=== PATIENT | male | born 1970 | race Caucasian/White ===

== ENCOUNTER 2021-11-15 01:18 | Inpatient (IN) | payer OTHER ==
[~2021-11-15] VITALS: Ht 188 cm; Wt 124.5 kg
[2021-11-15] MEDS ORDERED: DexAMETHasone SOD PHOS 10MG/1ML VIAL INJ IV ONE (02:15)
[2021-11-15 02:46] LABS: Basophils # (auto) 0.2 10 ^3/uL (0-0.2); Eosinophils # (auto) 0.2 10 ^3/uL (0-0.8); Eosinophils % (auto) 1.3 % (0.0-7.0); Hematocrit 46.4 % (41.0-53.0); Hemoglobin 15.7 g/dL (13.5-17.5); Lymphocytes # (auto) 1.6 10 ^3/uL (0.4-5.4); Lymphocytes % (auto) 9.9 % (10.0-50.0); Mean Corpuscular Hgb Conc. 33.8 g/dL (32.0-36.0); Mean Corpuscular Volume 88.9 fL (80.0-100.0); Monocytes # (auto) 1.2 10 ^3/uL (0-1.3); Monocytes % (auto) 7.6 % (0.0-12.0); Neutrophils # (auto) 12.8 10 ^3/uL (1.6-8.6); Neutrophils % (auto) 80.2 % (37.0-80.0); Red Blood Cells 5.22 10^6/uL (4.5-5.90); Red Cell Distribution Width 14.8 % (11.8-14.3)
[2021-11-15 02:58] LABS: Albumin 2.5 g/dL (3.4-5.0); Calcium 8.8 mg/dL (8.5-10.1); Potassium 3.9 mmol/L (3.5-5.1)
[2021-11-15 03:01] LABS: BUN/Creatinine Ratio 15.6
[2021-11-15 03:02] LABS: INR 1.02 (0.9-1.15)
[2021-11-15 03:03] LABS: Bilirubin, Total 0.9 mg/dL (0.2-1.0); Total Protein 7.2 g/dL (6.4-8.2)
[2021-11-15] MEDS ORDERED: AZITHROMYCIN 250 MG TAB PO ONE (05:15)
[2021-11-15] MEDS ORDERED: IPRATROPIUM BROM 0.5 MG/2.5ML INH SOL NEB ONE (05:15)
[2021-11-15] MEDS ORDERED: ALBUTEROL SULF 2.5 MG/0.5ML(0.5%) NEB SOLN NEB ONE (05:15)
[2021-11-15] MEDS ORDERED: cefTRIAXone SOD 1,000 MG VL IV ONE (05:15)
[2021-11-15] MEDS ORDERED: DOCUSATE SOD 100 MG CAP PO PRN (07:00)
[2021-11-15] MEDS ORDERED: DEXTROSE (50%) 50ML SYRG IV PRN ×2 (07:00→14:00)
[2021-11-15] MEDS ORDERED: ACETAMINOPHEN 325 MG TAB PO PRN (07:00)
[2021-11-15] MEDS ORDERED: ONDANSETRON HCL 4 MG/2 ML VIAL IV PRN (07:00)
[2021-11-15] MEDS ORDERED: HYDROcodone-ACET 5/325MG TAB PO PRN (07:00)
[2021-11-15] MEDS ORDERED: MORPHINE SULFATE INJECTION 2 MG/ML SYRG IV PRN (07:15)
[2021-11-15] MEDS ORDERED: NITROGLYCERIN 0.4 MG SL TAB SL PRN (07:15)
[2021-11-15] MEDS ORDERED: IOHEXOL 350 MG/ML 100ML IJ ONE (07:47)
[2021-11-15] MEDS: ACCU-CHEK COMFORT CURVE STRIP VI SCH ×3 (08:42→17:11)
[2021-11-15] MEDS: InsuLIN REG 1unit/0.01ml Soln (100units/ml) SC SCH ×3 (08:45→17:00)
[2021-11-15 09:09] LABS: Urine Bacteria NONE SEEN /hpf (None Seen); Urine Blood Negative /uL (Negative); Urine Mucus FEW (None Seen); Urine Specific Gravity 1.021 (1.001-1.035); Urine WBC 1 /hpf (0 - 3)
[2021-11-15] MEDS: cefTRIAXone 1GM/50ML D5W 50 ML IV SCH (09:09)
[2021-11-15 09:18] LABS: Basophils # (auto) 0.1 10 ^3/uL (0-0.2); Basophils % (auto) 0.4 % (0.0-2.0); Eosinophils # (auto) 0 10 ^3/uL (0-0.8); Eosinophils % (auto) 0.1 % (0.0-7.0); Hematocrit 46.4 % (41.0-53.0); Hemoglobin 15.6 g/dL (13.5-17.5); Lymphocytes # (auto) 1.2 10 ^3/uL (0.4-5.4); Lymphocytes % (auto) 6.6 % (10.0-50.0); Mean Corpuscular Hgb Conc. 33.7 g/dL (32.0-36.0); Mean Corpuscular Volume 89.1 fL (80.0-100.0); Monocytes # (auto) 0.7 10 ^3/uL (0-1.3); Monocytes % (auto) 4.1 % (0.0-12.0); Neutrophils # (auto) 15.6 10 ^3/uL (1.6-8.6); Neutrophils % (auto) 88.8 % (37.0-80.0); Red Blood Cells 5.21 10^6/uL (4.5-5.90); Red Cell Distribution Width 14.8 % (11.8-14.3); White Blood Cell 17.6 10^3/uL (4.4-10.8)
[2021-11-15] MEDS ORDERED: ASPirin 81 mg TAB PO SCH (10:00)
[2021-11-15] MEDS ORDERED: ENOXAPARIN SOD 40 MG/0.4 ML SYRINGE SC SCH ×2 (10:00→22:00)
[2021-11-15] MEDS ORDERED: FAMOTIDINE (10MG/ML) 2ML VL IV SCH (10:00)
[2021-11-15 10:14] LABS: Albumin 2.5 g/dL (3.4-5.0); Calcium 8.7 mg/dL (8.5-10.1); Potassium 4.1 mmol/L (3.5-5.1)
[2021-11-15 10:17] LABS: BUN/Creatinine Ratio 16.7; Bilirubin, Total 0.7 mg/dL (0.2-1.0); Total Protein 7.2 g/dL (6.4-8.2)
[2021-11-15] MEDS: ZINC SULFATE 220mg CAP or TAB PO SCH (10:42)
[2021-11-15] MEDS: AZITHROMYCIN 500MG/ 250ML 250 ML IV SCH (10:42)
[2021-11-15] MEDS: ASCORBIC ACID 500 MG TAB PO SCH ×2 (10:43→22:17)
[2021-11-15] MEDS: MULTIPLE VITAMIN TAB PO SCH (10:43)
[2021-11-15] MEDS ORDERED: REMDESIVIR PER PHARMACY 0 ML IV SCH (12:45)
[2021-11-15] MEDS ORDERED: ACETAMINOPHEN 500 MG TAB PO PRN (12:45)
[2021-11-15] MEDS ORDERED: methylPREDNISolone SOD SUCC 40 MG/ML VL IV SCH (14:00)
[2021-11-15] MEDS: SODIUM CHLOR 0.9% PF (SALINE LOCK) 10ML VIAL/SYR IV SCH ×2 (14:24→22:14)
[2021-11-15] MEDS: APIXABAN 5 MG TAB PO SCH ×2 (14:25→22:15)
[2021-11-15] MEDS ORDERED: REMDESIVIR 200 MG in NS 210ml LOADING DOSE ADULT IV ONE (16:00)
[2021-11-15] MEDS: IVERMECTIN 3 MG TAB PO SCH (17:00)
[2021-11-15] MEDS: FAMOTIDINE 20 MG TAB PO SCH (22:16)
[2021-11-16 02:22] VITALS: BP 127/68
[2021-11-16 05:00] VITALS: BP 135/51
[2021-11-16] MEDS: ACCU-CHEK COMFORT CURVE STRIP VI SCH ×2 (06:27→16:43)
[2021-11-16] MEDS: InsuLIN REG 1unit/0.01ml Soln (100units/ml) SC SCH ×2 (06:27→16:43)
[2021-11-16] MEDS: SODIUM CHLOR 0.9% PF (SALINE LOCK) 10ML VIAL/SYR IV SCH ×3 (06:27→21:16)
[2021-11-16] MEDS: BUDESONIDE (INHALATION) 180 MCG IH IN SCH ×2 (07:10→21:20)
[2021-11-16 08:23] LABS: Basophils # (auto) 0.2 10 ^3/uL (0-0.2); Eosinophils # (auto) 0.1 10 ^3/uL (0-0.8); Eosinophils % (auto) 0.4 % (0.0-7.0); Hematocrit 45.6 % (41.0-53.0); Hemoglobin 15.2 g/dL (13.5-17.5); Lymphocytes # (auto) 2.7 10 ^3/uL (0.4-5.4); Lymphocytes % (auto) 16.8 % (10.0-50.0); Mean Corpuscular Hemoglobin 29.8 pg (28.0-32.0); Mean Corpuscular Hgb Conc. 33.4 g/dL (32.0-36.0); Mean Corpuscular Volume 89.1 fL (80.0-100.0); Monocytes # (auto) 1.4 10 ^3/uL (0-1.3); Monocytes % (auto) 8.5 % (0.0-12.0); Neutrophils # (auto) 11.8 10 ^3/uL (1.6-8.6); Neutrophils % (auto) 73.3 % (37.0-80.0); Nucleated Red Blood Cells % 0.1 %; Red Blood Cells 5.11 10^6/uL (4.5-5.90); Red Cell Distribution Width 14.6 % (11.8-14.3); White Blood Cell 16.1 10^3/uL (4.4-10.8)
[2021-11-16 08:56] LABS: Potassium 4.4 mmol/L (3.5-5.1)
[2021-11-16 09:00] VITALS: BP 118/72
[2021-11-16 09:33] LABS: Albumin 2.6 g/dL (3.4-5.0); BUN/Creatinine Ratio 21.3; Bilirubin, Total 0.6 mg/dL (0.2-1.0); Total Protein 7.7 g/dL (6.4-8.2)
[2021-11-16] MEDS: IVERMECTIN 3 MG TAB PO SCH (10:00)
[2021-11-16] MEDS: ASCORBIC ACID 500 MG TAB PO SCH ×2 (10:01→21:16)
[2021-11-16] MEDS: APIXABAN 5 MG TAB PO SCH (10:01)
[2021-11-16] MEDS: MULTIPLE VITAMIN TAB PO SCH (10:01)
[2021-11-16] MEDS: ZINC SULFATE 220mg CAP or TAB PO SCH (10:01)
[2021-11-16] MEDS: CHOLECALCIFEROL (VITD3) 2,000 UNIT CAP/TAB PO SCH (10:01)
[2021-11-16] MEDS: DexAMETHasone SOD PHOS 10MG/1ML VIAL INJ IV SCH (10:02)
[2021-11-16] MEDS: cefTRIAXone 1GM/50ML D5W 50 ML IV SCH (10:02)
[2021-11-16] MEDS: FAMOTIDINE 20 MG TAB PO SCH ×2 (10:02→21:16)
[2021-11-16] MEDS: ALBUTEROL SULF HFA 90MCG INH 200DOSE IN PRN (11:06)
[2021-11-16] MEDS: AZITHROMYCIN 500MG/ 250ML 250 ML IV SCH (12:12)
[2021-11-16 13:00] VITALS: BP 135/79
[2021-11-16] MEDS: REMDESIVIR 100mg 100 MG in SODIUM CHL 0.9% 230 ML IV SCH (15:59)
[2021-11-16 17:00] VITALS: BP 116/77
[2021-11-16 22:00] VITALS: BP 119/65
[2021-11-17 05:00] VITALS: BP 131/84
[2021-11-17] MEDS: SODIUM CHLOR 0.9% PF (SALINE LOCK) 10ML VIAL/SYR IV SCH ×3 (05:57→21:20)
[2021-11-17] MEDS: InsuLIN REG 1unit/0.01ml Soln (100units/ml) SC SCH ×2 (05:57→17:00)
[2021-11-17] MEDS: ACCU-CHEK COMFORT CURVE STRIP VI SCH ×2 (05:58→17:00)
[2021-11-17 09:00] VITALS: BP 105/56
[2021-11-17] MEDS: BUDESONIDE (INHALATION) 180 MCG IH IN SCH ×2 (10:00→21:00)
[2021-11-17] MEDS: DexAMETHasone SOD PHOS 10MG/1ML VIAL INJ IV SCH (10:06)
[2021-11-17] MEDS: cefTRIAXone 1GM/50ML D5W 50 ML IV SCH (10:06)
[2021-11-17] MEDS: AZITHROMYCIN 500MG/ 250ML 250 ML IV SCH (10:06)
[2021-11-17] MEDS: ZINC SULFATE 220mg CAP or TAB PO SCH (10:06)
[2021-11-17] MEDS: CHOLECALCIFEROL (VITD3) 2,000 UNIT CAP/TAB PO SCH (10:07)
[2021-11-17] MEDS: FAMOTIDINE 20 MG TAB PO SCH ×2 (10:07→21:20)
[2021-11-17] MEDS: MULTIPLE VITAMIN TAB PO SCH (10:07)
[2021-11-17] MEDS: ASCORBIC ACID 500 MG TAB PO SCH ×2 (10:07→21:21)
[2021-11-17 12:21] LABS: Basophils # (auto) 0 10 ^3/uL (0-0.2); Basophils % (auto) 0.1 % (0.0-2.0); Eosinophils # (auto) 0 10 ^3/uL (0-0.8); Eosinophils % (auto) 0.1 % (0.0-7.0); Hematocrit 46.5 % (41.0-53.0); Hemoglobin 14.9 g/dL (13.5-17.5); Lymphocytes # (auto) 1.8 10 ^3/uL (0.4-5.4); Lymphocytes % (auto) 13.3 % (10.0-50.0); Mean Corpuscular Hemoglobin 28.8 pg (28.0-32.0); Mean Corpuscular Hgb Conc. 31.9 g/dL (32.0-36.0); Monocytes % (auto) 7.2 % (0.0-12.0); Neutrophils % (auto) 79.3 % (37.0-80.0); Nucleated Red Blood Cells % 0.1 %; Red Blood Cells 5.17 10^6/uL (4.5-5.90); Red Cell Distribution Width 14.7 % (11.8-14.3); White Blood Cell 13.9 10^3/uL (4.4-10.8)
[2021-11-17 12:22] LABS: Albumin 2.7 g/dL (3.4-5.0); Calcium 8.6 mg/dL (8.5-10.1); Potassium 4.6 mmol/L (3.5-5.1)
[2021-11-17 12:25] LABS: BUN/Creatinine Ratio 22.1; Bilirubin, Total 0.3 mg/dL (0.2-1.0); Total Protein 6.8 g/dL (6.4-8.2)
[2021-11-17 13:00] VITALS: BP 121/83
[2021-11-17] MEDS: ALBUTEROL SULF HFA 90MCG INH 200DOSE IN PRN (15:07)
[2021-11-17] MEDS: REMDESIVIR 100mg 100 MG in SODIUM CHL 0.9% 230 ML IV SCH (15:42)
[2021-11-17 17:00] VITALS: BP 141/81
[2021-11-17] MEDS ORDERED: TEMAZEPAM 15 MG CAP PO ONE (20:45)
[2021-11-17 22:00] VITALS: BP 138/82
[2021-11-18 05:00] VITALS: BP 128/76
[2021-11-18] MEDS: ACCU-CHEK COMFORT CURVE STRIP VI SCH (06:16)
[2021-11-18] MEDS: InsuLIN REG 1unit/0.01ml Soln (100units/ml) SC SCH (06:16)
[2021-11-18] MEDS: SODIUM CHLOR 0.9% PF (SALINE LOCK) 10ML VIAL/SYR IV SCH (06:16)
[2021-11-18] MEDS: ALBUTEROL SULF HFA 90MCG INH 200DOSE IN PRN (06:39)
[2021-11-18] MEDS: BUDESONIDE (INHALATION) 180 MCG IH IN SCH (06:39)
[2021-11-18] MEDS ORDERED: DEX4T PO (07:25)
[2021-11-18] MEDS ORDERED: ALBUAER3 IN (07:25)
[2021-11-18] MEDS ORDERED: APIX5TAB PO (07:25)
[2021-11-18] MEDS ORDERED: ASCO500T11 PO (07:25)
[2021-11-18 07:51] LABS: Basophils # (auto) 0.2 10 ^3/uL (0-0.2); Eosinophils # (auto) 0 10 ^3/uL (0-0.8); Hematocrit 45.7 % (41.0-53.0); Hemoglobin 15.3 g/dL (13.5-17.5); Lymphocytes # (auto) 2.6 10 ^3/uL (0.4-5.4); Lymphocytes % (auto) 16.3 % (10.0-50.0); Mean Corpuscular Hgb Conc. 33.5 g/dL (32.0-36.0); Mean Corpuscular Volume 89.4 fL (80.0-100.0); Monocytes # (auto) 1.5 10 ^3/uL (0-1.3); Neutrophils % (auto) 73.7 % (37.0-80.0); Nucleated Red Blood Cells % 0.1 %; Red Blood Cells 5.11 10^6/uL (4.5-5.90); Red Cell Distribution Width 14.7 % (11.8-14.3); White Blood Cell 16.2 10^3/uL (4.4-10.8)
[2021-11-18 08:09] LABS: Potassium 4.5 mmol/L (3.5-5.1)
[2021-11-18 08:17] LABS: Albumin 2.7 g/dL (3.4-5.0); BUN/Creatinine Ratio 22.5; Bilirubin, Total 0.2 mg/dL (0.2-1.0); Calcium 8.4 mg/dL (8.5-10.1); Total Protein 6.7 g/dL (6.4-8.2)
[2021-11-18 08:35] VITALS: BP 141/82
[2021-11-18] MEDS: cefTRIAXone 1GM/50ML D5W 50 ML IV SCH (09:49)
[2021-11-18] MEDS: DexAMETHasone SOD PHOS 10MG/1ML VIAL INJ IV SCH (09:49)
[2021-11-18] MEDS: AZITHROMYCIN 500MG/ 250ML 250 ML IV SCH (09:49)
[2021-11-18] MEDS: ZINC SULFATE 220mg CAP or TAB PO SCH (09:50)
[2021-11-18] MEDS: CHOLECALCIFEROL (VITD3) 2,000 UNIT CAP/TAB PO SCH (09:50)
[2021-11-18] MEDS: MULTIPLE VITAMIN TAB PO SCH (09:50)
[2021-11-18] MEDS: FAMOTIDINE 20 MG TAB PO SCH (09:50)
[2021-11-18] MEDS: ASCORBIC ACID 500 MG TAB PO SCH (09:50)
[2021-11-22] MEDS ORDERED: APIXABAN 5 MG TAB PO SCH (10:00)
== END 2021-11-18 11:40 | disposition home or self-care (01) | DRG 177 ==
LOC: EDBD 01:18 → ER 01:18 → TELE 07:13 → TELE-WESTW 23:41
PROVIDERS: ADMIT Nurse Practitioner Family; ATTEND Internal Medicine
PROC: XW033E5 Introduction of Remdesivir Anti-infective into Peripheral Vein, Percutaneous Approach, New Technology Group 5 (ICD-10-PCS; principal; 2021-11-15)
DX: U07.1 COVID-19 (principal); J12.82 Pneumonia due to coronavirus disease 2019; I26.99 Other pulmonary embolism without acute cor pulmonale; J96.01 Acute respiratory failure with hypoxia; E88.09 Other disorders of plasma-protein metabolism, not elsewhere classified; I10 Essential (primary) hypertension; E66.01 Morbid (severe) obesity due to excess calories; R73.9 Hyperglycemia, unspecified; D89.839 Cytokine release syndrome, grade unspecified; J43.9 Emphysema, unspecified; Z68.35 Body mass index [BMI] 35.0-35.9, adult; Z72.0 Tobacco use
CPT/HCPCS: 36415; 71045; 71275; 80053; 81001; 82728; 82962; 83036; 83880; 84484; 85025; 85379; 85610; 85730; 87426; 93005; 94640; 96365; 96367; 96375; G0378; J0696; J1100; J3490

== ENCOUNTER 2025-02-06 15:23 | Emergency (ER) | payer OTHER ==
[~2025-02-06] VITALS: Ht 190.5 cm; Wt 113.6 kg
[~2025-02-06 15:23] MED LIST: ALBUAER3 IN; APIX5TAB PO; ASCO500T11 PO; DEX4T PO
--- NOTE | 2025-02-06 15:52 | ED.PDOC ---
History of Present Illness HPI Comments 54 y/o M, with a Hx of COPD, DVT, PE, and former tobacco use, presents with and [id number] for c/o left-sided chest pain, today. Patient reports on ongoing chest pain for the past 2x months, that worsened, today. He reports it a 6/10 in severity and being sharp in quality. Per , patient was reported to have been found with a PE and hospitalized, during a trip to [place] 3x weeks ago. During admission, patient was stated to have received a thrombectomy and chest-tube and has been on Eliquis since then. Patient denies any shortness of breath, palpitations, dizziness, lightheadedness, nausea, vomiting, or other associated symptoms or modifiers at this time. Chief Complaint: Chest Pain Time Seen by MD: 15:30 Primary Care Provider: MARIA T Reviewed Notes: Nurses Notes, Medications, Allergies Allergies: Coded Allergies: NO KNOWN ALLERGIES (Unverified , 09/29/11) Home Meds Active Scripts Dexamethasone (Decadron) 4 Mg Tb, 6 MG PO UD for 5 Days, #5 TAB Prov:MJ BAEZ MD 11/18/21 Ascorbic Acid (VITAMIN C TABLET) 500 Mg Tb, 500 MG PO BID, #60 TAB Prov:MJ BAEZ MD 11/18/21 Apixaban Base (ELIQUIS) 5 Mg Tab, 5 MG PO BID, #60 TAB Prov:MJ BAEZ MD 11/18/21 Albuterol Sulfate (VENTOLIN MDI) 90 Mcg Ih, 180 MCG IN TIDPRN PRN, #1 INH Prov:MJ BAEZ MD 11/18/21 Information Source: Patient, Spouse Mode of Arrival: Wheelchair Severity: Moderate Timing: Months Duration: Since onset Prehospital treatment: None Past Medical History PAST MEDICAL HISTORY: COPD, PE Past Medical History (Other): DVT Surgical History: Hernia Repair Family History Family History: No family hx of DM Social History Smoker: Quit Greater Than 1 Year, Cigarettes Alcohol: Denies ETOH Use Drugs: Denies Drug Use Lives In: Home Constitutional: denies: chills, diaphoresis, fatigue, fever, malaise, sweats, weakness, others EENTM: denies: blurred vision, double vision, ear bleeding, ear discharge, ear drainage, ear pain, ear ringing, eye pain, eye redness, hearing loss, mouth pain, mouth swelling, nasal discharge, nose bleeding, nose congestion, nose pain, photophobia, tearing, throat pain, throat swelling, voice changes, others Respiratory: denies: cough, hemoptysis, orthopnea, SOB at rest, shortness of breath, SOB with excertion, stridor, wheezing, others Cardiovascular: reports: chest pain; denies: dizzy spells, diaphoresis, Dyspnea on exertion, edema, irregular heart beat, left arm pain, lightheadedness, palpitations, PND, syncope, others Gastrointestinal: denies: abdomen distended, abdominal pain, blood streaked bowels, constipated, diarrhea, dysphagia, difficulty swallowing, hematemesis, melena, nausea, poor appetite, poor fluid intake, rectal bleeding, rectal pain, vomiting, others Genitourinary: denies: burning, dysuria, flank pain, frequency, hematuria, incontinence, penile discharge, penile sore, pain, testicle pain, testicle swelling, urgency, others Neurological: denies: dizziness, fainting, headache, left sided numbness, left sided weakness, numbness, paresthesia, pre-existing deficit, right sided numbness, right sided weakness, seizure, speech problems, tingling, tremors, weakness, others Musculoskeletal: denies: back pain, gout, joint pain, joint swelling, muscle pain, muscle stiffness, neck pain, others Integumetry: denies: bruises, change in color, change in hair/nails, dryness, laceration, lesions, lumps, rash, wounds, others Allergic/Immunocompromised: denies: Difficulty Healing, Frequent Infections, Hives, Itching, others Hematologic/Lymphatic: denies: anemia, blood clots, easy bleeding, easy bruising, swollen glands, others Endocrine: denies: excessive hunger, excessive sweating, excessive thirst, excessive urination, flushing, intolerance to cold, intolerance to heat, unexplained weight gain, unexplained weight loss, others Psychiatric: denies: anxiety, bipolar disorder, depression, hopeless, panic disorder, schizophrenia, sleepless, suicidal, others All Other Systems: Reviewed and Negative Physical Exam General Appearance: Moderate Distress HEENT: Pale Conjuntivae (L), Pale Conjuntivae (R), Pharynx Normal, TMs Normal Neck: Full Range of Motion, Non-Tender, Normal, Normal Inspection Respiratory: Chest Non-Tender, Lungs Clear, No Accessory Muscle Use, No Respiratory Distress, Normal Breath Sounds Cardiovascular: No Edema, No JVD, No Murmur, No Gallop, Tachycardia Breast Exam: Deferred Gastrointestinal: No Organomegaly, Non Tender, No Pulsatile Mass, Normal Bowel Sounds, Soft Genitalia: Deferred Pelvic: Deferred Rectal: Deferred Extremities: No calf tenderness, Normal capillary refill, No pedal edema Musculoskeletal : Apperance: Normal Neurologic: Alert, medical scientific liaison II-XII nml as Tested, No Motor Deficits, Normal Affect, Normal Mood, No Sensory Deficits Cerebellar Function: Normal Reflexes: Normal Skin: Dry, Pallor, Warm Lymphatic: No Adenopathy Was a procedure done? Was a procedure done?: No EKG EKG : Pulse Rate (adult): 115 [place]: Normal Cardiac Rhythm: ST Block: None Hypertrophy: None ST: Normal Differential Dx Considerations may include: ME, PE, ACS, URI, PNA, among others X-Ray, Labs, Meds, VS Vital Signs Date Time Temp Pulse Resp B/P (MAP) Pulse Ox O2 Delivery O2 Flow Rate FiO2 02/06/25 17:14 103 02/06/25 15:52 115 02/06/25 15:30 100.0 108 24 137/68 (91) 93 100.0 02/06/25 15:27 115 Lab Test 02/06/25 17:12 02/06/25 15:28 Range/Units Troponin I High Sensitivity 13 12 </=54 ng/L White Blood Count 14.2 H 4.4-10.8 10^3/uL Red Blood Count 4.78 4.5-5.90 10^6/uL Hemoglobin 14.1 13.5-17.5 g/dL Hematocrit 42.4 41.0-53.0 % Mean Corpuscular Volume 88.7 80.0-100.0 fL Mean Corpuscular Hemoglobin 29.4 28.0-32.0 pg Mean Corpuscular Hemoglobin Concent 33.2 32.0-36.0 g/dL Red Cell Distribution Width 14.2 11.8-14.3 % Platelet Count 229 140-450 10^3/uL Mean Platelet Volume 7.5 6.9-10.8 fL Neutrophils (%) (Auto) 71.8 37.0-80.0 % Lymphocytes (%) (Auto) 18.0 10.0-50.0 % Monocytes (%) (Auto) 7.1 0.0-12.0 % Eosinophils (%) (Auto) 2.4 0.0-7.0 % Basophils (%) (Auto) 0.7 0.0-2.0 % Neutrophils # (Auto) 10.2 H 1.6-8.6 10 ^3/uL Lymphocytes # (Auto) 2.5 0.4-5.4 10 ^3/uL Monocytes # (Auto) 1.0 0-1.3 10 ^3/uL Eosinophils # (Auto) 0.3 0-0.8 10 ^3/uL Basophils # (Auto) 0.1 0-0.2 10 ^3/uL Nucleated Red Blood Cells 0.0 % D-Dimer, Quantitative 17.06 H 0.0-0.49 mg/L FEU Sodium Level 138 136-145 mmol/L Potassium Level 3.8 3.5-5.1 mmol/L Chloride Level 102 98-107 mmol/L Carbon Dioxide Level 24 20-31 mmol/L Anion Gap 12 5-15 Blood Urea Nitrogen 9 9-23 mg/dL Creatinine 0.92 0.700-1.30 mg/dL Glomerular Filtration Rate Calc 99 >90 mL/min BUN/Creatinine Ratio 9.8 L 10.0-20.0 Serum Glucose 213 H 74-106 mg/dL Calcium Level 10.0 8.7-10.4 mg/dL B-Type Natriuretic Peptide 36.98 0-100 pg/mL The patient's CBC shows an elevated white blood cell count of 14.2 The rest of the CBC is within normal limits The D-dimer is 17.06 The chemistry panel is within normal limits The BNP is within normal limits. The concern was that the patient may have an increasing pulmonary embolus and the CAT scan was done with contrast and shows: IMPRESSION: 1. Multiple pulmonary emboli in the subsegmental branch of the left lower lobe. 2. 4.1 cm pulmonary mass in the left upper lobe concerning for neoplastic process. 3. Scattered mediastinal lymph nodes some of which are upper limits of normal in size and are most likely reactive lymph nodes. We did contact [facility] and they did confirmed with the patient did have a smaller mass in the area of the left upper lobe that was in the 3 cm range At this time they feel that the patient was stable for transfer so the patient will be transferred to their facility Images Reviewed?: Images reviewed and evaluated by me Time of 1ST Reevaluation: 16:00 Reevaluation 1ST: Unchanged Patient Education/Counseling: Diagnosis, Treatment, Prognosis Family Education/Counseling: Diagnosis, Treatment, Prognosis Departure 1 Departure Time of Disposition: 18:46 Impression: Primary Impression: Acute chest pain Additional Impressions: Pulmonary embolus Qualified Codes: I26.94 - Multiple subsegmental thrombotic pulmonary emboli without acute cor pulmonale Mass of left lung Disposition: 51 HOSPICE/MEDICAL FACILITY Condition: Fair Critical Care Note Critical Care Time?: Yes (45 min-critical care time only) Stability Stability form required: Yes Stable for transfer: Intended for transfer (Health plan request transfer), To designated facility Heart Score Heart Score: Heart Score Response (Comments) Value History Highly Suspicious 2 EKG Normal 0 Age 45-64 1 Risk Factors >3 or Hx ASHD 2 Troponin Normal limit 0 Total 5 I personally scribed for MIAH PRO MD ([email or web address]) on 02/06/25 at 15:52. Electronically submitted by Solo Hernandez [email or web address]). MIAH PRO MD Feb 06, 2025 15:52
[2025-02-06 16:14] LABS: Basophils # (auto) 0.1 10 ^3/uL (0-0.2); Basophils % (auto) 0.7 % (0.0-2.0); Eosinophils # (auto) 0.3 10 ^3/uL (0-0.8); Eosinophils % (auto) 2.4 % (0.0-7.0); Hematocrit 42.4 % (41.0-53.0); Hemoglobin 14.1 g/dL (13.5-17.5); Lymphocytes # (auto) 2.5 10 ^3/uL (0.4-5.4); Mean Corpuscular Hemoglobin 29.4 pg (28.0-32.0); Mean Corpuscular Hgb Conc. 33.2 g/dL (32.0-36.0); Mean Corpuscular Volume 88.7 fL (80.0-100.0); Monocytes % (auto) 7.1 % (0.0-12.0); Neutrophils # (auto) 10.2 10 ^3/uL (1.6-8.6); Neutrophils % (auto) 71.8 % (37.0-80.0); Platelet Count (auto) 229 10^3/uL (140-450); Red Blood Cells 4.78 10^6/uL (4.5-5.90); Red Cell Distribution Width 14.2 % (11.8-14.3); White Blood Cell 14.2 10^3/uL (4.4-10.8)
[2025-02-06 16:23] LABS: Chloride 102 mmol/L (98-107); Potassium 3.8 mmol/L (3.5-5.1); Sodium 138 mmol/L (136-145)
[2025-02-06 16:24] LABS: Anion Gap 12 (5-15); Carbon Dioxide 24 mmol/L (20-31)
[2025-02-06 16:29] LABS: BUN/Creatinine Ratio 9.8 (10.0-20.0); Blood Urea Nitrogen 9 mg/dL (9-23); Glucose 213 mg/dL (74-106)
[2025-02-06] MEDS: IOHEXOL 350 MG/ML 100ML IJ ONE (16:46)
--- NOTE | 2025-02-06 17:15 | ECG ---
[facility] Test Date: 2025-02-06 Test Time: 17:14:05 Pat Name: CELINE TABOR Department: ER Room: Gender: M Regulatory Technician: MATIAS : 1970 Requested By: MIAH PRO Order Number: [id number] Reading MD: Jaciel Wagner Measurements Intervals [place] Rate: 103 P: 51 CT: 138 QRS: -2 QRSD: 75 T: -62 QT: 337 QTc: 441 Interpretive Statements Sinus tachycardia Abnormal R-wave progression, early transition LVH with secondary repolarization abnormality Electronically Signed On 02-08-2025 21:02:27 PDT by Jaciel Wagner Please click the below link to view image of tracing.
--- NOTE | 2025-02-06 17:44 | DVH ---
EXAM: CT Angiography Chest With Intravenous Contrast CLINICAL INDICATION: cp/sob TECHNIQUE: Axial computed tomographic angiography images of the chest with intravenous contrast. Th is CT exam was performed using one or more of the following dose reduction techniques: automated exp osure control, adjustment of the mA and/or kV according to patient size, and/or use of iterative maximus nstruction technique. MIP reconstructed images were created and reviewed. CONTRAST: RADIATION DOSE: CTDIvol = 25.12 mGy, DLP = 769.28 mGy-cm COMPARISON: CT ANGIO CHEST CONTRAST on DOS: 11/15/21 FINDINGS: PULMONARY ARTERIES: Multiple pulmonary emboli in the subsegmental branch of the left lower lobe. AORTA: No acute findings. No thoracic aortic aneurysm. LUNGS AND PLEURAL SPACES: 4.1 cm pulmonary mass in the left upper lobe concerning for neoplastic pr ocess. Lung emphysema/ COPD. No consolidation. No significant effusion. No pneumothorax. HEART: Unremarkable. No cardiomegaly. No significant pericardial effusion. No evidence of RV dys function. MEDIASTINUM: Scattered mediastinal lymph nodes some of which are upper limits of normal in size and are most likely reactive lymph nodes. BONES/JOINTS: No acute fracture. No dislocation. SOFT TISSUES: Unremarkable. LYMPH NODES: See above. OTHER FINDINGS: . IMPRESSION: 1. Multiple pulmonary emboli in the subsegmental branch of the left lower lobe. 2. 4.1 cm pulmonary mass in the left upper lobe concerning for neoplastic process. 3. Scattered mediastinal lymph nodes some of which are upper limits of normal in size and are most l ikely reactive lymph nodes. Findings were discussed with Dr. Arlene delgado on 02/06/2025 at 5:40 p.m..
[2025-02-06] MEDS: MORPHINE SULFATE 4 MG/ML SYR/VIAL IV ONE (18:30)
[2025-02-06] MEDS: ONDANSETRON HCL 4 MG/2 ML VIAL IV ONE (19:30)
[2025-02-06 20:07] VITALS: TEMP 98.1
[2025-02-06 20:09] VITALS: PULSE 100; RESP 23; O2SAT 94
[2025-02-06 20:49] VITALS: BP 122/86; PULSE 100; RESP 21
--- NOTE | 2025-02-09 06:48 | ECG ---
[facility] Test Date: 2025-02-06 Test Time: 15:27:49 Pat Name: CELINE TABOR Department: ER Room: Gender: M Manager Trust: STUART : 1970 Requested By: MIAH PRO Order Number: [id number] Reading MD: Measurements Intervals [place] Rate: 115 P: 38 MI: 141 QRS: -1 QRSD: 74 T: -60 QT: 321 QTc: 444 Interpretive Statements Sinus tachycardia Abnormal R-wave progression, early transition LVH with secondary repolarization abnormality Please click the below link to view image of tracing.
== END 2025-02-06 18:24 | disposition short-term general hospital (02) ==
LOC: ER 15:23
DX: I26.99 Other pulmonary embolism without acute cor pulmonale (principal); R91.8 Other nonspecific abnormal finding of lung field; J44.9 Chronic obstructive pulmonary disease, unspecified; Z86.718 Personal history of other venous thrombosis and embolism; Z87.891 Personal history of nicotine dependence; Z79.01 Long term (current) use of anticoagulants; Z98.890 Other specified postprocedural states
CPT/HCPCS: 36415; 71275; 80048; 83880; 84484; 85025; 85379; 93005; 96374; 96375; 99291; J2270; J2405; Q9967

== ENCOUNTER 2025-03-15 23:30 | Emergency (ER) | payer MEDICAID ==
[~2025-03-15] VITALS: Ht 185.4 cm; Wt 136.4 kg
--- NOTE | 2025-03-15 23:52 | ED.PDOC ---
SOB-HPI HPI Comments 54 year old male was BIBA with a PMHx of COPD, and PE associated to the c/c of SOB and Bilateral Leg Swelling. Pt states that his called 911 after she noticed him struggling to take in deep breaths. Pt states that his SOB has been going on for the past month with no alleviating factors at this time. Pt states that he previously had a blood clot that went down his left leg in November and was flown to [facility] to get it removed. Pt notes to being on 4L O2 at home. Pt denies any other pain or sick contact at this point in time. Time Seen by MD: 23:46 Primary Care Provider: FAIZAN Huertas notes: Nurses Notes, Paper Rewinder Operator Notes, Medications, Allergies Information Source: Patient, Emergency Med Personnel Mode of Arrival: EMS Severity: Moderate Timing: Hours Duration: Since onset, Hours Context: At Rest PE Risk Factors: None History of: COPD Prehospital treatment: Oxygen Modifying Factors: Rest Associated Signs and Symptoms: Leg Swelling Quality: Heavy Radiation: No Radiation If cough with SOB: Non-Productive Past Medical History PAST MEDICAL HISTORY: COPD, PE Surgical History: Hernia Repair Family History Family History: No family hx of DM Social History Smoker: Quit Greater Than 1 Year, Cigarettes Alcohol: Denies ETOH Use Drugs: Denies Drug Use Lives In: Home Constitutional: denies: chills, diaphoresis, fatigue, fever, malaise, sweats, weakness, others EENTM: denies: blurred vision, double vision, ear bleeding, ear discharge, ear drainage, ear pain, ear ringing, eye pain, eye redness, hearing loss, mouth pain, mouth swelling, nasal discharge, nose bleeding, nose congestion, nose pain, photophobia, tearing, throat pain, throat swelling, voice changes, others Respiratory: reports: SOB at rest, shortness of breath; denies: cough, hemoptysis, orthopnea, SOB with excertion, stridor, wheezing, others Cardiovascular: denies: chest pain, dizzy spells, diaphoresis, Dyspnea on exertion, edema, irregular heart beat, left arm pain, lightheadedness, palpitations, PND, syncope, others Gastrointestinal: denies: abdomen distended, abdominal pain, blood streaked bowels, constipated, diarrhea, dysphagia, difficulty swallowing, hematemesis, melena, nausea, poor appetite, poor fluid intake, rectal bleeding, rectal pain, vomiting, others Genitourinary: denies: burning, dysuria, flank pain, frequency, hematuria, incontinence, penile discharge, penile sore, pain, testicle pain, testicle swe lling, urgency, others Neurological: denies: dizziness, fainting, headache, left sided numbness, left sided weakness, numbness, paresthesia, pre-existing deficit, right sided numbness, right sided weakness, seizure, speech problems, tingling, tremors, weakness, others Musculoskeletal: reports: others (bilateal leg swelling); denies: back pain, gout, joint pain, joint swelling, muscle pain, muscle stiffness, neck pain Integumetry: denies: bruises, change in color, change in hair/nails, dryness, laceration, lesions, lumps, rash, wounds, others Allergic/Immunocompromised: denies: Difficulty Healing, Frequent Infections, Hives, Itching, others Hematologic/Lymphatic: denies: anemia, blood clots, easy bleeding, easy bruising, swollen glands, others Endocrine: denies: excessive hunger, excessive sweating, excessive thirst, excessive urination, flushing, intolerance to cold, intolerance to heat, unexplained weight gain, unexplained weight loss, others Psychiatric: denies: anxiety, bipolar disorder, depression, hopeless, panic disorder, schizophrenia, sleepless, suicidal, others All Other Systems: Reviewed and Negative Physical Exam General Appearance: Mild Distress, Obese HEENT: Normal ENT Inspection, Pharynx Normal, TMs Normal Neck: Full Range of Motion, Non-Tender, Normal, Normal Inspection Respiratory: Chest Non-Tender, Decreased Breath Sounds, Lungs Clear, No Accessory Muscle Use, No Respiratory Distress, Normal Breath Sounds Cardiovascular: No Edema, No JVD, No Murmur, No Gallop, Normal Peripheral Pulses, Regular Rate/Rhythm Breast Exam: Deferred Gastrointestinal: No Organomegaly, Non Tender, No Pulsatile Mass, Normal Bowel Sounds, Soft Genitalia: Deferred Pelvic: Deferred Rectal: Deferred Extremities: Inflammation, Leg edema, Normal capillary refill, Normal inspection, Normal range of motion Musculoskeletal : Apperance: Normal Neurologic: Alert, green marketer II-XII nml as Tested, No Motor Deficits, Normal Affect, Normal Mood, No Sensory Deficits Cerebellar Function: Normal Reflexes: Normal Skin: Dry, Normal Color, Warm Lymphatic: No Adenopathy Was a procedure done? Was a procedure done?: No Differential Dx Differential Diagnosis: Asthma, Bronchitis, CHF, COPD, Pneumonia, Pulmonary Embolism, URI, Other X-Ray, Labs, Meds, VS Vital Signs Date Time Temp Pulse Resp B/P (MAP) Pulse Ox O2 Delivery O2 Flow Rate FiO2 03/16/25 01:01 95 25 121/62 03/16/25 00:17 18 96 Nasal Cannula* 3 32 03/15/25 23:35 98.3 106 25 132/90 (104) 95 98.3 03/15/25 23:34 101 Lab Test 03/16/25 00:06 03/15/25 23:55 Range/Units Blood Gas Specimen Type Venous Blood Gas Sample Site Vbg - n/a Blood Gas Patient Temperature 37.0 Arterial Blood Date Drawn [id number] Greg Test N/a Venous Blood pH 7.447 H 7.320-7.430 Venous Blood pCO2 at Patient Temp 36.1 L 38.0-54.0 mmHg Venous Blood pO2 at Patient Temp 58.4 H 23.0-48.0 mmHg Venous Blood HCO3 24.4 22.0-29.0 mmol/L Venous Bld O2 Saturation (Measured) 90.7 H 60.0-85.0 % Venous Blood Base Excess 0.7 -2.0-3.0 mmol/L Venous Blood Total Hemoglobin 14.2 13.5-17.5 g/dL Venous Blood Oxyhemoglobin 87.7 H 0.0-79.0 % Venous Blood Carboxyhemoglobin 2.6 H 0.5-1.5 % Venous Blood Methemoglobin 0.7 0.0-1.5 % Blood Gas Liter Flow 3.00 Blood Gas Modality Nasal cannula FiO2 % 32.0 White Blood Count 14.8 H 4.4-10.8 10^3/uL Red Blood Count 4.88 4.5-5.90 10^6/uL Hemoglobin 13.4 L 13.5-17.5 g/dL Hematocrit 41.1 41.0-53.0 % Mean Corpuscular Volume 84.1 80.0-100.0 fL Mean Corpuscular Hemoglobin 27.5 L 28.0-32.0 pg Mean Corpuscular Hemoglobin Concent 32.7 32.0-36.0 g/dL Red Cell Distribution Width 16.0 H 11.8-14.3 % Platelet Count 158 140-450 10^3/uL Mean Platelet Volume 7.7 6.9-10.8 fL Neutrophils (%) (Auto) 72.3 37.0-80.0 % Lymphocytes (%) (Auto) 17.1 10.0-50.0 % Monocytes (%) (Auto) 7.8 0.0-12.0 % Eosinophils (%) (Auto) 2.0 0.0-7.0 % Basophils (%) (Auto) 0.8 0.0-2.0 % Neutrophils # (Auto) 10.7 H 1.6-8.6 10 ^3/uL Lymphocytes # (Auto) 2.5 0.4-5.4 10 ^3/uL Monocytes # (Auto) 1.2 0-1.3 10 ^3/uL Eosinophils # (Auto) 0.3 0-0.8 10 ^3/uL Basophils # (Auto) 0.1 0-0.2 10 ^3/uL Nucleated Red Blood Cells 0.0 % Prothrombin Time 43.8 H 9.3-11.8 sec Prothrombin Time INR 4.83 *H 0.9-1.15 Activated Partial Thromboplast Time 62.2 H 24.5-34.5 SEC Sodium Level 138 136-145 mmol/L Potassium Level 4.0 3.5-5.1 mmol/L Chloride Level 105 98-107 mmol/L Carbon Dioxide Level 24 20-31 mmol/L Anion Gap 9 5-15 Blood Urea Nitrogen 12 9-23 mg/dL Creatinine 0.67 L 0.700-1.30 mg/dL Glomerular Filtration Rate Calc 112 >90 mL/min BUN/Creatinine Ratio 17.9 10.0-20.0 Serum Glucose 153 H 74-106 mg/dL Calcium Level 9.5 8.7-10.4 mg/dL Total Bilirubin 0.5 0.2-1.0 mg/dL Aspartate Amino Transferase (AST) 15 13-40 U/L Alanine Aminotransferase (ALT) 18 7-40 U/L Alkaline Phosphatase 89 46-116 U/L Troponin I High Sensitivity 7 </=54 ng/L Total Protein 7.0 5.7-8.2 g/dL Albumin 4.2 3.2-4.8 g/dL Current Medications Medications (Trade) Dose Ordered Sig/Elias Route Start Time Stop Time Status Last Admin Prednisone 40 mg ONCE ONCE PO 03/16/25 00:00 03/16/25 00:01 DC 03/16/25 01:00 Albuterol (Ventolin Medneb) 5 mg ONCE ONCE NEB 03/16/25 00:00 03/16/25 00:01 DC 03/16/25 00:13 Ipratropium [place] (Atrovent Medneb) 0.5 mg ONCE ONCE NEB 03/16/25 00:00 03/16/25 00:01 DC 03/16/25 00:12 Morphine Sulfate 4 mg ONCE ONCE IV 03/16/25 00:45 03/16/25 00:46 DC 03/16/25 01:01 Ondansetron HCl (Zofran) 4 mg ONCE ONCE IV 03/16/25 00:45 03/16/25 00:46 DC 03/16/25 01:00 Time of 1ST Reevaluation: 01:13 Reevaluation 1ST: Unchanged Patient Education/Counseling: Diagnosis, Treatment Family Education/Counseling: No Family Present Departure 1 Departure Time of Disposition: 01:19 Impression: Primary Impression: COPD exacerbation Additional Impressions: Mass of left lung Pulmonary embolus Hypoxia Overdose of coumadin Disposition: ADMITTED INPATIENT Admit to: Med Surg Condition: Guarded Comments Shortness of Breath with Hypoxia in COPD Patient Chief Complaint: Shortness of breath with hypoxia History of Present Illness: 54-year-old male with history of COPD on home oxygen presents with worsening shortness of breath and low oxygen saturation at home. Patient has a significant history of right leg DVT and pulmonary embolus diagnosed a few months ago, for which he is on Coumadin therapy. He reports persistent right greater than left leg swelling. Recent workup has revealed a recurrent left-sided lung mass. Of note, patient's current INR is significantly elevated at 4.83, indicating supratherapeutic anticoagulation. Review of Systems: Respiratory: Shortness of breath, requiring supplemental oxygen Cardiovascular: No chest pain Extremities: Right greater than left leg swelling Constitutional: No fever reported All other systems reviewed and negative Medications: 1. Coumadin (Warfarin) - dose not specified 2. Home oxygen therapy Allergies: No known allergies documented Past Medical History: 1. Chronic Obstructive Pulmonary Disease (COPD) on home oxygen 2. Deep Vein Thrombosis (DVT) - right leg 3. Pulmonary Embolism - diagnosed few months ago 4. Left-sided lung mass - recurrent Vital Signs: Oxygen saturation noted to be low, requiring supplemental oxygen via nasal jairo isac Physical Exam: General: Patient stable on supplemental oxygen Extremities: Right greater than left leg swelling noted Lab Results: WBC: 14.8 (Elevated) INR: 4.83 (Supratherapeutic) Troponin: 7 (Within normal limits) Imaging and Other Relevant Results: Chest X-ray: Reveals recurrent left-sided lung mass Medical Decision Making: Summary Statement: 54-year-old male with multiple comorbidities including COPD, recent PE, and known lung mass presents with respiratory failure and supratherapeutic INR requiring intervention. Problem List: 1. Respiratory failure with hypoxia 2. COPD exacerbation 3. Subacute pulmonary embolus 4. Left-sided lung mass 5. Coumadin overdose Differential Diagnosis: 1. COPD exacerbation 2. New/recurrent PE 3. Progression of lung mass 4. Pneumonia 5. Acute blood loss due to supratherapeutic INR ED Course: Patient stabilized with supplemental oxygen. Labs and imaging obtained. Given complex presentation and multiple active issues, coordination with [facility] initiated for possible transfer or admission. Assessment and Plan: 1. Respiratory Failure with Hypoxia: - Continue supplemental oxygen therapy - Monitor oxygen saturation - Arrange admission for further management 2. COPD Exacerbation: - Continue current oxygen therapy - Consider need for steroids and bronchodilators 3. Subacute Pulmonary Embolus/DVT: - Hold Coumadin due to supratherapeutic INR - Monitor for bleeding complications 4. Left-sided Lung Mass: - Requires follow-up evaluation during admission 5. Coumadin Overdose (INR 4.83): - Hold Coumadin - Monitor for bleeding - Consider vitamin K administration based on admitting team's assessment Disposition: Contact [facility] for transfer/admission arrangements Billing Information: ICD-10: J44.1 - COPD with acute exacerbation ICD-10: J96.01 - Acute respiratory failure with hypoxia ICD-10: I26.99 - Other pulmonary embolism without acute cor pulmonale ICD-10: R91.1 - Solitary pulmonary nodule ICD-10: D68.32 - Coumarin-induced hemorrhage Critical Care Note Critical Care Time?: No Stability Stability form required: No Heart Score Heart Score: Heart Score Response (Comments) Value History Slightly Suspicious 0 EKG Normal 0 Age 45-64 1 Risk Factors 1 or 2 risk factors 1 Troponin Normal limit 0 Total 2 I personally scribed for JESSICA CARRILLO MD ([email or web address]) on 03/15/25 at 23:52. Electronically submitted by Justino Almazan ([email or web address]). JESSICA CARRILLO MD March 15, 2025 23:52
[2025-03-16] MEDS: IPRATROPIUM BROM 0.5 MG/2.5ML INH SOL NEB ONE (00:12)
[2025-03-16] MEDS: ALBUTEROL SULF 2.5 MG/0.5ML(0.5%) NEB SOLN NEB ONE (00:13)
[2025-03-16 00:25] LABS: Basophils # (auto) 0.1 10 ^3/uL (0-0.2); Basophils % (auto) 0.8 % (0.0-2.0); Eosinophils # (auto) 0.3 10 ^3/uL (0-0.8); Hematocrit 41.1 % (41.0-53.0); Hemoglobin 13.4 g/dL (13.5-17.5); Lymphocytes # (auto) 2.5 10 ^3/uL (0.4-5.4); Lymphocytes % (auto) 17.1 % (10.0-50.0); Mean Corpuscular Hemoglobin 27.5 pg (28.0-32.0); Mean Corpuscular Hgb Conc. 32.7 g/dL (32.0-36.0); Mean Corpuscular Volume 84.1 fL (80.0-100.0); Monocytes # (auto) 1.2 10 ^3/uL (0-1.3); Monocytes % (auto) 7.8 % (0.0-12.0); Neutrophils # (auto) 10.7 10 ^3/uL (1.6-8.6); Neutrophils % (auto) 72.3 % (37.0-80.0); Platelet Count (auto) 158 10^3/uL (140-450); Red Blood Cells 4.88 10^6/uL (4.5-5.90); White Blood Cell 14.8 10^3/uL (4.4-10.8)
[2025-03-16 00:35] LABS: Alanine Aminotransferase 18 U/L (7-40); Albumin 4.2 g/dL (3.2-4.8); Alkaline Phosphatase 89 U/L (46-116); Anion Gap 9 (5-15); Aspartate Aminotransferase 15 U/L (13-40); BUN/Creatinine Ratio 17.9 (10.0-20.0); Bilirubin, Total 0.5 mg/dL (0.2-1.0); Blood Urea Nitrogen 12 mg/dL (9-23); Calcium 9.5 mg/dL (8.7-10.4); Carbon Dioxide 24 mmol/L (20-31); Chloride 105 mmol/L (98-107); Sodium 138 mmol/L (136-145)
[2025-03-16 00:36] LABS: Glucose 153 mg/dL (74-106)
[2025-03-16 00:55] LABS: Partial Thromboplastin Time 62.2 SEC (24.5-34.5); Prothrombin Time 43.8 sec (9.3-11.8)
[2025-03-16] MEDS: ONDANSETRON HCL 4 MG/2 ML VIAL IV ONE (01:00)
[2025-03-16] MEDS: predniSONE 20 MG TAB PO ONE (01:00)
[2025-03-16] MEDS: MORPHINE SULFATE 4 MG/ML SYR/VIAL IV ONE (01:01)
[2025-03-16 01:02] LABS: INR 4.83 (0.9-1.15)
--- NOTE | 2025-03-16 01:07 | DVH ---
EXAM: XY CHEST PORTABLE CLINICAL HISTORY: SOB TECHNIQUE: Single AP view of the chest WID: COMPARISON: CHEST PORTABLE on DOS: 11/15/21 FINDINGS: Lines and tubes: None Chest: The heart size and pulmonary vasculature is within normal limits. Lobulated mass in the left mid to upper lung and nodular thickening of the left pleura. Small left pl eural effusion. The osseous structures are grossly intact. IMPRESSION: 1. Lobulated mass in the left mid to upper lung. 2. Small left pleural effusion. 3. Nodular thickening of the left pleura.
[2025-03-16 02:00] VITALS: RESP 18; O2SAT 92
[2025-03-16 03:10] VITALS: BP 119/59; PULSE 97; RESP 27; TEMP 98.4; O2SAT 92
--- NOTE | 2025-03-16 05:26 | ECG ---
[facility] Test Date: 2025-03-15 Test Time: 23:34:28 Pat Name: CELINE TABOR Department: ED Room: Gender: M Family Practice Md: GEOVANI : 1970 Requested By: JESSICA CARRILLO Order Number: [id number] Reading MD: Measurements Intervals [place] Rate: 101 P: 39 NM: 127 QRS: 11 QRSD: 74 T: 27 QT: 326 QTc: 423 Interpretive Statements Sinus tachycardia Abnormal R-wave progression, early transition Minimal ST depression, lateral leads Please click the below link to view image of tracing.
== END 2025-03-16 03:17 | disposition short-term general hospital (02) ==
LOC: EDBD 23:30 → ER 23:30
DX: T45.511A Poisoning by anticoagulants, accidental (unintentional), initial encounter (principal); J44.1 Chronic obstructive pulmonary disease with (acute) exacerbation; R91.8 Other nonspecific abnormal finding of lung field; R09.02 Hypoxemia; Z98.890 Other specified postprocedural states; Z79.899 Other long term (current) drug therapy; Y92.89 Other specified places as the place of occurrence of the external cause
CPT/HCPCS: 36415; 36600; 71045; 80053; 82805; 84484; 85025; 85610; 85730; 86850; 86900; 86901; 93005; 94640; 96374; 96375; 99285; J2270; J2405; J7512

== ENCOUNTER 2025-03-23 18:28 | Inpatient (IN) | payer MEDICAID ==
[~2025-03-23] VITALS: Ht 190.5 cm; Wt 122.5 kg
--- NOTE | 2025-03-23 18:38 | ED.PDOC ---
SOB-HPI HPI Comments 54-year-old male who came to ER via EMS for shortness a breath. Patient was just discharged yesterday [facility]. Was diagnosed with pulmonary emboli and DVT of the right leg, sent home on warfarin. Few hours ago patient started complaining of shortness a breath. Noted to be diaphoretic and weak, but denies any acute chest pains. No nausea or vomiting. Patient is saturating 80s on room air on scene. Patient was placed on oxygen mask at 6 L/min and given NTG while en route to the ER Chief Complaint: Shortness a breath Time Seen by MD: 18:37 Primary Care Provider: FAIZAN Information Source: Patient, Emergency Med Personnel Mode of Arrival: EMS Severity: Moderate Timing: Hours Duration: Since onset Context: With Light Exertion PE Risk Factors: None History of: COPD Prehospital treatment: NTG, Oxygen Modifying Factors: Nothing Associated Signs and Symptoms: Leg Swelling Quality: Aching Radiation: No Radiation Location: Chest (R), Chest (L) Past Medical History PAST MEDICAL HISTORY: COPD, DM, HTN, PE Surgical History: Hernia Repair Family History Family History: No family hx of DM Social History Smoker: Quit Greater Than 1 Year, Cigarettes Alcohol: Denies ETOH Use Drugs: Denies Drug Use Lives In: Home Constitutional: reports: diaphoresis, fatigue, weakness; denies: chills, fever, malaise, sweats, others EENTM: denies: blurred vision, double vision, ear bleeding, ear discharge, ear drainage, ear pain, ear ringing, eye pain, eye redness, hearing loss, mouth pain, mouth swelling, nasal discharge, nose bleeding, nose congestion, nose pain, photophobia, tearing, throat pain, throat swelling, voice changes, others Respiratory: reports: SOB at rest, shortness of breath, SOB with excertion; denies: cough, hemoptysis, orthopnea, stridor, wheezing, others Cardiovascular: denies: chest pain, dizzy spells, diaphoresis, Dyspnea on exertion, edema, irregular heart beat, left arm pain, lightheadedness, palpitations, PND, syncope, others Gastrointestinal: denies: abdomen distended, abdominal pain, blood streaked bowels, constipated, diarrhea, dysphagia, difficulty swallowing, hematemesis, melena, nausea, poor appetite, poor fluid intake, rectal bleeding, rectal pain, vomiting, others Genitourinary: denies: burning, dysuria, flank pain, frequency, hematuria, incontinence, penile discharge, penile sore, pain, testicle pain, testicle swelling, urgency, others Neurological: denies: dizziness, fainting, headache, left sided numbness, left sided weakness, numbness, paresthesia, pre-existing deficit, right sided numbness, right sided weakness, seizure, speech problems, tingling, tremors, weakness, others Musculoskeletal: denies: back pain, gout, joint pain, joint swelling, muscle pain, muscle stiffness, neck pain, others Integumetry: denies: bruises, change in color, change in hair/nails, dryness, laceration, lesions, lumps, rash, wounds, others Allergic/Immunocompromised: denies: Difficulty Healing, Frequent Infections, Hives, Itching, others Hematologic/Lymphatic: denies: anemia, blood clots, easy bleeding, easy bruising, swollen glands, others Endocrine: denies: excessive hunger, excessive sweating, excessive thirst, excessive urination, flushing, intolerance to cold, intolerance to heat, unexplained weight gain, unexplained weight loss, others Psychiatric: denies: anxiety, bipolar disorder, depression, hopeless, panic disorder, schizophrenia, sleepless, suicidal, others Physical Exam General Appearance: Moderate Distress, Obese HEENT: Normal ENT Inspection, Pharynx Normal, TMs Normal Neck: Full Range of Motion, Non-Tender, Normal, Normal Inspection Respiratory: Chest Non-Tender, Lungs Clear, No Accessory Muscle Use, Respiratory Distress Cardiovascular: No Edema, No JVD, No Murmur, No Gallop, Normal Peripheral Pulses, Regular Rate/Rhythm Breast Exam: Deferred Gastrointestinal: No Organomegaly, Non Tender, No Pulsatile Mass, Normal Bowel Sounds, Soft Genitalia: Deferred Pelvic: Deferred Rectal: Deferred Extremities: No calf tenderness, Normal capillary refill, Normal inspection, Normal range of motion, Non-tender, No pedal edema Musculoskeletal : Apperance: Normal Neurologic: Alert, double end sewer II-XII nml as Tested, No Motor Deficits, Normal Affect, Normal Mood, No Sensory Deficits Cerebellar Function: Normal Reflexes: Normal Skin: Dry, Normal Color, Warm Lymphatic: No Adenopathy Was a procedure done? Was a procedure done?: No Differential Dx Differential Diagnosis: Anxiety, Asthma, CHF, COPD, Myocardial infarction, Pneumonia, Pulmonary Embolism, Respiratory Distress X-Ray, Labs, Meds, VS Vital Signs Date Time Temp Pulse Resp B/P (MAP) Pulse Ox O2 Delivery O2 Flow Rate FiO2 03/23/25 22:00 105 19 119/56 (77) 98 03/23/25 21:53 114 22 147/53 03/23/25 21:45 109 141/74 97 Facial BiPAP Mask 45 03/23/25 20:00 110 22 143/78 (99) 98 03/23/25 19:45 114 22 125/69 98 45 03/23/25 19:33 98 Bi-Pap+ 45 45 03/23/25 19:30 114 125/69 98 Facial BiPAP Mask 45 03/23/25 19:18 98 Non-Rebreather 15 N/A 03/23/25 19:13 124 22 98 Non-Rebreather 15 N/A 03/23/25 19:00 99.9 124 22 125/69 (87) 98 99.9 03/23/25 18:47 99.9 131 32 136/81 (99) 90 99.9 Lab Test 03/23/25 21:51 03/23/25 20:33 03/23/25 18:45 Range/Units Troponin I High Sensitivity 22 24 20 </=54 ng/L White Blood Count 14.8 H 4.4-10.8 10^3/uL Red Blood Count 4.27 L 4.5-5.90 10^6/uL Hemoglobin 11.7 L 13.5-17.5 g/dL Hematocrit 35.5 L 41.0-53.0 % Mean Corpuscular Volume 83.1 80.0-100.0 fL Mean Corpuscular Hemoglobin 27.5 L 28.0-32.0 pg Mean Corpuscular Hemoglobin Concent 33.0 32.0-36.0 g/dL Red Cell Distribution Width 16.3 H 11.8-14.3 % Platelet Count 227 140-450 10^3/uL Mean Platelet Volume 7.3 6.9-10.8 fL Neutrophils (%) (Auto) 76.7 37.0-80.0 % Lymphocytes (%) (Auto) 12.4 10.0-50.0 % Monocytes (%) (Auto) 9.3 0.0-12.0 % Eosinophils (%) (Auto) 0.9 0.0-7.0 % Basophils (%) (Auto) 0.7 0.0-2.0 % Neutrophils # (Auto) 11.4 H 1.6-8.6 10 ^3/uL Lymphocytes # (Auto) 1.8 0.4-5.4 10 ^3/uL Monocytes # (Auto) 1.4 H 0-1.3 10 ^3/uL Eosinophils # (Auto) 0.1 0-0.8 10 ^3/uL Basophils # (Auto) 0.1 0-0.2 10 ^3/uL Nucleated Red Blood Cells 0.0 % Prothrombin Time 12.7 H 9.3-11.8 sec Prothrombin Time INR 1.22 H 0.9-1.15 Activated Partial Thromboplast Time 35.3 H 24.5-34.5 SEC Sodium Level 137 136-145 mmol/L Potassium Level 3.5 3.5-5.1 mmol/L Chloride Level 103 98-107 mmol/L Carbon Dioxide Level 24 20-31 mmol/L Anion Gap 10 5-15 Blood Urea Nitrogen 10 9-23 mg/dL Creatinine 0.72 0.700-1.30 mg/dL Glomerular Filtration Rate Calc 109 >90 mL/min BUN/Creatinine Ratio 13.9 10.0-20.0 Serum Glucose 149 H 74-106 mg/dL POC Glucose 152 H 70-106 mg/dl Lactic Acid Level 1.2 0.4-2.0 mmol/L Calcium Level 9.8 8.7-10.4 mg/dL B-Type Natriuretic Peptide 48.54 0-100 pg/mL Current Medications Medications (Trade) Dose Ordered Sig/Elias Route Start Time Stop Time Status Last Admin Morphine Sulfate 4 mg ONCE ONCE IV 03/23/25 21:30 03/23/25 21:31 DC 03/23/25 21:53 Ondansetron HCl (Zofran) 4 mg ONCE ONCE IV 03/23/25 21:30 03/23/25 21:31 DC 03/23/25 21:53 CHEST RADIOGRAPH Indication: sob Technique: Single frontal view of the chest was obtained COMPARISON: XY CHEST PORTABLE on DOS: 03/16/25, CHEST PORTABLE on DOS: 11/15/21 FINDINGS: Lines and Tubes: None Lungs: Mass measuring approximately 5 cm is again noted in the left upper lobe. There is bibasilar atelectasis/consolidation, progressed compared to the prior chest x-ray from 03/16/25 particularly on the right side. No evidence of pulmonary edema. Pleura: No significant pleural effusion.No pneumothorax. Cardiomediastinal contours: Unremarkable IMPRESSION: Mass measuring approximately 5 cm again noted in left upper lobe. Bibasilar atelectasis/consolidation, progressed compared to the prior chest x-ray from 03/16/25. : US BILAT LOWER DVT HISTORY: hx of dvt COMPARISON: None available at the time of dictation TECHNIQUE: Duplex Doppler evaluation of the deep venous systems of both lower extremities from the common femoral veins to the popliteal veins including color Doppler and spectral/pulsed waveform analysis was performed. FINDINGS: RIGHT SIDE: Positive deep venous thrombosis occlusive in the right common femoral to superficial femoral in the proximal to mid segment, distal popliteal artery, tibioperoneal trunk. Partial flow of the posterior tibial vein. LEFT SIDE: The common femoral vein demonstrates appropriate compressibility and waveform variability. There is compressibility/patency of the great saphenous vein at the proximal thigh. The femoral vein demonstrates appropriate compressibility and waveform variability. The deep femoral vein demonstrates appropriate compressibility and waveform variability. Left groin lymph node measuring 2.4 cm Noncompressible left popliteal vein below the level of the. Varicose veins which appear to be thrombosed. IMPRESSION: 1. Occlusive thrombosis in the right lower extremity as detailed above. 2. Nonocclusive thrombosis of the left popliteal vein. If clinical concern/symptoms persist or worsen, short-interval follow-up study is suggested. Time of 1ST Reevaluation: 18:30 Reevaluation 1ST: Unchanged Patient Education/Counseling: Diagnosis, Treatment Family Education/Counseling: No Family Present Sepsis Sepsis Reasesment Focused Exam Orders: Laboratory Tests 03/23/25 18:45: Lactic Acid Level 1.2 Departure 1 Departure Time of Disposition: 22:46 ([place] Authorization to Admit to [facility] [id number] presents with worsening acute hypoxic respiratory failure, worsening PEs, worsening DVTs.We will empirically cover patient with thrombolytics, consult inari, consult cardiology.) Impression: Primary Impression: Acute and chronic respiratory failure Additional Impressions: Shortness of breath Pulmonary embolism Qualified Codes: I26.94 - Multiple subsegmental thrombotic pulmonary emboli without acute cor pulmonale DVT (deep vein thrombosis) in Disposition: 09 ADMITTED INPATIENT Admit to: [facility] Condition: Guarded Critical Care Note Critical Care Time?: Yes (35 min-critical care time only) Critical care comment: Shortness of breath Authorized and Performed by: Lesley Bhakta MD Total critical care time: Approximately 49 minutes Due to a high probability of clinically significant, life threatening deterioration, the patient required my highest level of preparedness to intervene emergently and I personally spent this critical care time directly and personally managing the patient. This critical care time included obtaining a history; examining the patient; pulse oximetry; ordering and review of studies; arranging urgent treatment with development of a management plan; evaluation of patient's response to treatment; frequent reassessment; and, discussions with other providers. This critical care time was performed to assess and manage the high probability of imminent, life-threatening deterioration that could result in multi-organ failure. It was exclusive of separately billable procedures and treating other patients and teaching time. Please see my other sections and the rest of the note for further information on patient assessment and treatment. Stability Stability form required: No Heart Score Heart Score: Heart Score Response (Comments) Value History Moderate Suspicious [address]-Deviation 2 Age 45-64 1 Risk Factors >3 or Hx ASHD 2 Troponin Normal limit 0 Total 6 I personally scribed for LESLEY BHAKTA MD ([email or web address]) on 03/23/25 at 18:38. Electronically submitted by Frank Rhoades ([email or web address]). I personally scribed for LESLEY BHAKTA MD ([facility]) on 03/23/25 at 21:32. Electronically submitted by Frank Rhoades ([email or web address]). LESLEY BHKATA MD March 23, 2025 18:38
[2025-03-23 18:57] LABS: Basophils # (auto) 0.1 10 ^3/uL (0-0.2); Basophils % (auto) 0.7 % (0.0-2.0); Eosinophils # (auto) 0.1 10 ^3/uL (0-0.8); Eosinophils % (auto) 0.9 % (0.0-7.0); Hematocrit 35.5 % (41.0-53.0); Hemoglobin 11.7 g/dL (13.5-17.5); Lymphocytes # (auto) 1.8 10 ^3/uL (0.4-5.4); Lymphocytes % (auto) 12.4 % (10.0-50.0); Mean Corpuscular Hemoglobin 27.5 pg (28.0-32.0); Mean Corpuscular Volume 83.1 fL (80.0-100.0); Monocytes # (auto) 1.4 10 ^3/uL (0-1.3); Monocytes % (auto) 9.3 % (0.0-12.0); Neutrophils # (auto) 11.4 10 ^3/uL (1.6-8.6); Neutrophils % (auto) 76.7 % (37.0-80.0); Platelet Count (auto) 227 10^3/uL (140-450); Red Blood Cells 4.27 10^6/uL (4.5-5.90); Red Cell Distribution Width 16.3 % (11.8-14.3); White Blood Cell 14.8 10^3/uL (4.4-10.8)
[2025-03-23 19:06] LABS: Chloride 103 mmol/L (98-107); Sodium 137 mmol/L (136-145)
[2025-03-23 19:08] LABS: Calcium 9.8 mg/dL (8.7-10.4)
[2025-03-23 19:11] LABS: Anion Gap 10 (5-15); Carbon Dioxide 24 mmol/L (20-31); INR 1.22 (0.9-1.15); Partial Thromboplastin Time 35.3 SEC (24.5-34.5); Potassium 3.5 mmol/L (3.5-5.1); Prothrombin Time 12.7 sec (9.3-11.8)
[2025-03-23 19:13] VITALS: PULSE 124; RESP 22; O2SAT 98
[2025-03-23 19:13] LABS: BUN/Creatinine Ratio 13.9 (10.0-20.0); Blood Urea Nitrogen 10 mg/dL (9-23); Glucose 149 mg/dL (74-106)
[2025-03-23 19:30] VITALS: BP 125/69; PULSE 114; O2SAT 98
[2025-03-23] MEDS: IOHEXOL 350 MG/ML 100ML IJ ONE ×2 (19:32→21:21)
[2025-03-23 19:45] VITALS: BP 125/69; PULSE 114; RESP 22; O2SAT 98
--- NOTE | 2025-03-23 20:04 | DVH ---
CHEST RADIOGRAPH Indication: sob Technique: Single frontal view of the chest was obtained COMPARISON: XY CHEST PORTABLE on DOS: 03/16/25, CHEST PORTABLE on DOS: 11/15/21 FINDINGS: Lines and Tubes: None Lungs: Mass measuring approximately 5 cm is again noted in the left upper lobe. There is bibasilar at electasis/consolidation, progressed compared to the prior chest x-ray from 03/16/25 particularly on th e right side. No evidence of pulmonary edema. Pleura: No significant pleural effusion.No pneumothorax. Cardiomediastinal contours: Unremarkable IMPRESSION: Mass measuring approximately 5 cm again noted in left upper lobe. Bibasilar atelectasis/consolidati on, progressed compared to the prior chest x-ray from 03/16/25.
--- NOTE | 2025-03-23 20:19 | DVH ---
EXAM: US BILAT LOWER DVT HISTORY: hx of dvt COMPARISON: None available at the time of dictation TECHNIQUE: Duplex Doppler evaluation of the deep venous systems of both lower extremities from the co mmon femoral veins to the popliteal veins including color Doppler and spectral/pulsed waveform analys is was performed. FINDINGS: RIGHT SIDE: Positive deep venous thrombosis occlusive in the right common femoral to superficial femoral in the p roximal to mid segment, distal popliteal artery, tibioperoneal trunk. Partial flow of the posterior tibial vein. LEFT SIDE: The common femoral vein demonstrates appropriate compressibility and waveform variability. There is compressibility/patency of the great saphenous vein at the proximal thigh. The femoral vein demonstrates appropriate compressibility and waveform variability. The deep femoral vein demonstrates appropriate compressibility and waveform variability. Left groin lymph node measuring 2.4 cm Noncompressible left popliteal vein below the level of the. Varicose veins which appear to be thromb osed. IMPRESSION: 1. Occlusive thrombosis in the right lower extremity as detailed above. 2. Nonocclusive thrombosis of the left popliteal vein. If clinical concern/symptoms persist or worsen , short-interval follow-up study is suggested.
[2025-03-23 21:45] VITALS: BP 141/74; PULSE 109; O2SAT 97
[2025-03-23] MEDS: ONDANSETRON HCL 4 MG/2 ML VIAL IV ONE (21:53)
[2025-03-23] MEDS: MORPHINE SULFATE 4 MG/ML SYR/VIAL IV ONE (21:53)
--- NOTE | 2025-03-23 22:06 | DVH ---
Procedure: CT CT ANGIO CHEST CONTRAST Reason for study/Clinical History: chest pain, sob, hx of PE Comparison Study: CT CT ANGIO CHEST CONTRAST on DOS: 02/06/25, CT ANGIO CHEST CONTRAST on DOS: 11/15/21 Exam Date: 03/23/2025 08:57 PM Radiation Dose Information: CT Dose: CTDI volume is 26.71 mGy. Dose-length product is 2032.3 mGy*cm Contrast: Type of contrast: Omni 350 Contrast inject: 100 mL Contrast wasted:0 TECHNIQUE: After the uneventful administration of intravenous contrast intravenously, CT imaging was performed through the chest. Coronal and sagittal reformations were performed by the technologist. FINDINGS: Lower Neck: Visualized portions of the thyroid gland are unremarkable. Aorta and Vasculature: Normal caliber of thoracic aorta. Inadequate opacification of the pulmonary ar carmen to exclude pulmonary emboli. Opacification required is 266 HU. Tissue density achieved 169 HU. There are faint filling defects in the right and left pulmonary arteries 3rd and 4th order branches r aising the possibility of pulmonary emboli. Diffuse pleural thickening is noted in the left lower stephanie g field. Lymph Nodes: No enlarged intrathoracic lymph nodes. Mediastinum: Heart size is normal. Pretracheal adenopathy and prevascular adenopathy is noted with th e largest node measuring 2.1 cm in short axis dimension. 4 Lungs: No focal consolidation, pleural effusion or significant pneumothorax. A 5.6 x 2.7 CM. Lobul ated masses noted posteriorly in the left upper lobe. Musculoskeletal: No acute osseous abnormality. Upper abdomen: Limited portions of the upper abdomen are unremarkable. IMPRESSION: 1. Suboptimal opacification of the pulmonary arteries to exclude pulmonary emboli however there do ap pear to be filling defects in the 3rd and 4th order branches of the pulmonary arteries bilaterally co nsistent with pulmonary emboli. This study should however be repeated due to verify validity of this finding. 2. 5.6.2.7 cm pleural-based mass noted in the left upper lung field worrisome for neoplasm. This may be evaluated either with a PET scan or biopsy. 3. Mediastinal adenopathy as well as prevascular adenopathy worrisome for metastatic lymph nodes. 4. Pleural thickening in the left lower lobe. Tissue density this material appears too high to be pl eural effusion and may represent pleural carcinomatosis. CRITICAL FINDINGS Critical Result: PULMONARY EMBOLI POSITIVE. Left upper lobe pulmonary mass. Findings worrisome for neoplasm. Mediastinal adenopathy Findings discussed with LESLEY Gong at 03/23/2025 09:44 PM, and acknowledged receipt and understa nding of the findings. All CT scans at this medical facility are performed using dose modulation techniques as appropriate t o a performed exam including the following: Automated exposure control was utilized; adjustment of th e MA and/or KV according to patient size; and use of iterative reconstruction technique.
[2025-03-23 23:09] LABS: Urine Bacteria None Seen /hpf (None Seen)
[2025-03-23 23:38] LABS: Urine Blood 2+ /uL (Negative); Urine Clarity Clear (Clear); Urine Color Light-Yellow (Yellow); Urine Protein, UAD TRACE (Negative); Urine Specific Gravity 1.043 (1.001-1.035); Urine Squamous Epithelial Cell FEW /hpf (<5); Urine Urobilinogen Normal (Negative); Urine WBC 4 /HPF (0-3); Urine pH 6.5 (5.0-9.0)
[2025-03-23] MEDS ORDERED: IPRATROPIUM BROM 0.5 MG/2.5ML INH SOL NEB PRN (23:45)
[2025-03-23] MEDS ORDERED: ALBUTEROL SULF 2.5 MG/0.5ML(0.5%) NEB SOLN NEB PRN (23:45)
[2025-03-23] MEDS ORDERED: DOCUSATE SOD 100 MG CAP PO PRN (23:45)
[2025-03-23] MEDS ORDERED: ONDANSETRON HCL 4 MG/2 ML VIAL IV PRN (23:45)
[2025-03-23] MEDS ORDERED: MORPHINE SULFATE INJ 2 MG/ml SYRG IV PRN (23:45)
[2025-03-23] MEDS ORDERED: NITROGLYCERIN 0.4 MG SL TAB SL PRN (23:45)
[2025-03-23] MEDS ORDERED: ACETAMINOPHEN 325 MG TAB PO PRN (23:45)
--- NOTE | 2025-03-23 23:50 | DVHHP2 ---
History of Present Illness Reason for Visit: Pulmonary embolism History of Present Illness The patient is a 64 year old male with past medical history of PE, DM, hypertension, and COPD who presented to [facility] ED with complaint of shortness of breaths. The patient was discharged from [facility] yesterday and was diagnosed with pulmonary emboli and DVT of the right leg sent home on warfarin. Few hours later patient started complaining of shortness of breaths, desaturating in the 80s on room air, diaphoresis, increased weakness, getting worse that prompted this visit. Patient was seen and evaluated in the ED, laboratory data shows WBC 14.8, hemoglobin 11.7, hematocrit 35.5, platelets 227, sodium 137, potassium 3.5, BUN 10, creatinine 0.72, glucose 149, BNP 48.54, PT 12.7, INR 1.22, APTT 35.3, blood pressure 119/56, heart rate 131 trending down to 104, temperature 99.9 F, O2 saturation 97% on high-flow oxygen. CT Angiography appears to be filling defect in the 3rd and 4th order branches of the pulmonary arteries bilaterally consistent with pulmonary emboli; 5.6 dot 2.7 cm pleural-based mass noted in the left upper lung field worrisome for neoplasm; extremity venous study revealing occlusive thrombosis in the right lower extremity, nonocclusive thrombosis of the left popliteal vein; chest x-ray revealing mass measuring a proximally 5 cm again noted in left upper lobe, bibasilar atelectasis/consolidations. Patient is allergic to Lovenox and adverse reaction with heparin, Hematology/radiology team will follow the patient for possible thrombectomy. Please see medication orders section in the computer. On my assessment, patient denied chest pain, no headache, no dizziness, currently on oxygen, no nausea, no vomiting, no fever, no chills. Patient was admitted for further evaluation and medical management. Past Medical History COPD, DM, HTN, PE Past Surgical History Hernia Repair Family History Reviewed, noncontributory to the management of this case. Past Social History The patient lives at home, denies smoking, alcohol or illicit drugs abuse. Review of Systems Constitutional: Yes: Weakness, Other (Diaphoresis, fatigue); No: Fever, Chills, Sweats, Malaise Eyes: No: Pain, Vision change, Conjunctivae inflammation, Eyelid inflammation, Other, Redness ENT: No: Ear pain, Ear discharge, Nose pain, Nose discharge, Nose congestion, Mouth pain, Mouth swelling, Throat pain, Throat swelling, Other Respiratory: Shortness of breath, SOB with excertion, Other (SOB at rest); No: Cough, Dry, Wheezing, Hemoptysis, Pleuritic Pain, Sputum, Wheezing Cardiovascular: No: Chest Pain, Palpitations, Orthopnea, Paroxysmal Noc. Dyspnea, Edema, Lt Headedness, Other Gastrointestinal: No: Nausea, Vomiting, Abdominal Pain, Diarrhea, Constipation, Melena, Hematochezia, Other Genitourinary: No Dysuria, No Frequency, No Incontinence, No Hematuria, No Retention, No Other Musculoskeletal: No: other, neck pain, shoulder pain, arm pain, back pain, hand pain, leg pain, foot pain Skin: No: Rash, Lesions, Jaundice, Bruising, Other Neurological: No: Weakness, Numbness, Incoordination, Change in speech, Confusion, Seizures, Other Allergies: Coded Allergies: Bacitracin (Verified Allergy, Unknown, 03/16/25) Enoxaparin (Verified Allergy, Unknown, 03/16/25) Gabapentin (Verified Allergy, Unknown, 03/16/25) Exam Vital Signs Vital Signs Date Time Temp Pulse Resp B/P (MAP) Pulse Ox O2 Delivery O2 Flow Rate FiO2 03/23/25 22:23 104 16 121/64 03/23/25 22:00 98 03/23/25 21:45 Facial BiPAP Mask 45 03/23/25 19:18 15 03/23/25 19:00 99.9 99.9 General Appearance: Alert, Oriented X3, Cooperative, No acute distress HEENT: Atraumatic, PERRLA, EOMI, Mucous membr. moist/pink Respiratory: Normal air movement, Other (Diminished breath sounds) Cardiovascular: Regular rate, Normal S1, Normal S2, No murmurs Abdominal: Normal bowel sounds, Soft, No tenderness, No hepatospenomegaly, No masses Extremities: No clubbing, No cyanosis, No edema, Normal pulses, No tenderness/s welling Skin: No rashes, No breakdown, No significant lesion Neuro: Normal speech, Normal tone, Sensation intact, Cranial nerves 3-12 NL, Reflexes 2+, Other (Generalized weakness) Psych/Mental Status: Mental status NL, Mood NL Labs/Xrays Labs Test 03/23/25 22:50 03/23/25 21:51 03/23/25 18:45 Range/Units Troponin I High Sensitivity 22 </=54 ng/L White Blood Count 14.8 H 4.4-10.8 10^3/uL Red Blood Count 4.27 L 4.5-5.90 10^6/uL Hemoglobin 11.7 L 13.5-17.5 g/dL Hematocrit 35.5 L 41.0-53.0 % Mean Corpuscular Volume 83.1 80.0-100.0 fL Mean Corpuscular Hemoglobin 27.5 L 28.0-32.0 pg Mean Corpuscular Hemoglobin Concent 33.0 32.0-36.0 g/dL Red Cell Distribution Width 16.3 H 11.8-14.3 % Platelet Count 227 140-450 10^3/uL Mean Platelet Volume 7.3 6.9-10.8 fL Neutrophils (%) (Auto) 76.7 37.0-80.0 % Lymphocytes (%) (Auto) 12.4 10.0-50.0 % Monocytes (%) (Auto) 9.3 0.0-12.0 % Eosinophils (%) (Auto) 0.9 0.0-7.0 % Basophils (%) (Auto) 0.7 0.0-2.0 % Neutrophils # (Auto) 11.4 H 1.6-8.6 10 ^3/uL Lymphocytes # (Auto) 1.8 0.4-5.4 10 ^3/uL Monocytes # (Auto) 1.4 H 0-1.3 10 ^3/uL Eosinophils # (Auto) 0.1 0-0.8 10 ^3/uL Basophils # (Auto) 0.1 0-0.2 10 ^3/uL Nucleated Red Blood Cells 0.0 % Prothrombin Time 12.7 H 9.3-11.8 sec Prothrombin Time INR 1.22 H 0.9-1.15 Activated Partial Thromboplast Time 35.3 H 24.5-34.5 SEC Sodium Level 137 136-145 mmol/L Potassium Level 3.5 3.5-5.1 mmol/L Chloride Level 103 98-107 mmol/L Carbon Dioxide Level 24 20-31 mmol/L Anion Gap 10 5-15 Blood Urea Nitrogen 10 9-23 mg/dL Creatinine 0.72 0.700-1.30 mg/dL Glomerular Filtration Rate Calc 109 >90 mL/min BUN/Creatinine Ratio 13.9 10.0-20.0 Serum Glucose 149 H 74-106 mg/dL POC Glucose 152 H 70-106 mg/dl Lactic Acid Level 1.2 0.4-2.0 mmol/L Calcium Level 9.8 8.7-10.4 mg/dL B-Type Natriuretic Peptide 48.54 0-100 pg/mL PATIENT: CELINE TABOR ACCT: [id number] UNIT: [id number] : 1970 LOC: ER ROOM / BED: / AGE / SEX: 54 / M ADM STATUS: REG ER SERVICE 184 ORDERING PHYSICIAN: LESLEY MADISON MD PROCEDURE(s): CTACH - CT ANGIO CHEST CONTRAST REASON: chest pain, sob, hx of PE ORDER NUMBER(s): [id number], ACCESSION NUMBER(s): [id number] Procedure: CT CT ANGIO CHEST CONTRAST Reason for study/Clinical History: chest pain, sob, hx of PE Comparison Study: CT CT ANGIO CHEST CONTRAST on DOS: 02/06/25, CT ANGIO CHEST CONTRAST on DOS: 11/15/21 Exam Date: 03/23/2025 08:57 PM Radiation Dose Information: CT Dose: CTDI volume is 26.71 mGy. Dose-length product is 2032.3 mGy*cm Contrast: Type of contrast: Omni 350 Contrast inject: 100 mL Contrast wasted:0 TECHNIQUE: After the uneventful administration of intravenous contrast intravenously, CT imaging was performed through the chest. Coronal and sagittal reformations were performed by the technologist. FINDINGS: Lower Neck: Visualized portions of the thyroid gland are unremarkable. Aorta and Vasculature: Normal caliber of thoracic aorta. Inadequate opacification of the pulmonary artery to exclude pulmonary emboli. Opacification required is 266 HU. Tissue density achieved 169 HU. There are faint filling defects in the right and left pulmonary arteries 3rd and 4th order branches raising the possibility of pulmonary emboli. Diffuse pleural thickening is noted in the left lower lung field. Lymph Nodes: No enlarged intrathoracic lymph nodes. Mediastinum: Heart size is normal. Pretracheal adenopathy and prevascular adenopathy is noted with the largest node measuring 2.1 cm in short axis dimension. 4 Lungs: No focal consolidation, pleural effusion or significant pneumothorax. A 5.6 x 2.7 CM. Lobulated masses noted posteriorly in the left upper lobe. Musculoskeletal: No acute osseous abnormality. Upper abdomen: Limited portions of the upper abdomen are unremarkable. IMPRESSION: 1. Suboptimal opacification of the pulmonary arteries to exclude pulmonary emboli however there do appear to be filling defects in the 3rd and 4th order branches of the pulmonary arteries bilaterally consistent with pulmonary emboli. This study should however be repeated due to verify validity of this finding. 2. 5.6.2.7 cm pleural-based mass noted in the left upper lung field worrisome for neoplasm. This may be evaluated either with a PET scan or biopsy. 3. Mediastinal adenopathy as well as prevascular adenopathy worrisome for metastatic lymph nodes. 4. Pleural thickening in the left lower lobe. Tissue density this material appears too high to be pleural effusion and may represent pleural carcinomatosis. CRITICAL FINDINGS Critical Result: PULMONARY EMBOLI POSITIVE. Left upper lobe pulmonary mass. Findings worrisome for neoplasm. Mediastinal adenopathy Findings discussed with LESLEY Gong at 03/23/2025 09:44 PM, and acknowledged receipt and understanding of the findings. ORDERING PHYSICIAN: LESLEY MADISON MD PROCEDURE(s): CXRP - CHEST PORTABLE REASON: sob ORDER NUMBER(s): [id number], ACCESSION NUMBER(s): [id number] CHEST RADIOGRAPH Indication: sob Technique: Single frontal view of the chest was obtained COMPARISON: XY CHEST PORTABLE on DOS: 03/16/25, CHEST PORTABLE on DOS: 11/15/21 FINDINGS: Lines and Tubes: None Lungs: Mass measuring approximately 5 cm is again noted in the left upper lobe. There is bibasilar atelectasis/consolidation, progressed compared to the prior chest x-ray from 03/16/25 particularly on the right side. No evidence of pulm onary edema. Pleura: No significant pleural effusion.No pneumothorax. Cardiomediastinal contours: Unremarkable IMPRESSION: Mass measuring approximately 5 cm again noted in left upper lobe. Bibasilar atelectasis/consolidation, progressed compared to the prior chest x-ray from 03/16/25. ORDERING PHYSICIAN: LESLEY MADISON MD PROCEDURE(s): BLDVT - BiLat Lower DVT REASON: hx of dvt ORDER NUMBER(s): [id number], ACCESSION NUMBER(s): [id number] EXAM: US BILAT LOWER DVT HISTORY: hx of dvt COMPARISON: None available at the time of dictation TECHNIQUE: Duplex Doppler evaluation of the deep venous systems of both lower extremities from the common femoral veins to the popliteal veins including color Doppler and spectral/pulsed waveform analysis was performed. FINDINGS: RIGHT SIDE: Positive deep venous thrombosis occlusive in the right common femoral to superficial femoral in the proximal to mid segment, distal popliteal artery, tibioperoneal trunk. Partial flow of the posterior tibial vein. LEFT SIDE: The common femoral vein demonstrates appropriate compressibility and waveform variability. There is compressibility/patency of the great saphenous vein at the proximal thigh. The femoral vein demonstrates appropriate compressibility and waveform variability. The deep femoral vein demonstrates appropriate compressibility and waveform vari ability. Left groin lymph node measuring 2.4 cm Noncompressible left popliteal vein below the level of the. Varicose veins whic h appear to be thrombosed. IMPRESSION: 1. Occlusive thrombosis in the right lower extremity as detailed above. 2. Nonocclusive thrombosis of the left popliteal vein. If clinical concern/symptoms persist or worsen, short-interval follow-up study is suggested. Assessment/Plan Assessment/Plan Acute and chronic respiratory failure DVT (deep vein thrombosis) in Shortness of breath Pulmonary embolism Multiple subsegmental thrombotic pulmonary emboli without acute cor pulmonale Plan 1. Admit to step-down unit 2. Breathing treatment 3. Pain control management 4. Management of fluids and electrolytes 5. Consultation for Hematology/Oncology/radiology 6. Diagnostic tests CT angiography 7. DVT prophylaxis-on Eliquis 8. Repeat labs CBC, CMP in a.m. 9. Continue with current medical management 10. Treatment plan discussed with patient and RN. Patient verbalized understanding. Plan discussed with: Patient, Other (RN) Problem List: (1) Acute and chronic respiratory failure (2) DVT (deep vein thrombosis) in (3) Shortness of breath (4) Pulmonary embolism (5) Multiple subsegmental thrombotic pulmonary emboli without acute cor pulmonale Date of Service: March 24, 2025 Billing Provider: HOLLY SAAB DNP Common Visit Codes: 39967-[id number] INP/OBS CARE (HIGH) HOLLY SAAB DNP March 23, 2025 23:50
[2025-03-24] VITALS (19 sets, daily range): BP systolic 107–154; BP diastolic 59–77; PULSE 69–108; RESP 14–31; TEMP 97.7–98.7; O2SAT 95–99
[2025-03-24] MEDS: methylPREDNISolone SOD SUCC 125 MG/2 ML VL IM ONE (00:02)
[2025-03-24] MEDS: SODIUM CHLORIDE 0.9% 1,000 ML IV SCH (00:03)
[2025-03-24] MEDS: HYDROcodone-ACET 5/325MG TAB PO PRN (01:25)
[2025-03-24] MEDS: methylPREDNISolone SOD SUCC 40 MG/ML VL IV SCH (06:16)
[2025-03-24 06:23] LABS: Basophils # (auto) 0 10 ^3/uL (0-0.2); Basophils % (auto) 0.2 % (0.0-2.0); Eosinophils # (auto) 0 10 ^3/uL (0-0.8); Eosinophils % (auto) 0.1 % (0.0-7.0); Hematocrit 34.6 % (41.0-53.0); Hemoglobin 11.4 g/dL (13.5-17.5); Lymphocytes # (auto) 0.7 10 ^3/uL (0.4-5.4); Lymphocytes % (auto) 5.6 % (10.0-50.0); Mean Corpuscular Hemoglobin 27.1 pg (28.0-32.0); Monocytes # (auto) 0.4 10 ^3/uL (0-1.3); Monocytes % (auto) 3.2 % (0.0-12.0); Neutrophils # (auto) 11.8 10 ^3/uL (1.6-8.6); Neutrophils % (auto) 90.9 % (37.0-80.0); Platelet Count (auto) 237 10^3/uL (140-450); Red Blood Cells 4.22 10^6/uL (4.5-5.90); Red Cell Distribution Width 16.5 % (11.8-14.3)
[2025-03-24 06:40] LABS: Alanine Aminotransferase 14 U/L (7-40); Albumin 4.2 g/dL (3.2-4.8); Alkaline Phosphatase 115 U/L (46-116); Anion Gap 11 (5-15); Aspartate Aminotransferase 19 U/L (13-40); BUN/Creatinine Ratio 13.8 (10.0-20.0); Bilirubin, Total 0.5 mg/dL (0.2-1.0); Blood Urea Nitrogen 9 mg/dL (9-23); Calcium 9.7 mg/dL (8.7-10.4); Carbon Dioxide 25 mmol/L (20-31); Chloride 102 mmol/L (98-107); Potassium 3.9 mmol/L (3.5-5.1); Sodium 138 mmol/L (136-145); Total Protein 7.3 g/dL (5.7-8.2)
[2025-03-24 06:50] LABS: Glucose 173 mg/dL (74-106)
[2025-03-24] MEDS: APIXABAN 5 MG TAB PO SCH (10:00)
[2025-03-24] MEDS: HEPARIN SODIUM (PORCINE) 5000 UNITS/ML 1ML VIAL ONE (12:07)
[2025-03-24] MEDS: fentaNYL CITRATE 100 MCG/2 ML VL ONE ×2 (12:08→13:12)
[2025-03-24] MEDS: MIDAZOLAM HCL 2MG/2ML 2ml VIAL (1mg/ml) ONE ×2 (12:08→13:12)
[2025-03-24] MEDS: IODIXANOL 320MG/ML 100ML BTL IV ONE ×2 (12:08→14:34)
[2025-03-24] MEDS: LIDOCAINE 2%HCL (LOCAL ANESTH.) INJ 20ML MDV ONE (12:08)
[2025-03-24] MEDS: HYDROmorphone HCL 2 MG/ML VL/or syr ONE (13:36)
--- NOTE | 2025-03-24 15:25 | DVHINCON2 ---
Date of service: March 23, [address] Blair Reason for Consultation Acute respiratory failure History of Present Illness History Source: Patient Exam Limitations: No limitations HPI Patient is a 54-year old gentleman with a history of hypertension, diabetes, COPD and recent diagnosis of PE who presented with worsening shortness of breath and diaphoresis. Was seen in the emergency room where CT of the chest demonstrated bilateral PE and ultrasound of the lower extremities was positive for RLE DVT. Patient was taken to the chemical laboratory technician where he underwent thrombectomy and pulmonology was consulted to assist in management. Home Meds Active Scripts Dexamethasone (Decadron) 4 Mg Tb, 6 MG PO UD for 5 Days, #5 TAB Prov:MJ BAEZ MD 11/18/21 Ascorbic Acid (VITAMIN C TABLET) 500 Mg Tb, 500 MG PO BID, #60 TAB Prov:MJ BAEZ MD 11/18/21 Apixaban Base (ELIQUIS) 5 Mg Tab, 5 MG PO BID, #60 TAB Prov:MJ BAEZ MD 11/18/21 Albuterol Sulfate (VENTOLIN MDI) 90 Mcg Ih, 180 MCG IN TIDPRN PRN, #1 INH Prov:MJ BAEZ MD 11/18/21 Reported Medications Fondaparinux Sodium (Fondaparinux Sodium) 10 Mg/0.8 Ml Inj, 10 MG SC DAILY, INJ 03/24/25 Lactulose (Lactulose) 10 Gm/15 Ml Tyra, 10 GM PO Q8HP, ML 03/24/25 Docusate Sodium (Docusate Sodium) 100 Mg Cap, 100 MG PO BID, CAP 03/24/25 Cyclobenzaprine Hcl (Cyclobenzaprine Hcl) 5 Mg Tab, 2 TAB PO TIDP, #30 TAB 03/24/25 Clindamycin Hcl (CLEOCIN) 150 Mg Cap, 3 CAP PO QID, #40 CAP 03/24/25 Bisacodyl (KP BISACODYL) 5 Mg Tab, 1 TAB PO UD, #4 TAB 03/24/25 Atorvastatin Calcium (Lipitor) 40 Mg Tab, 1 TAB PO QPM, #90 TAB 1 Refill 03/24/25 Past Medical History Cardiac: HTN Pulmonary: COPD, Pulmonary embolus Central Nervous System: No pertinent Hx GI: No pertinent Hx Hemotology/Oncology: No pertinent Hx Hepatobiliary: No pertinent Hx Psychiatric: No pertinent Hx Musculoskeletal: No pertinent Hx Rheumotologic: No pertinent Hx Infectious Disease: No peritnent Hx ENT: No pertinent Hx Renal/: No pertinent Hx Endocrine: NIDDM Dermatology: No pertinent Hx Past Surgical History: No pertinent Hx Family History: No pertinent Hx Patient Family History: Patient reports no known family medical history. Smoker: No Hx (Negative) Alocohol: None Drugs: None Lives with: With family Domestic Violence: Neg Review of Systems Constitutional: No symptom reported Ears, Nose, & Throat: No symptom reported Eyes: No symptom reported Pulmonary/Respiratory: Dyspnea Cardiovascular: No symptom reported Gastrointestinal: No symptom reported Genitourinary: No symptom reported Musculoskeletal: No symptom reported Skin: No symptom reported Psychiatric: No symptom reported Endocrine: No symptom reported Hemotologic/Lymphatic: No symptom reported H&P Exam Vital Signs Vital Signs Date Time Temp Pulse Resp B/P (MAP) Pulse Ox O2 Delivery O2 Flow Rate FiO2 03/24/25 10:16 94 14 97 Oxymizer 8 N/A 03/24/25 09:00 115/52 (73) 03/24/25 07:40 98.2 98.2 General Appeara: Well developed, Well nourished, Normal Appearance Head Exam: Normal inspection Neck Exam: Normal inspection, Non-tender, Normal alignment Eye Exam: bilateral eye Normal inspection, bilateral eye PERRL, bilateral eye EOMI Ear Exam: bilateral ear Auricle normal, bilateral ear Canal normal, bilateral ear TM normal Nasal Exam: Normal inspection Mouth: Normal Inspection Pulmonary/Respiratory: Decreased breath sounds Cardiovascular/Chest: Normal inspection Peripheral Pulses: 4+ Radial (R), 4+ Radial (L), 4+ Brachial (R), 4+ Brachial (L) Abdominal Exam: Normal bowel sounds Labs/Xrays Labs Test 03/24/25 05:50 03/23/25 22:50 03/23/25 21:51 03/23/25 18:45 Range/Units White Blood Count 13.0 H 4.4-10.8 10^3/uL Red Blood Count 4.22 L 4.5-5.90 10^6/uL Hemoglobin 11.4 L 13.5-17.5 g/dL Hematocrit 34.6 L 41.0-53.0 % Mean Corpuscular Volume 82.0 80.0-100.0 fL Mean Corpuscular Hemoglobin 27.1 L 28.0-32.0 pg Mean Corpuscular Hemoglobin Concent 33.0 32.0-36.0 g/dL Red Cell Distribution Width 16.5 H 11.8-14.3 % Platelet Count 237 140-450 10^3/uL Mean Platelet Volume 7.5 6.9-10.8 fL Neutrophils (%) (Auto) 90.9 H 37.0-80.0 % Lymphocytes (%) (Auto) 5.6 L 10.0-50.0 % Monocytes (%) (Auto) 3.2 0.0-12.0 % Eosinophils (%) (Auto) 0.1 0.0-7.0 % Basophils (%) (Auto) 0.2 0.0-2.0 % Neutrophils # (Auto) 11.8 H 1.6-8.6 10 ^3/uL Lymphocytes # (Auto) 0.7 0.4-5.4 10 ^3/uL Monocytes # (Auto) 0.4 0-1.3 10 ^3/uL Eosinophils # (Auto) 0 0-0.8 10 ^3/uL Basophils # (Auto) 0 0-0.2 10 ^3/uL Nucleated Red Blood Cells 0.0 % Sodium Level 138 136-145 mmol/L Potassium Level 3.9 3.5-5.1 mmol/L Chloride Level 102 98-107 mmol/L Carbon Dioxide Level 25 20-31 mmol/L Anion Gap 11 5-15 Blood Urea Nitrogen 9 9-23 mg/dL Creatinine 0.65 L 0.700-1.30 mg/dL Glomerular Filtration Rate Calc 113 >90 mL/min BUN/Creatinine Ratio 13.8 10.0-20.0 Serum Glucose 173 H 74-106 mg/dL Calcium Level 9.7 8.7-10.4 mg/dL Total Bilirubin 0.5 0.2-1.0 mg/dL Aspartate Amino Transferase (AST) 19 13-40 U/L Alanine Aminotransferase (ALT) 14 7-40 U/L Alkaline Phosphatase 115 46-116 U/L Total Protein 7.3 5.7-8.2 g/dL Albumin 4.2 3.2-4.8 g/dL Urine Color Light-yellow Yellow Urine Clarity Clear Clear Urine pH 6.5 5.0-9.0 Urine Specific Orange 1.043 H 1.001-1.035 Urine Protein Trace H Negative Urine Ketones Negative Negative Urine Blood 2+ H Negative /uL Urine Nitrite Negative Negative Urine Bilirubin Negative Negative Urine Urobilinogen Normal Negative mg/dL Urine Leukocyte Esterase Negative Negative /uL Urine RBC 14 0 - 3 /hpf Urine Microscopic WBC 4 H 0-3 /HPF Urine Squamous Epithelial Cells Few <5 /hpf Urine Bacteria None seen None Seen /hpf Urine Glucose Normal Normal mg/dL Troponin I High Sensitivity 22 </=54 ng/L Prothrombin Time 12.7 H 9.3-11.8 sec Prothrombin Time INR 1.22 H 0.9-1.15 Activated Partial Thromboplast Time 35.3 H 24.5-34.5 SEC POC Glucose 152 H 70-106 mg/dl Lactic Acid Level 1.2 0.4-2.0 mmol/L B-Type Natriuretic Peptide 48.54 0-100 pg/mL Assessment/Plan Plan Impression Acute hypoxemic respiratory failure Acute pulmonary embolism Acute DVT COPD Patient seen and examined in the ER Events High oxygen requirements On 15 liters nonrebreather Respiratory status tenuous Labs and imaging reviewed Management Supplemental oxygen Titrate to maintain sats 90% or above Incentive spirometry Prn bipap For increased work of breathing Titrate to comfort Bronchodilators Monitor renal function Monitor electrolytes Supplement as needed DVT prophylaxis Critical care time 35 minutes Plan discussed with: Patient SANJU WILSON MD March 24, 2025 15:25
--- NOTE | 2025-03-24 15:34 | DVH ---
XY PERCU.VENOUS THROMBECTOMY, HISTORY: 54 M with lung mass, lymphadenopathy, (suspected lung cancer ) PE, DVT, shortness of breath. CTPA shows worsening PE, US duplex LE shows long right leg DVT from CFV to popliteal vein and lower extremity swelling. Per patient took AC during this time. Troponins were not significantly elevated a nd no right heart strain seen on CT. However has worsened PE compared to prior CT from January. PROCEDURE: Informed consent was obtained. The patient was placed on the fluoroscopic table in prone p osition. The right popliteal fossa was prepped with chlorhexidine which was allowed to dry and draped in the usual sterile fashion. Time out was performed. Following administration of 1% local lidocaine , the right popliteal vein vein was accessed with a micropuncture set under ultrasound guidance, and an image documenting patency sent to PACS. Contrast injected through the microsheath. A 6 Fr vascular sheath placed into the vein. Using a wire and catheter, the IVC was reached. Contrast injection conf irms location in the IVC. Blood sample collected for ACT was 270. Over an Amplatz wire, the poplitea l vein was dilated, and a 13 Fr Inari sheath was placed into the vein. A Clot Treiver bold was used t o extract thrombus from the iliac vein to the popliteal vein. 3.5 passes were made. A completion veno gram was performed. The introducer sheath was removed and the venotomy closed with manual compressio n and flow stasis. Post-deployment image was obtained. No immediate complication was identified. DAP 2101 FLUOROSCOPY TIME: 11.5 minutes. CONTRAST USED: 50 mL . SEDATION: Dr. Magno Shelley was personally responsible for the administration of moderate sedation during the procedure performed, including the use of an independent trained observer who had no other duties during the procedure. The drugs utilized were IV fentanyl and versed (see nursing log for details). The total time of supervision by the attending physician was approximately 90 minutes. FINDINGS: Occlusive deep venous thrombus from the right popliteal vein to the right common femoral ve in, and nonocclusive thrombus in the right iliac vein. This was extracted using mechanical thrombecto my with return of venous blood flow. Significant chronic thrombus was removed and a physical picture was obtained. IMPRESSION: Occlusive deep venous thrombus from the right popliteal vein to the right common femoral vein, and no nocclusive thrombus in the right iliac vein. This was extracted using mechanical thrombectomy with re turn of venous blood flow. Significant chronic thrombus was removed and a physical picture was obtain ed. PLAN: Resume Anticoagulation. Right leg straight for 2 hours. IVC filter placement.
--- NOTE | 2025-03-24 15:36 | DVH ---
XY INFERIOR VENA CAVA FILTER, HISTORY: 54 M with lung mass, lymphadenopathy, (suspected lung cancer ) PE, DVT, shortness of breath. CTPA shows worsening PE, US duplex LE shows long right leg DVT from CFV to popliteal vein and lower extremity swelling. Per patient took AC during this time. Troponins were not significantly elevated a nd no right heart strain seen on CT. However has worsened PE compared to prior CT from January. PROCEDURE: Informed consent was obtained. The patient was placed on the fluoroscopic table in supine position. The right groin was prepped with chlorhexidine which was allowed to dry and draped in the u sual sterile fashion. Time out was performed. Following administration of 1% local lidocaine, the gre ater saphenous vein was accessed with a micropuncture set under ultrasound guidance, and an image doc umenting patency sent to PACS. A 6 [place] vascular sheath was placed into the iliac vein. A cavogram was performed and the level of the renal veins were identified. The sheath was exchanged for a 9.6 Fr ench introducer sheath, and a Bard G2 [employer] IVC filter was deployed in an infrarenal location. The i ntroducer sheath was removed and the venotomy closed with manual compression. Post-deployment image w as obtained. No immediate complication was identified. DAP 9.5 FLUOROSCOPY TIME: 0.9 minutes. CONTRAST USED: 20 mL . SEDATION: Dr. Magno Shelley was personally responsible for the administration of moderate sedation during the procedure performed, including the use of an independent trained observer who had no other duties during the procedure. The drugs utilized were IV fentanyl and versed (see nursing log for details). The total time of supervision by the attending physician was approximately 30 minutes. FINDINGS: There is a patent single IVC visualized without intraluminal filling defect. No renal venou s anomaly is noted. Post-procedure image demonstrates good positioning of the IVC filter in an infrar enal position. IMPRESSION: Infra-renal IVC filter placement. PLAN: Resume anticoagulation. Consideration should be made for removal of this retrievable filter aft er and if medical necessity for caval filtration is no longer present. If we in IR are unable to cont act the patient in a timely fashion, please contact our office, and we will attempt to arrange for fi lter retrieval at the earliest convenience.
[2025-03-24 17:46] LABS: INR 1.26 (0.9-1.15); Partial Thromboplastin Time 31.6 SEC (24.5-34.5); Prothrombin Time 13.1 sec (9.3-11.8)
[2025-03-24] MEDS ORDERED: DOCU-265 PO (18:42)
[2025-03-24] MEDS ORDERED: ATOR-507 PO (18:42)
[2025-03-24] MEDS ORDERED: CYCL-837 PO (18:42)
[2025-03-24] MEDS ORDERED: BISA-51 PO (18:42)
[2025-03-24] MEDS ORDERED: LACT10SO3 PO (18:42)
[2025-03-24] MEDS ORDERED: CLIN150C PO (18:42)
[2025-03-24] MEDS ORDERED: [UNRECOGNIZED DRUG - CODE] SC (18:43)
[2025-03-24] MEDS: WARFARIN SODIUM 5 MG TAB PO ONE (19:00)
--- NOTE | 2025-03-24 19:02 | DVHPN2 ---
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 Dyspnea, No Edema, No Lt Headedness, No Other Respiratory: No Cough, No Dry; Shortness of breath, SOB with excertion; No Wheezing, No Hemoptysis, No Pleuritic Pain, No Sputum; Other (SOB at rest) Gastrointestinal: No Nausea, No Vomiting, No Abdominal Pain, No Diarrhea, No Constipation, No Melena, No Hematochezia, No Other Genitourinary: No Dysuria, No Frequency, No Incontinence, No Hematuria, No Retention, No Other Musculoskeletal: No other, No neck pain, No shoulder pain, No arm pain, No back pain, No hand pain, No leg pain, No foot pain Skin: No Rash, No Lesions, No Jaundice, No Bruising, No Other Objective Vitals Vital Signs Date Time Temp Pulse Resp B/P (MAP) Pulse Ox O2 Delivery O2 Flow Rate FiO2 03/24/25 18:28 99 16 95 Oxymizer 6 N/A 03/24/25 17:18 107/61 (76) 03/24/25 15:02 98.7 98.7 Intake/Output Intake and Output 03/24/25 06:59 Output Total 700 ml Balance -700 ml Output Urine Total 700 ml General Appearance: Alert, Oriented X3 Lungs: Clear to auscultation Cardiovascular: Regular rate, Normal S1, Normal S2 Medications Current Medications Medications Dose Ordered Sig/Elias Route Start Time Stop Time Status Last Admin Dose Admin Albuterol 2.5 mg Q4HPRN PRN NEB 03/23/25 23:45 Ipratropium [place] 0.5 mg Q4HPRN PRN NEB 03/23/25 23:45 Apixaban 5 mg BID PO 03/24/25 10:00 Hold Sodium Chloride 1,000 ml @ 60 mls/hr [id number] IV 03/23/25 23:45 03/24/25 18:05 60 MLS/HR Acetaminophen/ Hydrocodone Bitart 1 tab Q4HP PRN PO 03/23/25 23:45 03/24/25 18:02 1 TAB Ondansetron HCl 4 mg Q4HP PRN IV 03/23/25 23:45 Docusate Sodium 100 mg BIDPRN PRN PO 03/23/25 23:45 Acetaminophen 650 mg Q6HP PRN PO 03/23/25 23:45 Nitroglycerin 0.4 mg Q5MINP PRN SL 03/23/25 23:45 Morphine Sulfate 2 mg Q30M PRN IV 03/23/25 23:45 Methylprednisolone Sodium Succinate 40 mg Q8HR IV 03/24/25 06:00 03/24/25 06:16 40 MG Warfarin Sodium RX PROTOCOL PER PHARMACY PO 03/24/25 07:45 Laboratory Results Laboratory Tests 03/24/25 05:50 Chemistry Test 03/24/25 05:50 Albumin 4.2 g/dL (3.2-4.8) Calcium Level 9.7 mg/dL (8.7-10.4) Total Protein 7.3 g/dL (5.7-8.2) Coagulation Test 03/24/25 17:19 Prothrombin Time 13.1 sec (9.3-11.8) H Prothrombin Time INR 1.26 (0.9-1.15) H Activated Partial Thromboplast Time 31.6 SEC (24.5-34.5) LFT Test 03/24/25 05:50 Alanine Aminotransferase (ALT) 14 U/L (7-40) Alkaline Phosphatase 115 U/L (46-116) Aspartate Amino Transferase (AST) 19 U/L (13-40) Total Bilirubin 0.5 mg/dL (0.2-1.0) Urinalysis Test 03/23/25 22:50 Urine Color Light-yellow (Yellow) Urine Clarity Clear (Clear) Urine pH 6.5 (5.0-9.0) Urine Specific [place] 1.043 (1.001-1.035) Urine Protein Trace (Negative) H Urine Ketones Negative (Negative) Urine Blood 2+ /uL (Negative) H Urine Nitrite Negative (Negative) Urine Bilirubin Negative (Negative) Urine Urobilinogen Normal mg/dL (Negative) Urine Leukocyte Esterase Negative /uL (Negative) Urine RBC 14 /hpf (0 - 3) Urine Microscopic WBC 4 /HPF (0-3) H Urine Squamous Epithelial Cells Few /hpf (<5) Urine Bacteria None seen /hpf (None Seen) Urine Glucose Normal mg/dL (Normal) Assessment/Plan Assessment/Plan Acute and chronic respiratory failure DVT (deep vein thrombosis) in Shortness of breath Pulmonary embolism Multiple subsegmental thrombotic pulmonary emboli without acute cor pulmonale Plan Hep drip 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
[2025-03-25] VITALS (10 sets, daily range): BP systolic 105–132; BP diastolic 40–59; PULSE 77–101; RESP 16–20; TEMP 97.4–98.6; O2SAT 93–96
[2025-03-25 07:38] LABS: Basophils # (auto) 0 10 ^3/uL (0-0.2); Basophils % (auto) 0.1 % (0.0-2.0); Eosinophils # (auto) 0 10 ^3/uL (0-0.8); Hematocrit 33.2 % (41.0-53.0); Hemoglobin 10.9 g/dL (13.5-17.5); Lymphocytes # (auto) 1.1 10 ^3/uL (0.4-5.4); Lymphocytes % (auto) 6.3 % (10.0-50.0); Mean Corpuscular Hemoglobin 27.4 pg (28.0-32.0); Mean Corpuscular Hgb Conc. 32.9 g/dL (32.0-36.0); Mean Corpuscular Volume 83.2 fL (80.0-100.0); Monocytes # (auto) 1.1 10 ^3/uL (0-1.3); Monocytes % (auto) 6.2 % (0.0-12.0); Neutrophils # (auto) 15.5 10 ^3/uL (1.6-8.6); Neutrophils % (auto) 87.4 % (37.0-80.0); Platelet Count (auto) 228 10^3/uL (140-450); Red Blood Cells 3.99 10^6/uL (4.5-5.90); Red Cell Distribution Width 16.5 % (11.8-14.3); White Blood Cell 17.7 10^3/uL (4.4-10.8)
[2025-03-25 07:47] LABS: INR 1.25 (0.9-1.15)
--- NOTE | 2025-03-25 10:58 | DVHPN2 ---
Progress Note - Dictate Date Seen: March 24, 2025 Has the PT tested + for MRSA If YES, has PT been informed?: No Medical Necessity Reason Pt with a Central, PICC or Fol: No vital signs Vital Sign Date Time Temp Pulse Resp B/P (MAP) Pulse Ox O2 Delivery O2 Flow Rate FiO2 03/25/25 09:19 98.1 78 17 116/58 (77) 95 98.1 03/25/25 08:00 Nasal Cannula* 6 44 Total Intake and Output 03/24/25 03/24/25 03/25/25 14:59 22:59 06:59 Intake Total 800 ml 300 ml Output Total 900 ml Balance 800 ml -600 ml medications Current Medications Medications Dose Ordered Sig/Elias Route Start Time Stop Time Status Last Admin Dose Admin Albuterol 2.5 mg Q4HPRN PRN NEB 03/23/25 23:45 Ipratropium [place] 0.5 mg Q4HPRN PRN NEB 03/23/25 23:45 Apixaban 5 mg BID PO 03/24/25 10:00 Hold Sodium Chloride 1,000 ml @ 60 mls/hr [id number] IV 03/23/25 23:45 03/24/25 18:05 60 MLS/HR Acetaminophen/ Hydrocodone Bitart 1 tab Q4HP PRN PO 03/23/25 23:45 03/25/25 09:36 1 TAB Ondansetron HCl 4 mg Q4HP PRN IV 03/23/25 23:45 Docusate Sodium 100 mg BIDPRN PRN PO 03/23/25 23:45 Acetaminophen 650 mg Q6HP PRN PO 03/23/25 23:45 Nitroglycerin 0.4 mg Q5MINP PRN SL 03/23/25 23:45 Morphine Sulfate 2 mg Q30M PRN IV 03/23/25 23:45 Methylprednisolone Sodium Succinate 40 mg Q8HR IV 03/24/25 06:00 03/25/25 05:18 40 MG Warfarin Sodium RX PROTOCOL PER PHARMACY PO 03/24/25 07:45 laboratory and microbiology Laboratory Tests 03/25/25 04:45 03/24/25 05:50 Test 03/24/25 05:50 Range/Units Serum Glucose 173 H 74-106 mg/dL Assessment/Plan recurrent DVT Acute hypoxemic respiratory failure status post thrombectomy Morbid obesity COPD The patient is seen and examined Status post thrombectomy and IVC filter placement No acute complaints currently on nasal oxygen Recommendations and management plan Steroids for COPD Anticoagulation continue Coumadin Recommend Fondaparinux until INR is therapeutic (previously patient had a reaction to Lovenox!) Bronchodilators Supplemental O2 p.r.n. P.r.n. BiPAP if the sats above 90% Plan discussed with: Patient (rn) SANJU WILSON MD March 25, 2025 10:58
--- NOTE | 2025-03-25 10:59 | DVHPN2 ---
Progress Note - Dictate Date Seen: March 25, 2025 Has the PT tested + for MRSA If YES, has PT been informed?: No Medical Necessity Reason Pt with a Central, PICC or Fol: No vital signs Vital Sign Date Time Temp Pulse Resp B/P (MAP) Pulse Ox O2 Delivery O2 Flow Rate FiO2 03/25/25 09:19 98.1 78 17 116/58 (77) 95 98.1 03/25/25 08:00 Nasal Cannula* 6 44 Total Intake and Output 03/24/25 03/24/25 03/25/25 14:59 22:59 06:59 Intake Total 800 ml 300 ml Output Total 900 ml Balance 800 ml -600 ml medications Current Medications Medications Dose Ordered Sig/Elias Route Start Time Stop Time Status Last Admin Dose Admin Albuterol 2.5 mg Q4HPRN PRN NEB 03/23/25 23:45 Ipratropium [place] 0.5 mg Q4HPRN PRN NEB 03/23/25 23:45 Apixaban 5 mg BID PO 03/24/25 10:00 Hold Sodium Chloride 1,000 ml @ 60 mls/hr [id number] IV 03/23/25 23:45 03/24/25 18:05 60 MLS/HR Acetaminophen/ Hydrocodone Bitart 1 tab Q4HP PRN PO 03/23/25 23:45 03/25/25 09:36 1 TAB Ondansetron HCl 4 mg Q4HP PRN IV 03/23/25 23:45 Docusate Sodium 100 mg BIDPRN PRN PO 03/23/25 23:45 Acetaminophen 650 mg Q6HP PRN PO 03/23/25 23:45 Nitroglycerin 0.4 mg Q5MINP PRN SL 03/23/25 23:45 Morphine Sulfate 2 mg Q30M PRN IV 03/23/25 23:45 Methylprednisolone Sodium Succinate 40 mg Q8HR IV 03/24/25 06:00 03/25/25 05:18 40 MG Warfarin Sodium RX PROTOCOL PER PHARMACY PO 03/24/25 07:45 laboratory and microbiology Laboratory Tests 03/25/25 04:45 03/24/25 05:50 Test 03/24/25 05:50 Range/Units Serum Glucose 173 H 74-106 mg/dL Assessment/Plan recurrent DVT Acute hypoxemic respiratory failure status post thrombectomy Morbid obesity COPD The patient is seen and examined Status post thrombectomy and IVC filter placement No acute complaints currently on nasal oxygen Recommendations and management plan Steroids for COPD Anticoagulation continue Coumadin Recommend Fondaparinux until INR is therapeutic (previously patient had a reaction to Lovenox!) Bronchodilators Supplemental O2 p.r.n. P.r.n. BiPAP if the sats above 90% Plan discussed with: Other (rn) SANJU WILSON MD March 25, 2025 10:59
[2025-03-25] MEDS ORDERED: HEPARIN DRIP/D5W 100UNITS/ML 250 ML IV SCH (11:45)
[2025-03-25] MEDS ORDERED: HEPARIN SODIUM (PORCINE) 5000 UNITS/ML 1ML VIAL IV ONE (11:45)
[2025-03-25 12:43] LABS: INR 1.31 (0.9-1.15); Partial Thromboplastin Time 28.2 SEC (24.5-34.5); Prothrombin Time 13.5 sec (9.3-11.8)
[2025-03-25] MEDS: HEPARIN SODIUM (PORCINE) 5000 UNITS/ML 1ML VIAL SC SCH (14:40)
[2025-03-25] MEDS: WARFARIN SODIUM 5 MG TAB PO ONE (17:29)
--- NOTE | 2025-03-25 17:54 | DVHPN2 ---
Subjective In bed doing well Changes from previous H/P or p: No Changes Eyes: No Pain, No Vision change, No Conjunctivae inflammation, No Eyelid inflammation, No Other, No Redness ENT: No Ear pain, No Ear discharge, No Nose pain, No Nose discharge, No Nose congestion, No Mouth pain, No Mouth swelling, No Throat pain, No Throat swelling, No Other Cardiovascular: No Chest Pain, No Palpitations, No Orthopnea, No Paroxysmal Noc. Dyspnea, No Edema, No Lt Headedness, No Other Respiratory: No Cough, No Dry; Shortness of breath, SOB with excertion; No Wheezing, No Hemoptysis, No Pleuritic Pain, No Sputum; Other (SOB at rest) Gastrointestinal: No Nausea, No Vomiting, No Abdominal Pain, No Diarrhea, No Constipation, No Melena, No Hematochezia, No Other Genitourinary: No Dysuria, No Frequency, No Incontinence, No Hematuria, No Retention, No Other Musculoskeletal: No other, No neck pain, No shoulder pain, No arm pain, No back pain, No hand pain, No leg pain, No foot pain Skin: No Rash, No Lesions, No Jaundice, No Bruising, No Other Objective Vitals Vital Signs Date Time Temp Pulse Resp B/P (MAP) Pulse Ox O2 Delivery O2 Flow Rate FiO2 03/25/25 16:19 97.8 101 17 114/40 (64) 94 97.8 03/25/25 08:00 Nasal Cannula* 6 44 Intake/Output Intake and Output 03/25/25 07:00 Intake Total 1100 ml Output Total 900 ml Balance 200 ml Intake Oral 1100 ml Output Urine Total 900 ml General Appearance: Alert, Oriented X3 Lungs: Clear to auscultation Cardiovascular: Regular rate, Normal S1, Normal S2 Medications Current Medications Medications Dose Ordered Sig/Elias Route Start Time Stop Time Status Last Admin Dose Admin Albuterol 2.5 mg Q4HPRN PRN NEB 03/23/25 23:45 Ipratropium [place] 0.5 mg Q4HPRN PRN NEB 03/23/25 23:45 Sodium Chloride 1,000 ml @ 60 mls/hr [id number] IV 03/23/25 23:45 03/24/25 18:05 60 MLS/HR Acetaminophen/ Hydrocodone Bitart 1 tab Q4HP PRN PO 03/23/25 23:45 03/25/25 14:48 1 TAB Ondansetron HCl 4 mg Q4HP PRN IV 03/23/25 23:45 Docusate Sodium 100 mg BIDPRN PRN PO 03/23/25 23:45 Acetaminophen 650 mg Q6HP PRN PO 03/23/25 23:45 Nitroglycerin 0.4 mg Q5MINP PRN SL 03/23/25 23:45 Morphine Sulfate 2 mg Q30M PRN IV 03/23/25 23:45 Methylprednisolone Sodium Succinate 40 mg Q8HR IV 03/24/25 06:00 03/25/25 14:41 40 MG Warfarin Sodium RX PROTOCOL PER PHARMACY PO 03/24/25 07:45 Heparin Sodium/ Dextrose 250 ml @ 21.42 mls/ hr [id number] IV 03/25/25 11:45 UNV Heparin Sodium (Porcine) 5,000 units Q8HR SC 03/25/25 14:00 03/25/25 14:40 5,000 UNITS Laboratory Results Laboratory Tests 03/24/25 05:50 03/25/25 04:45 Coagulation Test 03/25/25 04:45 03/25/25 12:10 Prothrombin Time 13.0 sec (9.3-11.8) H 13.5 sec (9.3-11.8) H Prothrombin Time INR 1.25 (0.9-1.15) H 1.31 (0.9-1.15) H Activated Partial Thromboplast Time 28.2 SEC (24.5-34.5) Urinalysis Test 03/23/25 22:50 Urine Color Light-yellow (Yellow) Urine Clarity Clear (Clear) Urine pH 6.5 (5.0-9.0) Urine Specific [place] 1.043 (1.001-1.035) Urine Protein Trace (Negative) H Urine Ketones Negative (Negative) Urine Blood 2+ /uL (Negative) H Urine Nitrite Negative (Negative) Urine Bilirubin Negative (Negative) Urine Urobilinogen Normal mg/dL (Negative) Urine Leukocyte Esterase Negative /uL (Negative) Urine RBC 14 /hpf (0 - 3) Urine Microscopic WBC 4 /HPF (0-3) H Urine Squamous Epithelial Cells Few /hpf (<5) Urine Bacteria None seen /hpf (None Seen) Urine Glucose Normal mg/dL (Normal) Assessment/Plan Assessment/Plan Acute and chronic respiratory failure DVT (deep vein thrombosis) in Shortness of breath Pulmonary embolism Multiple subsegmental thrombotic pulmonary emboli without acute cor pulmonale Plan Hep drip Pulmonary consult Plan discussed with: Patient Date of Service: March 25, 2025 Billing Provider: VALENTINO AGUERO MD Common Visit Codes: [id number] INP/OBS CARE(HIGH) VALENTINO AGUERO MD March 25, 2025 17:54
[2025-03-25] MEDS ORDERED: PERCOT PO (17:55)
[2025-03-25] MEDS ORDERED: HYDR-4798 PO (17:56)
[2025-03-26] VITALS (9 sets, daily range): BP systolic 128–140; BP diastolic 63–75; PULSE 75–89; RESP 17–22; TEMP 97.9–98.7; O2SAT 91–98
[2025-03-26 05:36] LABS: Basophils # (auto) 0 10 ^3/uL (0-0.2); Basophils % (auto) 0.2 % (0.0-2.0); Eosinophils # (auto) 0 10 ^3/uL (0-0.8); Hematocrit 34.4 % (41.0-53.0); Hemoglobin 10.9 g/dL (13.5-17.5); Lymphocytes # (auto) 1.5 10 ^3/uL (0.4-5.4); Lymphocytes % (auto) 8.6 % (10.0-50.0); Mean Corpuscular Hemoglobin 27.1 pg (28.0-32.0); Mean Corpuscular Hgb Conc. 31.7 g/dL (32.0-36.0); Mean Corpuscular Volume 85.6 fL (80.0-100.0); Monocytes # (auto) 1.2 10 ^3/uL (0-1.3); Monocytes % (auto) 6.6 % (0.0-12.0); Neutrophils # (auto) 14.8 10 ^3/uL (1.6-8.6); Neutrophils % (auto) 84.6 % (37.0-80.0); Nucleated Red Blood Cells % 0.1 %; Platelet Count (auto) 201 10^3/uL (140-450); Red Blood Cells 4.02 10^6/uL (4.5-5.90); Red Cell Distribution Width 16.7 % (11.8-14.3); White Blood Cell 17.5 10^3/uL (4.4-10.8)
[2025-03-26 05:47] LABS: INR 1.51 (0.9-1.15); Partial Thromboplastin Time 26.7 SEC (24.5-34.5); Prothrombin Time 15.4 sec (9.3-11.8)
[2025-03-26] MEDS ORDERED: MORPHINE SULFATE INJ 2 MG/ml SYRG IV PRN (11:45)
[2025-03-26] MEDS: MORPHINE SULFATE 4 MG/ML SYR/VIAL IV PRN (12:14)
--- NOTE | 2025-03-26 14:45 | DVHPN2 ---
Progress Note - Dictate Date Seen: Mar 26, 2025 Has the PT tested + for MRSA If YES, has PT been informed?: No Medical Necessity Reason Pt with a Central, PICC or Fol: No vital signs Vital Sign Date Time Temp Pulse Resp B/P (MAP) Pulse Ox O2 Delivery O2 Flow Rate FiO2 03/26/25 13:00 98.1 80 18 132/68 (89) 91 98.1 03/26/25 08:02 Oxymizer 2.0 03/26/25 08:02 N/A Total Intake and Output 03/25/25 03/25/25 03/26/25 15:00 23:00 07:00 Intake Total 2160 ml 200 ml Output Total 450 ml 750 ml Balance 1710 ml -550 ml medications Current Medications Medications Dose Ordered Sig/Elias Route Start Time Stop Time Status Last Admin Dose Admin Albuterol 2.5 mg Q4HPRN PRN NEB 03/23/25 23:45 Ipratropium [place] 0.5 mg Q4HPRN PRN NEB 03/23/25 23:45 Sodium Chloride 1,000 ml @ 60 mls/hr [id number] IV 03/23/25 23:45 03/26/25 14:28 60 MLS/HR Acetaminophen/ Hydrocodone Bitart 1 tab Q4HP PRN PO 03/23/25 23:45 03/26/25 04:18 1 TAB Ondansetron HCl 4 mg Q4HP PRN IV 03/23/25 23:45 Docusate Sodium 100 mg BIDPRN PRN PO 03/23/25 23:45 Acetaminophen 650 mg Q6HP PRN PO 03/23/25 23:45 Nitroglycerin 0.4 mg Q5MINP PRN SL 03/23/25 23:45 Morphine Sulfate 2 mg Q30M PRN IV 03/23/25 23:45 Methylprednisolone Sodium Succinate 40 mg Q8HR IV 03/24/25 06:00 03/26/25 14:28 40 MG Warfarin Sodium RX PROTOCOL PER PHARMACY PO 03/24/25 07:45 Heparin Sodium/ Dextrose 250 ml @ 21.42 mls/ hr [id number] IV 03/25/25 11:45 UNV Heparin Sodium (Porcine) 5,000 units Q8HR SC 03/25/25 14:00 03/26/25 14:35 5,000 UNITS Morphine Sulfate 2 mg Q4HPRN PRN IV 03/26/25 11:45 UNV Morphine Sulfate 2 mg Q4HPRN PRN IV 03/26/25 12:15 03/26/25 12:14 2 MG laboratory and microbiology Laboratory Tests 03/26/25 04:37 03/24/25 05:50 Test 03/24/25 05:50 Range/Units Serum Glucose 173 H 74-106 mg/dL Assessment/Plan recurrent DVT Acute hypoxemic respiratory failure status post thrombectomy Morbid obesity COPD The patient is seen and examined Status post thrombectomy and IVC filter placement Recommendations and management plan Steroids for COPD Anticoagulation continue Coumadin Recommend Fondaparinux until INR is therapeutic (previously patient had a reaction to Lovenox!) Bronchodilators Supplemental O2 p.r.n. P.r.n. BiPAP if the sats above 90% Plan discussed with: Other (rn) SANJU WILSON MD Mar 26, 2025 14:45
--- NOTE | 2025-03-26 17:39 | DVHPN2 ---
Subjective In bed doing well Reviewed: H&P, Labs Changes from previous H/P or p: No Changes Eyes: No Pain, No Vision change, No Conjunctivae inflammation, No Eyelid inflammation, No Other, No Redness ENT: No Ear pain, No Ear discharge, No Nose pain, No Nose discharge, No Nose congestion, No Mouth pain, No Mouth swelling, No Throat pain, No Throat swelling, No Other Cardiovascular: No Chest Pain, No Palpitations, No Orthopnea, No Paroxysmal Noc. Dyspnea, No Edema, No Lt Headedness, No Other Respiratory: No Cough, No Dry; Shortness of breath, SOB with excertion; No Wheezing, No Hemoptysis, No Pleuritic Pain, No Sputum; Other (SOB at rest) Gastrointestinal: No Nausea, No Vomiting, No Abdominal Pain, No Diarrhea, No Constipation, No Melena, No Hematochezia, No Other Genitourinary: No Dysuria, No Frequency, No Incontinence, No Hematuria, No Retention, No Other Musculoskeletal: No other, No neck pain, No shoulder pain, No arm pain, No back pain, No hand pain, No leg pain, No foot pain Skin: No Rash, No Lesions, No Jaundice, No Bruising, No Other Objective Vitals Vital Signs Date Time Temp Pulse Resp B/P (MAP) Pulse Ox O2 Delivery O2 Flow Rate FiO2 03/26/25 16:37 98.3 84 18 140/63 (88) 95 98.3 03/26/25 08:02 Oxymizer 2.0 03/26/25 08:02 N/A Intake/Output Intake and Output 03/26/25 07:00 Intake Total 2360 ml Output Total 1200 ml Balance 1160 ml Intake Oral 700 ml IV Total 1660 ml Output Urine Total 1200 ml General Appearance: Alert, Oriented X3 Lungs: Clear to auscultation Cardiovascular: Regular rate, Normal S1, Normal S2 Medications Current Medications Medications Dose Ordered Sig/Elias Route Start Time Stop Time Status Last Admin Dose Admin Albuterol 2.5 mg Q4HPRN PRN NEB 03/23/25 23:45 Ipratropium [place] 0.5 mg Q4HPRN PRN NEB 03/23/25 23:45 Sodium Chloride 1,000 ml @ 60 mls/hr [id number] IV 03/23/25 23:45 03/26/25 14:28 60 MLS/HR Acetaminophen/ Hydrocodone Bitart 1 tab Q4HP PRN PO 03/23/25 23:45 03/26/25 04:18 1 TAB Ondansetron HCl 4 mg Q4HP PRN IV 03/23/25 23:45 Docusate Sodium 100 mg BIDPRN PRN PO 03/23/25 23:45 Acetaminophen 650 mg Q6HP PRN PO 03/23/25 23:45 Nitroglycerin 0.4 mg Q5MINP PRN SL 03/23/25 23:45 Morphine Sulfate 2 mg Q30M PRN IV 03/23/25 23:45 Methylprednisolone Sodium Succinate 40 mg Q8HR IV 03/24/25 06:00 03/26/25 14:28 40 MG Warfarin Sodium RX PROTOCOL PER PHARMACY PO 03/24/25 07:45 Heparin Sodium/ Dextrose 250 ml @ 21.42 mls/ hr [id number] IV 03/25/25 11:45 UNV Heparin Sodium (Porcine) 5,000 units Q8HR SC 03/25/25 14:00 03/26/25 14:35 5,000 UNITS Morphine Sulfate 2 mg Q4HPRN PRN IV 03/26/25 11:45 UNV Morphine Sulfate 2 mg Q4HPRN PRN IV 03/26/25 12:15 03/26/25 12:14 2 MG Laboratory Results Laboratory Tests 03/24/25 05:50 03/26/25 04:37 Coagulation Test 03/26/25 04:37 Prothrombin Time 15.4 sec (9.3-11.8) H Prothrombin Time INR 1.51 (0.9-1.15) H Activated Partial Thromboplast Time 26.7 SEC (24.5-34.5) Urinalysis Test 03/23/25 22:50 Urine Color Light-yellow (Yellow) Urine Clarity Clear (Clear) Urine pH 6.5 (5.0-9.0) Urine Specific [place] 1.043 (1.001-1.035) Urine Protein Trace (Negative) H Urine Ketones Negative (Negative) Urine Blood 2+ /uL (Negative) H Urine Nitrite Negative (Negative) Urine Bilirubin Negative (Negative) Urine Urobilinogen Normal mg/dL (Negative) Urine Leukocyte Esterase Negative /uL (Negative) Urine RBC 14 /hpf (0 - 3) Urine Microscopic WBC 4 /HPF (0-3) H Urine Squamous Epithelial Cells Few /hpf (<5) Urine Bacteria None seen /hpf (None Seen) Urine Glucose Normal mg/dL (Normal) Assessment/Plan Assessment/Plan Acute and chronic respiratory failure DVT (deep vein thrombosis) in Shortness of breath Pulmonary embolism Multiple subsegmental thrombotic pulmonary emboli without acute cor pulmonale Plan Hep drip Pulmonary consult Plan discussed with: Patient My Orders Orders - VALENTINO AGUERO MD Procedure Category Date Status Time * [place] CONS 03/26/25 Transmitted Consult Morphine Sulfate PHA 03/26/25 In Process Injection 12:15 Notify Provider NOTICE 03/26/25 Transmitted Malnutrition 16:47 Nutritional NOURISH 03/26/25 Transmitted Supplements 16:47 Dietary NOTICE 03/26/25 Transmitted Recommendations 16:47 Date of Service: Mar 26, 2025 Billing Provider: VALENTINO AGUERO MD Common Visit Codes: [id number] INP/OBS CARE(HIGH) VALENTINO AGUERO MD Mar 26, 2025 17:39
[2025-03-26] MEDS: WARFARIN SODIUM 5 MG TAB PO ONE (18:07)
[2025-03-27] VITALS (7 sets, daily range): BP systolic 131–137; BP diastolic 65–80; PULSE 62–84; RESP 18–20; TEMP 97.7–99.5; O2SAT 92–96
[2025-03-27 06:43] LABS: Basophils # (auto) 0 10 ^3/uL (0-0.2); Eosinophils # (auto) 0 10 ^3/uL (0-0.8); Hemoglobin 11.3 g/dL (13.5-17.5); Monocytes # (auto) 1.2 10 ^3/uL (0-1.3); Monocytes % (auto) 6.1 % (0.0-12.0); Platelet Count (auto) 164 10^3/uL (140-450)
[2025-03-27 06:45] LABS: Basophils % (auto) 0.1 % (0.0-2.0); Hematocrit 35.2 % (41.0-53.0); Lymphocytes # (auto) 2.1 10 ^3/uL (0.4-5.4); Lymphocytes % (auto) 10.7 % (10.0-50.0); Mean Corpuscular Hemoglobin 26.7 pg (28.0-32.0); Mean Corpuscular Hgb Conc. 32.2 g/dL (32.0-36.0); Neutrophils # (auto) 16.2 10 ^3/uL (1.6-8.6); Neutrophils % (auto) 83.1 % (37.0-80.0); Nucleated Red Blood Cells % 0.1 %; Red Blood Cells 4.24 10^6/uL (4.5-5.90); Red Cell Distribution Width 16.5 % (11.8-14.3); White Blood Cell 19.5 10^3/uL (4.4-10.8)
[2025-03-27 07:26] LABS: INR 2.01 (0.9-1.15); Partial Thromboplastin Time 32.4 SEC (24.5-34.5); Prothrombin Time 19.9 sec (9.3-11.8)
[2025-03-27] MEDS ORDERED: WARF-66 PO (11:04)
--- NOTE | 2025-03-27 11:12 | DVHDS2 ---
Discharge Summary Date of Admission March 23, 2025 at 23:38 Date of Discharge: Mar 27, 2025 Labs/Diagnostic Data: Laboratory Results Test 03/27/25 05:11 03/24/25 12:36 03/24/25 05:50 03/23/25 22:50 White Blood Count 19.5 10^3/uL (4.4-10.8) Red Blood Count 4.24 10^6/uL (4.5-5.90) Hemoglobin 11.3 g/dL (13.5-17.5) Hematocrit 35.2 % (41.0-53.0) Mean Corpuscular Volume 83.0 fL (80.0-100.0) Mean Corpuscular Hemoglobin 26.7 pg (28.0-32.0) Mean Corpuscular Hemoglobin Concent 32.2 g/dL (32.0-36.0) Red Cell Distribution Width 16.5 % (11.8-14.3) Platelet Count 164 10^3/uL (140-450) Mean Platelet Volume 8.0 fL (6.9-10.8) Neutrophils (%) (Auto) 83.1 % (37.0-80.0) Lymphocytes (%) (Auto) 10.7 % (10.0-50.0) Monocytes (%) (Auto) 6.1 % (0.0-12.0) Eosinophils (%) (Auto) 0.0 % (0.0-7.0) Basophils (%) (Auto) 0.1 % (0.0-2.0) Neutrophils # (Auto) 16.2 10 ^3/uL (1.6-8.6) Lymphocytes # (Auto) 2.1 10 ^3/uL (0.4-5.4) Monocytes # (Auto) 1.2 10 ^3/uL (0-1.3) Eosinophils # (Auto) 0 10 ^3/uL (0-0.8) Basophils # (Auto) 0 10 ^3/uL (0-0.2) Nucleated Red Blood Cells 0.1 % Prothrombin Time 19.9 sec (9.3-11.8) Prothrombin Time INR 2.01 (0.9-1.15) Activated Partial Thromboplast Time 32.4 SEC (24.5-34.5) Creatinine 0.62 mg/dL (0.700-1.30) Glomerular Filtration Rate Calc 114 mL/min (>90) Activated Clotting Time 297 SEC. (93-166) Sodium Level 138 mmol/L (136-145) Potassium Level 3.9 mmol/L (3.5-5.1) Chloride Level 102 mmol/L (98-107) Carbon Dioxide Level 25 mmol/L (20-31) Anion Gap 11 (5-15) Blood Urea Nitrogen 9 mg/dL (9-23) BUN/Creatinine Ratio 13.8 (10.0-20.0) Serum Glucose 173 mg/dL (74-106) Calcium Level 9.7 mg/dL (8.7-10.4) Total Bilirubin 0.5 mg/dL (0.2-1.0) Aspartate Amino Transferase (AST) 19 U/L (13-40) Alanine Aminotransferase (ALT) 14 U/L (7-40) Alkaline Phosphatase 115 U/L (46-116) Total Protein 7.3 g/dL (5.7-8.2) Albumin 4.2 g/dL (3.2-4.8) Urine Color Light-yellow (Yellow) Urine Clarity Clear (Clear) Urine pH 6.5 (5.0-9.0) Urine Specific Wise 1.043 (1.001-1.035) Urine Protein Trace (Negative) Urine Ketones Negative (Negative) Urine Blood 2+ /uL (Negative) Urine Nitrite Negative (Negative) Urine Bilirubin Negative (Negative) Urine Urobilinogen Normal mg/dL (Negative) Urine Leukocyte Esterase Negative /uL (Negative) Urine RBC 14 /hpf (0 - 3) Urine Microscopic WBC 4 /HPF (0-3) Urine Squamous Epithelial Cells Few /hpf (<5) Urine Bacteria None seen /hpf (None Seen) Urine Glucose Normal mg/dL (Normal) Test 03/23/25 21:51 03/23/25 18:45 Troponin I High Sensitivity 22 ng/L (</=54) POC Glucose 152 mg/dl (70-106) Lactic Acid Level 1.2 mmol/L (0.4-2.0) B-Type Natriuretic Peptide 48.54 pg/mL (0-100) Other Laboratory Tests 03/27/25 05:11 03/24/25 05:50 Brief Hx & Hospital Course: Final diagnoses: PE DVT COPD Respiratory failure on home O2 Obesity Left upper lobe mass, stable, chronic, under observation 53-year-old male with a history of COPD and chronic respiratory failure who uses home O2, history of a lung mass for many years that 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 for and he had a biopsy done before and he was told it was benign He came here with shortness of breaths after he left the [facility], he was at [facility] and was diagnosed with PE and was put on warfarin and sent home but he went again to [place] was admitted for few more days and he said he was continued on warfarin and then sent home however he was short of breaths and had edema in his legs and therefore he came here again He was admitted here and he was started on heparin drip and then Interventional Radiology recommended thrombectomy which was done here and then he also had an IVC filter done and then he was resumed on warfarin Right now he is on 3 L nasal cannula which he uses at home We will discontinue the Canales catheter Switch him to nasal cannula Discharged home today to continue warfarin 5 mg daily He said before he came here his dose was increased to 7.5 mg however his INR went to high above 5 INR today is 2.0 and therefore he will stay on 5 mg until he sees his primary care physician again Stable for discharge Condition at Discharge: Stable Final Diagnosis/Problems List PE DVT COPD Respiratory failure on home O2 Obesity Hypertension Discharge Disposition: Home SNF Discharge Will this Physician continue t: No Discharge Instruct/Medications Diet: Cardiac 2g Na,low cholest Activity: No Restrictions, As Tolerated Follow Up/Referral: PCP YULY Medications: Warfarin 5 mg qd Resume other home meds Discharge Statement: "Patient was advised to return to the ER or call 911 if any headaches, dizziness, shortness of breath, chest pain, abdominal pain, bleeding, fevers, or worsening of medical condition. Patient was counseled about treatment plan, medications, possible side effects, patientverbalized understanding. All questions were answered to the best of my ability. This discharge took greater then 30 minutes in planning, reviewing documentation, counseling the patient, and discussing with other team members." ASSESSMENT ASSESSMENT Assessment PE DVT COPD Respiratory failure on home O2 Obesity Hypertension Date of Service: Mar 27, 2025 Billing Provider: GM BURKS MD Common Visit Codes: 95386-CFX/OBS DISCH DAY >30min GM BURKS MD Mar 27, 2025 11:12
--- NOTE | 2025-03-27 18:02 | DVHPN2 ---
Progress Note - Dictate Date Seen: Mar 27, 2025 Has the PT tested + for MRSA If YES, has PT been informed?: No Medical Necessity Reason Pt with a Central, PICC or Fol: Yes The following are medically ne: Harding Catheter Reason for harding catheter: Strict I&O Subjective Patient seen and examined at bedside. Remains on supplemental oxygen Overnight events reviewed. vital signs Vital Sign Date Time Temp Pulse Resp B/P (MAP) Pulse Ox O2 Delivery O2 Flow Rate FiO2 03/27/25 13:00 99.5 84 18 131/80 (97) 95 99.5 03/27/25 09:58 Oxymizer 3 N/A Total Intake and Output 03/26/25 03/26/25 03/27/25 15:00 23:00 07:00 Intake Total 450 ml 1140 ml 1100 ml Output Total 850 ml 1200 ml Balance 450 ml 290 ml -100 ml medications Current Medications Medications Dose Ordered Sig/Elias Route Start Time Stop Time Status Last Admin Dose Admin Heparin Sodium/ Dextrose 250 ml @ 21.42 mls/ hr [id number] IV 03/25/25 11:45 UNV Morphine Sulfate 2 mg Q4HPRN PRN IV 03/26/25 11:45 UNV objective Gen.: Patient lying in bed in no apparent distress. On supplemental oxygen. Head: Normocephalic, atraumatic. Eyes: EOMI/PERRLA. Ears: Normal hearing. Normal anatomy. Neck/trachea: Trachea midline, supple. Nose: Normal external anatomy. Mouth: Moist mucous membranes. Chest: Decreased air entry bilaterally. No wheezing or rhonchi. Cardiovascular: Positive S1, positive S2. Regular rate and rhythm. Abdomen: Positive bowel sounds in all 4 quadrants. Soft, non-tender, non- distended. : Deferred. Rectal: Deferred. Skin: Warm, dry. Intact. Extremities: 2+ radial pulses bilaterally. No lower extremity edema. Neuro: Awake, alert, oriented x3. No gross motor or sensory deficits. Cranial nerves II through XII intact. Gait not assessed. laboratory and microbiology Laboratory Tests 03/27/25 05:11 03/24/25 05:50 Test 03/24/25 05:50 Range/Units Serum Glucose 173 H 74-106 mg/dL Assessment/Plan Impression: Pulmonary embolism Recurrent DVT Acute on chronic hypoxemic respiratory failure 2/2 PE. Status post thrombectomy Obesity, BMI 33.8 Chronic obstructive pulmonary disease Snoring, rule out JOHN PAUL. Events: The patient is seen and examined Remains on supplemental oxygen On 3 LPM Oxymizer Taper O2 as tolerated Status post thrombectomy and IVC filter placement Continue Coumadin Continue fondaparinux until INR therapeutic. Patient is stable for discharge from the pulmonary standpoint. Recommend sleep study as outpatient to r/o JOHN PAUL. Labs and imaging reviewed. Plan: Supplemental oxygen Titrate to keep O2 sats above 92%. Taper O2 as tolerated. PRN BiPAP if the sats above 90% Steroids for COPD Anticoagulation continue Coumadin Recommend Fondaparinux until INR is therapeutic (previously patient had a reaction to Lovenox!) Bronchodilators Monitor renal function. Monitor electrolytes. Supplement as necessary. Monitor ins and outs. Prognosis: Guarded given patient's multiple co-morbidities. Rest of plan per hospitalist and other consultants. Thank you Dr. Patterson, for allowing me to participate in this patient's care. Further recommendations will depend on the patient's clinical course. Please do not hesitate to contact me if you have any questions or concerns. This medical document was created using an electronic medical record system with [employer] dictation system. Although these documentations are being carefully reviewed, there may still be some phonetic and typographical changes. The errors are purely typographical, due to imperfection on the software program, and do not reflect any compromise in the patient's medical care. Dietary Evaluation Review Recommendations by RD: Dietary education by RD, Protein Supplementation Comments: 1) Initiate Glucerna qd. Encourage optimal PO intake 2) Initiate MVI @ 1 tb qd 3) Collect HbA1C 4) Refer to outpatient RD/CDCES for weight management 5) Follow-up with cardiology and pulmonology 6) Follow-up with hematology/oncology 7) Continue to monitor I&O, labs, and skin integrity Expected Outcomes/Goals: 1) appetite and labs to improve 2) f/u in 3-5 days Plan discussed with: Patient, Other (RN) YOLANDA SIEGEL MD Mar 27, 2025 18:02
--- NOTE | 2025-03-30 06:57 | ECG ---
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
== END 2025-03-27 14:51 | disposition home or self-care (01) | DRG 169 ==
LOC: ER 18:28 → EDBD 18:28 → OVERFLOW 23:38 → TELE-CENTR 03-24 17:53
PROVIDERS: ADMIT Internal Medicine Geriatric Medicine; ATTEND Internal Medicine Geriatric Medicine
PROC: 5A09357 Assistance with Respiratory Ventilation, Less than 24 Consecutive Hours, Continuous Positive Airway Pressure (ICD-10-PCS; principal; 2025-03-23)
PROC: 04CC3ZZ Extirpation of Matter from Right Common Iliac Artery, Percutaneous Approach (ICD-10-PCS; 2025-03-24)
PROC: 04CK3ZZ Extirpation of Matter from Right Femoral Artery, Percutaneous Approach (ICD-10-PCS; 2025-03-24)
PROC: 04CM3ZZ Extirpation of Matter from Right Popliteal Artery, Percutaneous Approach (ICD-10-PCS; 2025-03-24)
PROC: 06H03DZ Insertion of Intraluminal Device into Inferior Vena Cava, Percutaneous Approach (ICD-10-PCS; 2025-03-24)
PROC: 5A09357 Assistance with Respiratory Ventilation, Less than 24 Consecutive Hours, Continuous Positive Airway Pressure (ICD-10-PCS; 2025-03-24)
DX: I82.421 Acute embolism and thrombosis of right iliac vein (principal); J96.21 Acute and chronic respiratory failure with hypoxia; I26.94 Multiple subsegmental thrombotic pulmonary emboli without acute cor pulmonale; I82.411 Acute embolism and thrombosis of right femoral vein; E66.01 Morbid (severe) obesity due to excess calories; I82.431 Acute embolism and thrombosis of right popliteal vein; Z68.33 Body mass index [BMI] 33.0-33.9, adult; Z99.81 Dependence on supplemental oxygen; J44.9 Chronic obstructive pulmonary disease, unspecified; I10 Essential (primary) hypertension; E11.9 Type 2 diabetes mellitus without complications; Z87.891 Personal history of nicotine dependence; Z79.84 Long term (current) use of oral hypoglycemic drugs; Z79.01 Long term (current) use of anticoagulants; Z88.8 Allergy status to other drugs, medicaments and biological substances; R91.8 Other nonspecific abnormal finding of lung field
CPT/HCPCS: 36415; 37187; 37619; 71045; 71275; 76937; 80048; 80053; 81001; 82565; 82962; 83605; 83880; 84484; 85025; 85610; 85730; 93970; 94660; 96374; 96375; 99152; 99153; 99291; C1769; C1894; G0378; J2250; J2405; Q9967

== ENCOUNTER 2025-04-16 18:51 | Inpatient (IN) | payer MEDICAID ==
[~2025-04-16] VITALS: Ht 190.5 cm; Wt 104.0 kg
[~2025-04-16 18:51] MED LIST changes: -APIX5TAB PO; +BISA-51 PO; +CLIN150C PO; -DEX4T PO; +DOCU-265 PO; +HYDR-4798 PO; +PERCOT PO; +WARF-66 PO
--- NOTE | 2025-04-16 19:01 | ECG ---
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
--- NOTE | 2025-04-16 19:10 | ED.PDOC ---
HPI Comments 54 y.o male with PMHx of COPD, CHF, HTN, PE, DVT's, presents to the ED via EMS for a chief complaint of left sided chest pain associated with SOB, chills, and a productive cough with clear phlegm sputum. EMS reports patient has hx of similar symptoms in the past, has been seen at this ED and diagnosed with blood clots in which he underwent thrombectomy for recently about 3-4 weeks ago. Patient reports he is on warfarin. however due to elevated lab work findings 6 days ago at [place], was told to hold medication and has not taken it for the past 5 days but did take half a tablet today. Patient also reports 3 day history of sores to multiple regions of his legs and feet with chronic discoloration from mid calf radiating to his foot. Patient is on home oxygen at 3.5 liters and has a SPO2 of 95%. EMS reports patient has been tachycardiac in the 120's with blood pressure at 116/63 upon ED arrival. Patient is non ambulatory at this time. Has a history of tobacco use but quit 3 years ago. Chief Complaint: Chest Pain Time Seen by MD: 18:56 Primary Care Provider: GLORIA Reviewed Notes: Nurses Notes, Medications, Allergies Allergies: Coded Allergies: Bacitracin (Verified Allergy, Unknown, 03/16/25) Enoxaparin (Verified Allergy, Unknown, 03/16/25) Gabapentin (Verified Allergy, Unknown, 03/16/25) Home Meds Active Scripts Warfarin Sodium (Warfarin Sodium) 5 Mg Tab, 1 TAB PO DAILY, #30 TAB 5 Refills Prov:GM BURKS MD 03/27/25 Ascorbic Acid (VITAMIN C TABLET) 500 Mg Tb, 500 MG PO BID, #60 TAB Prov:MJ BAEZ MD 11/18/21 Albuterol Sulfate (VENTOLIN MDI) 90 Mcg Ih, 180 MCG IN TIDPRN PRN, #1 INH Prov:MJ BAEZ MD 11/18/21 Reported Medications Hydrocodone-Acetaminophen (Hydrocodone Bitartrate/AC 10-325 mg) 1 Tab Tab, 1 TAB PO Q4HP PRN for PAIN SCALE 1 THRU 6, TAB 03/25/25 Oxycodone W/ Acetaminophen (Percocet 5/325MG) 1 Tab Tb, 2 TAB PO Q6HP PRN for PAIN SCALE 7 THRU 10, #120 TAB 5/31/25 Docusate Sodium (Docusate Sodium) 100 Mg Cap, 100 MG PO BID, CAP 03/24/25 Clindamycin Hcl (CLEOCIN) 150 Mg Cap, 3 CAP PO QID, #40 CAP 03/24/25 Bisacodyl (KP BISACODYL) 5 Mg Tab, 1 TAB PO UD, #4 TAB 03/24/25 Information Source: Patient Mode of Arrival: EMS Severity: Moderate Timing: Hours Duration: Since onset Prehospital treatment: 12 Lead 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, 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 Location: Chest (L) Radiation: No Radiation Quality: Aching Onset: At Rest Cardiac Risk Factors: HTN History of: Similar pain in past Modifying Factors: Nothing Associated Signs and Symptoms: SOB Past Medical History PAST MEDICAL HISTORY: CHF, COPD, DM, HTN, PE Past Medical History (Other): DVT Surgical History: Hernia Repair Family History Family History: No family hx of DM Social History Smoker: Quit Greater Than 1 Year, Cigarettes Alcohol: Denies ETOH Use Drugs: Denies Drug Use Lives In: Home Constitutional: denies: chills, diaphoresis, fatigue, fever, malaise, sweats, weakness, others EENTM: denies: blurred vision, double vision, ear bleeding, ear discharge, ear drainage, ear pain, ear ringing, eye pain, eye redness, hearing loss, mouth pain, mouth swelling, nasal discharge, nose bleeding, nose congestion, nose pain, photophobia, tearing, throat pain, throat swelling, voice changes, others Respiratory: reports: cough, SOB at rest, shortness of breath, SOB with excertion; denies: hemoptysis, orthopnea, stridor, wheezing, others Cardiovascular: reports: chest pain; denies: dizzy spells, diaphoresis, Dyspnea on exertion, edema, irregular heart beat, left arm pain, lightheadedness, palpitations, PND, syncope, others Gastrointestinal: denies: abdomen distended, abdominal pain, blood streaked bowels, constipated, diarrhea, dysphagia, difficulty swallowing, hematemesis, melena, nausea, poor appetite, poor fluid intake, rectal bleeding, rectal pain, vomiting, others Genitourinary: denies: burning, dysuria, flank pain, frequency, hematuria, incontinence, penile discharge, penile sore, pain, testicle pain, testicle sw elling, urgency, others Neurological: denies: dizziness, fainting, headache, left sided numbness, left sided weakness, numbness, paresthesia, pre-existing deficit, right sided numbness, right sided weakness, seizure, speech problems, tingling, tremors, weakness, others Musculoskeletal: denies: back pain, gout, joint pain, joint swelling, muscle pain, muscle stiffness, neck pain, others Integumetry: denies: bruises, change in color, change in hair/nails, dryness, laceration, lesions, lumps, rash, wounds, others Allergic/Immunocompromised: denies: Difficulty Healing, Frequent Infections, Hives, Itching, others Hematologic/Lymphatic: denies: anemia, blood clots, easy bleeding, easy bruising, swollen glands, others Endocrine: denies: excessive hunger, excessive sweating, excessive thirst, excessive urination, flushing, intolerance to cold, intolerance to heat, unexplained weight gain, unexplained weight loss, others Psychiatric: denies: anxiety, bipolar disorder, depression, hopeless, panic disorder, schizophrenia, sleepless, suicidal, others All Other Systems: Reviewed and Negative Physical Exam General Appearance: Moderate Distress, Normal HEENT: Normal ENT Inspection, Pharynx Normal, TMs Normal Neck: Full Range of Motion, Non-Tender, Normal, Normal Inspection Respiratory: Chest Non-Tender, Lungs Clear, No Accessory Muscle Use, Other (Mild respiratory distress, bilateral crackles, on 3.5 L nasal cannula which is his home O2 setting with O2 sat at 95%) Cardiovascular: No Edema, No JVD, No Murmur, No Gallop, Normal Peripheral Pulses, Regular Rate/Rhythm Breast Exam: Deferred Gastrointestinal: No Organomegaly, Non Tender, No Pulsatile Mass, Normal Bowel Sounds, Soft Genitalia: Deferred Pelvic: Deferred Rectal: Deferred Extremities: No calf tenderness, Normal capillary refill, Normal inspection, Normal range of motion, Other (Bilateral lower extremities with significant 2+ edema, full range of motion after his, scattered blisters, no crepitus, no warmth) Musculoskeletal : Apperance: Normal 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 Was a procedure done?: No CP Differential Dx Differential Diagnosis: A-fib, A-Flutter, Sinus Tachycardia Differential Diagnosis: Angina, Chest Wall Pain, Costochondritis, Gastritis, Myocardial Infarction, Pericarditis, Other (DVT, PE) X-Ray, Labs, Meds, VS Vital Signs Date Time Temp Pulse Resp B/P (MAP) Pulse Ox O2 Delivery O2 Flow Rate FiO2 04/16/25 20:24 106 04/16/25 19:59 109 20 98 Nasal Cannula* 3 32 04/16/25 19:59 98.1 109 20 130/82 (98) 97 98.1 04/16/25 18:57 99.7 118 22 116/63 (80) 95 99.7 04/16/25 18:57 118 Lab Test 04/16/25 19:50 Range/Units White Blood Count 15.5 H 4.4-10.8 10^3/uL Red Blood Count 4.40 L 4.5-5.90 10^6/uL Hemoglobin 11.3 L 13.5-17.5 g/dL Hematocrit 34.9 L 41.0-53.0 % Mean Corpuscular Volume 79.3 L 80.0-100.0 fL Mean Corpuscular Hemoglobin 25.8 L 28.0-32.0 pg Mean Corpuscular Hemoglobin Concent 32.5 32.0-36.0 g/dL Red Cell Distribution Width 18.4 H 11.8-14.3 % Platelet Count 127 L 140-450 10^3/uL Mean Platelet Volume 7.7 6.9-10.8 fL Neutrophils (%) (Auto) 37.0-80.0 % Lymphocytes (%) (Auto) 10.0-50.0 % Monocytes (%) (Auto) 0.0-12.0 % Basophils (%) (Auto) 0.0-2.0 % Neutrophils # (Auto) 1.6-8.6 10 ^3/uL Lymphocytes # (Auto) 0.4-5.4 10 ^3/uL Monocytes # (Auto) 0-1.3 10 ^3/uL Differential Total Cells Counted 100.0 100 Neutrophils % (Manual) 78 37.0-80.0 Band Neutrophils % (Manual) 1 Lymphocytes % (Manual) 11 10.0-50.0 Monocytes % (Manual) 9 0-12 Eosinophils % (Manual) 1 0-7 Basophils % (Manual) 0 0.0-2.0 Metamyelocytes % (manual) 0 Myelocytes % (Manual) 0 Promyelocytes % (Manual) 0 Blast Cells % (Manual) 0 Reactive Lymphocytes 0 Platelet Estimate Decreased Anisocytosis (manual) Slight Sodium Level 135 L 136-145 mmol/L Potassium Level 4.1 3.5-5.1 mmol/L Chloride Level 100 98-107 mmol/L Carbon Dioxide Level 24 20-31 mmol/L Anion Gap 11 5-15 Blood Urea Nitrogen 9 9-23 mg/dL Creatinine 0.68 L 0.700-1.30 mg/dL Glomerular Filtration Rate Calc 111 >90 mL/min BUN/Creatinine Ratio 13.2 10.0-20.0 Serum Glucose 116 H 74-106 mg/dL Lactic Acid Level 1.5 0.4-2.0 mmol/L Calcium Level 9.5 8.7-10.4 mg/dL Troponin I High Sensitivity 8 </=54 ng/L B-Type Natriuretic Peptide 39.89 0-100 pg/mL Lipase 95 H 12-53 U/L X-Ray, Labs, Meds, VS Comment 54-year-old male with extensive medical history as above here today with concern for shortness of breath, chest pain, and bilateral lower extremity swelling. Ultrasounds of bilateral lower extremities with evidence of extensive DVTs despite patient's warfarin use. Patient will be started on heparin for this. BNP not significantly elevated at 40, suspect patient's leg swelling is primarily being driven by the clot burden. CT angio pending to evaluate for PE. Patient also started on antibiotics after cultures were drawn for possible concomitant COPD exacerbation. I discussed the case with Dr. Rodriguez from [facility] who authorized admission for the patient here, authorization #[id number]. Patient to be admitted here for consideration of repeat thrombectomy and further management of his DVTs. Images Reviewed?: Images reviewed and evaluated by me Time of 1ST Reevaluation: 19:10 Reevaluation 1ST: Unchanged Patient Education/Counseling: Diagnosis, Treatment, Prognosis Family Education/Counseling: No Family Present SEPSIS Sepsis Screen Date sepsis recognized/suspect: Apr 16, 2025 Time Sepsis recognized/suspect: 1854 Recent Procedure: No On Antibiotic Therapy: No Respiratory Rate >20: Yes Heart Rate >90: Yes Temp<36 C (96.8 F) or >38.3 C: No SBP <90 or MAP <65 mmHG: No New Acute Mental Status Change: No Is the patient on CPAP, BIPAP,: No Physician Orders Ct Angio Chest Contrast (04/16/25 19:04) Troponin-I Hs (04/16/25 20:04) Troponin-I Hs (04/16/25 22:04) Bilat Lower Dvt (04/16/25 19:04) Vital Signs Date Time Temp Pulse Resp B/P (MAP) Pulse Ox O2 Delivery O2 Flow Rate FiO2 04/16/25 20:24 106 04/16/25 19:59 109 20 98 Nasal Cannula* 3 32 04/16/25 19:59 98.1 109 20 130/82 (98) 97 98.1 04/16/25 18:57 99.7 118 22 116/63 (80) 95 99.7 04/16/25 18:57 118 Laboratory Tests Test 04/16/25 19:50 Lactic Acid Level 1.5 mmol/L (0.4-2.0) White Blood Count 15.5 10^3/uL (4.4-10.8) H Reassessment Post Fluid Date of Reassessment: Apr 16, 2025 Time of Reassessment: 20:02 Respiration: 16 Oxygen Saturation: 99 Pulse rate: 92 Departure 1 Departure Time of Disposition: 21:21 Impression: Primary Impression: Deep vein thrombosis (DVT) Additional Impressions: History of DVT (deep vein thrombosis) History of pulmonary embolism History of COPD COPD exacerbation Disposition: 02 SHORT TERM HOSPITAL Admit to: Tele Condition: Guarded Critical Care Note Critical Care Time?: Yes (35 min-critical care time only) Stability Stability form required: No Unstable for transfer: Telemetry monitoring (Telemetry monitoring required), Requires medication Comments Tachycardic, extensive clot burden Heart Score Heart Score: Heart Score Response (Comments) Value History Moderate Suspicious 1 EKG Repolarization Disturb 1 Age 45-64 1 Risk Factors >3 or Hx ASHD 2 Troponin Normal limit 0 Total 5 I personally scribed for KAREN FRANCOIS MD ([email or web address]) on 04/16/25 at 19:10. Electronically submitted by Sharon Lara ([facility]). KAREN FRANCOIS MD Apr 16, 2025 19:10
[2025-04-16 19:59] VITALS: PULSE 109; RESP 20; O2SAT 98
[2025-04-16 20:02] LABS: Hematocrit 34.9 % (41.0-53.0); Hemoglobin 11.3 g/dL (13.5-17.5); Mean Corpuscular Hemoglobin 25.8 pg (28.0-32.0); Mean Corpuscular Volume 79.3 fL (80.0-100.0)
[2025-04-16 20:05] LABS: Chloride 100 mmol/L (98-107); Potassium 4.1 mmol/L (3.5-5.1)
[2025-04-16 20:06] LABS: Anion Gap 11 (5-15); Carbon Dioxide 24 mmol/L (20-31)
[2025-04-16 20:07] LABS: Calcium 9.5 mg/dL (8.7-10.4)
--- NOTE | 2025-04-16 20:07 | DVH ---
Bilateral lower extremity venous duplex Clinical History: hx DVT, here w leg swelling Comparison: US BILAT LOWER DVT on DOS: 03/23/25 Technique: Duplex Doppler evaluation of the deep venous systems of both lower extremities from the common femora l veins to the popliteal veins including color Doppler and spectral/pulsed waveform analysis was perf ormed. Findings: RIGHT SIDE: Noncompressibility and intraluminal thrombus is present in the right common femoral vein, saphenofemo ral junction, femoral vein, popliteal vein and proximal calf. LEFT SIDE: Noncompressibility and intraluminal thrombus is present in the right common femoral vein, saphenofemo ral junction, femoral vein, popliteal vein and proximal calf. Impression: Extensive positive DVT, bilateral lower extremity. Critical Result: DVT Findings discussed with FLOYD Oquendo at 04/16/2025 08:04 PM, and acknowledged receipt and understanding of the findings.
[2025-04-16 20:12] LABS: BUN/Creatinine Ratio 13.2 (10.0-20.0); Blood Urea Nitrogen 9 mg/dL (9-23)
[2025-04-16 20:25] LABS: Glucose 116 mg/dL (74-106); Sodium 135 mmol/L (136-145)
--- NOTE | 2025-04-16 20:27 | ECG ---
[facility] Test Date: 2025-04-16 Test Time: 20:24:49 Pat Name: CELINE TABOR Department: ED Room: [address] [place] [address] Gender: M Hookman: JEANNIE : 1970 Requested By: KAREN FRANCOIS Order Number: [id number] Reading MD: Jaciel Wagner Measurements Intervals [place] Rate: 106 P: 38 MO: 126 QRS: 28 QRSD: 76 T: 45 QT: 331 QTc: 440 Interpretive Statements Sinus tachycardia Electronically Signed On 04-18-2025 22:47:15 PDT by Jaciel Wagner Please click the below link to view image of tracing.
[2025-04-16 20:29] LABS: Total Cells Counted 100.0 (100)
[2025-04-16 20:30] LABS: Anisocytosis Slight
[2025-04-16 20:53] LABS: Lipase 95 U/L (12-53)
[2025-04-16] MEDS: AZITHROMYCIN 500MG/ 250ML 250 ML IV ONE (21:15)
[2025-04-16] MEDS: cefTRIAXone 1GM/50ML D5W 50 ML IV ONE (21:15)
[2025-04-16 21:56] LABS: INR 3.52 (0.9-1.15); Partial Thromboplastin Time 46.7 SEC (24.5-34.5); Prothrombin Time 32.9 sec (9.3-11.8)
--- NOTE | 2025-04-16 22:14 | DVH ---
Procedure: CT CT ANGIO CHEST CONTRAST Reason for study/Clinical History: R/O PE, hx of PE Comparison Study: CT CT ANGIO CHEST CONTRAST on DOS: 03/23/25, CT CT ANGIO CHEST CONTRAST on DOS: 02/06, CT ANGIO CHEST CONTRAST on DOS: 11/15/21 Exam Date: 04/16/2025 08:47 PM Radiation Dose Information: CT Dose: CTDI volume is 27.73 mGy. Dose-length product is 1015.03 mGy*cm Contrast: Type of contrast: Omnipaque 350 Contrast inject: 100 mL Contrast wasted:0 TECHNIQUE: After the uneventful administration of intravenous contrast intravenously, CT imaging was performed through the chest. Coronal and sagittal reformations were performed by the technologist. FINDINGS: Lower Neck: Visualized portions of the thyroid gland are unremarkable. Aorta and Vasculature: Normal caliber of thoracic aorta. Filling defects in the right and left pulmon ermelinda arteries consistent with pulmonary emboli. No findings of pulmonary artery hypertension. Lymph Nodes: Extensive prevascular adenopathy largest measures 2.4 cm in short axis dimension. Bilate ral hilar adenopathy worse on the left than the right. 4.7 by 2.9 cm mass left upper lobe with pleura l thickening in the left chest and left base with pleural effusion in the base. Mediastinum: Heart size is normal. There is no pericardial effusion. The esophagus is unremarkable. Lungs: Bibasilar airspace disease and areas of atelectasis.. No suspicious pulmonary nodule or mass. Musculoskeletal: No acute osseous abnormality. Upper abdomen: Limited portions of the upper abdomen are unremarkable. IMPRESSION: 1. Numerous bilateral filling defects in the 2nd and 3rd order branches of the pulmonary arteries. No emboli in the right or left main pulmonary arteries or saddle embolus. 2. Mediastinal and hilar adenopathy by bilaterally. 3. 4.7 x 2.9 cm spiculated mass left upper lung field worrisome for neoplasm. 4. Pleural thickening throughout the left chest small bilateral pleural effusions. HS:Y CRITICAL FINDINGS: Critical Result: POSITIVE PULMONARY EMBOLUS. 4.7 BY 2.9 CM LEFT UPPER LOBE PULMONARY mass not signif icantly changed from 03/23/2025. Findings discussed with Dr Reid at 04/16/2025 10:04 PM, and acknowledged receipt and understanding of the findings. All CT scans at this medical facility are performed using dose modulation techniques as appropriate t o a performed exam including the following: Automated exposure control was utilized; adjustment of th e MA and/or KV according to patient size; and use of iterative reconstruction technique.
[2025-04-16] MEDS ORDERED: HYDROcodone-ACET 5/325MG TAB PO PRN (22:30)
[2025-04-16] MEDS ORDERED: ACETAMINOPHEN 325 MG TAB PO PRN (22:30)
[2025-04-16] MEDS ORDERED: ALBUTEROL SULF 2.5 MG/0.5ML(0.5%) NEB SOLN NEB PRN (22:30)
[2025-04-16] MEDS ORDERED: MORPHINE SULFATE INJ 2 MG/ml SYRG IV PRN (22:30)
[2025-04-16] MEDS ORDERED: IPRATROPIUM BROM 0.5 MG/2.5ML INH SOL NEB PRN (22:30)
[2025-04-16] MEDS ORDERED: ONDANSETRON HCL 4 MG/2 ML VIAL IV PRN (22:30)
[2025-04-16] MEDS: HEPARIN DRIP/D5W 100UNITS/ML 250 ML IV SCH (22:47)
--- NOTE | 2025-04-16 22:51 | DVHHP2 ---
History of Present Illness Reason for Visit: Bilateral lower extremity swollen History of Present Illness 54-year-old male presents for evaluation of bilateral lower extremity swelling. Patient reports being admitted couple of weeks ago and was found to have a right lower extremity DVT in the pulmonary embolism. He underwent a thrombectomy of the right lower extremity DVT and IVC be filter placement. Patient was placed on heparin discharged home in stable condition. Patient states that over the past three days he has been having worsening bilateral lower extremity swelling with discoloration. Denies any numbness or tingling. Denies any worsening shortness for breath. Does use 3 L of nasal cannula oxygen at home. Denies any chest pain. No other acute complaints reported. Past Medical History COPD, diabetes mellitus, hypertension, PE, DVT, CHF Past Surgical History Thrombectomy, IVC filter, hernia repair Smoke: Quit ALCOHOL: none Drugs: None Lives: with Family Review of Systems Review of Systems Review of systems are currently negative otherwise addressed in HPI. Allergies: Coded Allergies: Bacitracin (Verified Allergy, Unknown, 03/16/25) Enoxaparin (Verified Allergy, Unknown, 03/16/25) Gabapentin (Verified Allergy, Unknown, 03/16/25) Medications Current Medications Medications Dose Ordered Sig/Elias Route Start Time Stop Time Status Last Admin Dose Admin Heparin Sodium/ Dextrose 250 ml @ 15 mls/hr [id number] IV 04/16/25 21:15 Albuterol 2.5 mg Q6HPRN PRN NEB 04/16/25 22:30 Ipratropium [place] 0.5 mg Q6HPRN PRN NEB 04/16/25 22:30 Acetaminophen/ Hydrocodone Bitart 1 tab Q4HP PRN PO 04/16/25 22:30 Ondansetron HCl 4 mg Q4HP PRN IV 04/16/25 22:30 Acetaminophen 650 mg Q6HP PRN PO 04/16/25 22:30 Morphine Sulfate 2 mg Q4HPRN PRN IV 04/16/25 22:30 Nitroglycerin 0.4 mg Q5MINP PRN SL 04/16/25 22:30 Morphine Sulfate 2 mg Q30M PRN IV 04/16/25 22:30 Exam Vital Signs Vital Signs Date Time Temp Pulse Resp B/P (MAP) Pulse Ox O2 Delivery O2 Flow Rate FiO2 04/16/25 20:24 106 04/16/25 19:59 20 98 Nasal Cannula* 3 32 04/16/25 19:59 98.1 130/82 (98) 98.1 Exam Gen: 54-year-old male in mild distress. Skin: Warm, dry, normal color and texture, no rash. HEENT: Normocephalic atraumatic, mucous membranes moist and pink. Neck: Cervical and supraclavicular nodes normal without enlargement, trachea is midline, thyroid gland is normal without masses. Pulmonary: Clear to auscultation and percussion bilaterally. Cardiac: Regular rate and rhythm. No murmur Abdomen: Soft, nontender, nondistended, bowel sounds present all 4 quadrants, no guarding, no rigidity, no organomegaly. Extremities: No cyanosis, clubbing, bilateral lower extremity discoloration pulses detected with Doppler Neuro: Cranial nerves II through XII grossly intact, normal affect and speech, no focal motor deficits. Labs/Xrays ORDERING PHYSICIAN: KAREN FRANCOIS MD PROCEDURE(s): CTACH - CT ANGIO CHEST CONTRAST REASON: R/O PE, hx of PE ORDER NUMBER(s): [id number], ACCESSION NUMBER(s): [id number] Procedure: CT CT ANGIO CHEST CONTRAST Reason for study/Clinical History: R/O PE, hx of PE Comparison Study: CT CT ANGIO CHEST CONTRAST on DOS: 03/23/25, CT CT ANGIO CHEST CONTRAST on DOS: 02/06/25, CT ANGIO CHEST CONTRAST on DOS: 11/15/21 Exam Date: 04/16/2025 08:47 PM Radiation Dose Information: CT Dose: CTDI volume is 27.73 mGy. Dose-length product is 1015.03 mGy*cm Contrast: Type of contrast: Omnipaque 350 Contrast inject: 100 mL Contrast wasted:0 TECHNIQUE: After the uneventful administration of intravenous contrast intravenously, CT imaging was performed through the chest. Coronal and sagittal reformations were performed by the technologist. FINDINGS: Lower Neck: Visualized portions of the thyroid gland are unremarkable. Aorta and Vasculature: Normal caliber of thoracic aorta. Filling defects in the right and left pulmonary arteries consistent with pulmonary emboli. No findings of pulmonary artery hypertension. Lymph Nodes: Extensive prevascular adenopathy largest measures 2.4 cm in short axis dimension. Bilateral hilar adenopathy worse on the left than the right. 4.7 by 2.9 cm mass left upper lobe with pleural thickening in the left chest and left base with pleural effusion in the base. Mediastinum: Heart size is normal. There is no pericardial effusion. The esophagus is unremarkable. Lungs: Bibasilar airspace disease and areas of atelectasis.. No suspicious pulmonary nodule or mass. Musculoskeletal: No acute osseous abnormality. Upper abdomen: Limited portions of the upper abdomen are unremarkable. IMPRESSION: 1. Numerous bilateral filling defects in the 2nd and 3rd order branches of the pulmonary arteries. No emboli in the right or left main pulmonary arteries or saddle embolus. 2. Mediastinal and hilar adenopathy by bilaterally. 3. 4.7 x 2.9 cm spiculated mass left upper lung field worrisome for neoplasm. 4. Pleural thickening throughout the left chest small bilateral pleural effusions. HS:Y CRITICAL FINDINGS: Critical Result: POSITIVE PULMONARY EMBOLUS. 4.7 BY 2.9 CM LEFT UPPER LOBE PULMONARY mass not significantly changed from 03/23/2025. Findings discussed with Dr Reid at 04/16/2025 10:04 PM, and acknowledged receipt and understanding of the findings. All CT scans at this medical facility are performed using dose modulation techniques as appropriate to a performed exam including the following: Automated exposure control was utilized; adjustment of the MA and/or KV according to patient size; and use of iterative reconstruction technique. RING PHYSICIAN: KAREN FRANCOIS MD PROCEDURE(s): BLDVT - BiLat Lower DVT REASON: hx DVT, here w leg swelling ORDER NUMBER(s): [id number], ACCESSION NUMBER(s): [id number] Bilateral lower extremity venous duplex Clinical History: hx DVT, here w leg swelling Comparison: US BILAT LOWER DVT on DOS: 03/23/25 Technique: Duplex Doppler evaluation of the deep venous systems of both lower extremities from the common femoral veins to the popliteal veins including color Doppler and spectral/pulsed waveform analysis was performed. Findings: RIGHT SIDE: Noncompressibility and intraluminal thrombus is present in the right common femoral vein, saphenofemoral junction, femoral vein, popliteal vein and proximal calf. LEFT SIDE: Noncompressibility and intraluminal thrombus is present in the right common femoral vein, saphenofemoral junction, femoral vein, popliteal vein and proximal calf. Impression: Extensive positive DVT, bilateral lower extremity. Critical Result: DVT Findings discussed with FLOYD Oquendo at 04/16/2025 08:04 PM, and acknowledged receipt and understanding of the findings. Labs Test 04/16/25 21:06 04/16/25 19:50 Range/Units Troponin I High Sensitivity 3 L </=54 ng/L White Blood Count 15.5 H 4.4-10.8 10^3/uL Red Blood Count 4.40 L 4.5-5.90 10^6/uL Hemoglobin 11.3 L 13.5-17.5 g/dL Hematocrit 34.9 L 41.0-53.0 % Mean Corpuscular Volume 79.3 L 80.0-100.0 fL Mean Corpuscular Hemoglobin 25.8 L 28.0-32.0 pg Mean Corpuscular Hemoglobin Concent 32.5 32.0-36.0 g/dL Red Cell Distribution Width 18.4 H 11.8-14.3 % Platelet Count 127 L 140-450 10^3/uL Mean Platelet Volume 7.7 6.9-10.8 fL Neutrophils (%) (Auto) 37.0-80.0 % Lymphocytes (%) (Auto) 10.0-50.0 % Monocytes (%) (Auto) 0.0-12.0 % Basophils (%) (Auto) 0.0-2.0 % Neutrophils # (Auto) 1.6-8.6 10 ^3/uL Lymphocytes # (Auto) 0.4-5.4 10 ^3/uL Monocytes # (Auto) 0-1.3 10 ^3/uL Differential Total Cells Counted 100.0 100 Neutrophils % (Manual) 78 37.0-80.0 Band Neutrophils % (Manual) 1 Lymphocytes % (Manual) 11 10.0-50.0 Monocytes % (Manual) 9 0-12 Eosinophils % (Manual) 1 0-7 Basophils % (Manual) 0 0.0-2.0 Metamyelocytes % (manual) 0 Myelocytes % (Manual) 0 Promyelocytes % (Manual) 0 Blast Cells % (Manual) 0 Reactive Lymphocytes 0 Platelet Estimate Decreased Anisocytosis (manual) Slight Prothrombin Time 32.9 H 9.3-11.8 sec Prothrombin Time INR 3.52 H 0.9-1.15 Activated Partial Thromboplast Time 46.7 H 24.5-34.5 SEC Sodium Level 135 L 136-145 mmol/L Potassium Level 4.1 3.5-5.1 mmol/L Chloride Level 100 98-107 mmol/L Carbon Dioxide Level 24 20-31 mmol/L Anion Gap 11 5-15 Blood Urea Nitrogen 9 9-23 mg/dL Creatinine 0.68 L 0.700-1.30 mg/dL Glomerular Filtration Rate Calc 111 >90 mL/min BUN/Creatinine Ratio 13.2 10.0-20.0 Serum Glucose 116 H 74-106 mg/dL Lactic Acid Level 1.5 0.4-2.0 mmol/L Calcium Level 9.5 8.7-10.4 mg/dL B-Type Natriuretic Peptide 39.89 0-100 pg/mL Lipase 95 H 12-53 U/L Assessment/Plan Assessment/Plan Assessment Pulmonary embolus Extensive bilateral lower extremity DVT COPD Chronic left pulmonary lobe mass Plan Admit the patient to telemetry to the hospitalist Continue heparin drip started by ER provider Radiology consultation Hematology consult NPO after midnight Continue treatment per orders Plan discussed with: Patient My Orders Orders - LLOYD ESPINOZA Procedure Category Date Status Time Albuterol Medneb PHA 04/16/25 In Process (Ventolin Medneb) 22:30 Ipratropium Medneb PHA 04/16/25 In Process (Atrovent Medneb) 22:30 * Radiologist Consult CONS 04/16/25 Transmitted 22:30 * Hematology/Oncology CONS 04/16/25 Transmitted Consult 22:30 Admit ADMIT 04/16/25 Transmitted 22:30 Hydrocodone-Acet PHA 04/16/25 In Process 5/325mg Tab ([place] 22:30 Ondansetron Hcl PHA 04/16/25 In Process (Zofran) 22:30 Complete Blood Count LAB 04/17/25 Verified 04:00 Comprehensive LAB 04/17/25 Verified Metabolic Panel 04:00 Echo 2d Mode Cardiac US 04/16/25 Logged DOP 22:30 Condition: Fair JAMEL 04/16/25 In Process 22:30 Acetaminophen Tablet PHA 04/16/25 In Process (Tylenol Tablet) 22:30 Maintain Bed Rest JAMEL 04/16/25 In Process 22:30 Morphine Sulfate PHA 04/16/25 In Process Injection 22:30 Nitroglycerin PHA 04/16/25 In Process Sublingual (Ntrostat 22:30 Morphine Sulfate PHA 04/16/25 In Process Injection 22:30 Stat Ekg For Chest JAMEL 04/16/25 In Process Pain 22:30 Notify Of Changes JAMEL 04/16/25 In Process From Base 22:30 Documentation Clerk For JAMEL 04/16/25 In Process 24 Hours 22:30 Emergency Dysrhythmia JAMEL 04/16/25 In Process Protocol 22:30 Rhythm Strips Once JAMEL 04/16/25 In Process Every Shift 22:30 Oxygen By Nasal RT 04/16/25 Transmitted Cannula 22:30 Npo (Nothing By DIET 04/17/25 Transmitted Mouth) Diet Breakfast Date of Service: Apr 16, 2025 Billing Provider: LLOYD ESPINOZA Common Visit Codes: [id number] INP/OBS CARE (HIGH) LLOYD ESPINOZA Apr 16, 2025 22:51
[2025-04-16 23:05] VITALS: BP 130/82; PULSE 106; RESP 20; TEMP 98.1; O2SAT 97
[2025-04-17] VITALS (15 sets, daily range): BP systolic 107–118; BP diastolic 55–76; PULSE 93–101; RESP 17–20; TEMP 96.4–98.2; O2SAT 95–100
[2025-04-17] MEDS: MORPHINE SULFATE INJ 2 MG/ml SYRG IV PRN (00:30)
[2025-04-17 05:56] LABS: Hemoglobin 10.7 g/dL (13.5-17.5); Nucleated Red Blood Cells % 0.1 %
[2025-04-17 05:58] LABS: Hematocrit 32.5 % (41.0-53.0); Mean Corpuscular Hemoglobin 26.0 pg (28.0-32.0); Mean Corpuscular Volume 79.0 fL (80.0-100.0)
[2025-04-17 06:05] LABS: Alanine Aminotransferase 14 U/L (7-40); Albumin 3.7 g/dL (3.2-4.8); Alkaline Phosphatase 104 U/L (46-116); Anion Gap 12 (5-15); BUN/Creatinine Ratio 18.3 (10.0-20.0); Bilirubin, Total 0.5 mg/dL (0.2-1.0); Blood Urea Nitrogen 11 mg/dL (9-23); Calcium 8.8 mg/dL (8.7-10.4); Carbon Dioxide 25 mmol/L (20-31); Chloride 98 mmol/L (98-107); Potassium 3.8 mmol/L (3.5-5.1); Total Protein 6.9 g/dL (5.7-8.2)
[2025-04-17 06:06] LABS: Glucose 111 mg/dL (74-106); Sodium 135 mmol/L (136-145)
[2025-04-17 06:17] LABS: Partial Thromboplastin Time 49.5 SEC (24.5-34.5); Prothrombin Time 37.1 sec (9.3-11.8)
[2025-04-17 06:21] LABS: INR 4.02 (0.9-1.15)
[2025-04-17] MEDS: MORPHINE SULFATE 4 MG/ML SYR/VIAL IV PRN (10:54)
[2025-04-17 12:09] LABS: INR 3.77 (0.9-1.15); Partial Thromboplastin Time 48.0 SEC (24.5-34.5); Prothrombin Time 35.0 sec (9.3-11.8)
--- NOTE | 2025-04-17 14:55 | DVHPN2 ---
Progress Note Date Seen: Apr 17, 2025 Medical Necessity Reason Pt with a Central, PICC or Fol: No Subjective Patient reports: No new complaints Review of Systems: HEENT:Normal, CVS:Normal, RESPIRATORY:Normal, GI:Normal, :Normal, MSK:Normal, NEURO:Normal Objective vital signs Vital Sign Date Time Temp Pulse Resp B/P (MAP) Pulse Ox O2 Delivery O2 Flow Rate FiO2 04/17/25 13:00 96.8 93 20 115/66 (82) 97 96.8 04/17/25 10:00 Nasal Cannula 3.0 04/17/25 10:00 32 Total Intake and Output 04/16/25 04/16/25 04/17/25 15:00 23:00 07:00 Intake Total 0 ml Output Total 200 ml Balance -200 ml medications Current Medications Medications Dose Ordered Sig/Elias Route Start Time Stop Time Status Last Admin Dose Admin Heparin Sodium/ Dextrose 250 ml @ 15 mls/hr [id number] IV 04/16/25 21:15 04/16/25 22:47 15 MLS/HR Albuterol 2.5 mg Q6HPRN PRN NEB 04/16/25 22:30 Ipratropium [place] 0.5 mg Q6HPRN PRN NEB 04/16/25 22:30 Acetaminophen/ Hydrocodone Bitart 1 tab Q4HP PRN PO 04/16/25 22:30 Ondansetron HCl 4 mg Q4HP PRN IV 04/16/25 22:30 Acetaminophen 650 mg Q6HP PRN PO 04/16/25 22:30 Nitroglycerin 0.4 mg Q5MINP PRN SL 04/16/25 22:30 Morphine Sulfate 2 mg Q30M PRN IV 04/16/25 22:30 Cancel Morphine Sulfate 2 mg Q4HPRN PRN IV 04/17/25 10:45 04/17/25 10:54 2 MG Morphine Sulfate 2 mg Q30M PRN IV 04/17/25 11:00 Examination: GENERAL:Normal, HEENT:Normal, NECK:Normal, LUNGS:Normal, LUNGS:Abnormal (on oxygen), CVS:Normal, ABDOMEN:Normal, MSK:Normal, MSK:Abnormal (bilateral leg edema), SKIN:Normal, NEURO:Normal, :Normal laboratory and microbiology Laboratory Tests 6/23/25 05:24 Test 04/17/25 05:24 Range/Units Serum Glucose 111 H 74-106 mg/dL Microbiology Date/Time Source Procedure Growth Status 04/17/25 05:15 Nose MRSA Screen - Final Complete Problem List/Assessment/Plan Problem List/Assessment/Plan #1 acute on chronic resp failure: on oxygen #2 bilateral dvt s/p ivc filter: heparin drip, thrombectomy #3 cellulitis both legs ?sepsis: iv ancef #4 lung mass with lymphadenopathy: biopsy ?- reviewed ct with pt/family #5 copd #6 PE unstable for transfer advance care planning- full code- time spent 19 mins Plan discussed with: Patient, Spouse, Daughter My Orders My Orders Orders - LLOYD CALIXTO MD Procedure Category Date Status Time * Wound Consult CONS 04/17/25 Transmitted * Wound Consult CONS 04/17/25 Transmitted * Radiologist Consult CONS 04/17/25 Verified 14:42 Urinalysis LAB 04/17/25 Uncollected 14:42 Albuterol Medneb PHA 04/17/25 Verified (Ventolin Medneb) 18:00 Ipratropium Medneb PHA 04/17/25 Verified (Atrovent Medneb) 18:00 * Cardiology Consult CONS 04/17/25 Verified 14:42 Cefazolin Ancef PHA 04/17/25 Verified 14:45 Cefazolin Ancef PHA 04/17/25 Verified 22:00 Complete Blood Count LAB 04/18/25 Verified 06:00 Comprehensive LAB 04/18/25 Verified Metabolic Panel 06:00 Critical Care Time (mins): 46 (critical care time 46 mins) Date of Service: Apr 17, 2025 Billing Provider: LLOYD CALIXTO MD Common Visit Codes: [id number] CARE 30-74 MIN LLOYD CALIXTO MD Apr 17, 2025 14:55
[2025-04-17 16:00] LABS: Urine Budding Yeast OCCASIONAL /hpf (None Seen); Urine Protein, UAD 1+ (Negative)
[2025-04-17] MEDS: IPRATROPIUM BROM 0.5 MG/2.5ML INH SOL NEB SCH (18:33)
[2025-04-17] MEDS: ALBUTEROL SULF 2.5 MG/0.5ML(0.5%) NEB SOLN NEB SCH (18:33)
[2025-04-17] MEDS: ceFAZolin 1GM/50ML 50 ML IV ONE (18:51)
[2025-04-17] MEDS ORDERED: ceFAZolin 1GM/50ML 50 ML IV SCH (22:00)
[2025-04-18] VITALS (19 sets, daily range): BP systolic 107–126; BP diastolic 58–71; PULSE 89–101; RESP 15–19; TEMP 97.5–98.8; O2SAT 93–99
[2025-04-18] MEDS: ceFAZolin 1GM/50ML 50 ML IV SCH (01:43)
[2025-04-18 06:04] LABS: Hemoglobin 10.3 g/dL (13.5-17.5); Mean Corpuscular Volume 79.5 fL (80.0-100.0)
[2025-04-18 06:07] LABS: Hematocrit 31.5 % (41.0-53.0); Mean Corpuscular Hemoglobin 26.0 pg (28.0-32.0)
[2025-04-18 06:08] LABS: Alanine Aminotransferase 12 U/L (7-40); Albumin 3.6 g/dL (3.2-4.8); Alkaline Phosphatase 102 U/L (46-116); Anion Gap 13 (5-15); BUN/Creatinine Ratio 22.2 (10.0-20.0); Blood Urea Nitrogen 12 mg/dL (9-23); Calcium 8.8 mg/dL (8.7-10.4); Carbon Dioxide 25 mmol/L (20-31); Chloride 99 mmol/L (98-107); Potassium 3.9 mmol/L (3.5-5.1); Sodium 137 mmol/L (136-145); Total Protein 6.7 g/dL (5.7-8.2)
[2025-04-18 06:09] LABS: Bilirubin, Total 0.5 mg/dL (0.2-1.0)
[2025-04-18 06:26] LABS: Glucose 118 mg/dL (74-106)
[2025-04-18 08:36] LABS: Total Cells Counted 100.0 (100)
--- NOTE | 2025-04-18 11:32 | DVHPN2 ---
Progress Note Date Seen: Apr 18, 2025 Medical Necessity Reason Pt with a Central, PICC or Fol: No Subjective Patient reports: No new complaints Review of Systems: HEENT:Normal, CVS:Normal, RESPIRATORY:Normal, GI:Normal, :Normal, MSK:Normal, NEURO:Normal Objective vital signs Vital Sign Date Time Temp Pulse Resp B/P (MAP) Pulse Ox O2 Delivery O2 Flow Rate FiO2 04/18/25 10:23 96 Nasal Cannula* 3 32 04/18/25 09:24 94 18 109/59 04/18/25 09:00 98.8 98.8 Total Intake and Output 04/17/25 04/17/25 04/18/25 15:00 23:00 07:00 Intake Total 250 ml 410 ml Output Total 200 ml Balance 250 ml 210 ml medications Current Medications Medications Dose Ordered Sig/Elias Route Start Time Stop Time Status Last Admin Dose Admin Albuterol 2.5 mg Q6HPRN PRN NEB 04/16/25 22:30 Ipratropium [place] 0.5 mg Q6HPRN PRN NEB 04/16/25 22:30 Acetaminophen/ Hydrocodone Bitart 1 tab Q4HP PRN PO 04/16/25 22:30 Ondansetron HCl 4 mg Q4HP PRN IV 04/16/25 22:30 Acetaminophen 650 mg Q6HP PRN PO 04/16/25 22:30 Nitroglycerin 0.4 mg Q5MINP PRN SL 04/16/25 22:30 Morphine Sulfate 2 mg Q30M PRN IV 04/16/25 22:30 Cancel Morphine Sulfate 2 mg Q4HPRN PRN IV 04/17/25 10:45 04/18/25 08:54 2 MG Morphine Sulfate 2 mg Q30M PRN IV 04/17/25 11:00 Albuterol 2.5 mg Q6HWA NEB 04/17/25 18:00 04/18/25 05:53 2.5 MG Ipratropium [place] 0.5 mg Q6HWA NEB 04/17/25 18:00 04/18/25 05:53 0.5 MG Cefazolin Sodium 50 ml @ 100 mls/hr Q8H IV 04/18/25 02:00 04/18/25 08:52 100 MLS/HR Examination: GENERAL:Normal, HEENT:Normal, NECK:Normal, LUNGS:Normal, CVS:Normal, ABDOMEN:Normal, MSK:Normal, MSK:Abnormal (bilateral leg swelling), SKIN:Normal, NEURO:Normal, :Normal laboratory and microbiology Laboratory Tests 04/18/25 05:26 Test 04/18/25 05:26 Range/Units Serum Glucose 118 H 74-106 mg/dL Microbiology Date/Time Source Procedure Growth Status 04/17/25 05:15 Nose MRSA Screen - Final Complete 04/16/25 22:59 Blood Blood Culture - Preliminary NO GROWTH AFTER 24 HOURS OF INCUBATION. Resulted Problem List/Assessment/Plan Problem List/Assessment/Plan #1 acute on chronic resp failure: on oxygen #2 bilateral dvt s/p ivc filter: off heparin drip, thrombectomy #3 cellulitis both legs ?sepsis: iv ancef #4 lung mass with lymphadenopathy: biopsy ?- reviewed ct with pt/family #5 copd #6 PE #7 coagulopathy: check pt/ptt, ? ffp as needed unstable for transfer advance care planning- full code- time spent 19 mins Plan discussed with: Patient My Orders My Orders Orders - LLOYD CALIXTO MD Procedure Category Date Status Time * Wound Consult CONS 04/17/25 Transmitted * Wound Consult CONS 04/17/25 Transmitted * Radiologist Consult CONS 04/17/25 Transmitted 14:42 Albuterol Medneb PHA 04/17/25 In Process (Ventolin Medneb) 18:00 Ipratropium Medneb PHA 04/17/25 In Process (Atrovent Medneb) 18:00 * Cardiology Consult CONS 04/17/25 Transmitted 14:55 Cardiac DIET 04/17/25 Transmitted Diet-2gna,Lofat,Lochol Dinner Cefazolin 1gm/50ml PHA 04/18/25 In Process (Ancef) 02:00 PTPTT LAB 04/18/25 Logged 11:23 Date of Service: Apr 18, 2025 Billing Provider: LLOYD CALIXTO MD Common Visit Codes: [id number] INP/OBS CARE(HIGH) Secondary Visit Codes: [id number] CARE PLAN 30 MINUTES LLOYD CALIXTO MD Apr 18, 2025 11:32
[2025-04-18 12:28] LABS: INR 3.42 (0.9-1.15); Partial Thromboplastin Time 48.4 SEC (24.5-34.5); Prothrombin Time 32.1 sec (9.3-11.8)
[2025-04-18] MEDS: NITROGLYCERIN 0.4 MG SL TAB SL PRN (21:51)
[2025-04-18] MEDS: SODIUM BICARB 8.4% 50Meq/50ml SYR Vial IV ONE (22:10)
[2025-04-18] MEDS: IOHEXOL 350 MG/ML 100ML IJ ONE (22:11)
[2025-04-18] MEDS: MORPHINE SULFATE 4 MG/ML SYR/VIAL IV PRN (22:14)
[2025-04-18 22:38] LABS: Chloride 100 mmol/L (98-107); Potassium 3.9 mmol/L (3.5-5.1); Sodium 136 mmol/L (136-145)
[2025-04-18 22:39] LABS: Anion Gap 9 (5-15); Carbon Dioxide 27 mmol/L (20-31)
[2025-04-18 22:44] LABS: BUN/Creatinine Ratio 22.6 (10.0-20.0); Blood Urea Nitrogen 12 mg/dL (9-23)
[2025-04-18 23:14] LABS: Calcium 8.6 mg/dL (8.7-10.4); Glucose 136 mg/dL (74-106)
[2025-04-19] VITALS (17 sets, daily range): BP systolic 115–129; BP diastolic 59–76; PULSE 89–108; RESP 12–19; TEMP 97.5–98.9; O2SAT 93–99
--- NOTE | 2025-04-19 01:58 | DVH ---
Exam: CT CT CHEST/AB/PL W CON- IV ONLY History: aortic dissection and ivc filter dislodgement Comparison Study: None Technique: Multidetector spiral CT of the chest, abdomen and pelvis was performed from lower neck to pubic symphysis. Intravenous contrast was administered during this examination. Portal venous imagi ng was obtained. Axial, coronal and sagittal multiplanar reformats were performed by the technologist on a separate workstation. Radiation Dose : 1. Chest/Abdomen/Pelvis: CTDIvol 24.22 mGy, DLP 1750.81 mGy*cm. Findings: Lower neck: Normal thyroid. Lungs: Extensive prevascular adenopathy redemonstrated , the largest of which measures 2.8 cm in shor t axis dimension. Bilateral hilar adenopathy worse on the left than the right. Stable appearing 4.7 b y 2.9 cm mass left upper lobe with pleural thickening . Small bilateral pleural effusions with adjac ent compressive atelectasis and infiltrate. Diffuse bilateral centrilobular and paraseptal emphysematous change related to chronic obstructive pu lmonary disease redemonstrated. Heart/Vascular Structures: Progressive intraluminal filling defects are noted bilaterally within the pulmonary arterial vasculature within branching segmental vessels serving the bilateral lower lobes, greater than was seen on 04/16/2025, consistent with acute on chronic pulmonary emboli. Liver: The liver is enlarged, measuring 20.2 cm in craniocaudal dimension. No focal lesions. Normal hepatic vascular enhancement. Gallbladder and Biliary Tree: Unremarkable Spleen: Unremarkable Pancreas: The pancreas is normal in appearance without focal lesions or abnormal enhancement. Adrenal Glands: Unremarkable Kidneys: Nonobstructive bilateral pelvocaliceal calculi and right renal parenchymal calcifications. K idneys otherwise demonstrate normal symmetric enhancement without focal lesions or hydronephrosis. Bladder: Unremarkable Bowel: The stomach is grossly normal in appearance. Small bowel and colon are normal in caliber and d istribution. The appendix is normal. Ascites: Absent Lymphadenopathy: Pathologically enlarged retroperitoneal, bilateral iliac and inguinal lymph nodes me asuring up to approximately 1.5 cm in short axis dimension. Abdominal Wall and Mesentery: Unremarkable. Vasculature: Infrarenal inferior vena cava filter. The visualized abdominal aorta is normal in size a nd caliber. Atherosclerotic vascular calcifications. Abdominal and pelvic vessels demonstrate normal enhancement. Pelvic Organs: Unremarkable Musculoskeletal: No aggressive focal bony lesions, acute fractures or dislocation. IMPRESSION: 1. Progressive worsening bilateral lower lobe branch segmental pulmonary emboli. 2. Stable appearing left upper lobe pulmonary mass and extensive mediastinal and hilar lymphadenopath y. 3. Small bilateral pleural effusions with adjacent compressive atelectasis and infiltrate. 4. Diffuse bilateral paraseptal and centrilobular emphysematous change. 5. Hepatomegaly. 6. Diffuse retroperitoneal and pelvic lymphadenopathy. 7. Nonobstructive bilateral nephrolithiasis. 8. Infrarenal inferior vena cava filter. Critical Result: Bilateral pulmonary emboli. Findings discussed with LLOYD ESPINOZA at 04/19/2025 01:51 AM, and acknowledged receipt and understan ding of the findings.
[2025-04-19] MEDS: LACTATED RINGER'S 500 ML IV ONE (03:00)
[2025-04-19] MEDS: SODIUM BICARB 8.4% 50Meq/50ml SYR Vial IV ONE (03:00)
--- NOTE | 2025-04-19 07:22 | RESUS ---
CODE ASSIST ASSESSSMENT Initial Information Code Assist Date: Apr 18, 2025 Code Assist Time: 21:52 Situation Situation comment: CODE ASSIST CALLED DUE TO PT HAVING SHARP STABBING CHEST PAIN, NITRO GIVEN PRIOR TO CODE ASSIST WITHOUT EFFECT. Background Background: 54 y.o male with PMHx of COPD, CHF, HTN, PE, DVT's, presents to the ED via EMS for a chief complaint of left sided chest pain associated with SOB, chills, and a productive cough with clear phlegm sputum. EMS reports patient has hx of similar symptoms in the past, has been seen at this ED and diagnosed with blood clots in which he underwent thrombectomy for recently about 3-4 weeks ago. Patient reports he is on warfarin. however due to elevated lab work findings 6 days ago at [place], was told to hold medication and has not taken it for the past 5 days but did take half a tablet today. Patient also reports 3 day history of sores to multiple regions of his legs and feet with chronic discoloration from mid calf radiating to his foot. Patient is on home oxygen at 3.5 liters and has a SPO2 of 95% Assessment Temperature (Fahrenheit): 98.1 Blood Pressure Systolic: 121 Blood Pressure Diastolic: 71 Respiratory Rate: 20 O2 Sat by Pulse Oximetry: 97 Assessment comment: PT AAOX4 PAIN IMPROVED WITH MORPHINE Recommendations/Interventions Medications and Responses : Medication Time: 21:56 ADULT Medications Given: Nitroglycerin 0.4 mg SL Medication Comment: SL Heart Rate: 142 EKG Rhythm: Sinus Tachycardia Blood Pressure Systolic: 127 Blood Pressure Diastolic: 71 Respiratory Rate: 20 O2 Sat by Pulse Oximetry: 100 Procedures: CMP, CBC, PT/PTT, EKG Outcome Outcome: Problem Resolved Team Members Team Members OLGA ELECTROPHYSIOLOGY SCIENTIST, DEIDRE RN, ALFREDO RN, RENAN RN, PABLO RN, TORIE COREMAKER FLOOR, BARBARA RT, MARY ANNE RT. DEIDRE GAR Apr 19, 2025 07:22
[2025-04-19 07:25] LABS: Hemoglobin 9.9 g/dL (13.5-17.5); Nucleated Red Blood Cells % 0.1 %
[2025-04-19 07:28] LABS: Chloride 99 mmol/L (98-107); Potassium 3.7 mmol/L (3.5-5.1); Sodium 137 mmol/L (136-145)
[2025-04-19 07:29] LABS: Anion Gap 10 (5-15); Calcium 9.0 mg/dL (8.7-10.4); Carbon Dioxide 28 mmol/L (20-31)
[2025-04-19 07:30] LABS: Hematocrit 30.9 % (41.0-53.0); Mean Corpuscular Hemoglobin 25.5 pg (28.0-32.0); Mean Corpuscular Volume 79.2 fL (80.0-100.0)
[2025-04-19 07:34] LABS: BUN/Creatinine Ratio 18.0 (10.0-20.0); Blood Urea Nitrogen 9 mg/dL (9-23)
[2025-04-19 07:38] LABS: Glucose 112 mg/dL (74-106)
[2025-04-19 08:01] LABS: INR 1.98 (0.9-1.15); Partial Thromboplastin Time 41.0 SEC (24.5-34.5); Prothrombin Time 19.6 sec (9.3-11.8)
--- NOTE | 2025-04-19 10:32 | DVH ---
US SOFT TISSUE NECK, HISTORY: LT NECK LYMPHNODE TECHNICAL DATA: Transverse and longitudinal sonographic images were obtained of the left neck. COMPARISON: None FINDINGS: IMPRESSION: 2.2 x 2.0 x 1.5 cm irregular enlarged left supraclavicular lymph node.
--- NOTE | 2025-04-19 13:19 | DVHPN2 ---
Progress Note Date Seen: Apr 19, 2025 Medical Necessity Reason Pt with a Central, PICC or Fol: No Subjective Patient reports: No new complaints Review of Systems: HEENT:Normal, CVS:Normal, RESPIRATORY:Normal, GI:Normal, :Normal, MSK:Normal, NEURO:Normal Objective vital signs Vital Sign Date Time Temp Pulse Resp B/P (MAP) Pulse Ox O2 Delivery O2 Flow Rate FiO2 04/19/25 13:15 96 18 119/63 04/19/25 13:15 97.5 95 97.5 04/18/25 20:00 Nasal Cannula* 3 32 Total Intake and Output 04/18/25 04/18/25 04/19/25 15:00 23:00 07:00 Intake Total 50 ml 1084 ml 335 ml Output Total 0 ml Balance 50 ml 1084 ml 335 ml medications Current Medications Medications Dose Ordered Sig/Elias Route Start Time Stop Time Status Last Admin Dose Admin Albuterol 2.5 mg Q6HPRN PRN NEB 04/16/25 22:30 Ipratropium Sharon 0.5 mg Q6HPRN PRN NEB 04/16/25 22:30 Acetaminophen/ Hydrocodone Bitart 1 tab Q4HP PRN PO 04/16/25 22:30 Ondansetron HCl 4 mg Q4HP PRN IV 04/16/25 22:30 Acetaminophen 650 mg Q6HP PRN PO 04/16/25 22:30 Nitroglycerin 0.4 mg Q5MINP PRN SL 04/16/25 22:30 04/18/25 21:51 0.4 MG Morphine Sulfate 2 mg Q30M PRN IV 04/16/25 22:30 Cancel Morphine Sulfate 2 mg Q4HPRN PRN IV 04/17/25 10:45 04/19/25 10:56 2 MG Morphine Sulfate 2 mg Q30M PRN IV 04/17/25 11:00 04/19/25 05:28 2 MG Albuterol 2.5 mg Q6HWA NEB 04/17/25 18:00 04/18/25 18:01 2.5 MG Ipratropium [place] 0.5 mg Q6HWA NEB 04/17/25 18:00 04/18/25 18:01 0.5 MG Cefazolin Sodium 50 ml @ 100 mls/hr Q8H IV 04/18/25 02:00 04/19/25 10:54 100 MLS/HR Examination: GENERAL:Normal, HEENT:Normal, NECK:Normal, LUNGS:Normal, CVS:Normal, ABDOMEN:Normal, MSK:Normal, MSK:Abnormal (edema+++, cellulitis both legs), SKIN:Normal, NEURO:Normal, :Normal laboratory and microbiology Laboratory Tests 04/19/25 07:06 Test 04/19/25 07:06 Range/Units Serum Glucose 112 H 74-106 mg/dL Microbiology Date/Time Source Procedure Growth Status 04/17/25 05:15 Nose MRSA Screen - Final Complete 04/16/25 22:59 Blood Blood Culture - Preliminary NO GROWTH AFTER 48 HOURS OF INCUBATION. Resulted Problem List/Assessment/Plan Problem List/Assessment/Plan #1 acute on chronic resp failure: on oxygen #2 bilateral dvt s/p ivc filter: off heparin drip, thrombectomy #3 cellulitis both legs ?sepsis: iv ancef #4 lung mass with lymphadenopathy: biopsy of neck lymph nodes #5 copd #6 PE #7 coagulopathy: check pt/ptt, ? ffp as needed unstable for transfer advance care planning- full code- time spent 19 mins Plan discussed with: Patient My Orders My Orders Orders - LLOYD CALIXTO MD Procedure Category Date Status Time Administer Blood JAMEL 04/18/25 In Process Products 14:11 Apply Barrier Cream JAMEL 04/18/25 In Process 14:40 * Dietary Consult CONS 04/18/25 Transmitted 18:10 Communication Order ORDERS 04/18/25 Transmitted 19:47 Us Guidance For US 04/19/25 Taken Needle Placeme 11:51 Dietary Evaluation Review Comments: Encourage Cardiac Diet. Monitor PO intake to meet 75% of his needs. Provid Pj BID for wound healing. Encourage PT for impoved mobility when medcially feasible. Expected Outcomes/Goals: healed wounds, gradual wt loss Date of Service: Apr 19, 2025 Billing Provider: LLOYD CALIXTO MD Common Visit Codes: [id number] INP/OBS CARE(HIGH) CC Plasma Assessment Blood Product Administration S: [id number] LLOYD CALIXTO MD Apr 19, 2025 13:19
--- NOTE | 2025-04-19 13:35 | DVHSR ---
APPROVED REPORT EXAM: Two-dimensional and M-mode echocardiogram with Doppler and color Doppler. Mitral Valve MitralMitral Stenosis E/A ratio0.02D MVAcm2 LEFT VENTRICLE The left ventricle is normal size. There is normal left ventricular wall thickness. The left ventricle is normal in structure and function. Left ventricle systolic function is normal. The Ejection Fraction is 55-60%. No regional wall motion abnormalities noted. RIGHT VENTRICLE The right ventricle is normal size. There is normal right ventricular wall thickness. The right ventricular systolic function is normal. ATRIA The left atrium size is normal. The right atrium size is normal. The interatrial septum is intact with no evidence for an atrial septal defect. MITRAL VALVE The mitral valve is normal in structure and function. There is no evidence of mitral valve prolapse. There is no mitral valve stenosis. There is no mitral valve regurgitation noted. PULMONIC VALVE The pulmonary valve is normal in structure and function. There is no pulmonic valvular regurgitation. There is no pulmonic valvular stenosis. TRICUSPID VALVE The tricuspid valve is normal in structure and function. There is no tricuspid valve regurgitation noted. There is no tricuspid valve prolapse or vegetation. There is no tricuspid valve stenosis. AORTIC VALVE The aortic valve is normal in structure and function. No aortic regurgitation is present. There is no aortic valvular stenosis. There is no aortic valvular vegetation. GREAT VESSELS The aortic root is normal in size. PERICARDIAL EFFUSION There is trivial pericardial effusion. Conclusion There is normal left ventricular wall thickness. The left ventricle is normal in structure and function. Left ventricle systolic function is normal. The Ejection Fraction is 55-60%. There is no gross valvular pathology There is trivial pericardial effusion.
[2025-04-19] MEDS: HYDROmorphone HCL 2 MG/ML VL/or syr IV PRN (13:47)
--- NOTE | 2025-04-19 15:58 | DVH ---
US US GUIDANCE FOR NEEDLE PLACEME, HISTORY: LYMPHNODE BX PROCEDURE: An informed consent was obtained. Limited localization ultrasound of the left neck was obt ained. The left neck base was prepped with chlorhexidine which was allowed to dry and draped in the u sual sterile fashion. Timeout was performed. The skin and soft tissues were infiltrated with 1% Xyloc adelaide. With ultrasound guidance, a 18 g Biopince was placed into the left supraclavicular lymph node a nd 2 core samples were obtained and placed in formalin. The neck was cleaned and a sterile band-aid applied. The specimens were sent to pathology for analysis. No immediate complication was identified. FINDINGS: Hypoechoic vascular left supraclavicular lymph node measures 2.1 cm. IMPRESSION: Hypoechoic left supraclavicular lymph node was biopsied.
[2025-04-19] MEDS: HEPARIN DRIP/D5W 100UNITS/ML 250 ML IV SCH (17:36)
--- NOTE | 2025-04-19 17:49 | CONS ---
Pharmacy Clinical Information: START HEP DRIP @18 ML/HR OR 1800 UNITS/HR AND NO BOLUS GIVEN PER RX PROTOCOL NEXT APTT RUBY @2330 04/19 PATRICIA BARRIENTOS AWARE AND REPEATED ORDER BACK TO START HEP RATE @18 ML/HR LUIS ANTONIO QUIROZ PHARMACIST Apr 19, 2025 17:49
--- NOTE | 2025-04-19 20:44 | DVHINCON2 ---
DATE OF CONSULTATION: 04/19/2025 REFERRING PHYSICIAN: Dr. Clemente CONSULTING PHYSICIAN: Emilie Beavers MD INDICATION: Chest pain, shortness of breath and leg swelling. HISTORY OF PRESENT ILLNESS: The patient is a 54-year-old male with a history of bilateral DVT and pulmonary embolism, who has been on anticoagulation as an outpatient, who now presents to the hospital with complaints of worsening lower extremity swelling. His workup showed extensive bilateral lower extremity DVT and recurrent pulmonary embolism. The patient had an episode of chest pain. He described the pain as right-sided sharp, worse when he takes a deep breath in. The patient denies any prior history of heart disease known to him. PAST MEDICAL HISTORY: * Diabetes. * Hypertension. * COPD. * DVT. * Pulmonary embolus. MEDICATIONS: Per med rec. ALLERGIES: BACITRACIN AND GABAPENTIN. PHYSICAL EXAMINATION: GENERAL: Alert and awake in no form of cardiopulmonary distress. VITAL SIGNS: Blood pressure 119/63, pulse 96 per minute, saturation 95%. HEENT: No carotid bruits. CHEST: Bilateral air entry. CARDIOVASCULAR SYSTEM: Precordial and carotid pulses palpable. Normal S1, S2. Regular rate and rhythm. No appreciable murmurs, gallop or rubs. EXTREMITIES: Bilateral edema and chronic skin change. DIAGNOSTIC DATA: White count 11, hemoglobin 9, platelets 139. Sodium 137, potassium 3.7, creatinine is 0.5. Troponin is negative x 3. BNP is normal. ASSESSMENT: * Lower extremity swelling. * Extensive bilateral lower extremity DVT. * Recurrent pulmonary embolism. * Chest pain, atypical, pleuritic in nature, possibly secondary to underlying pulmonary embolism and diuresis. * Lung mass. * COPD. * Diabetes. * Cellulitis. RECOMMENDATIONS: * Continue IV antibiotics. * Anticoagulation therapy once INR is lessened. * Monitor electrolytes closely once completed. * Continue telemetry monitoring. * If echo unremarkable, no further cardiac workup indicated at this point. Thank you for allowing me to participate in the care of this patient. MD KAITLYNN Mancia/RODERICK TID: [id number] RECEIPT: [id number]
[2025-04-20] VITALS (11 sets, daily range): BP systolic 116–125; BP diastolic 57–72; PULSE 93–109; RESP 16–20; TEMP 98.2–99.4; O2SAT 94–97
[2025-04-20] MEDS: HEPARIN DRIP/D5W 100UNITS/ML 250 ML IV SCH (00:36)
[2025-04-20 06:20] LABS: Hematocrit 31.3 % (41.0-53.0); Hemoglobin 9.9 g/dL (13.5-17.5); Mean Corpuscular Hemoglobin 25.4 pg (28.0-32.0); Mean Corpuscular Volume 80.6 fL (80.0-100.0); Nucleated Red Blood Cells % 0.1 %
[2025-04-20 06:25] LABS: Chloride 101 mmol/L (98-107); INR 1.74 (0.9-1.15); Partial Thromboplastin Time 69.5 SEC (24.5-34.5); Potassium 3.9 mmol/L (3.5-5.1); Prothrombin Time 17.5 sec (9.3-11.8); Sodium 138 mmol/L (136-145)
[2025-04-20 06:26] LABS: Anion Gap 10 (5-15); Carbon Dioxide 27 mmol/L (20-31)
[2025-04-20 06:27] LABS: Calcium 8.7 mg/dL (8.7-10.4)
[2025-04-20 06:32] LABS: BUN/Creatinine Ratio 27.3 (10.0-20.0); Blood Urea Nitrogen 12 mg/dL (9-23); Glucose 118 mg/dL (74-106)
--- NOTE | 2025-04-20 07:24 | ECG ---
[facility] Test Date: 2025-04-18 Test Time: 21:33:27 Pat Name: CELINE TABOR Department: Room: [address] [place] [address] 5 Gender: M Implementation Project Coordinator: Linda : 1970 Requested By: LLOYD ESPINOZA Order Number: [id number] Reading MD: Jaciel Wagner Measurements Intervals [place] Rate: 97 P: 58 TX: 130 QRS: 31 QRSD: 75 T: 47 QT: 347 QTc: 441 Interpretive Statements Sinus rhythm Abnormal R-wave progression, early transition Electronically Signed On 04-22-2025 20:18:40 PDT by Jaciel Wagner Please click the below link to view image of tracing.
--- NOTE | 2025-04-20 08:36 | CONS ---
Pharmacy Clinical Information: HEPARIN PER PHARMACY PROTOCOL PLEASE CONTINUE HEPARIN DRIP AT 2000UNITS/HR APTT @0542 OF 69.5 IS WITHIN GOAL, NO CHANGE REQUIRED NEXT APPT TO BE DRAW @1142 RN AWARE ANH CAMARILLO PHARMACIST Apr 20, 2025 08:36
--- NOTE | 2025-04-20 10:31 | DVHDS2 ---
Discharge Summary Date of Admission Apr 16, 2025 at 22:30 Date of Discharge: Apr 20, 2025 Labs/Diagnostic Data: Laboratory Results Test 04/20/25 05:42 04/19/25 01:00 04/18/25 05:26 04/17/25 15:00 White Blood Count 11.9 10^3/uL (4.4-10.8) Red Blood Count 3.89 10^6/uL (4.5-5.90) Hemoglobin 9.9 g/dL (13.5-17.5) Hematocrit 31.3 % (41.0-53.0) Mean Corpuscular Volume 80.6 fL (80.0-100.0) Mean Corpuscular Hemoglobin 25.4 pg (28.0-32.0) Mean Corpuscular Hemoglobin Concent 31.6 g/dL (32.0-36.0) Red Cell Distribution Width 18.6 % (11.8-14.3) Platelet Count 142 10^3/uL (140-450) Mean Platelet Volume 7.6 fL (6.9-10.8) Neutrophils (%) (Auto) 72.6 % (37.0-80.0) Lymphocytes (%) (Auto) 14.3 % (10.0-50.0) Monocytes (%) (Auto) 9.4 % (0.0-12.0) Eosinophils (%) (Auto) 2.8 % (0.0-7.0) Basophils (%) (Auto) 0.9 % (0.0-2.0) Neutrophils # (Auto) 8.7 10 ^3/uL (1.6-8.6) Lymphocytes # (Auto) 1.7 10 ^3/uL (0.4-5.4) Monocytes # (Auto) 1.1 10 ^3/uL (0-1.3) Eosinophils # (Auto) 0.3 10 ^3/uL (0-0.8) Basophils # (Auto) 0.1 10 ^3/uL (0-0.2) Nucleated Red Blood Cells 0.1 % Prothrombin Time 17.5 sec (9.3-11.8) Prothrombin Time INR 1.74 (0.9-1.15) Activated Partial Thromboplast Time 69.5 SEC (24.5-34.5) Sodium Level 138 mmol/L (136-145) Potassium Level 3.9 mmol/L (3.5-5.1) Chloride Level 101 mmol/L (98-107) Carbon Dioxide Level 27 mmol/L (20-31) Anion Gap 10 (5-15) Blood Urea Nitrogen 12 mg/dL (9-23) Creatinine 0.44 mg/dL (0.700-1.30) Glomerular Filtration Rate Calc 127 mL/min (>90) BUN/Creatinine Ratio 27.3 (10.0-20.0) Serum Glucose 118 mg/dL (74-106) Calcium Level 8.7 mg/dL (8.7-10.4) Troponin I High Sensitivity 20 ng/L (</=54) Differential Total Cells Counted 100.0 (100) Neutrophils % (Manual) 78 (37.0-80.0) Band Neutrophils % (Manual) 0 Lymphocytes % (Manual) 11 (10.0-50.0) Monocytes % (Manual) 8 (0-12) Eosinophils % (Manual) 3 (0-7) Basophils % (Manual) 0 (0.0-2.0) Metamyelocytes % (manual) 0 Myelocytes % (Manual) 0 Promyelocytes % (Manual) 0 Blast Cells % (Manual) 0 Reactive Lymphocytes 0 Platelet Estimate Decreased Microcytosis Slight Total Bilirubin 0.5 mg/dL (0.2-1.0) Aspartate Amino Transferase (AST) 28 U/L (<34) Alanine Aminotransferase (ALT) 12 U/L (7-40) Alkaline Phosphatase 102 U/L (46-116) Total Protein 6.7 g/dL (5.7-8.2) Albumin 3.6 g/dL (3.2-4.8) Urine Color Yellow (Yellow) Urine Clarity Turbid (Clear) Urine pH 6.0 (5.0-9.0) Urine Specific [place] 1.043 (1.001-1.035) Urine Protein 1+ (Negative) Urine Ketones Negative (Negative) Urine Blood 3+ /uL (Negative) Urine Nitrite Negative (Negative) Urine Bilirubin Negative (Negative) Urine Urobilinogen Normal mg/dL (Negative) Urine Leukocyte Esterase Negative /uL (Negative) Urine RBC 107 /hpf (0 - 3) Urine Microscopic WBC 10 /HPF (0-3) Urine Squamous Epithelial Cells Few /hpf (<5) Urine Bacteria None seen /hpf (None Seen) Urine Mucus Few (None Seen) Urine Yeast (Budding) Occasional /hpf (None Urine Glucose Normal mg/dL (Normal) Test 04/16/25 19:50 Anisocytosis (manual) Slight Lactic Acid Level 1.5 mmol/L (0.4-2.0) B-Type Natriuretic Peptide 39.89 pg/mL (0-100) Lipase 95 U/L (12-53) Other Laboratory Tests 04/20/25 05:42 Brief Hx & Hospital Course: see dictated note Condition at Discharge: Fair Final Diagnosis/Problems List dvt, pe Discharge Disposition: Acute Care Facility Discharge Instruct/Medications Diet: Regular Activity: No Restrictions, As Tolerated Follow Up/Referral: fu with [facility] Medications: per dec Discharge Statement: "Patient was advised to return to the ER or call 911 if any headaches, dizziness, shortness of breath, chest pain, abdominal pain, bleeding, fevers, or worsening of medical condition. Patient was counseled about treatment plan, medications, possible side effects, patientverbalized understanding. All questions were answered to the best of my ability. This discharge took greater then 30 minutes in planning, reviewing documentation, counseling the patient, and discussing with other team members." ASSESSMENT ASSESSMENT Assessment dvt, pe Date of Service: Apr 20, 2025 Billing Provider: LLOYD CALIXTO MD Common Visit Codes: 03862-QTB/[id number] DISCH DAY >30min LLOYD CALIXTO MD Apr 20, 2025 10:31
--- NOTE | 2025-04-20 10:42 | DVHDS ---
HISTORY OF PRESENT ILLNESS: The patient is a 54-year-old gentleman who was admitted with history of right lower extremity DVT and increasing swelling of lower extremities. He has history of previous DVT, IVC filter, COPD, congestive heart failure, and PE. HOSPITAL COURSE: The patient had CT angiography that showed evidence of pulmonary embolus along with a left upper lobe pulmonary mass. The patient had Doppler of lower extremity that showed extensive positive DVT bilaterally. He was started on heparin drip. The patient was seen in Interventional Radiology consult by Dr. Shelley who at this time recommended no further intervention. The patient had biopsy of left supraclavicular lymph node on 04/19/2025. The patient also had blood cultures that were negative. The patient had an echocardiogram that showed an ejection fraction of 55% to 60%. The patient is now be transferred to Echo for further management. FINAL DIAGNOSES: * Acute on chronic respiratory failure. * Bilateral DVT with previous IVC filter. * Pulmonary embolism. * Cellulitis of both legs with questionable sepsis. * Left lung mass with lymphadenopathy with status post biopsy of neck lymph nodes. * COPD. * Likely lymphedema. Time spent in discharge planning and review of plan with the patient and nursing and paper work was 39 minutes. MD BERNICE Garcias/CHLOE TID: [id number] RECEIPT: [id number]
[2025-04-20 13:08] LABS: INR 1.5 (0.9-1.15); Prothrombin Time 15.3 sec (9.3-11.8)
[2025-04-20 13:18] LABS: Partial Thromboplastin Time 75.8 SEC (24.5-34.5)
--- NOTE | 2025-04-20 14:22 | CONS ---
Pharmacy Clinical Information: HEPARIN PER PHARMACY PROTOCOL PREVIOUS RATE: 2000 UNITS/HR APTT @1200 OF 75.8 NO CHANGE, KEEP RATE THE SAME OF 2000UNITS/HR FLOYD STALLINGS AWARE PER RX PROTOCOL ANH CAMARILLO PHARMACIST Apr 20, 2025 14:22
[2025-04-20 18:31] LABS: INR 1.47 (0.9-1.15); Partial Thromboplastin Time 66.6 SEC (24.5-34.5); Prothrombin Time 15.0 sec (9.3-11.8)
[2025-04-21] VITALS (11 sets, daily range): BP systolic 110–121; BP diastolic 63–71; PULSE 94–119; RESP 17–20; TEMP 97.7–99.6; O2SAT 91–96
[2025-04-21 01:11] LABS: INR 1.36 (0.9-1.15); Partial Thromboplastin Time 66.7 SEC (24.5-34.5); Prothrombin Time 14.0 sec (9.3-11.8)
[2025-04-21 06:33] LABS: Hemoglobin 9.9 g/dL (13.5-17.5)
[2025-04-21 06:36] LABS: Hematocrit 31.0 % (41.0-53.0); Mean Corpuscular Hemoglobin 25.2 pg (28.0-32.0); Mean Corpuscular Volume 79.1 fL (80.0-100.0)
[2025-04-21 07:50] LABS: Total Cells Counted 100.0 (100)
--- NOTE | 2025-04-21 10:54 | DVHPN2 ---
Reviewed: Care Plan, H&P, Labs, Medications, Previous Orders, Radiology Changes from previous H/P or p: No Changes General: Per HPI Objective Vitals Vital Signs Date Time Temp Pulse Resp B/P (MAP) Pulse Ox O2 Delivery O2 Flow Rate FiO2 04/21/25 10:39 98 17 120/68 04/21/25 08:30 98.1 95 98.1 04/21/25 08:01 Nasal Cannula* 2 28 Intake/Output Intake and Output 04/21/25 07:00 Intake Total 1536 ml Output Total 1000 ml Balance 536 ml Intake Oral 1100 ml IV Total 436 ml Output Urine Total 1000 ml General Appearance: Alert, Oriented X3, Cooperative Medications Current Medications Medications Dose Ordered Sig/Elias Route Start Time Stop Time Status Last Admin Dose Admin Albuterol 2.5 mg Q6HPRN PRN NEB 04/16/25 22:30 Ipratropium [place] 0.5 mg Q6HPRN PRN NEB 04/16/25 22:30 Acetaminophen/ Hydrocodone Bitart 1 tab Q4HP PRN PO 04/16/25 22:30 Ondansetron HCl 4 mg Q4HP PRN IV 04/16/25 22:30 Acetaminophen 650 mg Q6HP PRN PO 04/16/25 22:30 Nitroglycerin 0.4 mg Q5MINP PRN SL 04/16/25 22:30 04/18/25 21:51 0.4 MG Morphine Sulfate 2 mg Q30M PRN IV 04/16/25 22:30 Cancel Morphine Sulfate 2 mg Q30M PRN IV 04/17/25 11:00 04/19/25 05:28 2 MG Cefazolin Sodium 50 ml @ 100 mls/hr Q8H IV 04/18/25 02:00 04/21/25 10:26 100 MLS/HR Hydromorphone HCl 1 mg Q3HPRN PRN IV 04/19/25 13:30 04/21/25 10:39 1 MG Heparin Sodium/ Dextrose 250 ml @ 20 mls/hr [id number] IV 04/20/25 00:30 04/21/25 01:47 20 MLS/HR Laboratory Results Laboratory Tests 04/20/25 05:42 04/21/25 06:11 Coagulation Test 04/20/25 11:52 04/20/25 17:58 04/21/25 00:29 Prothrombin Time 15.3 sec (9.3-11.8) H 15.0 sec (9.3-11.8) H 14.0 sec (9.3-11.8) H Prothrombin Time INR 1.50 (0.9-1.15) H 1.47 (0.9-1.15) H 1.36 (0.9-1.15) H Activated Partial Thromboplast Time 75.8 SEC (24.5-34.5) *H 66.6 SEC (24.5-34.5) H 66.7 SEC (24.5-34.5) H Urinalysis Test 04/17/25 15:00 Urine Color Yellow (Yellow) Urine Clarity Turbid (Clear) H Urine pH 6.0 (5.0-9.0) Urine Specific [place] 1.043 (1.001-1.035) Urine Protein 1+ (Negative) H Urine Ketones Negative (Negative) Urine Blood 3+ /uL (Negative) H Urine Nitrite Negative (Negative) Urine Bilirubin Negative (Negative) Urine Urobilinogen Normal mg/dL (Negative) Urine Leukocyte Esterase Negative /uL (Negative) Urine RBC 107 /hpf (0 - 3) Urine Microscopic WBC 10 /HPF (0-3) H Urine Squamous Epithelial Cells Few /hpf (<5) Urine Bacteria None seen /hpf (None Seen) Urine Mucus Few (None Seen) Urine Yeast (Budding) Occasional /hpf (None Urine Glucose Normal mg/dL (Normal) Microbiology Microbiology Date/Time Source Procedure Growth Status 04/17/25 05:15 Nose MRSA Screen - Final Complete 04/16/25 22:59 Blood Blood Culture - Preliminary NO GROWTH AFTER 72 HOURS OF INCUBATION. Resulted Assessment/Plan Assessment/Plan #1 acute on chronic resp failure: on oxygen #2 bilateral dvt s/p ivc filter: off heparin drip, thrombectomy #3 cellulitis both legs ?sepsis: iv ancef #4 lung mass with lymphadenopathy: biopsy of neck lymph nodes #5 copd #6 PE #7 coagulopathy: check pt/ptt, ? ffp as needed unstable for transfer advance care planning- full code- time spent 19 mins Plan discussed with: Patient Date of Service: Apr 21, 2025 Billing Provider: SERENA HIGGINS DO Common Visit Codes: [id number] INP/OBS CARE(HIGH) SERENA HIGGINS DO Apr 21, 2025 10:54
[2025-04-21] MEDS: FUROSEMIDE 100 MG/10ML VIAL IV SCH (17:43)
[2025-04-22] VITALS (12 sets, daily range): BP systolic 96–115; BP diastolic 54–63; PULSE 92–108; RESP 15–19; TEMP 98–99.6; O2SAT 94–97
[2025-04-22 06:42] LABS: Hemoglobin 9.5 g/dL (13.5-17.5)
[2025-04-22 07:01] LABS: Mean Corpuscular Volume 79.0 fL (80.0-100.0)
[2025-04-22 07:03] LABS: Hematocrit 29.9 % (41.0-53.0); Mean Corpuscular Hemoglobin 25.1 pg (28.0-32.0); Nucleated Red Blood Cells % 0.0 %
[2025-04-22 07:04] LABS: INR 1.17 (0.9-1.15); Partial Thromboplastin Time 58.8 SEC (24.5-34.5); Prothrombin Time 12.2 sec (9.3-11.8)
--- NOTE | 2025-04-22 08:52 | CONS ---
Pharmacy Clinical Information: HEPARIN DRIP aPTT = 58.8 NO CHANGE. CONTINUE HEPARIN DRIP AT RATE 20 ML/HR NEXT aPTT ON 04/23/25 @0600 COMMUNICATED WITH FLOYD KRUSE. ALEXANDER QIUROZ PHARMACIST Apr 22, 2025 08:52
[2025-04-22] MEDS: IOHEXOL 350 MG/ML 100ML IJ ONE (09:08)
[2025-04-23] VITALS (11 sets, daily range): BP systolic 100–112; BP diastolic 54–67; PULSE 94–104; RESP 16–18; TEMP 98–98.7; O2SAT 92–100
[2025-04-23 06:46] LABS: Hemoglobin 9.7 g/dL (13.5-17.5); Mean Corpuscular Hemoglobin 25.8 pg (28.0-32.0)
[2025-04-23 06:49] LABS: INR 1.15 (0.9-1.15); Partial Thromboplastin Time 53.8 SEC (24.5-34.5); Prothrombin Time 12.0 sec (9.3-11.8)
[2025-04-23 06:53] LABS: Hematocrit 29.4 % (41.0-53.0); Mean Corpuscular Volume 78.4 fL (80.0-100.0); Nucleated Red Blood Cells % 0.1 %
[2025-04-23] MEDS: FUROSEMIDE 100 MG/10ML VIAL IV SCH (15:57)
[2025-04-23] MEDS: OXYCODONE W/ ACETAMINOPHEN 5/325MG TABLET PO PRN (19:31)
[2025-04-24] VITALS (8 sets, daily range): BP systolic 113–123; BP diastolic 61–68; PULSE 85–101; RESP 17–18; TEMP 97.5–99.9; O2SAT 93–97
[2025-04-24 06:46] LABS: Hemoglobin 9.3 g/dL (13.5-17.5); Mean Corpuscular Volume 78.9 fL (80.0-100.0); Nucleated Red Blood Cells % 0.0 %
[2025-04-24 06:50] LABS: Hematocrit 28.4 % (41.0-53.0); Mean Corpuscular Hemoglobin 25.8 pg (28.0-32.0)
[2025-04-24 07:08] LABS: INR 1.14 (0.9-1.15); Partial Thromboplastin Time 58.1 SEC (24.5-34.5); Prothrombin Time 11.9 sec (9.3-11.8)
--- NOTE | 2025-04-24 11:07 | DVHPN2 ---
Progress Note Date Seen: Apr 24, 2025 Medical Necessity Reason Pt with a Central, PICC or Fol: No Subjective Patient reports: No new complaints Review of Systems: HEENT:Normal, CVS:Normal, RESPIRATORY:Normal, GI:Normal, :Normal, MSK:Normal, NEURO:Normal Objective vital signs Vital Sign Date Time Temp Pulse Resp B/P (MAP) Pulse Ox O2 Delivery O2 Flow Rate FiO2 04/24/25 09:30 99.9 101 18 118/68 (85) 95 99.9 04/24/25 08:00 Nasal Cannula* 3 32 Total Intake and Output 04/23/25 04/23/25 04/24/25 15:00 23:00 07:00 Intake Total 50 ml 504 ml 1090 ml Output Total 1300 ml 600 ml Balance 50 ml -796 ml 490 ml medications Current Medications Medications Dose Ordered Sig/Elias Route Start Time Stop Time Status Last Admin Dose Admin Albuterol 2.5 mg Q6HPRN PRN NEB 04/16/25 22:30 Ipratropium Morton 0.5 mg Q6HPRN PRN NEB 04/16/25 22:30 Acetaminophen/ Hydrocodone Bitart 1 tab Q4HP PRN PO 04/16/25 22:30 Hold Ondansetron HCl 4 mg Q4HP PRN IV 04/16/25 22:30 Acetaminophen 650 mg Q6HP PRN PO 04/16/25 22:30 Nitroglycerin 0.4 mg Q5MINP PRN SL 04/16/25 22:30 04/18/25 21:51 0.4 MG Morphine Sulfate 2 mg Q30M PRN IV 04/16/25 22:30 Cancel Morphine Sulfate 2 mg Q30M PRN IV 04/17/25 11:00 04/19/25 05:28 2 MG Cefazolin Sodium 50 ml @ 100 mls/hr Q8H IV 04/18/25 02:00 04/24/25 08:56 100 MLS/HR Hydromorphone HCl 1 mg Q3HPRN PRN IV 04/19/25 13:30 04/24/25 08:56 1 MG Heparin Sodium/ Dextrose 250 ml @ 20 mls/hr [id number] IV 04/20/25 00:30 04/23/25 11:06 20 MLS/HR Furosemide 80 mg TID IV 04/23/25 15:30 04/24/25 06:14 80 MG Metolazone 5 mg DAILY PO 04/24/25 10:00 04/24/25 08:54 5 MG Oxycodone/ Acetaminophen 1 tab Q4HP PRN PO 04/23/25 16:45 04/24/25 00:27 1 TAB Examination: GENERAL:Normal, HEENT:Normal, NECK:Normal, LUNGS:Normal, CVS:Normal, ABDOMEN:Normal, MSK:Normal, MSK:Abnormal (EDEMA++), SKIN:Normal, NEURO:Normal, :Normal laboratory and microbiology Laboratory Tests 04/24/25 05:36 04/20/25 05:42 Test 04/20/25 05:42 Range/Units Serum Glucose 118 H 74-106 mg/dL Microbiology Date/Time Source Procedure Growth Status 04/17/25 05:15 Nose MRSA Screen - Final Complete 04/16/25 22:59 Blood Blood Culture - Final NO GROWTH AFTER 5 DAYS OF INCUBATION. Complete Problem List/Assessment/Plan Problem List/Assessment/Plan #1 acute on chronic resp failure: on oxygen #2 bilateral dvt s/p ivc filter: eliquis, thrombectomy #3 cellulitis both legs ?sepsis: iv ancef #4 lung mass with lymphadenopathy: mets adenoca of lung #5 copd #6 PE #7 coagulopathy: check pt/ptt, ? ffp as needed dw pt regards need for transfer in view of new cancer diagnosis advance care planning- full code- time spent 19 mins Plan discussed with: Patient My Orders My Orders Orders - LLOYD CALIXTO MD Procedure Category Date Status Time Heparin Per [facility]acy [facility] 04/23/25 In Process Protocol 11:00 Complete Blood Count LAB 04/25/25 Verified 04:00 PTPTT LAB 04/25/25 Verified 04:00 Heparin Per [facility] 04/24/25 In Process Protocol 09:43 Dietary Evaluation Review Comments: Encourage Cardiac Diet. Monitor PO intake to meet 75% of his needs. Provid Pj BID for wound healing. Encourage PT for impoved mobility when medcially feasible. Expected Outcomes/Goals: healed wounds, gradual wt loss Date of Service: Apr 24, 2025 Billing Provider: LLOYD CALIXTO MD Common Visit Codes: [id number] INP/OBS CARE(HIGH) CC Plasma Assessment Blood Product Administration S: [id number] LLOYD CALIXTO MD Apr 24, 2025 11:07
[2025-04-24] MEDS: DOCUSATE SOD 100 MG CAP PO ONE (11:15)
[2025-04-24] MEDS: LACTULOSE 20Gm/30ML SOLN PO ONE (11:15)
[2025-04-24 11:24] LABS: Chloride 98 mmol/L (98-107); Sodium 139 mmol/L (136-145)
[2025-04-24 11:25] LABS: Anion Gap 10 (5-15); Calcium 9.2 mg/dL (8.7-10.4); Carbon Dioxide 31 mmol/L (20-31)
[2025-04-24 11:30] LABS: BUN/Creatinine Ratio 19.0 (10.0-20.0); Blood Urea Nitrogen 12 mg/dL (9-23)
[2025-04-24 11:38] LABS: Glucose 148 mg/dL (74-106); Potassium 3.4 mmol/L (3.5-5.1)
[2025-04-24] MEDS: POTASSIUM CHL 20 Meq TABLET PO ONE (16:45)
[2025-04-24] MEDS: POTASSIUM EFFERVESENT TAB 25 MEQ PO ONE (21:41)
[2025-04-24] MEDS: APIXABAN 5 MG TAB PO SCH (21:45)
[2025-04-24] MEDS: DOCUSATE SOD 100 MG CAP PO SCH (21:45)
[2025-04-24] MEDS: FUROSEMIDE 40 MG/4 ML VIAL IV SCH (21:45)
[2025-04-24] MEDS: LACTULOSE 20Gm/30ML SOLN PO SCH (21:53)
[2025-04-25] VITALS (8 sets, daily range): BP systolic 112–153; BP diastolic 68–82; PULSE 94–117; RESP 18–19; TEMP 97.7–98.8; O2SAT 91–98
[2025-04-25 06:33] LABS: Mean Corpuscular Hemoglobin 25.5 pg (28.0-32.0)
[2025-04-25 06:37] LABS: Hematocrit 31.9 % (41.0-53.0); Hemoglobin 10.5 g/dL (13.5-17.5); Mean Corpuscular Volume 77.8 fL (80.0-100.0); Nucleated Red Blood Cells % 0.0 %
[2025-04-25 06:42] LABS: Calcium 9.7 mg/dL (8.7-10.4); Potassium 3.5 mmol/L (3.5-5.1); Sodium 137 mmol/L (136-145)
[2025-04-25 06:48] LABS: BUN/Creatinine Ratio 23.4 (10.0-20.0); Blood Urea Nitrogen 15 mg/dL (9-23)
[2025-04-25 06:49] LABS: Magnesium 2.0 mg/dL (1.6-2.6)
[2025-04-25 06:56] LABS: Chloride 94 mmol/L (98-107); Glucose 127 mg/dL (74-106)
[2025-04-25 06:59] LABS: Anion Gap 11 (5-15); Carbon Dioxide 32 mmol/L (20-31)
--- NOTE | 2025-04-25 10:20 | DVHPN2 ---
Progress Note Date Seen: Apr 25, 2025 Medical Necessity Reason Pt with a Central, PICC or Fol: No Subjective Patient reports: No new complaints Review of Systems: HEENT:Normal, CVS:Normal, RESPIRATORY:Normal, GI:Normal, :Normal, MSK:Normal, NEURO:Normal Objective vital signs Vital Sign Date Time Temp Pulse Resp B/P (MAP) Pulse Ox O2 Delivery O2 Flow Rate FiO2 04/25/25 08:00 94 18 98 Nasal Cannula* 3 32 04/25/25 06:37 139/66 04/25/25 05:00 98.7 98.7 Total Intake and Output 04/24/25 04/24/25 04/25/25 15:00 23:00 07:00 Intake Total 480 ml 1250 ml 1300 ml Output Total 1050 ml 1500 ml 1050 ml Balance -570 ml -250 ml 250 ml medications Current Medications Medications Dose Ordered Sig/Elias Route Start Time Stop Time Status Last Admin Dose Admin Ondansetron HCl 4 mg Q4HP PRN IV 04/16/25 22:30 Acetaminophen 650 mg Q6HP PRN PO 04/16/25 22:30 Nitroglycerin 0.4 mg Q5MINP PRN SL 04/16/25 22:30 04/18/25 21:51 0.4 MG Morphine Sulfate 2 mg Q30M PRN IV 04/16/25 22:30 Cancel Morphine Sulfate 2 mg Q30M PRN IV 04/17/25 11:00 04/19/25 05:28 2 MG Cefazolin Sodium 50 ml @ 100 mls/hr Q8H IV 04/18/25 02:00 04/25/25 01:29 100 MLS/HR Hydromorphone HCl 1 mg Q3HPRN PRN IV 04/19/25 13:30 04/25/25 06:16 1 MG Metolazone 5 mg DAILY PO 04/24/25 10:00 04/24/25 08:54 5 MG Oxycodone/ Acetaminophen 1 tab Q4HP PRN PO 04/23/25 16:45 04/24/25 00:27 1 TAB Apixaban 5 mg BID PO 04/24/25 22:00 04/24/25 21:45 5 MG Furosemide 40 mg BIDD IV 04/24/25 18:00 04/24/25 21:45 40 MG Lactulose 30 ml BID PO 04/24/25 22:00 Docusate Sodium 100 mg BID PO 04/24/25 22:00 04/24/25 21:45 100 MG Examination: GENERAL:Normal, HEENT:Normal, NECK:Normal, LUNGS:Normal, CVS:Normal, ABDOMEN:Normal, MSK:Normal, MSK:Abnormal (EDEMA++), SKIN:Normal, NEURO:Normal, :Normal laboratory and microbiology Laboratory Tests 04/25/25 06:02 Test 04/25/25 06:02 Range/Units Serum Glucose 127 H 74-106 mg/dL Microbiology Date/Time Source Procedure Growth Status 04/17/25 05:15 Nose MRSA Screen - Final Complete 04/16/25 22:59 Blood Blood Culture - Final NO GROWTH AFTER 5 DAYS OF INCUBATION. Complete Problem List/Assessment/Plan Problem List/Assessment/Plan #1 acute on chronic resp failure: on oxygen #2 bilateral dvt s/p ivc filter: eliquis, s/p thrombectomy #3 cellulitis both legs ?sepsis: iv ancef #4 lung mass with lymphadenopathy: mets adenoca of lung #5 copd #6 PE #7 coagulopathy: check pt/ptt, ? ffp as needed per - making arrangements for outpt follow up advance care planning- full code- time spent 19 mins Plan discussed with: Patient My Orders My Orders Orders - LLOYD CALIXTO MD Procedure Category Date Status Time Apixaban (Eliquis) PHA 04/24/25 In Process 22:00 Furosemide Injection PHA 04/24/25 In Process (Lasix Injection) 18:00 Lactulose Oral PHA 04/24/25 In Process 22:00 Docusate Sodium PHA 04/24/25 In Process Capsule (Colace 22:00 Dietary Evaluation Review Comments: Encourage Cardiac Diet. Monitor PO intake to meet 75% of his needs. Provid Pj BID for wound healing. Encourage PT for impoved mobility when medcially feasible. Expected Outcomes/Goals: healed wounds, gradual wt loss Date of Service: Apr 25, 2025 Billing Provider: LLOYD ACLIXTO MD Common Visit Codes: [id number] INP/OBS CARE(HIGH) CC Plasma Assessment Blood Product Administration S: [id number] LLOYD CALIXTO MD Apr 25, 2025 10:20
[2025-04-25] MEDS: CEPHALEXIN 250 MG CAP PO SCH (12:00)
[2025-04-26] VITALS (9 sets, daily range): BP systolic 106–123; BP diastolic 63–73; PULSE 86–108; RESP 16–20; TEMP 96.4–98.4; O2SAT 92–97
[2025-04-26 06:32] LABS: Hematocrit 31.6 % (41.0-53.0); Hemoglobin 10.3 g/dL (13.5-17.5); Mean Corpuscular Hemoglobin 25.4 pg (28.0-32.0); Mean Corpuscular Volume 78.1 fL (80.0-100.0); Nucleated Red Blood Cells % 0.0 %
[2025-04-26 06:35] LABS: Anion Gap 12 (5-15); Calcium 10.3 mg/dL (8.7-10.4); Carbon Dioxide 33 mmol/L (20-31); Chloride 93 mmol/L (98-107); Potassium 3.0 mmol/L (3.5-5.1); Sodium 138 mmol/L (136-145)
[2025-04-26 06:41] LABS: BUN/Creatinine Ratio 29.7 (10.0-20.0); Blood Urea Nitrogen 19 mg/dL (9-23)
[2025-04-26 06:43] LABS: Glucose 117 mg/dL (74-106)
--- NOTE | 2025-04-26 11:18 | DVHDS2 ---
Discharge Summary Date of Admission Apr 16, 2025 at 22:30 Date of Discharge: Apr 27, 2025 Labs/Diagnostic Data: Laboratory Results Test 04/26/25 05:47 04/25/25 06:02 04/24/25 05:36 04/21/25 06:11 White Blood Count 15.1 10^3/uL (4.4-10.8) Red Blood Count 4.04 10^6/uL (4.5-5.90) Hemoglobin 10.3 g/dL (13.5-17.5) Hematocrit 31.6 % (41.0-53.0) Mean Corpuscular Volume 78.1 fL (80.0-100.0) Mean Corpuscular Hemoglobin 25.4 pg (28.0-32.0) Mean Corpuscular Hemoglobin Concent 32.5 g/dL (32.0-36.0) Red Cell Distribution Width 18.4 % (11.8-14.3) Platelet Count 183 10^3/uL (140-450) Mean Platelet Volume 7.5 fL (6.9-10.8) Neutrophils (%) (Auto) 74.1 % (37.0-80.0) Lymphocytes (%) (Auto) 14.2 % (10.0-50.0) Monocytes (%) (Auto) 9.9 % (0.0-12.0) Eosinophils (%) (Auto) 1.2 % (0.0-7.0) Basophils (%) (Auto) 0.6 % (0.0-2.0) Neutrophils # (Auto) 11.2 10 ^3/uL (1.6-8.6) Lymphocytes # (Auto) 2.1 10 ^3/uL (0.4-5.4) Monocytes # (Auto) 1.5 10 ^3/uL (0-1.3) Eosinophils # (Auto) 0.2 10 ^3/uL (0-0.8) Basophils # (Auto) 0.1 10 ^3/uL (0-0.2) Nucleated Red Blood Cells 0.0 % Sodium Level 138 mmol/L (136-145) Potassium Level 3.0 mmol/L (3.5-5.1) Chloride Level 93 mmol/L (98-107) Carbon Dioxide Level 33 mmol/L (20-31) Anion Gap 12 (5-15) Blood Urea Nitrogen 19 mg/dL (9-23) Creatinine 0.64 mg/dL (0.700-1.30) Glomerular Filtration Rate Calc 113 mL/min (>90) BUN/Creatinine Ratio 29.7 (10.0-20.0) Serum Glucose 117 mg/dL (74-106) Calcium Level 10.3 mg/dL (8.7-10.4) Magnesium Level 2.0 mg/dL (1.6-2.6) Prothrombin Time 11.9 sec (9.3-11.8) Prothrombin Time INR 1.14 (0.9-1.15) Activated Partial Thromboplast Time 58.1 SEC (24.5-34.5) Differential Total Cells Counted 100.0 (100) Neutrophils % (Manual) 66 (37.0-80.0) Band Neutrophils % (Manual) 2 Lymphocytes % (Manual) 18 (10.0-50.0) Monocytes % (Manual) 9 (0-12) Eosinophils % (Manual) 4 (0-7) Basophils % (Manual) 0 (0.0-2.0) Metamyelocytes % (manual) 0 Myelocytes % (Manual) 0 Promyelocytes % (Manual) 1 Blast Cells % (Manual) 0 Reactive Lymphocytes 0 Platelet Estimate Adequate Test 04/19/25 01:00 04/18/25 05:26 04/17/25 15:00 04/16/25 19:50 Troponin I High Sensitivity 20 ng/L (</=54) Microcytosis Slight Total Bilirubin 0.5 mg/dL (0.2-1.0) Aspartate Amino Transferase (AST) 28 U/L (<34) Alanine Aminotransferase (ALT) 12 U/L (7-40) Alkaline Phosphatase 102 U/L (46-116) Total Protein 6.7 g/dL (5.7-8.2) Albumin 3.6 g/dL (3.2-4.8) Urine Color Yellow (Yellow) Urine Clarity Turbid (Clear) Urine pH 6.0 (5.0-9.0) Urine Specific [place] 1.043 (1.001-1.035) Urine Protein 1+ (Negative) Urine Ketones Negative (Negative) Urine Blood 3+ /uL (Negative) Urine Nitrite Negative (Negative) Urine Bilirubin Negative (Negative) Urine Urobilinogen Normal mg/dL (Negative) Urine Leukocyte Esterase Negative /uL (Negative) Urine RBC 107 /hpf (0 - 3) Urine Microscopic WBC 10 /HPF (0-3) Urine Squamous Epithelial Cells Few /hpf (<5) Urine Bacteria None seen /hpf (None Seen) Urine Mucus Few (None Seen) Urine Yeast (Budding) Occasional /hpf (None Urine Glucose Normal mg/dL (Normal) Anisocytosis (manual) Slight Lactic Acid Level 1.5 mmol/L (0.4-2.0) B-Type Natriuretic Peptide 39.89 pg/mL (0-100) Lipase 95 U/L (12-53) Other Laboratory Tests 04/26/25 05:47 Brief Hx & Hospital Course: see dictated note Condition at Discharge: Fair Final Diagnosis/Problems List dvt, pe Discharge Disposition: Home Discharge Instruct/Medications Diet: Regular Activity: No Restrictions, As Tolerated Follow Up/Referral: fu with pcp/oncology Medications: script to pharmacy Scheduled Ascorbic Acid (Vitamin C Tablet), 500 MG PO BID Bisacodyl (Kp Bisacodyl), 1 TAB PO UD, (Reported) Clindamycin Hcl (Cleocin), 3 CAP PO QID, (Reported) Docusate Sodium (Docusate Sodium), 100 MG PO BID, (Reported) Warfarin Sodium (Warfarin Sodium), 1 TAB PO DAILY Scheduled PRN Albuterol Sulfate (Ventolin Mdi), 180 MCG IN TIDPRN PRN Hydrocodone-Acetaminophen (Hydrocodone Bitartrate/AC 10-325 mg), 1 TAB PO Q4HP PRN for PAIN SCALE 1 THRU 6, (Reported) Oxycodone W/ Acetaminophen (Percocet 5/325MG), 2 TAB PO Q6HP PRN for PAIN SCALE 7 THRU 10, (Reported) Discharge Statement: "Patient was advised to return to the ER or call 911 if any headaches, dizziness, shortness of breath, chest pain, abdominal pain, bleeding, fevers, or worsening of medical condition. Patient was counseled about treatment plan, medications, possible side effects, patientverbalized understanding. All questions were answered to the best of my ability. This discharge took greater then 30 minutes in planning, reviewing documentation, counseling the patient, and discussing with other team members." ASSESSMENT ASSESSMENT Assessment dvt, pe Date of Service: Apr 26, 2025 Billing Provider: LLOYD CALIXTO MD Common Visit Codes: [id number] DISCH DAY >30min LLOYD CALIXTO MD Apr 26, 2025 11:18
[2025-04-26] MEDS ORDERED: LEVO500T91 PO (11:20)
[2025-04-26] MEDS ORDERED: APIX5TAB PO (11:20)
[2025-04-26] MEDS ORDERED: POTA-180 PO (11:20)
[2025-04-26] MEDS ORDERED: FURO1TAB31 PO (11:20)
[2025-04-26] MEDS ORDERED: PERCOT PO (11:20)
[2025-04-26] MEDS: POTASSIUM CHL 20 Meq TABLET PO ONE (11:30)
--- NOTE | 2025-04-26 11:46 | DVHDS ---
DATE OF DISCHARGE: 04/26/2025 The patient is a 54-year-old gentleman who was initially admitted with increasing lower extremity swelling and pain and has history of COPD, chronic respiratory failure, thrombectomy, IVC filter, DVT, PE, congestive heart failure. HOSPITAL COURSE: The patient had a CT angiography that showed evidence of pulmonary embolism along with a left upper lobe mass. The patient had Doppler of lower extremity that showed extensive DVT bilaterally. The patient was seen Interventional Radiology who at this time did not wish any further thrombectomy. The patient however had a left supraclavicular lymph node that was biopsied. The biopsy report returned as metastatic adenocarcinoma of the lung. The patient also had blood cultures that were negative. Echocardiogram showed ejection fraction of 55%-60%. The patient will now be discharged home to be on Eliquis 5 mg p.o. b.i.d., Levaquin 500 mg daily for seven days, Lasix 40 mg b.i.d., potassium chloride 20 mEq p.o. b.i.d., and Percocet p.r.n. for pain. He will follow up with his primary as well as Oncology. The patient will resume his home oxygen. He will also have home health for physical therapy and safety. FINAL DIAGNOSES: * Acute on chronic respiratory failure. * Bilateral DVT with previous IVC filter. * Pulmonary embolism. * Left lung mass with adenopathy with metastatic adenocarcinoma of the lung. * Cellulitis of both legs. * COPD. * Lymphedema. * Sleep apnea. Time spent in discharge planning and review of plan with the patient and nursing was 39 minutes. MD BERNICE Garcias/GRISELDA TID: [id number] RECEIPT: [id number]
[2025-04-27] VITALS (7 sets, daily range): BP systolic 105–123; BP diastolic 71–79; PULSE 95–109; RESP 17–18; TEMP 97.3–98; O2SAT 93–98
--- NOTE | 2025-04-27 11:15 | DVHPN2 ---
Progress Note Date Seen: Apr 27, 2025 Medical Necessity Reason Pt with a Central, PICC or Fol: No Subjective Patient reports: No new complaints Review of Systems: HEENT:Normal, CVS:Normal, RESPIRATORY:Normal, GI:Normal, :Normal, MSK:Normal, NEURO:Normal Objective vital signs Vital Sign Date Time Temp Pulse Resp B/P (MAP) Pulse Ox O2 Delivery O2 Flow Rate FiO2 04/27/25 09:48 95 Nasal Cannula 2.0 04/27/25 09:48 28 04/27/25 08:44 85 17 114/89 04/27/25 08:40 97.9 97.9 Total Intake and Output 04/26/25 04/26/25 04/27/25 15:00 23:00 07:00 Intake Total 1000 ml 170 ml Output Total 900 ml 500 ml Balance 100 ml -330 ml medications Current Medications Medications Dose Ordered Sig/Elias Route Start Time Stop Time Status Last Admin Dose Admin Ondansetron HCl 4 mg Q4HP PRN IV 04/16/25 22:30 Acetaminophen 650 mg Q6HP PRN PO 04/16/25 22:30 Nitroglycerin 0.4 mg Q5MINP PRN SL 04/16/25 22:30 04/18/25 21:51 0.4 MG Morphine Sulfate 2 mg Q30M PRN IV 04/16/25 22:30 Cancel Hydromorphone HCl 1 mg Q3HPRN PRN IV 04/19/25 13:30 04/27/25 08:14 1 MG Metolazone 5 mg DAILY PO 04/24/25 10:00 04/27/25 08:13 5 MG Oxycodone/ Acetaminophen 1 tab Q4HP PRN PO 04/23/25 16:45 04/26/25 15:16 1 TAB Apixaban 5 mg BID PO 04/24/25 22:00 04/27/25 08:13 5 MG Furosemide 40 mg BIDD IV 04/24/25 18:00 04/26/25 06:02 40 MG Lactulose 30 ml BID PO 04/24/25 22:00 04/27/25 08:14 30 ML Docusate Sodium 100 mg BID PO 04/24/25 22:00 04/27/25 08:13 100 MG Cephalexin 500 mg Q6HR PO 04/25/25 12:00 Examination: GENERAL:Normal, HEENT:Normal, NECK:Normal, LUNGS:Normal, LUNGS:Abnormal (ON OXYGEN), CVS:Normal, ABDOMEN:Normal, MSK:Normal, SKIN:Normal, NEURO:Normal, :Normal laboratory and microbiology Laboratory Tests 04/26/25 05:47 Test 04/26/25 05:47 Range/Units Serum Glucose 117 H 74-106 mg/dL Microbiology Date/Time Source Procedure Growth Status 04/17/25 05:15 Nose MRSA Screen - Final Complete 04/16/25 22:59 Blood Blood Culture - Final NO GROWTH AFTER 5 DAYS OF INCUBATION. Complete Problem List/Assessment/Plan Problem List/Assessment/Plan #1 acute on chronic resp failure: on oxygen #2 bilateral dvt s/p ivc filter: eliquis, s/p thrombectomy #3 cellulitis both legs ?sepsis: iv ancef #4 lung mass with lymphadenopathy: mets adenoca of lung #5 copd #6 PE #7 coagulopathy: check pt/ptt, ? ffp as needed per - making arrangements for outpt follow up advance care planning- full code- time spent 19 mins Plan discussed with: Patient, Other (rn) My Orders My Orders Orders - LLOYD CALIXTO MD Procedure Category Date Status Time * Performance Analyst CONS 04/26/25 Transmitted Consult Dietary Evaluation Review Comments: Encourage Cardiac Diet. Monitor PO intake to meet 75% of his needs. Provid Pj BID for wound healing. Encourage PT for impoved mobility when medcially feasible. Expected Outcomes/Goals: healed wounds, gradual wt loss Date of Service: Apr 27, 2025 Billing Provider: LLOYD CALIXTO MD Common Visit Codes: [id number] INP/OBS CARE(HIGH) CC Plasma Assessment Blood Product Administration S: [id number] LLOYD CALIXTO MD Apr 27, 2025 11:15
--- NOTE | 2025-04-30 15:17 | DVHPN2 ---
Reviewed: Care Plan, H&P, Labs, Medications, Previous Orders, Radiology Changes from previous H/P or p: No Changes General: Per HPI Objective General Appearance: Alert, Oriented X3, Cooperative Medications Current Medications Medications Dose Ordered Sig/Elias Route Start Time Stop Time Status Last Admin Dose Admin Morphine Sulfate 2 mg Q30M PRN IV 04/16/25 22:30 Cancel Laboratory Results Laboratory Tests 04/26/25 05:47 Urinalysis Test 04/17/25 15:00 Urine Color Yellow (Yellow) Urine Clarity Turbid (Clear) H Urine pH 6.0 (5.0-9.0) Urine Specific [place] 1.043 (1.001-1.035) Urine Protein 1+ (Negative) H Urine Ketones Negative (Negative) Urine Blood 3+ /uL (Negative) H Urine Nitrite Negative (Negative) Urine Bilirubin Negative (Negative) Urine Urobilinogen Normal mg/dL (Negative) Urine Leukocyte Esterase Negative /uL (Negative) Urine RBC 107 /hpf (0 - 3) Urine Microscopic WBC 10 /HPF (0-3) H Urine Squamous Epithelial Cells Few /hpf (<5) Urine Bacteria None seen /hpf (None Seen) Urine Mucus Few (None Seen) Urine Yeast (Budding) Occasional /hpf (None Urine Glucose Normal mg/dL (Normal) Microbiology Microbiology Date/Time Source Procedure Growth Status 04/17/25 05:15 Nose MRSA Screen - Final Complete 04/16/25 22:59 Blood Blood Culture - Final NO GROWTH AFTER 5 DAYS OF INCUBATION. Complete Assessment/Plan Assessment/Plan #1 acute on chronic resp failure: on oxygen #2 bilateral dvt s/p ivc filter: off heparin drip, thrombectomy #3 cellulitis both legs ?sepsis: iv ancef #4 lung mass with lymphadenopathy: biopsy of neck lymph nodes #5 copd #6 PE #7 coagulopathy: check pt/ptt, ? ffp as needed unstable for transfer advance care planning- full code- time spent 19 mins Plan discussed with: Patient Date of Service: Apr 22, 2025 Billing Provider: SERENA HIGGINS DO Common Visit Codes: [id number] INP/OBS CARE(HIGH) SERENA HIGGINS DO Apr 30, 2025 15:17
--- NOTE | 2025-04-30 15:17 | DVHPN2 ---
Reviewed: Care Plan, H&P, Labs, Medications, Previous Orders, Radiology Changes from previous H/P or p: No Changes General: Per HPI Objective General Appearance: Alert, Oriented X3, Cooperative Medications Current Medications Medications Dose Ordered Sig/Elias Route Start Time Stop Time Status Last Admin Dose Admin Morphine Sulfate 2 mg Q30M PRN IV 04/16/25 22:30 Cancel Laboratory Results Laboratory Tests 04/26/25 05:47 Urinalysis Test 04/17/25 15:00 Urine Color Yellow (Yellow) Urine Clarity Turbid (Clear) H Urine pH 6.0 (5.0-9.0) Urine Specific [place] 1.043 (1.001-1.035) Urine Protein 1+ (Negative) H Urine Ketones Negative (Negative) Urine Blood 3+ /uL (Negative) H Urine Nitrite Negative (Negative) Urine Bilirubin Negative (Negative) Urine Urobilinogen Normal mg/dL (Negative) Urine Leukocyte Esterase Negative /uL (Negative) Urine RBC 107 /hpf (0 - 3) Urine Microscopic WBC 10 /HPF (0-3) H Urine Squamous Epithelial Cells Few /hpf (<5) Urine Bacteria None seen /hpf (None Seen) Urine Mucus Few (None Seen) Urine Yeast (Budding) Occasional /hpf (None Urine Glucose Normal mg/dL (Normal) Microbiology Microbiology Date/Time Source Procedure Growth Status 04/17/25 05:15 Nose MRSA Screen - Final Complete 04/16/25 22:59 Blood Blood Culture - Final NO GROWTH AFTER 5 DAYS OF INCUBATION. Complete Assessment/Plan Assessment/Plan #1 acute on chronic resp failure: on oxygen #2 bilateral dvt s/p ivc filter: off heparin drip, thrombectomy #3 cellulitis both legs ?sepsis: iv ancef #4 lung mass with lymphadenopathy: biopsy of neck lymph nodes #5 copd #6 PE #7 coagulopathy: check pt/ptt, ? ffp as needed unstable for transfer advance care planning- full code- time spent 19 mins Plan discussed with: Patient Date of Service: Apr 20, 2025 Billing Provider: SERENA HIGGINS DO Common Visit Codes: [id number] INP/OBS CARE(HIGH) SERENA HIGGINS DO Apr 30, 2025 15:17
--- NOTE | 2025-04-30 15:18 | DVHPN2 ---
Reviewed: Care Plan, H&P, Labs, Medications, Previous Orders, Radiology Changes from previous H/P or p: No Changes General: Per HPI Objective General Appearance: Alert, Oriented X3, Cooperative Medications Current Medications Medications Dose Ordered Sig/Elias Route Start Time Stop Time Status Last Admin Dose Admin Morphine Sulfate 2 mg Q30M PRN IV 04/16/25 22:30 Cancel Laboratory Results Laboratory Tests 04/26/25 05:47 Urinalysis Test 04/17/25 15:00 Urine Color Yellow (Yellow) Urine Clarity Turbid (Clear) H Urine pH 6.0 (5.0-9.0) Urine Specific [place] 1.043 (1.001-1.035) Urine Protein 1+ (Negative) H Urine Ketones Negative (Negative) Urine Blood 3+ /uL (Negative) H Urine Nitrite Negative (Negative) Urine Bilirubin Negative (Negative) Urine Urobilinogen Normal mg/dL (Negative) Urine Leukocyte Esterase Negative /uL (Negative) Urine RBC 107 /hpf (0 - 3) Urine Microscopic WBC 10 /HPF (0-3) H Urine Squamous Epithelial Cells Few /hpf (<5) Urine Bacteria None seen /hpf (None Seen) Urine Mucus Few (None Seen) Urine Yeast (Budding) Occasional /hpf (None Urine Glucose Normal mg/dL (Normal) Microbiology Microbiology Date/Time Source Procedure Growth Status 04/17/25 05:15 Nose MRSA Screen - Final Complete 04/16/25 22:59 Blood Blood Culture - Final NO GROWTH AFTER 5 DAYS OF INCUBATION. Complete Assessment/Plan Assessment/Plan #1 acute on chronic resp failure: on oxygen #2 bilateral dvt s/p ivc filter: off heparin drip, thrombectomy #3 cellulitis both legs ?sepsis: iv ancef #4 lung mass with lymphadenopathy: biopsy of neck lymph nodes #5 copd #6 PE #7 coagulopathy: check pt/ptt, ? ffp as needed unstable for transfer advance care planning- full code- time spent 19 mins Plan discussed with: Patient Date of Service: Apr 23, 2025 Billing Provider: SERENA HIGGINS DO Common Visit Codes: [id number] INP/OBS CARE(HIGH) SERENA HIGGINS DO Apr 30, 2025 15:17
== END 2025-04-27 18:00 | disposition home health service (06) | DRG 720 ==
LOC: ER 18:51 → EDUNIT# 18:51 → EDBD 18:51 → OVERFLOW 22:30 → TELE-EAST 22:35
PROVIDERS: ADMIT Internal Medicine; ATTEND Internal Medicine
PROC: 30233K1 Transfusion of Nonautologous Frozen Plasma into Peripheral Vein, Percutaneous Approach (ICD-10-PCS; 2025-04-18)
PROC: 07D23ZX Extraction of Left Neck Lymphatic, Percutaneous Approach, Diagnostic (ICD-10-PCS; principal; 2025-04-19)
DX: A41.9 Sepsis, unspecified organism (principal); I26.99 Other pulmonary embolism without acute cor pulmonale; J96.20 Acute and chronic respiratory failure, unspecified whether with hypoxia or hypercapnia; D68.9 Coagulation defect, unspecified; I50.9 Heart failure, unspecified; C34.92 Malignant neoplasm of unspecified part of left bronchus or lung; J44.1 Chronic obstructive pulmonary disease with (acute) exacerbation; I11.0 Hypertensive heart disease with heart failure; I82.493 Acute embolism and thrombosis of other specified deep vein of lower extremity, bilateral; Z95.828 Presence of other vascular implants and grafts; E11.9 Type 2 diabetes mellitus without complications; G47.30 Sleep apnea, unspecified; R59.1 Generalized enlarged lymph nodes; L03.115 Cellulitis of right lower limb; L03.116 Cellulitis of left lower limb; Z86.718 Personal history of other venous thrombosis and embolism; Z87.891 Personal history of nicotine dependence; Z86.711 Personal history of pulmonary embolism; Z79.899 Other long term (current) drug therapy; Z79.01 Long term (current) use of anticoagulants; Z88.8 Allergy status to other drugs, medicaments and biological substances
CPT/HCPCS: 10005; 36415; 71260; 71275; 74177; 76536; 76942; 80048; 80053; 81001; 83605; 83690; 83735; 83880; 84484; 85007; 85025; 85027; 85610; 85730; 86850; 86900; 86901; 87040; 87081; 93005; 93306; 93970; 94640; 96365; 97110; 97163; 97530; 99291; G0378

== ENCOUNTER 2025-04-29 19:31 | Inpatient (IN) | payer MEDICAID ==
[~2025-04-29] VITALS: Ht 182.9 cm; Wt 105.3 kg
[~2025-04-29 19:31] MED LIST changes: +APIX5TAB PO; +FURO1TAB31 PO; +LEVO500T91 PO; +POTA-180 PO
--- NOTE | 2025-04-29 19:55 | ED.PDOC ---
History of Present Illness HPI Comments 54 year old male history of metastatic lung adenocarcinoma, bilateral lower extremity DVTs, PE, lymphedema, hypertension, diabetes and COPD on home O2 brought in by EMS complaining of low back pain for the past 5 hours. Patient has history of metastatic adenocarcinoma of the lungs. Patient is bed-bound. He states for the past 5 hours, he has been having constant, unprovoked severe low back pain which is nonradiating, described as being punched in the kidneys." He states he had similar symptoms when he was diagnosed with DVTs. He denies any abdominal pain, fever or urinary symptoms. Patient was discharged from this facility 2 days ago after being found to have bilateral DVTs, PE, acute on chronic respiratory failure and bilateral lower extremity cellulitis. He was evaluated by Interventional Radiology, however thrombectomy was not recommended. He was discharged on Eliquis, Levaquin and Lasix. Chief Complaint: Back Pain Time Seen by MD: 19:52 Primary Care Provider: FAIZAN Huertas Notes: [employer] Notes Allergies: Coded Allergies: Bacitracin (Verified Allergy, Unknown, 03/16/25) Cephalexin (Verified Allergy, Unknown, 04/25/25) Enoxaparin (Verified Allergy, Unknown, 03/16/25) Gabapentin (Verified Allergy, Unknown, 03/16/25) Home Meds Active Scripts Oxycodone W/ Acetaminophen (Percocet 5/325MG) 1 Tab Tb, 1 TAB PO TID PRN for 10 Days, #30 TAB Prov:LLOYD CALIXTO MD 04/26/25 Levofloxacin Hemihydrate (LEVAQUIN 500 MG) 500 Mg Tab, 500 MG PO DAILY for 7 Days, #7 TAB Prov:LLOYD CALIXTO MD 04/26/25 Potassium Chloride (Potassium Chloride ER) 20 Meq Tab, 20 MEQ PO BID for 30 Days, #60 TAB 1 Refill Prov:LLOYD CALIXTO MD 04/26/25 Furosemide (Lasix) 40 Mg Tab, 40 MG PO BID for 30 Days, #60 TAB 1 Refill Prov:LLOYD CALIXTO MD 04/26/25 Apixaban Base (ELIQUIS) 5 Mg Tab, 5 MG PO BID for 30 Days, #60 TAB 3 Refills Prov:LLOYD CALIXTO MD 7/2/25 Warfarin Sodium (Warfarin Sodium) 5 Mg Tab, 1 TAB PO DAILY, #30 TAB 5 Refills Prov:GM BURKS MD 03/27/25 Ascorbic Acid (VITAMIN C TABLET) 500 Mg Tb, 500 MG PO BID, #60 TAB Prov:MJ BAEZ MD 11/18/21 Albuterol Sulfate (VENTOLIN MDI) 90 Mcg Ih, 180 MCG IN TIDPRN PRN, #1 INH Prov:MJ BAEZ MD 11/18/21 Reported Medications Hydrocodone-Acetaminophen (Hydrocodone Bitartrate/AC 10-325 mg) 1 Tab Tab, 1 TAB PO Q4HP PRN for PAIN SCALE 1 THRU 6, TAB 03/25/25 Oxycodone W/ Acetaminophen (Percocet 5/325MG) 1 Tab Tb, 2 TAB PO Q6HP PRN for PAIN SCALE 7 THRU 10, #120 TAB 03/25/25 Docusate Sodium (Docusate Sodium) 100 Mg Cap, 100 MG PO BID, CAP 03/24/25 Clindamycin Hcl (CLEOCIN) 150 Mg Cap, 3 CAP PO QID, #40 CAP 03/24/25 Bisacodyl (KP BISACODYL) 5 Mg Tab, 1 TAB PO UD, #4 TAB 03/24/25 Information Source: Patient, Emergency Med Personnel Mode of Arrival: EMS Severity: Moderate Timing: Hours (5) Duration: Since onset Past Medical History PAST MEDICAL HISTORY: CHF, COPD, DM, HTN, PE Past Medical History (Other): metastatic adenocarcinoma of the lungs. bilateral DVTs, pulmonary emboli. lymphedema, bedbound Surgical History: Hernia Repair Family History Family History: No family hx of DM Social History Smoker: Quit Greater Than 1 Year Alcohol: Denies ETOH Use Drugs: Denies Drug Use Lives In: Home Constitutional: denies: chills, diaphoresis, fatigue, fever, malaise, sweats, weakness, others EENTM: denies: blurred vision, double vision, ear bleeding, ear discharge, ear drainage, ear pain, ear ringing, eye pain, eye redness, hearing loss, mouth pain, mouth swelling, nasal discharge, nose bleeding, nose congestion, nose pain, photophobia, tearing, throat pain, throat swelling, voice changes, others Respiratory: reports: SOB at rest; denies: cough, hemoptysis, orthopnea, shortness of breath, SOB with excertion, stridor, wheezing, others Cardiovascular: denies: chest pain, dizzy spells, diaphoresis, Dyspnea on exertion, edema, irregular heart beat, left arm pain, lightheadedness, palpitations, PND, syncope, others Gastrointestinal: denies: abdomen distended, abdominal pain, blood streaked bowels, constipated, diarrhea, dysphagia, difficulty swallowing, hematemesis, melena, nausea, poor appetite, poor fluid intake, rectal bleeding, rectal pain, vomiting, others Genitourinary: denies: burning, dysuria, flank pain, frequency, hematuria, incontinence, penile discharge, penile sore, pain, testicle pain, testicle swelling, urgency, others Neurological: denies: dizziness, fainting, headache, left sided numbness, left sided weakness, numbness, paresthesia, pre-existing deficit, right sided numbness, right sided weakness, seizure, speech problems, tingling, tremors, weakness, others Musculoskeletal: reports: back pain; denies: gout, joint pain, joint swelling, muscle pain, muscle stiffness, neck pain, others Integumetry: denies: bruises, change in color, change in hair/nails, dryness, laceration, lesions, lumps, rash, wounds, others Allergic/Immunocompromised: denies: Difficulty Healing, Frequent Infections, Hives, Itching, others Hematologic/Lymphatic: denies: anemia, blood clots, easy bleeding, easy bruising, swollen glands, others Endocrine: denies: excessive hunger, excessive sweating, excessive thirst, excessive urination, flushing, intolerance to cold, intolerance to heat, unexplained weight gain, unexplained weight loss, others Psychiatric: denies: anxiety, bipolar disorder, depression, hopeless, panic disorder, schizophrenia, sleepless, suicidal, others Physical Exam General Appearance: No Apparent Distress HEENT: Other (Vitals and face symmetric. Moist mucous membranes.) Neck: Full Range of Motion, Normal Inspection Respiratory: Lungs Clear, No Accessory Muscle Use, No Respiratory Distress, Normal Breath Sounds Cardiovascular: No JVD, Regular Rate/Rhythm Breast Exam: Deferred Gastrointestinal: Non Tender, Soft Genitalia: Deferred Pelvic: Deferred Rectal: Deferred Extremities: Leg edema, Pedal edema, Other Neurologic: Alert (Oriented x4), Normal Affect, Normal Mood Cerebellar Function: NOT DONE Reflexes: NOT DONE Skin: Other (Bilateral lower extremity chronic appearing skin changes consistent with lymphedema) Lymphatic: NOT DONE Was a procedure done? Was a procedure done?: No EKG EKG : Comments Sinus rhythm, rate 99, normal [place] and QRS intervals, QTC 484, normal axis, diffuse minimal ST-depression Differential Dx Considerations may include: musculoskeletal pain, progression of existing VTE or new VTE, disc disease, UTI, metastatic disease, among others X-Ray, Labs, Meds, VS Vital Signs Date Time Temp Pulse Resp B/P (MAP) Pulse Ox O2 Delivery O2 Flow Rate FiO2 04/29/25 22:00 99.0 98 24 109/55 (73) 95 99.0 04/29/25 21:18 95 24 109/55 04/29/25 21:10 99 04/29/25 20:48 103 20 123/65 04/29/25 20:33 99.1 103 20 123/65 (84) 92 99.1 04/29/25 20:33 Nasal Cannula* 3 32 04/29/25 19:50 98.2 104 18 121/77 (92) 99 98.2 Lab Test 04/29/25 23:01 04/29/25 22:54 04/29/25 20:59 04/29/25 20:00 Range/Units Urine Color Light-orange Yellow Urine Clarity Turbid H Clear Urine pH 6.5 5.0-9.0 Urine Specific [place] > 1.050 H 1.001-1.035 Urine Protein 1+ H Negative Urine Ketones Negative Negative Urine Blood 3+ H Negative /uL Urine Nitrite Negative Negative Urine Bilirubin Negative Negative Urine Urobilinogen Normal Negative mg/dL Urine Leukocyte Esterase 1+ Negative /uL Urine RBC 638 0 - 3 /hpf Urine Microscopic WBC 22 H 0-3 /HPF Urine Squamous Epithelial Cells None seen <5 /hpf Urine Bacteria None seen None Seen /hpf Urine Mucus Few None Seen Urine Glucose Normal Normal mg/dL Troponin I High Sensitivity 123 *H 111 *H 111 *H </=54 ng/L White Blood Count 20.5 #H 4.4-10.8 10^3/uL Red Blood Count 4.13 L 4.5-5.90 10^6/uL Hemoglobin 10.5 L 13.5-17.5 g/dL Hematocrit 32.3 L 41.0-53.0 % Mean Corpuscular Volume 78.3 L 80.0-100.0 fL Mean Corpuscular Hemoglobin 25.5 L 28.0-32.0 pg Mean Corpuscular Hemoglobin Concent 32.5 32.0-36.0 g/dL Red Cell Distribution Width 19.2 H 11.8-14.3 % Platelet Count 195 140-450 10^3/uL Mean Platelet Volume 7.9 6.9-10.8 fL Neutrophils (%) (Auto) 82.1 H 37.0-80.0 % Lymphocytes (%) (Auto) 8.9 L 10.0-50.0 % Monocytes (%) (Auto) 8.2 0.0-12.0 % Eosinophils (%) (Auto) 0.2 0.0-7.0 % Basophils (%) (Auto) 0.6 0.0-2.0 % Neutrophils # (Auto) 16.8 H 1.6-8.6 10 ^3/uL Lymphocytes # (Auto) 1.8 0.4-5.4 10 ^3/uL Monocytes # (Auto) 1.7 H 0-1.3 10 ^3/uL Eosinophils # (Auto) 0 0-0.8 10 ^3/uL Basophils # (Auto) 0.1 0-0.2 10 ^3/uL Nucleated Red Blood Cells 0.0 % Sodium Level 136 136-145 mmol/L Potassium Level 3.1 L 3.5-5.1 mmol/L Chloride Level 92 L 98-107 mmol/L Carbon Dioxide Level 33 H 20-31 mmol/L Anion Gap 11 5-15 Blood Urea Nitrogen 16 9-23 mg/dL Creatinine 0.67 L 0.700-1.30 mg/dL Glomerular Filtration Rate Calc 112 >90 mL/min BUN/Creatinine Ratio 23.9 H 10.0-20.0 Serum Glucose 114 H 74-106 mg/dL Calcium Level 9.8 8.7-10.4 mg/dL B-Type Natriuretic Peptide 66.76 0-100 pg/mL Current Medications Medications (Trade) Dose Ordered Sig/Elias Route Start Time Stop Time Status Last Admin Morphine Sulfate 4 mg ONCE ONCE IV 04/29/25 20:00 04/29/25 20:01 DC 04/29/25 20:48 Ondansetron HCl (Zofran) 4 mg ONCE ONCE IV 04/29/25 20:00 04/29/25 20:01 DC 04/29/25 20:47 Aspirin 325 mg ONCE ONCE PO 04/29/25 21:00 04/29/25 21:01 DC 04/29/25 21:04 Apixaban (Eliquis) 5 mg ONCE STAT PO 04/29/25 22:24 04/29/25 22:26 DC 04/29/25 22:29 Levofloxacin/ Dextrose 100 ml @ 100 mls/hr ONCE ONCE IV 04/29/25 23:45 04/29/25 23:51 DC 04/29/25 23:50 PROCEDURE(s): ANGAC - ANGIO AORTIC ABDOMINAL REASON: low back pain, eval for VTE ORDER NUMBER(s): [id number], ACCESSION NUMBER(s): [id number] CTA ABDOMEN AND PELVIS Clinical Indication: low back pain, eval for VTE Technique: Multiple contiguous axial images were obtained through the abdomen and pelvis following the administration of IV contrast material. Post processing coronal and sagittal reconstruction images were made from the axial images. Image post-processing was obtained. MIP imaging of the abdomen and pelvis arteries obtained Comparison: CT chest abdomen and pelvis from 04/18/2025 FINDINGS: Lower Thorax: There is left-sided pleural nodularity and small bilateral pleural effusions. There are dependent consolidations in the bilateral linear bibasilar scarring or atelectasis. There are pulmonary emboli again seen in segmental and subsegmental bilateral lung bases. Liver and Biliary system: Mild hepatomegaly measuring 19 cm craniocaudal. Gallbladder is mildly distended. There is no biliary ductal dilatation. Spleen: Peripheral hypodensity in the medial spleen is new from prior on series 2, image 37. Additional peripheral small hypodensity in the mid spleen. Adrenal Glands and Kidneys: Normal adrenal glands. Bilateral renal cortical scarring. Patchy peripheral renal hypodensities are seen. There are nonobstructing bilateral renal calculi. No hydronephrosis. Pancreas and Retroperitoneum: Normal pancreas. There is retroperitoneal lymphadenopathy. Aorta and Major Vessels: Aortoiliac vessels are patent and normal caliber containing [id number]-[id number] mixed atherosclerotic plaque. Widely patent origins of the celiac axis, SMA, single bilateral renal arteries, and JF. Widely patent bilateral iliac and proximal femoral arteries with mixed atherosclerotic plaque. There is an IVC filter terminating just below the level of the renal veins. There is asymmetric enlargement of the left superficial femoral, common femoral, external and common iliac veins. Bowel, Mesentery and Peritoneal space: Normal caliber small and large bowel. Normal appendix. There is no free air or fluid collection. Mild presacral edema. Pelvis: Dystrophic calcifications in the prostate gland. Urinary bladder is mildly distended. Mildly prominent bilateral pelvic lymph nodes. Abdominal wall and Osseous Structures: Small fat containing bilateral inguinal hernias. Multilevel lower thoracic and lumbar spondylosis. No destructive osseous lesion. IMPRESSION: Widely patent aortoiliac vessels and branch vessels with [id number] calcified atherosclerotic plaque. Asymmetric enlargement of the left superficial femoral, common femoral, external and common iliac veins, suspect for DVT. IVC filter terminates below the level of the renal veins. Patchy peripheral renal hypodensities which could reflect pyelonephritis. Correlate with urinalysis. 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 Scattered Pulmonary emboli again seen in segmental and subsegmental bibasilar pulmonary arteries. Peripheral hypodensities seen in the spleen which could reflect small splenic infarcts. Small bilateral pleural effusions. X-Ray, Labs, Meds, VS Comment 54 year old male history of metastatic lung adenocarcinoma, bilateral lower extremity DVTs, PE, lymphedema, hypertension, diabetes and COPD complaining of low back pain Vitals remarkable for heart rate 104 Exam remarkable for bilateral lower extremity lymphedema, lumbar midline and paraspinal tenderness Rhythm strip independently interpreted by me: Sinus rhythm, rate 99, no ectopy. CT angio abdomen and pelvis IMPRESSION: Widely patent aortoiliac vessels and branch vessels with [id number]-[id number]-[id number] calcified atherosclerotic plaque. Asymmetric enlargement of the left superficial femoral, common femoral, external and common iliac veins, suspect for DVT. IVC filter terminates below the level of the renal veins. Patchy peripheral renal hypodensities which could reflect pyelonephritis. Correlate with urinalysis. 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 Scattered Pulmonary emboli again seen in segmental and subsegmental bibasilar pulmonary arteries. Peripheral hypodensities seen in the spleen which could reflect small splenic infarcts. Small bilateral pleural effusions. CBC remarkable for WBC 20.5, metabolic panel remarkable for potassium 3.1, CO2 33, BNP normal, serial troponins 111, 111, 123, UA abnormal consistent with UTI Patient treated with the following in the ED: Morphine 4 mg IV, Zofran 4 mg IV, aspirin 325 mg p.o. , Eliquis 5 mg p.o. , Zosyn 4.5 g IV, effervescent potassium 50 mEq p.o. On re-evaluation, patient states he is comfortable. Vitals were stable. It is unclear whether or not there has been extension of the lower extremity thrombus. Plan is to admit or transfer the patient for IV antibiotics, ongoing serial troponins and possible re-evaluation by IR Case discussed with Dr. Greco at [facility], who authorized us to keep the patient here. Authorization [id number] Time of 1ST Reevaluation: 19:53 Reevaluation 1ST: Unchanged Patient Education/Counseling: Diagnosis, Treatment Family Education/Counseling: No Family Present SEPSIS Sepsis Screen Physician Orders Blood Culture (04/29/25 19:46) Angio Aortic Abdominal (04/29/25 21:31) Insert/Manage Urinary Catheter QSHIFT (04/29/25 20:57) Apixaban (Eliquis) (04/30/25 10:00) Vital Signs Date Time Temp Pulse Resp B/P (MAP) Pulse Ox O2 Delivery O2 Flow Rate FiO2 04/29/25 22:00 99.0 98 24 109/55 (73) 95 99.0 04/29/25 21:18 95 24 109/55 04/29/25 21:10 99 04/29/25 20:48 103 20 123/65 04/29/25 20:33 99.1 103 20 123/65 (84) 92 99.1 04/29/25 20:33 Nasal Cannula* 3 32 04/29/25 19:50 98.2 104 18 121/77 (92) 99 98.2 Laboratory Tests Test 04/29/25 20:00 White Blood Count 20.5 10^3/uL (4.4-10.8) #H Medications Medications Dose Ordered Sig/Elias Route Start Time Stop Time Status Last Admin Dose Admin Apixaban 5 mg ONCE STAT PO 04/29/25 22:24 04/29/25 22:26 DC 04/29/25 22:29 Aspirin 325 mg ONCE ONCE PO 04/29/25 21:00 04/29/25 21:01 DC 04/29/25 21:04 Levofloxacin/ Dextrose 100 ml @ 100 mls/hr ONCE ONCE IV 04/29/25 23:45 04/29/25 23:51 DC 04/29/25 23:50 Morphine Sulfate 4 mg ONCE ONCE IV 04/29/25 20:00 04/29/25 20:01 DC 04/29/25 20:48 Ondansetron HCl 4 mg ONCE ONCE IV 04/29/25 20:00 04/29/25 20:01 DC 04/29/25 20:47 Departure 1 Departure Time of Disposition: 00:00 Impression: Primary Impression: Pyelonephritis Additional Impressions: Elevated troponin Electrolyte imbalance Disposition: ADMITTED INPATIENT Admit to: Tele Condition: Guarded Critical Care Note Critical Care Time?: No Stability Stability form required: No Heart Score Heart Score: Heart Score Response (Comments) Value History N/A 0 EKG N/A 0 Age N/A 0 Risk Factors N/A 0 Troponin N/A 0 Total 0 I personally scribed for MAHSA SAVAGE MD ([email or web address]) on 04/29/25 at 19:55. Electronically submitted by Frank Rhoades ([facility]). MAHSA SAVAGE MD Apr 29, 2025 19:55
[2025-04-29 20:27] LABS: Hematocrit 32.3 % (41.0-53.0); Hemoglobin 10.5 g/dL (13.5-17.5); Mean Corpuscular Hemoglobin 25.5 pg (28.0-32.0); Mean Corpuscular Volume 78.3 fL (80.0-100.0); Nucleated Red Blood Cells % 0.0 %
[2025-04-29 20:37] LABS: Sodium 136 mmol/L (136-145)
[2025-04-29 20:38] LABS: Anion Gap 11 (5-15)
[2025-04-29 20:39] LABS: Calcium 9.8 mg/dL (8.7-10.4)
[2025-04-29 20:40] LABS: Carbon Dioxide 33 mmol/L (20-31); Chloride 92 mmol/L (98-107); Potassium 3.1 mmol/L (3.5-5.1)
[2025-04-29 20:44] LABS: BUN/Creatinine Ratio 23.9 (10.0-20.0); Blood Urea Nitrogen 16 mg/dL (9-23); Glucose 114 mg/dL (74-106)
[2025-04-29] MEDS: ONDANSETRON HCL 4 MG/2 ML VIAL IV ONE (20:47)
[2025-04-29] MEDS: MORPHINE SULFATE 4 MG/ML SYR/VIAL IV ONE (20:48)
--- NOTE | 2025-04-29 21:12 | ECG ---
[facility] Test Date: 2025-04-29 Test Time: 21:10:37 Pat Name: CELINE TABOR Department: ED Room: 0273T Gender: M Paddock Judge: JEANNIE : 1970 Requested By: MAHSA PINEDA Order Number: [id number] Reading MD: Jaciel Wagner Measurements Intervals [place] Rate: 99 P: 27 DE: 120 QRS: 21 QRSD: 97 T: 19 QT: 377 QTc: 484 Interpretive Statements Sinus rhythm Abnormal R-wave progression, early transition Borderline repolarization abnormality Borderline prolonged QT interval Electronically Signed On 05-04-2025 18:52:28 PDT by Jaciel Wagner Please click the below link to view image of tracing.
[2025-04-29] MEDS: IOHEXOL 350 MG/ML 100ML IJ ONE (21:51)
[2025-04-29] MEDS: APIXABAN 5 MG TAB PO STA (22:29)
[2025-04-29 23:28] LABS: Urine Protein, UAD 1+ (Negative)
--- NOTE | 2025-04-29 23:35 | DVH ---
CTA ABDOMEN AND PELVIS Clinical Indication: low back pain, eval for VTE Technique: Multiple contiguous axial images were obtained through the abdomen and pelvis following t he administration of IV contrast material. Post processing coronal and sagittal reconstruction image s were made from the axial images. Image post-processing was obtained. MIP imaging of the abdomen an d pelvis arteries obtained Comparison: CT chest abdomen and pelvis from 04/18/2025 FINDINGS: Lower Thorax: There is left-sided pleural nodularity and small bilateral pleural effusions. There ar e dependent consolidations in the bilateral linear bibasilar scarring or atelectasis. There are pulmo nary emboli again seen in segmental and subsegmental bilateral lung bases. Liver and Biliary system: Mild hepatomegaly measuring 19 cm craniocaudal. Gallbladder is mildly diste nded. There is no biliary ductal dilatation. Spleen: Peripheral hypodensity in the medial spleen is new from prior on series 2, image 37. Addition al peripheral small hypodensity in the mid spleen. Adrenal Glands and Kidneys: Normal adrenal glands. Bilateral renal cortical scarring. Patchy peripher al renal hypodensities are seen. There are nonobstructing bilateral renal calculi. No hydronephrosis. Pancreas and Retroperitoneum: Normal pancreas. There is retroperitoneal lymphadenopathy. Aorta and Major Vessels: Aortoiliac vessels are patent and normal caliber containing frfb-qy-ghnbbnty mixed atherosclerotic plaque. Widely patent origins of the celiac axis, SMA, single bilateral renal arteries, and JF. Widely patent bilateral iliac and proximal femoral arteries with mixed atheroscl erotic plaque. There is an IVC filter terminating just below the level of the renal veins. There is a symmetric enlargement of the left superficial femoral, common femoral, external and common iliac vein s. Bowel, Mesentery and Peritoneal space: Normal caliber small and large bowel. Normal appendix. There i s no free air or fluid collection. Mild presacral edema. Pelvis: Dystrophic calcifications in the prostate gland. Urinary bladder is mildly distended. Mildly prominent bilateral pelvic lymph nodes. Abdominal wall and Osseous Structures: Small fat containing bilateral inguinal hernias. Multilevel lo wer thoracic and lumbar spondylosis. No destructive osseous lesion. IMPRESSION: Widely patent aortoiliac vessels and branch vessels with xcam-ci-[id number] calcified atherosclerotic p laque. Asymmetric enlargement of the left superficial femoral, common femoral, external and common iliac vei ns, suspect for DVT. IVC filter terminates below the level of the renal veins. Patchy peripheral renal hypodensities which could reflect pyelonephritis. Correlate with urinalysis. 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 Scattered Pulmonary emboli again seen in segmental and subsegmental bibasilar pulmonary arteries. Peripheral hypodensities seen in the spleen which could reflect small splenic infarcts. Small bilateral pleural effusions.
[2025-04-30] VITALS (9 sets, daily range): BP systolic 105–139; BP diastolic 65–81; PULSE 88–101; RESP 16–20; TEMP 98–99.2; O2SAT 91–100
[2025-04-30] MEDS: POTASSIUM EFFERVESENT TAB 25 MEQ PO ONE ×3 (00:05→21:29)
[2025-04-30] MEDS: MORPHINE SULFATE 4 MG/ML SYR/VIAL IV ONE (00:06)
[2025-04-30] MEDS: PIPERACILLIN-TAZO 4.5GM 100 ML IV ONE (00:26)
[2025-04-30] MEDS ORDERED: NITROGLYCERIN 0.4 MG SL TAB SL PRN (00:30)
[2025-04-30] MEDS ORDERED: ACETAMINOPHEN 325 MG TAB PO PRN (00:30)
[2025-04-30] MEDS ORDERED: DEXTROSE (50%) 50ML SYRG IV PRN (00:30)
[2025-04-30] MEDS ORDERED: DOCUSATE SOD 100 MG CAP PO PRN (00:30)
[2025-04-30] MEDS ORDERED: MORPHINE SULFATE INJ 2 MG/ml SYRG IV PRN ×2 (00:30)
--- NOTE | 2025-04-30 00:38 | DVHHP2 ---
History of Present Illness Reason for Visit: Severe back pain History of Present Illness The patient is a 54-year-old male bed-bound with multiple past medical history including CHF, DM, COPD, metastatic adenocarcinoma of the lungs, and lymphoma presented to [facility] ED with complaint of back pain. Patient reports he has been experiencing constant severe back pain, nonradiating, described as being pinch in the kidneys, rating 9/10 numeric scale, getting worse that prompted this visit..He states he had similar symptoms when he was diagnosed with DVTs. Patient was discharged from this facility 2 days ago after being found to have bilateral DVTs, PE, acute on chronic respiratory failure and bilateral lower extremity cellulitis. He was evaluated by Interventional Radiology, however thrombectomy was not recommended. He was discharged on Eliquis, Levaquin, and Lasix. Patient was seen and evaluated in the ED, labor atory data shows WBC 20.5, hemoglobin 10.5, hematocrit 32.3, platelets 195, sodium 136, potassium 3.1, BUN 16, creatinine 0.67, glucose 114, calcium 9.8, troponin 123, BNP 66.76, blood pressure 120/61, heart rate 94, temperature 98.6 F, O2 saturation 95% on room air. Abdominal angiography revealing suspect for DVT, IVC filter terminates below the level of the renal veins, left-sided pleural metastatic disease, retroperitoneal clinton metastases, scattered pulmonary emboli again seen in the segmental and subsegmental bibasilar pulmonary arteries. Patient was started on IV antibiotic regimen Zosyn, currently on Eliquis, please see medication orders section in the computer. On my assessment, brother at bedside, patient denied chest pain, no headache, no dizziness, no diaphoresis, no shortness of breaths, no diarrhea, no nausea, no vomiting, no fever, no chills. Patient was admitted for further evaluation and medical management. Past Medical History CHF, COPD, DM, HTN, PE, Metastatic adenocarcinoma of the lungs. Bilateral DVTs, Pulmonary emboli, Lymphedema Past Surgical History Hernia Repair Family History Reviewed, noncontributory to the management of this case. Past Social History The patient lives at home, denies smoking, alcohol or illicit drugs abuse. Review of Systems Constitutional: Yes: Weakness; No: Fever, Chills, Sweats, Malaise, Other Eyes: No: Pain, Vision change, Conjunctivae inflammation, Eyelid inflammation, Other, Redness ENT: No: Ear pain, Ear discharge, Nose pain, Nose discharge, Nose congestion, Mouth pain, Mouth swelling, Throat pain, Throat swelling, Other Respiratory: Other (SOB at rest); No: Cough, Dry, Shortness of breath, SOB with excertion, Wheezing, Hemoptysis, Pleuritic Pain, Sputum, Wheezing Cardiovascular: No: Chest Pain, Palpitations, Orthopnea, Paroxysmal Noc. Dyspnea, Edema, Lt Headedness, Other Gastrointestinal: No: Nausea, Vomiting, Abdominal Pain, Diarrhea, Constipation, Melena, Hematochezia, Other Genitourinary: No Dysuria, No Frequency, No Incontinence, No Hematuria, No Retention, No Other Musculoskeletal: back pain; No: other, neck pain, shoulder pain, arm pain, hand pain, leg pain, foot pain Skin: Other (Bilateral lower extremity cellulitis); No: Rash, Lesions, Jaundice, Bruising Neurological: No: Weakness, Numbness, Incoordination, Change in speech, Confusion, Seizures, Other Allergies: Coded Allergies: Bacitracin (Verified Allergy, Unknown, 03/16/25) Cephalexin (Verified Allergy, Unknown, 04/25/25) Enoxaparin (Verified Allergy, Unknown, 03/16/25) Gabapentin (Verified Allergy, Unknown, 03/16/25) Medications Current Medications Medications Dose Ordered Sig/Elias Route Start Time Stop Time Status Last Admin Dose Admin Apixaban 5 mg BID PO 04/30/25 10:00 Exam Vital Signs Vital Signs Date Time Temp Pulse Resp B/P (MAP) Pulse Ox O2 Delivery O2 Flow Rate FiO2 04/30/25 00:06 94 20 120/61 04/30/25 00:00 98.6 94 98.6 04/29/25 20:33 Nasal Cannula* 3 32 General Appearance: Alert, Oriented X3, Cooperative, No acute distress HEENT: Atraumatic, PERRLA, EOMI, Mucous membr. moist/pink Respiratory: Normal air movement, Other (Diminished breath sounds) Cardiovascular: Regular rate, Normal S1, Normal S2, No murmurs Abdominal: Normal bowel sounds, Soft, No tenderness, No hepatospenomegaly, No masses Extremities: No clubbing, No cyanosis, No edema, Normal pulses, No tenderness/swelling Skin: No rashes, No significant lesion Neuro: Normal speech, Normal tone, Sensation intact, Cranial nerves 3-12 NL, Reflexes 2+, Other (Generalized weakness) Psych/Mental Status: Mental status NL, Mood NL Labs/Xrays Labs Test 04/29/25 23:01 04/29/25 22:54 04/29/25 20:00 Range/Units Urine Color Light-orange Yellow Urine Clarity Turbid H Clear Urine pH 6.5 5.0-9.0 Urine Specific [place] > 1.050 H 1.001-1.035 Urine Protein 1+ H Negative Urine Ketones Negative Negative Urine Blood 3+ H Negative /uL Urine Nitrite Negative Negative Urine Bilirubin Negative Negative Urine Urobilinogen Normal Negative mg/dL Urine Leukocyte Esterase 1+ Negative /uL Urine RBC 638 0 - 3 /hpf Urine Microscopic WBC 22 H 0-3 /HPF Urine Squamous Epithelial Cells None seen <5 /hpf Urine Bacteria None seen None Seen /hpf Urine Mucus Few None Seen Urine Glucose Normal Normal mg/dL Troponin I High Sensitivity 123 *H </=54 ng/L White Blood Count 20.5 #H 4.4-10.8 10^3/uL Red Blood Count 4.13 L 4.5-5.90 10^6/uL Hemoglobin 10.5 L 13.5-17.5 g/dL Hematocrit 32.3 L 41.0-53.0 % Mean Corpuscular Volume 78.3 L 80.0-100.0 fL Mean Corpuscular Hemoglobin 25.5 L 28.0-32.0 pg Mean Corpuscular Hemoglobin Concent 32.5 32.0-36.0 g/dL Red Cell Distribution Width 19.2 H 11.8-14.3 % Platelet Count 195 140-450 10^3/uL Mean Platelet Volume 7.9 6.9-10.8 fL Neutrophils (%) (Auto) 82.1 H 37.0-80.0 % Lymphocytes (%) (Auto) 8.9 L 10.0-50.0 % Monocytes (%) (Auto) 8.2 0.0-12.0 % Eosinophils (%) (Auto) 0.2 0.0-7.0 % Basophils (%) (Auto) 0.6 0.0-2.0 % Neutrophils # (Auto) 16.8 H 1.6-8.6 10 ^3/uL Lymphocytes # (Auto) 1.8 0.4-5.4 10 ^3/uL Monocytes # (Auto) 1.7 H 0-1.3 10 ^3/uL Eosinophils # (Auto) 0 0-0.8 10 ^3/uL Basophils # (Auto) 0.1 0-0.2 10 ^3/uL Nucleated Red Blood Cells 0.0 % Sodium Level 136 136-145 mmol/L Potassium Level 3.1 L 3.5-5.1 mmol/L Chloride Level 92 L 98-107 mmol/L Carbon Dioxide Level 33 H 20-31 mmol/L Anion Gap 11 5-15 Blood Urea Nitrogen 16 9-23 mg/dL Creatinine 0.67 L 0.700-1.30 mg/dL Glomerular Filtration Rate Calc 112 >90 mL/min BUN/Creatinine Ratio 23.9 H 10.0-20.0 Serum Glucose 114 H 74-106 mg/dL Calcium Level 9.8 8.7-10.4 mg/dL B-Type Natriuretic Peptide 66.76 0-100 pg/mL PATIENT: CELINE TABOR ACCT: [id number] UNIT: [id number] : 1970 LOC: ER ROOM / BED: / AGE / SEX: 54 / M ADM STATUS: REG ER SERVICE 30 ORDERING PHYSICIAN: MAHSA SAVAGE MD PROCEDURE(s): ANGAC - ANGIO AORTIC ABDOMINAL REASON: low back pain, eval for VTE ORDER NUMBER(s): [id number], ACCESSION NUMBER(s): [id number] CTA ABDOMEN AND PELVIS Clinical Indication: low back pain, eval for VTE Technique: Multiple contiguous axial images were obtained through the abdomen and pelvis following the administration of IV contrast material. Post processing coronal and sagittal reconstruction images were made from the axial images. Image post-processing was obtained. MIP imaging of the abdomen and pelvis arteries obtained Comparison: CT chest abdomen and pelvis from 04/18/2025 FINDINGS: Lower Thorax: There is left-sided pleural nodularity and small bilateral pleural effusions. There are dependent consolidations in the bilateral linear bibasilar scarring or atelectasis. There are pulmonary emboli again seen in segmental and subsegmental bilateral lung bases. Liver and Biliary system: Mild hepatomegaly measuring 19 cm craniocaudal. Gallbladder is mildly distended. There is no biliary ductal dilatation. Spleen: Peripheral hypodensity in the medial spleen is new from prior on series 2, image 37. Additional peripheral small hypodensity in the mid spleen. Adrenal Glands and Kidneys: Normal adrenal glands. Bilateral renal cortical scarring. Patchy peripheral renal hypodensities are seen. There are nonobstructing bilateral renal calculi. No hydronephrosis. Pancreas and Retroperitoneum: Normal pancreas. There is retroperitoneal lymphadenopathy. Aorta and Major Vessels: Aortoiliac vessels are patent and normal caliber containing [id number] mixed atherosclerotic plaque. Widely patent origins of the celiac axis, SMA, single bilateral renal arteries, and JF. Widely p atent bilateral iliac and proximal femoral arteries with mixed atherosclerotic plaque. There is an IVC filter terminating just below the level of the renal veins. There is asymmetric enlargement of the left superficial femoral, common femoral, external and common iliac veins. Bowel, Mesentery and Peritoneal space: Normal caliber small and large bowel. Normal appendix. There is no free air or fluid collection. Mild presacral edema. Pelvis: Dystrophic calcifications in the prostate gland. Urinary bladder is mildly distended. Mildly prominent bilateral pelvic lymph nodes. Abdominal wall and Osseous Structures: Small fat containing bilateral inguinal hernias. Multilevel lower thoracic and lumbar spondylosis. No destructive osseous lesion. IMPRESSION: Widely patent aortoiliac vessels and branch vessels with [id number] calcified atherosclerotic plaque. Asymmetric enlargement of the left superficial femoral, common femoral, external and common iliac veins, suspect for DVT. IVC filter terminates below the level of the renal veins. Patchy peripheral renal hypodensities which could reflect pyelonephritis. Correlate with urinalysis. 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 Scattered Pulmonary emboli again seen in segmental and subsegmental bibasilar pulmonary arteries. Peripheral hypodensities seen in the spleen which could reflect small splenic infarcts. Small bilateral pleural effusions. Assessment/Plan Assessment/Plan Severe back pain Hypokalemia Pulmonary emboli Elevated troponin Electrolyte imbalance Leukocytosis, unspecified Generalized weakness Bilateral lower extremity cellulitis Plan 1. Admit to telemetry unit 2. Breathing treatment 3. Pain control management 4. IV antibiotic management 5. Management of fluids and electrolytes 6. Consultation for hospitalist 7. Diagnostic test abdominal angiography 8. DVT prophylaxis-on Eliquis 9. Repeat labs CBC, CMP in a.m. 10. Home medication reviewed and reconciled 11. Continue with current medical management 12. Treatment plan discussed with patient and RN. Patient/brother verbalized understanding. Plan discussed with: Patient, Other (RN) My Orders Orders - HOLLY SAAB DNP Procedure Category Date Status Time Complete Blood Count LAB 04/30/25 Verified 04:00 Comprehensive LAB 04/30/25 Verified Metabolic Panel 04:00 Zosyn Extended PHA 04/30/25 Verified Infusion 06:00 * Cardiology Consult CONS 04/30/25 Verified 00:24 Consistent DIET 04/30/25 Verified Carb(Ccho)Diabetes Breakfast Glucose Blood PHA 04/30/25 Verified (Accu-Chek Comfort 07:00 Mild Sliding Scale PHA 04/30/25 Verified 07:00 Dextrose 50% Syringe PHA 04/30/25 Verified 00:30 Admit ADMIT 04/30/25 Verified 00:24 Allergies JAMEL 04/30/25 Verified 00:24 Code Status CODE 04/30/25 Verified 00:24 0.9% Ns 1000 Ml PHA 04/30/25 Verified 00:30 Oxygen Per Hour RT 04/30/25 Verified 00:24 Hydrocodone-Acet PHA 04/30/25 Verified 5/325mg Tab ([place] 00:30 Ondansetron Hcl PHA 04/30/25 Verified (Zofran) 00:30 Docusate Sodium PHA 04/30/25 Verified Capsule (Colace 00:30 Complete Blood Count LAB 05/01/25 Verified 04:00 Comprehensive LAB 05/01/25 Verified Metabolic Panel 04:00 Condition: Serious JAMEL 04/30/25 Verified 00:24 Acetaminophen Tablet PHA 04/30/25 Verified (Tylenol Tablet) 00:30 Problem List: (1) Severe back pain (2) Pulmonary emboli (3) Hypokalemia (4) Elevated troponin (5) Electrolyte imbalance (6) Leukocytosis, unspecified (7) Generalized weakness (8) Bilateral lower leg cellulitis Date of Service: Apr 30, 2025 Billing Provider: HOLLY SAAB DNP Common Visit Codes: [id number] INP/OBS CARE (HIGH) HOLLY SAAB DNP Apr 30, 2025 00:38
[2025-04-30] MEDS: SODIUM CHLORIDE 0.9% 1,000 ML IV SCH (00:52)
[2025-04-30] MEDS: MORPHINE SULFATE INJ 2 MG/ml SYRG IV PRN (02:38)
[2025-04-30] MEDS: MORPHINE SULFATE INJ 2 MG/ml SYRG IV ONE (05:00)
[2025-04-30 06:06] LABS: Hematocrit 33.3 % (41.0-53.0); Hemoglobin 10.8 g/dL (13.5-17.5); Mean Corpuscular Hemoglobin 25.3 pg (28.0-32.0); Mean Corpuscular Volume 78.3 fL (80.0-100.0)
[2025-04-30 06:20] LABS: Anion Gap 12 (5-15); BUN/Creatinine Ratio 19.4 (10.0-20.0); Blood Urea Nitrogen 13 mg/dL (9-23); Calcium 9.7 mg/dL (8.7-10.4); Carbon Dioxide 31 mmol/L (20-31); Glucose 96 mg/dL (74-106); Total Protein 7.4 g/dL (5.7-8.2)
[2025-04-30 06:21] LABS: Albumin 4.0 g/dL (3.2-4.8)
[2025-04-30 06:22] LABS: Bilirubin, Total 0.5 mg/dL (0.2-1.0)
[2025-04-30 06:23] LABS: Alanine Aminotransferase 9 U/L (7-40); Alkaline Phosphatase 155 U/L (46-116); Chloride 92 mmol/L (98-107); Potassium 3.1 mmol/L (3.5-5.1); Sodium 135 mmol/L (136-145)
[2025-04-30] MEDS: InsuLIN REG 1unit/0.01ml Soln (100units/ml) SC SCH (06:43)
[2025-04-30] MEDS: ACCU-CHEK COMFORT CURVE STRIP VI SCH (06:43)
[2025-04-30 08:10] LABS: Total Cells Counted 100.0 (100)
[2025-04-30] MEDS: APIXABAN 5 MG TAB PO SCH (09:37)
[2025-04-30] MEDS: PIPERACILLIN-TAZOB 3.375GM 100 ML IV SCH (09:38)
[2025-04-30] MEDS: HYDROcodone-ACET 5/325MG TAB PO PRN (12:05)
--- NOTE | 2025-04-30 13:00 | DVHINCON2 ---
Date Seen: Apr 30, 2025 Referring Physician SAURABH Barragan Reason for Consultation Elevated troponin History of Present Illness This is a 54-year-old male patient who presents to the emergency room with chief complaint of severe mid back pain. The patient was recently seen at this facility and discharged two days prior to this admission. The patient reports he has been bed ridden for approximately one month. He states that yesterday while lying in bed he began to have excruciating back pain which prompted his to call EMS. The patient was brought to the emergency room for further evaluation. Cardiology has now been consulted at this time for elevated troponin levels. Initial twelve lead electrocardiogram reveals normal sinus rhythm without any significant ST segment changes. Initial troponin level of 111ng/L with flat trend thereafter. Significant past medical history includes pulmonary emboli (on Eliquis), bilateral lower extremity DVT status post IVC filter and thrombectomy, adenocarcinoma of the lungs with metastasis, COPD, and tobacco use. Past Medical History Past medical history reviewed. No other significant than mentioned above. Past Surgical History Hernia repair Family History: Blood clots G8 MOTHER G8 FATHER Family History Family history reviewed. Social History Patient has a 40 pack-year history, quit smoking approximately four years ago Denies any illicit drug use Denies any alcohol use Allergies: Coded Allergies: Bacitracin (Verified Allergy, Unknown, 03/16/25) Cephalexin (Verified Allergy, Unknown, 04/25/25) Enoxaparin (Verified Allergy, Unknown, 03/16/25) Gabapentin (Verified Allergy, Unknown, 03/16/25) Home Meds Active Scripts Oxycodone W/ Acetaminophen (Percocet 5/325MG) 1 Tab Tb, 1 TAB PO TID PRN for 10 Days, #30 TAB Prov:LLOYD CALIXTO MD 04/26/25 Levofloxacin Hemihydrate (LEVAQUIN 500 MG) 500 Mg Tab, 500 MG PO DAILY for 7 Days, #7 TAB Prov:LLOYD CALIXTO MD 04/26/25 Potassium Chloride (Potassium Chloride ER) 20 Meq Tab, 20 MEQ PO BID for 30 Days, #60 TAB 1 Refill Prov:LLOYD CALIXTO MD 04/26/25 Furosemide (Lasix) 40 Mg Tab, 40 MG PO BID for 30 Days, #60 TAB 1 Refill Prov:LLOYD CALIXTO MD 04/26/25 Apixaban Base (ELIQUIS) 5 Mg Tab, 5 MG PO BID for 30 Days, #60 TAB 3 Refills Prov:LLOYD CALIXTO MD 04/26/25 Warfarin Sodium (Warfarin Sodium) 5 Mg Tab, 1 TAB PO DAILY, #30 TAB 5 Refills Prov:GM BURKS MD 03/27/25 Ascorbic Acid (VITAMIN C TABLET) 500 Mg Tb, 500 MG PO BID, #60 TAB Prov:MJ BAEZ MD 11/18/21 Albuterol Sulfate (VENTOLIN MDI) 90 Mcg Ih, 180 MCG IN TIDPRN PRN, #1 INH Prov:MJ BAEZ MD 11/18/21 Reported Medications Hydrocodone-Acetaminophen (Hydrocodone Bitartrate/AC 10-325 mg) 1 Tab Tab, 1 TAB PO Q4HP PRN for PAIN SCALE 1 THRU 6, TAB 03/25/25 Oxycodone W/ Acetaminophen (Percocet 5/325MG) 1 Tab Tb, 2 TAB PO Q6HP PRN for PAIN SCALE 7 THRU 10, #120 TAB 03/25/25 Docusate Sodium (Docusate Sodium) 100 Mg Cap, 100 MG PO BID, CAP 03/24/25 Clindamycin Hcl (CLEOCIN) 150 Mg Cap, 3 CAP PO QID, #40 CAP 03/24/25 Bisacodyl (KP BISACODYL) 5 Mg Tab, 1 TAB PO UD, #4 TAB 03/24/25 Home Meds Home medications reviewed. Current Medications Current Medications Medications (Trade) Dose Ordered Sig/Elias Route PRN Reason Start Time Stop Time Status Last Admin Apixaban (Eliquis) 5 mg BID PO 04/30/25 10:00 04/30/25 12:05 Apixaban (Eliquis) 5 mg ONCE STAT PO 04/29/25 22:24 04/29/25 22:26 DC 04/29/25 22:29 Piperacillin Sod/ Tazobactam Sod 100 ml @ 25 mls/hr Q8HR@0000,0800,1600 IV 04/30/25 08:00 04/30/25 09:38 Diagnostic Test (Pha) (Accu-Chek Comfort Curve T) 1 strip ACHS 04/30/25 07:00 Insulin Human Regular (InsuLIN R) ACHS SC 04/30/25 07:00 Dextrose 50 ml UD PRN IV Blood Sugar LESS THAN 60 04/30/25 00:30 Sodium Chloride 1,000 ml @ 60 mls/hr [id number] IV 04/30/25 00:30 04/30/25 00:52 Acetaminophen/ Hydrocodone Bitart (Carmi 5/325MG Tab) 1 tab Q4HP PRN PO MODERATE PAIN (4-6 PAIN SCALE) 04/30/25 00:30 04/30/25 12:05 Ondansetron HCl (Zofran) 4 mg Q4HP PRN IV NAUSEA / VOMITING 04/30/25 00:30 Docusate Sodium (Colace Capsule) 100 mg BIDPRN PRN PO FOR CONSTIPATION 04/30/25 00:30 Acetaminophen (Tylenol Tablet) 650 mg Q6HP PRN PO PAIN SCALE 1-3 OR TEMP>100.4 04/30/25 00:30 Morphine Sulfate 2 mg Q4HPRN PRN IV SEVERE PAIN (7-10 PAIN SCALE) 04/30/25 00:30 04/30/25 02:32 DC Nitroglycerin (Ntrostat Sublingual) 0.4 mg Q5MINP PRN SL FOR CHEST PAIN 04/30/25 00:30 Morphine Sulfate 2 mg Q30M PRN IV FOR CHEST PAIN 04/30/25 00:30 Morphine Sulfate 2 mg Q4HPRN PRN IV SEVERE PAIN (7-10 PAIN SCALE) 04/30/25 02:45 04/30/25 09:38 Review of Systems Constitutional: No symptom reported Ears, Nose, & Throat: No symptom reported Eyes: No symptom reported Neurological: No symptoms reported Pulmonary/Respiratory: No symptoms reported Cardiovascular: No symptom reported Gastrointestinal: No symptom reported Genitourinary: No symptom reported Musculoskeletal: Back pain Skin: No symptom reported Psychiatric: No symptom reported Endocrine: No symptom reported Hematologic/Lymphatic: No symptom reported Vital Signs Vital Signs Date Time Temp Pulse Resp B/P (MAP) Pulse Ox O2 Delivery O2 Flow Rate FiO2 04/30/25 10:08 92 18 138/65 04/30/25 09:00 99.2 91 99.2 04/30/25 08:00 Nasal Cannula* 3 32 Physical Exam General Appearance: Cooperative. Well-developed. Well-nourished. No acute distress. Pulmonary/Respiratory: Clear, bilateral breaths sounds. Cardiovascular/Chest: Regular rate and rhythm. Peripheral Pulses: 2+ Radial (R). 2+ Radial (L). Abdominal Exam: Normal bowel sounds. Ankle Exam: Nonpitting edema Lower extremities: 3+ pitting edema Neuro/Mental Status: A/OX4, coherent. Thoughts/Psych: Normal thought pattern. Appropriate mood and affect. Good judgment and insight. Appearance: No acute distress. Skin Exam: Hyperpigmentation discoloration to bilateral lower extremities. Right lower extremity wrapped with dressing. Labs/Diagnostic Data Labs Test 04/30/25 04:05 04/29/25 23:01 04/29/25 22:54 04/29/25 20:00 Range/Units White Blood Count 17.9 H 4.4-10.8 10^3/uL Red Blood Count 4.26 L 4.5-5.90 10^6/uL Hemoglobin 10.8 L 13.5-17.5 g/dL Hematocrit 33.3 L 41.0-53.0 % Mean Corpuscular Volume 78.3 L 80.0-100.0 fL Mean Corpuscular Hemoglobin 25.3 L 28.0-32.0 pg Mean Corpuscular Hemoglobin Concent 32.3 32.0-36.0 g/dL Red Cell Distribution Width 19.0 H 11.8-14.3 % Platelet Count 187 140-450 10^3/uL Mean Platelet Volume 8.0 6.9-10.8 fL Neutrophils (%) (Auto) 37.0-80.0 % Lymphocytes (%) (Auto) 10.0-50.0 % Monocytes (%) (Auto) 0.0-12.0 % Basophils (%) (Auto) 0.0-2.0 % Neutrophils # (Auto) 1.6-8.6 10 ^3/uL Lymphocytes # (Auto) 0.4-5.4 10 ^3/uL Monocytes # (Auto) 0-1.3 10 ^3/uL Differential Total Cells Counted 100.0 100 Neutrophils % (Manual) 85 H 37.0-80.0 Band Neutrophils % (Manual) 0 Lymphocytes % (Manual) 9 L 10.0-50.0 Monocytes % (Manual) 6 0-12 Eosinophils % (Manual) 0 0-7 Basophils % (Manual) 0 0.0-2.0 Metamyelocytes % (manual) 0 Myelocytes % (Manual) 0 Promyelocytes % (Manual) 0 Blast Cells % (Manual) 0 Reactive Lymphocytes 0 Platelet Estimate Adequate Sodium Level 135 L 136-145 mmol/L Potassium Level 3.1 L 3.5-5.1 mmol/L Chloride Level 92 L 98-107 mmol/L Carbon Dioxide Level 31 20-31 mmol/L Anion Gap 12 5-15 Blood Urea Nitrogen 13 9-23 mg/dL Creatinine 0.67 L 0.700-1.30 mg/dL Glomerular Filtration Rate Calc 112 >90 mL/min BUN/Creatinine Ratio 19.4 10.0-20.0 Serum Glucose 96 74-106 mg/dL Calcium Level 9.7 8.7-10.4 mg/dL Total Bilirubin 0.5 0.2-1.0 mg/dL Aspartate Amino Transferase (AST) 34 13-40 U/L Alanine Aminotransferase (ALT) 9 7-40 U/L Alkaline Phosphatase 155 H 46-116 U/L Total Protein 7.4 5.7-8.2 g/dL Albumin 4.0 3.2-4.8 g/dL Urine Color Light-orange Yellow Urine Clarity Turbid H Clear Urine pH 6.5 5.0-9.0 Urine Specific [place] > 1.050 H 1.001-1.035 Urine Protein 1+ H Negative Urine Ketones Negative Negative Urine Blood 3+ H Negative /uL Urine Nitrite Negative Negative Urine Bilirubin Negative Negative Urine Urobilinogen Normal Negative mg/dL Urine Leukocyte Esterase 1+ Negative /uL Urine RBC 638 0 - 3 /hpf Urine Microscopic WBC 22 H 0-3 /HPF Urine Squamous Epithelial Cells None seen <5 /hpf Urine Bacteria None seen None Seen /hpf Urine Mucus Few None Seen Urine Glucose Normal Normal mg/dL Troponin I High Sensitivity 123 *H </=54 ng/L Eosinophils (%) (Auto) 0.2 0.0-7.0 % Eosinophils # (Auto) 0 0-0.8 10 ^3/uL Basophils # (Auto) 0.1 0-0.2 10 ^3/uL Nucleated Red Blood Cells 0.0 % B-Type Natriuretic Peptide 66.76 0-100 pg/mL Assessment NSTEMI, likely type 2 in the setting of infection and electrolyte derangement Possible pyelonephritis Bilateral pulmonary emboli (on Eliquis) Bilateral lower extremity DVT status post IVC filter and thrombectomy Adenocarcinoma of the lungs with metastasis COPD Hypokalemia ? Bilateral leg cellulitis Tobacco use Plan/Recommendation We will continue with the following plan/recommendations (Dr. Stokes): Patient seen and examined at bedside with Dr. Stokes. Transthoracic echoc ardiogram from 04/17/2025 reveals an EF of 55-60% with normal structure and function. Elevated troponin level likely demand mismatch ischemia in the setting of infection and electrolyte derangement. The patient with a known history of pulmonary emboli and bilateral DVTs should continue his anticoagulation therapy as prescribed. There is no further inpatient cardiac workup indicated at this time. Thank you for allowing us to care for this patient. Please call with any questions or concerns. Critical care time spent: 42 minutes This medical document was created using an electronic medical record system with voice recognition software and computerized dictation system. Although this document has been carefully reviewed, there might still be some phonetic and typographical errors. Occasional wrong-word or ``sound-alike substitutions may have occurred due to the inherent limitations of voice recognition software. These areas are purely typographical due to imperfections of the software progr ams and do not reflect any compromise in the patient's medical care. Please read the chart carefully and recognize, using context, where these substitutions have occurred. Plan discussed with: Patient NYHA Physical activity limitations: NA Date of Service: Apr 30, 2025 Billing Provider: LOLIS PEOPLES Cardiology Common Codes: [id number] INP/OBS CARE (High) Cardiology Consultation Codes: [id number] CONSULT <45MIN LOLIS PEOPLES Apr 30, 2025 13:00
--- NOTE | 2025-04-30 13:25 | DVHPN2 ---
Reviewed: Care Plan, H&P, Labs, Medications, Previous Orders, Radiology Changes from previous H/P or p: No Changes General: Per HPI Eyes: No Pain, No Vision change, No Conjunctivae inflammation, No Eyelid inflammation, No Other, No Redness ENT: No Ear pain, No Ear discharge, No Nose pain, No Nose discharge, No Nose congestion, No Mouth pain, No Mouth swelling, No Throat pain, No Throat swelling, No Other Cardiovascular: No Chest Pain, No Palpitations, No Orthopnea, No Paroxysmal Noc. Dyspnea, No Edema, No Lt Headedness, No Other Respiratory: No Cough, No Dry, No Shortness of breath, No SOB with excertion, No Wheezing, No Hemoptysis, No Pleuritic Pain, No Sputum; Other (SOB at rest) Gastrointestinal: No Nausea, No Vomiting, No Abdominal Pain, No Diarrhea, No Constipation, No Melena, No Hematochezia, No Other Genitourinary: No Dysuria, No Frequency, No Incontinence, No Hematuria, No Retention, No Other Musculoskeletal: No other, No neck pain, No shoulder pain, No arm pain; back pain; No hand pain, No leg pain, No foot pain Skin: No Rash, No Lesions, No Jaundice, No Bruising; Other (Bilateral lower extremity cellulitis) Objective Vitals Vital Signs Date Time Temp Pulse Resp B/P (MAP) Pulse Ox O2 Delivery O2 Flow Rate FiO2 04/30/25 10:08 92 18 138/65 04/30/25 09:00 99.2 91 99.2 04/30/25 08:00 Nasal Cannula* 3 32 Intake/Output Intake and Output 04/30/25 07:00 Intake Total 211 ml Balance 211 ml Intake Oral 210 ml IV Total 1 ml General Appearance: Alert, Oriented X3, Cooperative Abdomen: Normal bowel sounds Extremities: No clubbing Medications Current Medications Medications Dose Ordered Sig/Elias Route Start Time Stop Time Status Last Admin Dose Admin Apixaban 5 mg BID PO 04/30/25 10:00 04/30/25 12:05 5 MG Piperacillin Sod/ Tazobactam Sod 100 ml @ 25 mls/hr Q8HR@0000,0800,1600 IV 04/30/25 08:00 04/30/25 09:38 25 MLS/HR Diagnostic Test (Pha) 1 strip ACHS 04/30/25 07:00 Insulin Human Regular ACHS SC 04/30/25 07:00 Dextrose 50 ml UD PRN IV 04/30/25 00:30 Sodium Chloride 1,000 ml @ 60 mls/hr [id number] IV 04/30/25 00:30 04/30/25 00:52 60 MLS/HR Acetaminophen/ Hydrocodone Bitart 1 tab Q4HP PRN PO 04/30/25 00:30 04/30/25 12:05 1 TAB Ondansetron HCl 4 mg Q4HP PRN IV 04/30/25 00:30 Docusate Sodium 100 mg BIDPRN PRN PO 04/30/25 00:30 Acetaminophen 650 mg Q6HP PRN PO 04/30/25 00:30 Nitroglycerin 0.4 mg Q5MINP PRN SL 04/30/25 00:30 Morphine Sulfate 2 mg Q30M PRN IV 04/30/25 00:30 Morphine Sulfate 2 mg Q4HPRN PRN IV 04/30/25 02:45 04/30/25 09:38 2 MG Laboratory Results Laboratory Tests 04/30/25 04:05 Chemistry Test 04/29/25 20:00 04/30/25 04:05 Calcium Level 9.8 mg/dL (8.7-10.4) 9.7 mg/dL (8.7-10.4) Albumin 4.0 g/dL (3.2-4.8) Total Protein 7.4 g/dL (5.7-8.2) Cardiac Markers Test 04/29/25 20:00 B-Type Natriuretic Peptide 66.76 pg/mL (0-100) LFT Test 04/30/25 04:05 Alanine Aminotransferase (ALT) 9 U/L (7-40) Alkaline Phosphatase 155 U/L (46-116) H Aspartate Amino Transferase (AST) 34 U/L (13-40) Total Bilirubin 0.5 mg/dL (0.2-1.0) Urinalysis Test 04/29/25 23:01 Urine Color Light-orange (Yellow) Urine Clarity Turbid (Clear) H Urine pH 6.5 (5.0-9.0) Urine Specific [place] > 1.050 (1.001-1.035) Urine Protein 1+ (Negative) H Urine Ketones Negative (Negative) Urine Blood 3+ /uL (Negative) H Urine Nitrite Negative (Negative) Urine Bilirubin Negative (Negative) Urine Urobilinogen Normal mg/dL (Negative) Urine Leukocyte Esterase 1+ /uL (Negative) Urine RBC 638 /hpf (0 - 3) Urine Microscopic WBC 22 /HPF (0-3) H Urine Squamous Epithelial Cells None seen /hpf (<5) Urine Bacteria None seen /hpf (None Seen) Urine Mucus Few (None Seen) Urine Glucose Normal mg/dL (Normal) Labs and/or images reviewed: Labs reviewed by me, Image(s) reviewed by me Assessment/Plan Assessment/Plan Severe back pain Hypokalemia Pulmonary emboli Elevated troponin Electrolyte imbalance Leukocytosis, unspecified Generalized weakness Bilateral lower extremity cellulitis fluid overload acute on chronic hypoxic recent dx of malignancy 04/01/2025: I discussed with the patient regarding going to [facility] to seek further help for his recent diagnosis of malignancy which he has not seen an oncologist for We will aggressively diurese patient as patient's has 4+ pitting edema in lower extremity, which may be affecting his respiratory status. Consult pulmonology as needed Plan discussed with: Patient Date of Service: Apr 30, 2025 Billing Provider: SERENA HIGGINS DO Common Visit Codes: [id number] INP/OBS CARE(HIGH) SERENA HIGGINS DO Apr 30, 2025 13:25
[2025-04-30] MEDS: FUROSEMIDE 100 MG/10ML VIAL IV SCH (17:45)
[2025-04-30] MEDS: HYDROcodone-ACET 5/325MG TAB PO ONE (23:48)
[2025-05-01] VITALS (7 sets, daily range): BP systolic 101–115; BP diastolic 61–65; PULSE 90–111; RESP 16–18; TEMP 98.3–99.2; O2SAT 94–98
[2025-05-01] MEDS: ONDANSETRON HCL 4 MG/2 ML VIAL IV PRN (04:14)
[2025-05-01 06:12] LABS: Hematocrit 30.7 % (41.0-53.0); Hemoglobin 10.0 g/dL (13.5-17.5); Mean Corpuscular Hemoglobin 25.4 pg (28.0-32.0); Mean Corpuscular Volume 78.2 fL (80.0-100.0); Nucleated Red Blood Cells % 0.0 %
[2025-05-01 06:29] LABS: Anion Gap 11 (5-15); BUN/Creatinine Ratio 20.9 (10.0-20.0); Blood Urea Nitrogen 14 mg/dL (9-23); Calcium 9.9 mg/dL (8.7-10.4); Sodium 136 mmol/L (136-145); Total Protein 7.3 g/dL (5.7-8.2)
[2025-05-01 06:30] LABS: Albumin 4.0 g/dL (3.2-4.8); Bilirubin, Total 0.6 mg/dL (0.2-1.0)
[2025-05-01 06:35] LABS: Alanine Aminotransferase < 9 U/L (7-40); Alkaline Phosphatase 145 U/L (46-116); Carbon Dioxide 33 mmol/L (20-31); Chloride 92 mmol/L (98-107); Glucose 117 mg/dL (74-106); Potassium 3.2 mmol/L (3.5-5.1)
[2025-05-01] MEDS ORDERED: AMOX500T86 PO (15:27)
[2025-05-01] MEDS ORDERED: PERCOT PO (15:27)
--- NOTE | 2025-05-01 15:38 | DVHDS2 ---
Discharge Summary Date of Admission Apr 30, 2025 at 00:24 Date of Discharge: May 01, 2025 Admitting Diagnosis Severe back pain Labs/Diagnostic Data: Laboratory Results Test 05/01/25 05:25 04/30/25 04:05 04/29/25 23:01 04/29/25 22:54 White Blood Count 16.2 10^3/uL (4.4-10.8) Red Blood Count 3.93 10^6/uL (4.5-5.90) Hemoglobin 10.0 g/dL (13.5-17.5) Hematocrit 30.7 % (41.0-53.0) Mean Corpuscular Volume 78.2 fL (80.0-100.0) Mean Corpuscular Hemoglobin 25.4 pg (28.0-32.0) Mean Corpuscular Hemoglobin Concent 32.5 g/dL (32.0-36.0) Red Cell Distribution Width 19.1 % (11.8-14.3) Platelet Count 236 10^3/uL (140-450) Mean Platelet Volume 7.8 fL (6.9-10.8) Neutrophils (%) (Auto) 79.8 % (37.0-80.0) Lymphocytes (%) (Auto) 9.8 % (10.0-50.0) Monocytes (%) (Auto) 9.0 % (0.0-12.0) Eosinophils (%) (Auto) 1.0 % (0.0-7.0) Basophils (%) (Auto) 0.4 % (0.0-2.0) Neutrophils # (Auto) 12.9 10 ^3/uL (1.6-8.6) Lymphocytes # (Auto) 1.6 10 ^3/uL (0.4-5.4) Monocytes # (Auto) 1.5 10 ^3/uL (0-1.3) Eosinophils # (Auto) 0.2 10 ^3/uL (0-0.8) Basophils # (Auto) 0.1 10 ^3/uL (0-0.2) Nucleated Red Blood Cells 0.0 % Sodium Level 136 mmol/L (136-145) Potassium Level 3.2 mmol/L (3.5-5.1) Chloride Level 92 mmol/L (98-107) Carbon Dioxide Level 33 mmol/L (20-31) Anion Gap 11 (5-15) Blood Urea Nitrogen 14 mg/dL (9-23) Creatinine 0.67 mg/dL (0.700-1.30) Glomerular Filtration Rate Calc 112 mL/min (>90) BUN/Creatinine Ratio 20.9 (10.0-20.0) Serum Glucose 117 mg/dL (74-106) Calcium Level 9.9 mg/dL (8.7-10.4) Total Bilirubin 0.6 mg/dL (0.2-1.0) Aspartate Amino Transferase (AST) 35 U/L (13-40) Alanine Aminotransferase (ALT) < 9 U/L (7-40) Alkaline Phosphatase 145 U/L (46-116) Total Protein 7.3 g/dL (5.7-8.2) Albumin 4.0 g/dL (3.2-4.8) Differential Total Cells Counted 100.0 (100) Neutrophils % (Manual) 85 (37.0-80.0) Band Neutrophils % (Manual) 0 Lymphocytes % (Manual) 9 (10.0-50.0) Monocytes % (Manual) 6 (0-12) Eosinophils % (Manual) 0 (0-7) Basophils % (Manual) 0 (0.0-2.0) Metamyelocytes % (manual) 0 Myelocytes % (Manual) 0 Promyelocytes % (Manual) 0 Blast Cells % (Manual) 0 Reactive Lymphocytes 0 Platelet Estimate Adequate Urine Color Light-orange (Yellow) Urine Clarity Turbid (Clear) Urine pH 6.5 (5.0-9.0) Urine Specific [place] > 1.050 (1.001-1.035) Urine Protein 1+ (Negative) Urine Ketones Negative (Negative) Urine Blood 3+ /uL (Negative) Urine Nitrite Negative (Negative) Urine Bilirubin Negative (Negative) Urine Urobilinogen Normal mg/dL (Negative) Urine Leukocyte Esterase 1+ /uL (Negative) Urine RBC 638 /hpf (0 - 3) Urine Microscopic WBC 22 /HPF (0-3) Urine Squamous Epithelial Cells None seen /hpf (<5) Urine Bacteria None seen /hpf (None Seen) Urine Mucus Few (None Seen) Urine Glucose Normal mg/dL (Normal) Troponin I High Sensitivity 123 ng/L (</=54) Test 04/29/25 20:00 B-Type Natriuretic Peptide 66.76 pg/mL (0-100) Other Laboratory Tests 05/01/25 05:25 Brief Hx & Hospital Course: History of Present Illness The patient is a 54-year-old male bed-bound with multiple past medical history including CHF, DM, COPD, metastatic adenocarcinoma of the lungs, and lymphoma presented to [facility] ED with complaint of back pain. Patient reports he has been experiencing constant severe back pain, nonradiating, described as being pinch in the kidneys, rating 9/10 numeric scale, getting worse that prompted this visit..He states he had similar symptoms when he was diagnosed with DVTs. Patient was discharged from this facility 2 days ago after being found to have bilateral DVTs, PE, acute on chronic respiratory failure and bilateral lower extremity cellulitis. He was evaluated by Interventional Radiology, however thrombectomy was not recommended. He was discharged on Eliquis, Levaquin, and Lasix. Patient was seen and evaluated in the ED, laboratory data shows WBC 20.5, hemoglobin 10.5, hematocrit 32.3, platelets 195, sodium 136, potassium 3.1, BUN 16, creatinine 0.67, glucose 114, calcium 9.8, troponin 123, BNP 66.76, blood pressure 120/61, heart rate 94, temperature 98.6 F, O2 saturation 95% on room air. Abdominal angiography revealing suspect for DVT, IVC filter terminates below the level of the renal veins, left-sided pleural metastatic disease, retroperitoneal clinton metastases, scattered pulmonary emboli again seen in the segmental and subsegmental bibasilar pulmonary arteries. Patient was started on IV antibiotic regimen Zosyn, currently on Eliquis, please see medication orders section in the computer. On my assessment, brother at bedside, patient denied chest pain, no headache, no dizziness, no diaphoresis, no shortness of breaths, no diarrhea, no nausea, no vomiting, no fever, no chills. Patient was admitted for further evaluation and medical management. Course of hospitalization: Patient was recently discharged on 04/26/2025 with similar findings noted on CT scan. Patient was started on antibiotic therapy for noted UTI. Patient was continued on anticoagulation with Eliquis, as well as IV diuresis for bilateral lower extremity swelling. Patient states that his back pain has improved in his wishing to be discharged home. Apparently, there is question if patient has lymphoma, in addition to documentation of lung mass on previous admission, with patient's stating that they are going to seek a 2nd opinion at [facility]. At this time the patient is stable to be discharged home and follow up with his primary care provider at [facility]. With respect to his UTI, patient will be continued on Augmentin 500 mg p.o. b.i.d. for five days. Patient will also be provided pain medication form of Percocet 5/325 q.8 hours as needed for bilateral lower extremity and abdominal pain. Patient was agreeable with discharge plan. All questions answered. Physical examination General: Alert and Oriented x3. No acute distress. Well-nourished. Eyes: EOMI. Anicteric. HENT: Moist mucous membranes. Lungs: Clear to auscultation bilaterally. No accessory muscle use. Cardiovascular: Regular rate and rhythm. No murmur. No JVD. Abdomen: Soft, non-tender and non-distended. No palpable masses. Extremities: No edema. Non-tender. Skin: No rashes or lesions. Warm. Neurologic: No focal neurological deficits. CN II-XII grossly intact, but not individually tested. Psychiatric: Cooperative. Appropriate mood and affect. Total time spent with patient discussing and formulating plan of care: 35 minutes. This medical document was created using an electronic medical record system with Sencha dictation system. Although this document has been carefully reviewed, there may still be some phonetic and typographical errors. These areas are purely typographical due to imperfections of the software programs, and do not reflect any compromise in the patient's medical care. Condition at Discharge: Guarded Final Diagnosis/Problems List Complicated cystitis Secondary diagnosis: Severe back pain Hypokalemia Pulmonary emboli Elevated troponin Electrolyte imbalance Leukocytosis, unspecified Generalized weakness Bilateral lower extremity cellulitis Discharge Disposition: Home Discharge Instruct/Medications Diet: Cardiac 2g Na,low cholest Activity: No Restrictions, As Tolerated Follow Up/Referral: Follow up with [place] PCP in 1-2 weeks Medications: Augmentin 500 mg p.o. b.i.d. x5 days Percocet 5/325 q.8 hours as needed for [id number] pain Scheduled Amoxicillin & Pot Clavulanate (Augmentin), 1 TAB PO BID Apixaban Base (Eliquis), 5 MG PO BID Ascorbic Acid (Vitamin C Tablet), 500 MG PO BID Bisacodyl ( Bisacodyl), 1 TAB PO UD, (Reported) Clindamycin Hcl (Cleocin), 3 CAP PO QID, (Reported) Docusate Sodium (Docusate Sodium), 100 MG PO BID, (Reported) Furosemide (Lasix), 40 MG PO BID Levofloxacin Hemihydrate (Levaquin 500 Mg), 500 MG PO DAILY Oxycodone W/ Acetaminophen (Percocet 5/325MG), 1 TAB PO TID Potassium Chloride (Potassium Chloride ER), 20 MEQ PO BID Warfarin Sodium (Warfarin Sodium), 1 TAB PO DAILY Scheduled PRN Albuterol Sulfate (Ventolin Mdi), 180 MCG IN TIDPRN PRN Hydrocodone-Acetaminophen (Hydrocodone Bitartrate/AC 10-325 mg), 1 TAB PO Q4HP PRN for PAIN SCALE 1 THRU 6, (Reported) Oxycodone W/ Acetaminophen (Percocet 5/325MG), 2 TAB PO Q6HP PRN for PAIN SCALE 7 THRU 10, (Reported) Oxycodone W/ Acetaminophen (Percocet 5/325MG), 1 TAB PO TID PRN 36 Discharge Statement: "Patient was advised to return to the ER or call 911 if any headaches, dizziness, shortness of breath, chest pain, abdominal pain, bleeding, fevers, or worsening of medical condition. Patient was counseled about treatment plan, medications, possible side effects, patientverbalized understanding. All questions were answered to the best of my ability. This discharge took greater then 30 minutes in planning, reviewing documentation, counseling the patient, and discussing with other team members." ASSESSMENT ASSESSMENT Assessment Complicated cystitis Date of Service: May 01, 2025 Billing Provider: LEVAR LAKE NP Common Visit Codes: [id number] DISCH DAY >30min LEVAR LAKE NP May 01, 2025 15:38
[2025-05-01] MEDS: POTASSIUM EFFERVESENT TAB 25 MEQ PO ONE (17:00)
== END 2025-05-01 17:40 | disposition home health service (06) | DRG 463 ==
LOC: EDBD 19:31 → EDUNIT# 19:31 → ER 19:36 → OVERFLOW 04-30 00:24 → TELE-WESTW 04-30 01:38
PROVIDERS: ADMIT Nurse Practitioner Acute Care; ATTEND Nurse Practitioner Acute Care
DX: N30.90 Cystitis, unspecified without hematuria (principal); I26.99 Other pulmonary embolism without acute cor pulmonale; J96.01 Acute respiratory failure with hypoxia; L03.115 Cellulitis of right lower limb; I11.0 Hypertensive heart disease with heart failure; Z99.81 Dependence on supplemental oxygen; L03.116 Cellulitis of left lower limb; E87.6 Hypokalemia; J44.9 Chronic obstructive pulmonary disease, unspecified; N12 Tubulo-interstitial nephritis, not specified as acute or chronic; E11.9 Type 2 diabetes mellitus without complications; Z88.1 Allergy status to other antibiotic agents; Z88.8 Allergy status to other drugs, medicaments and biological substances; Z79.01 Long term (current) use of anticoagulants; Z86.718 Personal history of other venous thrombosis and embolism; Z87.891 Personal history of nicotine dependence; Z74.01 Bed confinement status; Z85.118 Personal history of other malignant neoplasm of bronchus and lung; Z85.72 Personal history of non-Hodgkin lymphomas; Z95.828 Presence of other vascular implants and grafts; I21.A1 Myocardial infarction type 2
CPT/HCPCS: 36415; 74175; 80048; 80053; 81001; 83880; 84132; 84484; 85007; 85025; 85027; 87040; 87081; 93005; 96374; 96375; G0378; J1956; J2405; J2543

== ENCOUNTER 2025-05-06 18:09 | Inpatient (IN) | payer OTHER, MEDICAID ==
[~2025-05-06] VITALS: Ht 182.9 cm; Wt 103.8 kg
[~2025-05-06 18:09] MED LIST changes: +AMOX500T86 PO
[2025-05-06 18:58] VITALS: PULSE 101; RESP 22; O2SAT 96
[2025-05-06] MEDS: HYDROcodone-ACET 10/325MG TAB PO ONE ×2 (19:04→20:18)
[2025-05-06] MEDS: IBUPROFEN 600 MG TAB PO ONE ×2 (19:04→20:18)
[2025-05-06] MEDS: IPRATROPIUM BROM 0.5 MG/2.5ML INH SOL NEB ONE (19:10)
[2025-05-06] MEDS: ALBUTEROL SULF 2.5 MG/0.5ML(0.5%) NEB SOLN NEB ONE (19:10)
--- NOTE | 2025-05-06 19:13 | ED.PDOC ---
SOB-HPI HPI Comments 54 year old male came to ER due to shortness of breath. Patient has history of DVT, PE, on Eliquis, also has COPD and is on home oxygen at 3-4 lpm. Currently being managed for lung cancer. Has been having cough with blood tinged sputum. chest tightness and shortness of breath since this 4am this morning. Albuterol offered slight relief. He feels dizzy with blurred vision. Was saturating at 87% at 4lpm. Chief Complaint: Shortness of Breath Time Seen by MD: 19:12 Primary Care Provider: BENJAMIN Reviewed notes: Nurses Notes Information Source: Patient Mode of Arrival: EMS Severity: Moderate Timing: Hours Duration: Since onset Context: With Light Exertion History of: COPD Prehospital treatment: Breathing Tx, Oxygen Associated Signs and Symptoms: Cough, Chest Pain Quality: Tightness Radiation: No Radiation If cough with SOB: Productive, Bloody Review of Systems REVIEW OF SYSTEMS: General: No fever, no chills, or fatigue HEENT: No sore throat, no earache, (+) congestion, no neck pain. Cardiac: No chest pain. No palpitations. Lungs: (+) shortness of breath, (+) cough. GI: No nausea, no vomiting, no diarrhea, no constipation, no abdominal pain : No dysuria, frequency, or urgency. No hematuria. Musculoskeletal: No joint pain , no joint swelling, no extremity edema. Skin: No rash, no itching. Neuro: No headache, no dizziness, no weakness Vital Signs Vital Signs Date Time Temp Pulse Resp B/P (MAP) Pulse Ox O2 Delivery O2 Flow Rate FiO2 05/06/25 22:26 96 17 128/77 05/06/25 22:00 98.2 95 98.2 05/06/25 19:30 Nasal Cannula* 4 36 Physical Exam PHYSICAL EXAM: General: Awake, alert and oriented. No acute distress. Skin: Skin in warm, dry and intact. Appropriate color for ethnicity. HEENT: The head is normocephalic and atraumatic. Conjunctivae are clear without exudates or hemorrhage. Sclera is non-icteric. EOM are intact. No signs of nystagmus. Eyelids are normal in appearance without swelling or lesions. Oral mucosa is pink and moist Neck: The neck is supple with normal range of motion. No JVD. Cardiac: Heart rate and rhythm are normal. No murmurs, gallops, or rubs are auscultated. Respiratory: No signs of respiratory distress. Lung sounds are clear in all lobes bilaterally without rales, rhonchi, or wheezes. Abdominal: Abdomen is soft, non-tender without distention, guarding or rigidity. Bowel sounds are present and normoactive in all four quadrants. Extremities: Upper and lower extremities are atraumatic in appearance without deformity or edema. Neurological: The patient is awake, alert and oriented to person, place, and time with normal speech. Speech is clear. There is no facial asymmetry. Psychiatric: Appropriate mood and affect. Good judgement and insight. Past Medical History PAST MEDICAL HISTORY: COPD, DM, HTN, PE Past Medical History (Other): DVT Surgical History: Hernia Repair Family History Family History: No family hx of DM Social History Smoker: Quit Greater Than 1 Year Alcohol: Denies ETOH Use Drugs: Denies Drug Use Lives In: Home EKG EKG : Comments Rate 107. Sinus tachycardia. Prolonged QTC of 578. No STEMI Was a procedure done? Was a procedure done?: No Differential Dx Differential Diagnosis: Bronchitis, COPD, Myocardial infarction, Pneumonia, Respiratory Distress X-Ray, Labs, Meds, VS Vital Signs Date Time Temp Pulse Resp B/P (MAP) Pulse Ox O2 Delivery O2 Flow Rate FiO2 05/06/25 22:26 96 17 128/77 05/06/25 22:00 98.2 95 30 141/68 (92) 95 98.2 05/06/25 21:56 95 16 129/82 05/06/25 20:00 97.8 98 22 130/76 (94) 97 97.8 05/06/25 19:30 89 22 96 Nasal Cannula* 4 36 05/06/25 19:12 18 96 Nasal Cannula* 4 36 05/06/25 18:58 101 22 96 Nasal Cannula* 4 36 05/06/25 18:53 97.8 101 24 130/79 (96) 96 97.8 05/06/25 18:38 97.8 113 24 135/72 (93) 95 97.8 05/06/25 18:10 107 Lab Test 05/06/25 21:45 05/06/25 21:02 05/06/25 19:20 05/06/25 18:15 Range/Units Lactic Acid Level 1.5 0.4-2.0 mmol/L Troponin I High Sensitivity 293 *H </=54 ng/L Blood Gas Specimen Type Arterial Blood Gas Sample Site Right radial Blood Gas Patient Temperature 37.0 Arterial Blood Date Drawn Arterial Blood pH 7.521 H 7.350-7.450 Arterial Blood Partial Pressure CO2 36.1 35.0-48.0 mmHg Arterial Blood Partial Pressure O2 79.7 L 83.0-108.0 mmHg Arterial Blood HCO3 28.9 H 21.0-28.0 mmol/L Arterial Blood Oxygen Saturation 96.2 94.0-98.0 % Arterial Blood Base Excess 5.9 H -2.0-3.0 mmol/L Arterial Blood Oxyhemoglobin 93.6 L 94.0-98.0 % Arterial Blood Carboxyhemoglobin 2.3 H 0.5-1.5 % Arterial Blood Methemoglobin 0.4 0.0-1.5 % Greg Test Modified Blood Gas Total Hemoglobin 11.20 L 13.5-17.5 g/dL Blood Gas Liter Flow 4.00 Blood Gas Modality Nasal cannula FiO2 % 36.0 White Blood Count 20.5 #H 4.4-10.8 10^3/uL Red Blood Count 4.16 L 4.5-5.90 10^6/uL Hemoglobin 10.3 L 13.5-17.5 g/dL Hematocrit 32.4 L 41.0-53.0 % Mean Corpuscular Volume 78.0 L 80.0-100.0 fL Mean Corpuscular Hemoglobin 24.7 L 28.0-32.0 pg Mean Corpuscular Hemoglobin Concent 31.6 L 32.0-36.0 g/dL Red Cell Distribution Width 19.8 H 11.8-14.3 % Platelet Count 244 140-450 10^3/uL Mean Platelet Volume 7.5 6.9-10.8 fL Neutrophils (%) (Auto) 82.8 H 37.0-80.0 % Lymphocytes (%) (Auto) 8.7 L 10.0-50.0 % Monocytes (%) (Auto) 7.3 0.0-12.0 % Eosinophils (%) (Auto) 0.4 0.0-7.0 % Basophils (%) (Auto) 0.8 0.0-2.0 % Neutrophils # (Auto) 17.0 H 1.6-8.6 10 ^3/uL Lymphocytes # (Auto) 1.8 0.4-5.4 10 ^3/uL Monocytes # (Auto) 1.5 H 0-1.3 10 ^3/uL Eosinophils # (Auto) 0.1 0-0.8 10 ^3/uL Basophils # (Auto) 0.2 0-0.2 10 ^3/uL Nucleated Red Blood Cells 0.0 % Sodium Level 135 L 136-145 mmol/L Potassium Level 2.8 L 3.5-5.1 mmol/L Chloride Level 92 L 98-107 mmol/L Carbon Dioxide Level 32 H 20-31 mmol/L Anion Gap 11 5-15 Blood Urea Nitrogen 13 9-23 mg/dL Creatinine 0.56 L 0.700-1.30 mg/dL Glomerular Filtration Rate Calc 118 >90 mL/min BUN/Creatinine Ratio 23.2 H 10.0-20.0 Serum Glucose 110 H 74-106 mg/dL Calcium Level 9.2 8.7-10.4 mg/dL Magnesium Level 2.1 1.6-2.6 mg/dL B-Type Natriuretic Peptide 94.30 0-100 pg/mL Current Medications Medications (Trade) Dose Ordered Sig/Elias Route Start Time Stop Time Status Last Admin Albuterol (Ventolin Medneb) 2.5 mg ONCE ONCE NEB 05/06/25 19:00 05/06/25 19:01 DC 05/06/25 19:10 Ipratropium [place] (Atrovent Medneb) 0.5 mg ONCE ONCE NEB 05/06/25 19:00 05/06/25 19:01 DC 05/06/25 19:10 Ibuprofen (Motrin Tablet) 600 mg ONCE ONCE PO 05/06/25 20:15 05/06/25 20:16 DC 05/06/25 20:18 Acetaminophen/ Hydrocodone Bitart ([place] 10/325MG Tab) 1 tab ONCE ONCE PO 05/06/25 20:15 05/06/25 20:16 DC 05/06/25 20:18 Potassium Chloride 100 ml @ 50 mls/hr ONCE ONCE IV 05/06/25 20:30 05/06/25 22:37 DC 05/06/25 21:30 Levofloxacin/ Dextrose 100 ml @ 100 mls/hr ONCE ONCE IV 05/06/25 20:30 05/06/25 21:29 DC 05/06/25 23:16 Vancomycin HCl 200 ml @ 200 mls/hr ONCE ONCE IV 05/06/25 20:30 05/06/25 21:29 DC 05/07/25 00:08 Potassium Bicarbonate (Klor-Con/Ef) 50 meq ONCE ONCE PO 05/06/25 22:00 05/06/25 22:01 DC 05/06/25 21:55 Morphine Sulfate 2 mg ONCE ONCE IV 05/06/25 22:00 05/06/25 22:01 DC 05/06/25 21:56 Sodium Chloride 1,000 ml @ 130 mls/hr Q7H42M ONCE IV 05/06/25 23:15 05/07/25 06:56 05/06/25 23:20 CHEST RADIOGRAPH Indication: Left upper lobe mass unchanged Technique: Single frontal view of the chest was obtained Comparison: XY CHEST PORTABLE on DOS: 03/23/25, XY CHEST PORTABLE on DOS: 03/16/25, CHEST PORTABLE on DOS: 11/15/21 FINDINGS: Lines and Tubes: None Lungs: Left upper lobe mass unchanged Pleura: Lower lobe consolidation and pleural effusion. No pneumothorax. Cardiomediastinal contours: Unremarkable Bones: No acute osseous abnormality. IMPRESSION: 1. Left upper lobe mass unchanged 2. Unimproved left lower lobe consolidation and pleural effusion. Time of 1ST Reevaluation: 19:09 Reevaluation 1ST: Unchanged Patient Education/Counseling: Prognosis, Need For Follow Up Family Education/Counseling: No Family Present SEPSIS Sepsis Screen Date sepsis recognized/suspect: May 06, 2025 Time Sepsis recognized/suspect: 1811 Recent Procedure: No On Antibiotic Therapy: No Respiratory Rate >20: No Heart Rate >90: Yes Temp<36 C (96.8 F) or >38.3 C: No SBP <90 or MAP <65 mmHG: No New Acute Mental Status Change: No Is the patient on CPAP, BIPAP,: No Physician Orders Electrocardigram (05/06/25 18:26) Abg W/ Co-Ox (05/06/25 18:58) Rapid Influenza A&B (05/06/25 18:58) Covid19 Antigen Myrna (05/06/25 ) Chest Xray 1 View (05/06/25 18:58) Imaging Transfer Request (05/06/25 20:58) Blood Culture (05/06/25 21:20) Sodium Chloride 0.9% (05/06/25 23:15) Vital Signs Date Time Temp Pulse Resp B/P (MAP) Pulse Ox O2 Delivery O2 Flow Rate FiO2 05/06/25 22:26 96 17 128/77 05/06/25 22:00 98.2 95 30 141/68 (92) 95 98.2 05/06/25 21:56 95 16 129/82 05/06/25 20:00 97.8 98 22 130/76 (94) 97 97.8 05/06/25 19:30 89 22 96 Nasal Cannula* 4 36 05/06/25 19:12 18 96 Nasal Cannula* 4 36 05/06/25 18:58 101 22 96 Nasal Cannula* 4 36 05/06/25 18:53 97.8 101 24 130/79 (96) 96 97.8 05/06/25 18:38 97.8 113 24 135/72 (93) 95 97.8 05/06/25 18:10 107 Laboratory Tests Test 05/06/25 18:15 05/06/25 21:45 White Blood Count 20.5 10^3/uL (4.4-10.8) #H Lactic Acid Level 1.5 mmol/L (0.4-2.0) Medications Medications Dose Ordered Sig/Elias Route Start Time Stop Time Status Last Admin Dose Admin Acetaminophen/ Hydrocodone Bitart 1 tab ONCE ONCE PO 05/06/25 20:15 05/06/25 20:16 DC 05/06/25 20:18 Albuterol 2.5 mg ONCE ONCE NEB 05/06/25 19:00 05/06/25 19:01 DC 05/06/25 19:10 Ibuprofen 600 mg ONCE ONCE PO 05/06/25 20:15 05/06/25 20:16 DC 05/06/25 20:18 Ipratropium [place] 0.5 mg ONCE ONCE NEB 05/06/25 19:00 05/06/25 19:01 DC 05/06/25 19:10 Levofloxacin/ Dextrose 100 ml @ 100 mls/hr ONCE ONCE IV 05/06/25 20:30 05/06/25 21:29 DC 05/06/25 23:16 Morphine Sulfate 2 mg ONCE ONCE IV 05/06/25 22:00 05/06/25 22:01 DC 05/06/25 21:56 Potassium Bicarbonate 50 meq ONCE ONCE PO 05/06/25 22:00 05/06/25 22:01 DC 05/06/25 21:55 Potassium Chloride 100 ml @ 50 mls/hr ONCE ONCE IV 05/06/25 20:30 05/06/25 22:37 DC 05/06/25 21:30 Sodium Chloride 1,000 ml @ 130 mls/hr Q7H42M ONCE IV 05/06/25 23:15 05/07/25 06:56 05/06/25 23:20 Vancomycin HCl 200 ml @ 200 mls/hr ONCE ONCE IV 05/06/25 20:30 05/06/25 21:29 DC 05/07/25 00:08 Departure 1 Departure Time of Disposition: 20:52 Impression: Primary Impression: Hypokalemia Additional Impressions: Dyspnea Pleural effusion Leukocytosis Disposition: ADMITTED INPATIENT Condition: Stable Comments 54-year-old male with a history of possible malignant lung mass, left pleural effusion, PE, DVT with IVC filter and Eliquis presents with worsening shortness of breath. Workup reveals hypokalemia and leukocytosis white blood cell count 20.5. Patient is started on antibiotics in the emergency department. Potassium replacement initiated in the emergency department. @[address] Roy at [facility] who accepts patient for transfer to [facility] (Case #[id number]) Patient refused transfer. Case discussed again with Dr. Roy who approved the admission at this facility. Critical Care Note Critical Care Time?: Yes (35 min-critical care time only) Critical care comment: Shortness of breath Stability Stability form required: No Heart Score Heart Score: Heart Score Response (Comments) Value History Slightly Suspicious 0 EKG Normal 0 Age 45-64 1 Risk Factors 1 or 2 risk factors 1 Troponin Normal limit 0 Total 2 I personally scribed for HERBERT ROCK MD ([email or web address]) on 05/06/25 at 19:13. Electronically submitted by Frank Rhoades ([email or web address]). I personally scribed for HERBERT ROCK MD ([email or web address]) on 05/06/25 at 19:30. Electronically submitted by Frank Rhoades ([email or web address]). I personally scribed for HERBERT ROCK MD ([email or web address]) on 05/06/25 at 19:33. Electronically submitted by Frank Rhoades ([facility]). I personally scribed for HERBERT ROCK MD ([email or web address]) on 05/06/25 at 19:38. Electronically submitted by Frank Rhoades ([facility]). I personally scribed for HERBERT ROCK MD ([email or web address]) on 05/06/25 at 23:40. Electronically submitted by Frank Rhoades ([facility]). HERBERT ROCK MD May 06, 2025 19:13
--- NOTE | 2025-05-06 19:27 | DVH ---
CHEST RADIOGRAPH Indication: Left upper lobe mass unchanged Technique: Single frontal view of the chest was obtained Comparison: XY CHEST PORTABLE on DOS: 03/23/25, XY CHEST PORTABLE on DOS: 03/16/25, CHEST PORTABLE on D OS: 11/15/21 FINDINGS: Lines and Tubes: None Lungs: Left upper lobe mass unchanged Pleura: Lower lobe consolidation and pleural effusion. No pneumothorax. Cardiomediastinal contours: Unremarkable Bones: No acute osseous abnormality. IMPRESSION: 1. Left upper lobe mass unchanged 2. Unimproved left lower lobe consolidation and pleural effusion.
[2025-05-06 19:30] VITALS: PULSE 89; RESP 22; O2SAT 96
[2025-05-06 19:31] LABS: Hematocrit 32.4 % (41.0-53.0); Hemoglobin 10.3 g/dL (13.5-17.5); Mean Corpuscular Hemoglobin 24.7 pg (28.0-32.0); Mean Corpuscular Volume 78.0 fL (80.0-100.0); Nucleated Red Blood Cells % 0.0 %
[2025-05-06 19:36] LABS: Anion Gap 11 (5-15); Calcium 9.2 mg/dL (8.7-10.4)
[2025-05-06 19:38] LABS: Carbon Dioxide 32 mmol/L (20-31); Chloride 92 mmol/L (98-107); Potassium 2.8 mmol/L (3.5-5.1); Sodium 135 mmol/L (136-145)
[2025-05-06 19:40] LABS: Base Excess 5.9 mmol/L (-2.0-3.0)
[2025-05-06 19:41] LABS: BUN/Creatinine Ratio 23.2 (10.0-20.0); Blood Urea Nitrogen 13 mg/dL (9-23)
[2025-05-06 19:47] LABS: Glucose 110 mg/dL (74-106)
[2025-05-06] MEDS: POTASSIUM CHL 20 Meq TABLET PO ONE (21:30)
[2025-05-06] MEDS: POTASSIUM CHL 20MEQ/100ML 100 ML IV ONE (21:30)
[2025-05-06] MEDS: POTASSIUM EFFERVESENT TAB 25 MEQ PO ONE (21:55)
[2025-05-06] MEDS: MORPHINE SULFATE INJ 2 MG/ml SYRG IV ONE (21:56)
[2025-05-06] MEDS: SODIUM CHLORIDE 0.9% 1,000 ML IV ONE (23:20)
[2025-05-06] MEDS ORDERED: IPRATROPIUM BROM 0.5 MG/2.5ML INH SOL NEB PRN (23:45)
[2025-05-06] MEDS: SODIUM CHLORIDE 0.9% 1,000 ML IV SCH (23:45)
[2025-05-06] MEDS ORDERED: ALBUTEROL SULF 2.5 MG/0.5ML(0.5%) NEB SOLN NEB PRN (23:45)
[2025-05-06] MEDS ORDERED: DOCUSATE SOD 100 MG CAP PO PRN (23:45)
[2025-05-06] MEDS ORDERED: NITROGLYCERIN 0.4 MG SL TAB SL PRN (23:45)
[2025-05-06] MEDS ORDERED: ACETAMINOPHEN 325 MG TAB PO PRN (23:45)
[2025-05-06] MEDS ORDERED: VANCOMYCIN PER PHARMACY 0 MG IV SCH (23:45)
[2025-05-06] MEDS ORDERED: DEXTROSE (50%) 50ML SYRG IV PRN (23:45)
--- NOTE | 2025-05-06 23:45 | DVHHP2 ---
History of Present Illness Reason for Visit: Acute respiratory distress History of Present Illness The patient is a 54-year-old male with past medical history of COPD, PE, and DVT who presented to [facility] ED with complaint of shortness of breaths. Patient currently being managed for lung cancer, reports experiencing cough with blood tangled sputum, chest pressure, shortness of breaths, increased work of breathing, dizziness with blurred vision, getting worse that prompted this visit. Patient was seen and evaluated in the ED, laboratory data shows WBC 20.5, hemoglobin 10.3, hematocrit 32.4, platelets 244, sodium 135, potassium 2.8, BUN 13, creatinine 0.56, lactic acid 1.5, glucose 110, calcium 9.2, troponin 293, BNP 94.30, blood pressure 129/89, heart rate 95, temperature 97.8 F, O2 saturation 96 % on oxygen. Chest x-ray revealing left upper lobe mass, left lower lobe consolidations and pleural effusion. Patient was started on IV antibiotic regimen levofloxacin, please see medication orders section in the computer. On my assessment, patient denied chest pain, no headache, no dizziness, no diaphoresis, currently on oxygen, no nausea, no vomiting, no fever, no chills. Patient was admitted for further evaluation and medical management. Past Medical History Lung cancer, COPD, PE, DVT Past Surgical History Hernia Repair Family History Reviewed, noncontributory to the management of this case. Past Social History The patient lives at home, denies smoking, alcohol or illicit drugs abuse. Review of Systems Constitutional: Yes: Weakness; No: Fever, Chills, Sweats, Malaise, Other Eyes: No: Pain, Vision change, Conjunctivae inflammation, Eyelid inflammation, Other, Redness ENT: No: Ear pain, Ear discharge, Nose pain, Nose discharge, Nose congestion, Mouth pain, Mouth swelling, Throat pain, Throat swelling, Other Respiratory: Cough, Shortness of breath, Other (SOB at rest); No: Dry, SOB with excertion, Wheezing, Hemoptysis, Pleuritic Pain, Sputum, Wheezing Cardiovascular: Chest Pain; No: Palpitations, Orthopnea, Paroxysmal Noc. Dyspnea, Edema, Lt Headedness, Other Gastrointestinal: No: Nausea, Vomiting, Abdominal Pain, Diarrhea, Constipation, Melena, Hematochezia, Other Genitourinary: No Dysuria, No Frequency, No Incontinence, No Hematuria, No Retention, No Other Musculoskeletal: No: other, neck pain, shoulder pain, arm pain, back pain, hand pain, leg pain, foot pain Skin: Other (Left foot wound); No: Rash, Lesions, Jaundice, Bruising Neurological: No: Weakness, Numbness, Incoordination, Change in speech, Confusion, Seizures, Other Allergies: Coded Allergies: Bacitracin (Verified Allergy, Unknown, 03/16/25) Cephalexin (Verified Allergy, Unknown, 04/25/25) Enoxaparin (Verified Allergy, Unknown, 03/16/25) Gabapentin (Verified Allergy, Unknown, 03/16/25) Exam Vital Signs Vital Signs Date Time Temp Pulse Resp B/P (MAP) Pulse Ox O2 Delivery O2 Flow Rate FiO2 05/06/25 21:56 95 16 129/82 05/06/25 20:00 97.8 97 97.8 05/06/25 19:30 Nasal Cannula* 4 36 General Appearance: Alert, Oriented X3, Cooperative, No acute distress HEENT: Atraumatic, PERRLA, EOMI, Mucous membr. moist/pink Respiratory: Normal air movement Cardiovascular: Regular rate, Normal S1, Normal S2, No murmurs Abdominal: Normal bowel sounds, Soft, No tenderness, No hepatospenomegaly, No masses Extremities: No clubbing, No cyanosis, No edema, Normal pulses, No tenderness/swelling Skin: No rashes, No significant lesion Neuro: Normal speech, Normal tone, Sensation intact, Cranial nerves 3-12 NL, Reflexes 2+, Other (Generalized weakness) Psych/Mental Status: Mental status NL, Mood NL Labs/Xrays Labs Test 05/06/25 21:45 05/06/25 21:02 05/06/25 19:20 05/06/25 18:15 Range/Units Lactic Acid Level 1.5 0.4-2.0 mmol/L Troponin I High Sensitivity 293 *H </=54 ng/L Blood Gas Specimen Type Arterial Blood Gas Sample Site Right radial Blood Gas Patient Temperature 37.0 Arterial Blood Date Drawn [id number] Arterial Blood pH 7.521 H 7.350-7.450 Arterial Blood Partial Pressure CO2 36.1 35.0-48.0 mmHg Arterial Blood Partial Pressure O2 79.7 L 83.0-108.0 mmHg Arterial Blood HCO3 28.9 H 21.0-28.0 mmol/L Arterial Blood Oxygen Saturation 96.2 94.0-98.0 % Arterial Blood Base Excess 5.9 H -2.0-3.0 mmol/L Arterial Blood Oxyhemoglobin 93.6 L 94.0-98.0 % Arterial Blood Carboxyhemoglobin 2.3 H 0.5-1.5 % Arterial Blood Methemoglobin 0.4 0.0-1.5 % Greg Test Modified Blood Gas Total Hemoglobin 11.20 L 13.5-17.5 g/dL Blood Gas Liter Flow 4.00 Blood Gas Modality Nasal cannula FiO2 % 36.0 White Blood Count 20.5 #H 4.4-10.8 10^3/uL Red Blood Count 4.16 L 4.5-5.90 10^6/uL Hemoglobin 10.3 L 13.5-17.5 g/dL Hematocrit 32.4 L 41.0-53.0 % Mean Corpuscular Volume 78.0 L 80.0-100.0 fL Mean Corpuscular Hemoglobin 24.7 L 28.0-32.0 pg Mean Corpuscular Hemoglobin Concent 31.6 L 32.0-36.0 g/dL Red Cell Distribution Width 19.8 H 11.8-14.3 % Platelet Count 244 140-450 10^3/uL Mean Platelet Volume 7.5 6.9-10.8 fL Neutrophils (%) (Auto) 82.8 H 37.0-80.0 % Lymphocytes (%) (Auto) 8.7 L 10.0-50.0 % Monocytes (%) (Auto) 7.3 0.0-12.0 % Eosinophils (%) (Auto) 0.4 0.0-7.0 % Basophils (%) (Auto) 0.8 0.0-2.0 % Neutrophils # (Auto) 17.0 H 1.6-8.6 10 ^3/uL Lymphocytes # (Auto) 1.8 0.4-5.4 10 ^3/uL Monocytes # (Auto) 1.5 H 0-1.3 10 ^3/uL Eosinophils # (Auto) 0.1 0-0.8 10 ^3/uL Basophils # (Auto) 0.2 0-0.2 10 ^3/uL Nucleated Red Blood Cells 0.0 % Sodium Level 135 L 136-145 mmol/L Potassium Level 2.8 L 3.5-5.1 mmol/L Chloride Level 92 L 98-107 mmol/L Carbon Dioxide Level 32 H 20-31 mmol/L Anion Gap 11 5-15 Blood Urea Nitrogen 13 9-23 mg/dL Creatinine 0.56 L 0.700-1.30 mg/dL Glomerular Filtration Rate Calc 118 >90 mL/min BUN/Creatinine Ratio 23.2 H 10.0-20.0 Serum Glucose 110 H 74-106 mg/dL Calcium Level 9.2 8.7-10.4 mg/dL Magnesium Level 2.1 1.6-2.6 mg/dL B-Type Natriuretic Peptide 94.30 0-100 pg/mL PATIENT: CELINE TABOR ACCT: [id number] UNIT: [id number] : 1970 LOC: ER ROOM / BED: / AGE / SEX: 54 / M ADM STATUS: REG ER SERVICE 1670 ORDERING PHYSICIAN: HERBERT ROCK MD PROCEDURE(s): CXR1 - CHEST XRAY 1 VIEW REASON: sob ORDER NUMBER(s): [id number], ACCESSION NUMBER(s): [id number] CHEST RADIOGRAPH Indication: Left upper lobe mass unchanged Technique: Single frontal view of the chest was obtained Comparison: XY CHEST PORTABLE on DOS: 03/23/25, XY CHEST PORTABLE on DOS: 03/16/25, CHEST PORTABLE on DOS: 11/15/21 FINDINGS: Lines and Tubes: None Lungs: Left upper lobe mass unchanged Pleura: Lower lobe consolidation and pleural effusion. No pneumothorax. Cardiomediastinal contours: Unremarkable Bones: No acute osseous abnormality. IMPRESSION: 1. Left upper lobe mass unchanged 2. Unimproved left lower lobe consolidation and pleural effusion. SEPSIS Sepsis Screen Date sepsis recognized/suspect: May 06, 2025 Time Sepsis recognized/suspect: 1929 Recent Procedure: No On Antibiotic Therapy: No Respiratory Rate >20: No Heart Rate >90: Yes (99BPM) Temp<36 C (96.8 F) or >38.3 C: No SBP <90 or MAP <65 mmHG: No New Acute Mental Status Change: No Is the patient on CPAP, BIPAP,: No Physician Orders Electrocardigram (05/06/25 18:26) Abg W/ Co-Ox (05/06/25 18:58) Rapid Influenza A&B (05/06/25 18:58) Covid19 Antigen Myrna (05/06/25 ) Chest Xray 1 View (05/06/25 18:58) Imaging Transfer Request (05/06/25 20:58) Blood Culture (05/06/25 21:20) Sodium Chloride 0.9% (05/06/25 23:15) Vancomycin Per Pharmacy (05/06/25 23:45) Levofloxacin Levaquin (05/07/25 10:00) Albuterol Medneb (Ventolin Medneb) (05/06/25 23:45) Ipratropium Medneb (Atrovent Medneb) (05/06/25 23:45) Apixaban (Eliquis) (05/07/25 10:00) Glucose Blood (Accu-Chek Comfort Curve T (05/07/25 07:00) Mild Sliding Scale (05/07/25 07:00) Dextrose 50% Syringe (05/06/25 23:45) Admit (05/06/25 23:39) Allergies (05/06/25 23:39) Code Status (05/06/25 23:39) 0.9% Ns 1000 Ml (05/06/25 23:45) Oxygen Per Hour (05/06/25 23:39) Hydrocodone-Acet 5/325mg Tab (Pelican 5/32 (05/06/25 23:45) Ondansetron Hcl (Zofran) (05/06/25 23:45) Docusate Sodium Capsule (Colace Capsule) (05/06/25 23:45) Complete Blood Count (05/07/25 04:00) Comprehensive Metabolic Panel (05/07/25 04:00) Condition: Serious (05/06/25 23:39) Acetaminophen Tablet (Tylenol Tablet) (05/06/25 23:45) Bedrest With Bathroom Privileg (05/06/25 23:39) Morphine Sulfate Injection (05/06/25 23:45) Sequential Compression Device (05/06/25 ) Nitroglycerin Sublingual (Ntrostat Subli (05/06/25 23:45) Morphine Sulfate Injection (05/06/25 23:45) Stat Ekg For Chest Pain (05/06/25 23:39) Notify Md Of Changes From Base (05/06/25 23:39) Glue Mounter Operator For 24 Hours (05/06/25 23:39) Emergency Dysrhythmia Protocol (05/06/25 23:39) Rhythm Strips Once Every Shift (05/06/25 23:39) Oxygen By Nasal Cannula (05/06/25 23:39) Vital Signs Date Time Temp Pulse Resp B/P (MAP) Pulse Ox O2 Delivery O2 Flow Rate FiO2 05/06/25 21:56 95 16 129/82 05/06/25 20:00 97.8 98 22 130/76 (94) 97 97.8 05/06/25 19:30 89 22 96 Nasal Cannula* 4 36 05/06/25 19:12 18 96 Nasal Cannula* 4 36 05/06/25 18:58 101 22 96 Nasal Cannula* 4 36 05/06/25 18:53 97.8 101 24 130/79 (96) 96 97.8 05/06/25 18:38 97.8 113 24 135/72 (93) 95 97.8 05/06/25 18:10 107 Laboratory Tests Test 05/06/25 18:15 05/06/25 21:45 White Blood Count 20.5 10^3/uL (4.4-10.8) #H Lactic Acid Level 1.5 mmol/L (0.4-2.0) Medications Medications Dose Ordered Sig/Elias Route Start Time Stop Time Status Last Admin Dose Admin Acetaminophen/ Hydrocodone Bitart 1 tab ONCE ONCE PO 05/06/25 20:15 05/06/25 20:16 DC 05/06/25 20:18 1 TAB Albuterol 2.5 mg ONCE ONCE NEB 05/06/25 19:00 05/06/25 19:01 DC 05/06/25 19:10 2.5 MG Ibuprofen 600 mg ONCE ONCE PO 05/06/25 20:15 05/06/25 20:16 DC 05/06/25 20:18 600 MG Ipratropium [place] 0.5 mg ONCE ONCE NEB 05/06/25 19:00 05/06/25 19:01 DC 05/06/25 19:10 0.5 MG Levofloxacin/ Dextrose 100 ml @ 100 mls/hr ONCE ONCE IV 05/06/25 20:30 05/06/25 21:29 DC 05/06/25 23:16 100 MLS/HR Morphine Sulfate 2 mg ONCE ONCE IV 05/06/25 22:00 05/06/25 22:01 DC 05/06/25 21:56 2 MG Potassium Bicarbonate 50 meq ONCE ONCE PO 05/06/25 22:00 05/06/25 22:01 DC 05/06/25 21:55 50 MEQ Potassium Chloride 100 ml @ 50 mls/hr ONCE ONCE IV 05/06/25 20:30 05/06/25 22:37 DC 05/06/25 21:30 50 MLS/HR Sodium Chloride 1,000 ml @ 130 mls/hr Q7H42M ONCE IV 05/06/25 23:15 05/07/25 06:56 05/06/25 23:20 130 MLS/HR Assessment/Plan Assessment/Plan Acute respiratory distress Hypokalemia Dyspnea Elevated troponin Pleural effusion Leukocytosis, unspecified organism Generalized weakness Plan 1. Admit to telemetry unit 2. Breathing treatment 3. Pain control management 4. IV antibiotic management 5. Management of fluids and electrolytes 6. Consultation for hospitalist/wound care 7. Diagnostic test chest x-ray 8. DVT prophylaxis on ELIQUIS 9. Repeat labs CBC, CMP in a.m. 10. Home medication reviewed and reconciled 11. Continue with current medical management 12. Treatment plan discussed with patient and RN. Patient verbalized understanding. Plan discussed with: Patient, Son (At bedside), Other (RN) My Orders Orders - HOLLY SAAB DNP Procedure Category Date Status Time Vancomycin Per PHA 05/06/25 Verified Pharmacy 23:45 Levofloxacin Levaquin PHA 05/07/25 Verified 10:00 Albuterol Medneb PHA 05/06/25 Verified (Ventolin Medneb) 23:45 Ipratropium Medneb PHA 05/06/25 Verified (Atrovent Medneb) 23:45 Apixaban (Eliquis) PHA 05/07/25 Verified 10:00 Glucose Blood PHA 05/07/25 Verified (Accu-Chek Comfort 07:00 Mild Sliding Scale PHA 05/07/25 Verified 07:00 Dextrose 50% Syringe PHA 05/06/25 Verified 23:45 Admit ADMIT 05/06/25 Verified 23:39 Allergies JAMEL 05/06/25 Verified 23:39 Code Status CODE 7/12/25 Verified 23:39 0.9% Ns 1000 Ml PHA 05/06/25 Verified 23:45 Oxygen Per Hour RT 05/06/25 Verified 23:39 Hydrocodone-Acet [facility] 05/06/25 Verified 5/325mg Tab (Pelican 23:45 Ondansetron Hcl [facility] 05/06/25 Verified (Zofran) 23:45 Docusate Sodium [facility] 05/06/25 Verified Capsule (Colace 23:45 Complete Blood Count LAB 05/07/25 Verified 04:00 Comprehensive LAB 05/07/25 Verified Metabolic Panel 04:00 Condition: Serious [facility] 05/06/25 Verified 23:39 Acetaminophen Tablet [facility] 05/06/25 Verified (Tylenol Tablet) 23:45 Bedrest With Bathroom [facility] 05/06/25 Verified Privileg 23:39 Morphine Sulfate [facility] 05/06/25 Verified Injection 23:45 Sequential [facility] 05/06/25 Verified Compression Device Nitroglycerin [facility] 05/06/25 Verified Sublingual (Ntrostat 23:45 Morphine Sulfate [facility] 05/06/25 Verified Injection 23:45 Stat Ekg For Chest [facility] 05/06/25 Verified Pain 23:39 Notify Md Of Changes [facility] 05/06/25 Verified From Base 23:39 Glue Mounter Operator For [facility] 05/06/25 Verified 24 Hours 23:39 Emergency Dysrhythmia [facility] 05/06/25 Verified Protocol 23:39 Rhythm Strips Once [facility] 05/06/25 Verified Every Shift 23:39 Oxygen By Nasal 05/06/25 Verified Cannula 23:39 Problem List: (1) Acute respiratory distress (2) Hypokalemia (3) Dyspnea (4) Elevated troponin (5) Pleural effusion (6) Leukocytosis, unspecified (7) Generalized weakness Date of Service: May 06, 2025 Billing Provider: HOLLY SAAB DNP Common Visit Codes: [id number] INP/OBS CARE (HIGH) HOLLY SAAB DNP May 06, 2025 23:45
[2025-05-07] VITALS (8 sets, daily range): BP systolic 129–130; BP diastolic 76; PULSE 93–101; RESP 19–25; TEMP 97.8; O2SAT 94–98
[2025-05-07] MEDS: VANCOMYCIN 1GM/200ML PM 200 ML IV ONE (00:08)
[2025-05-07] MEDS: MORPHINE SULFATE INJ 2 MG/ml SYRG IV PRN ×2 (00:41→13:03)
[2025-05-07] MEDS ORDERED: VANCOMYCIN 1GM/250ML KIT 250 ML IV SCH (01:00)
[2025-05-07] MEDS: ONDANSETRON HCL 4 MG/2 ML VIAL IV PRN (03:58)
[2025-05-07 04:15] LABS: Hematocrit 31.1 % (41.0-53.0); Hemoglobin 9.8 g/dL (13.5-17.5); Mean Corpuscular Hemoglobin 24.6 pg (28.0-32.0); Mean Corpuscular Volume 77.8 fL (80.0-100.0); Nucleated Red Blood Cells % 0.1 %
[2025-05-07 04:49] LABS: Albumin 3.9 g/dL (3.2-4.8); Alkaline Phosphatase 113 U/L (46-116); Anion Gap 12 (5-15); BUN/Creatinine Ratio 20.8 (10.0-20.0); Blood Urea Nitrogen 11 mg/dL (9-23); Calcium 9.5 mg/dL (8.7-10.4); Carbon Dioxide 30 mmol/L (20-31); Glucose 86 mg/dL (74-106); Potassium 3.2 mmol/L (3.5-5.1); Sodium 136 mmol/L (136-145); Total Protein 7.1 g/dL (5.7-8.2)
[2025-05-07 04:50] LABS: Alanine Aminotransferase < 9 U/L (7-40); Bilirubin, Total 0.5 mg/dL (0.2-1.0); Chloride 94 mmol/L (98-107)
[2025-05-07] MEDS ORDERED: InsuLIN REG 1unit/0.01ml Soln (100units/ml) SC SCH (07:00)
[2025-05-07] MEDS ORDERED: ACCU-CHEK COMFORT CURVE STRIP VI SCH (07:00)
[2025-05-07] MEDS: HYDROcodone-ACET 5/325MG TAB PO PRN (08:09)
[2025-05-07] MEDS: APIXABAN 5 MG TAB PO SCH (08:09)
[2025-05-07] MEDS: VANCOMYCIN 750mg/150ml 150 ML IV SCH (11:17)
--- NOTE | 2025-05-07 13:15 | DVHPN2 ---
Subjective Admitted for low potassium. Today it has improved. Patient feels little bit better. at bedside. No complaints of chest pain. Changes from previous H/P or p: No Changes Eyes: No Pain, No Vision change, No Conjunctivae inflammation, No Eyelid inflammation, No Other, No Redness ENT: No Ear pain, No Ear discharge, No Nose pain, No Nose discharge, No Nose congestion, No Mouth pain, No Mouth swelling, No Throat pain, No Throat swelling, No Other Cardiovascular: Chest Pain; No Palpitations, No Orthopnea, No Paroxysmal Noc. Dyspnea, No Edema, No Lt Headedness, No Other Respiratory: Cough; No Dry; Shortness of breath; No SOB with excertion, No Wheezing, No Hemoptysis, No Pleuritic Pain, No Sputum; Other (SOB at rest) Gastrointestinal: No Nausea, No Vomiting, No Abdominal Pain, No Diarrhea, No Constipation, No Melena, No Hematochezia, No Other Genitourinary: No Dysuria, No Frequency, No Incontinence, No Hematuria, No Retention, No Other Musculoskeletal: No other, No neck pain, No shoulder pain, No arm pain, No back pain, No hand pain, No leg pain, No foot pain Skin: No Rash, No Lesions, No Jaundice, No Bruising; Other (Left foot wound) Objective Vitals Vital Signs Date Time Temp Pulse Resp B/P (MAP) Pulse Ox O2 Delivery O2 Flow Rate FiO2 05/07/25 13:03 94 16 121/68 05/07/25 12:00 98.6 96 98.6 05/07/25 10:38 Room Air* 0 21 Intake/Output Intake and Output 05/07/25 07:00 Intake Total 820 ml Balance 820 ml Intake IV Total 820 ml Exam Alert awake oriented to place and person comfortable in bed without distress. at bedside. HEENT neck supple no JVD. Heart regular rate and rhythm S1- S2. Lungs fair air movement with a degraded breath sounds in the bases. Abdomen obese soft positive bowel sounds. Extremities positive edema. Medications Current Medications Medications Dose Ordered Sig/Elias Route Start Time Stop Time Status Last Admin Dose Admin Vancomycin HCl 0 ml @ 0 mls/hr UD IV 05/06/25 23:45 Levofloxacin/ Dextrose 100 ml @ 100 mls/hr Q24H IV 05/07/25 23:00 Albuterol 2.5 mg Q4HPRN PRN NEB 05/06/25 23:45 Ipratropium [place] 0.5 mg Q4HPRN PRN NEB 05/06/25 23:45 Apixaban 5 mg BID PO 05/07/25 10:00 05/07/25 08:09 5 MG Acetaminophen/ Hydrocodone Bitart 1 tab Q4HP PRN PO 05/06/25 23:45 05/07/25 08:09 1 TAB Ondansetron HCl 4 mg Q4HP PRN IV 05/06/25 23:45 05/07/25 13:01 4 MG Docusate Sodium 100 mg BIDPRN PRN PO 05/06/25 23:45 Acetaminophen 650 mg Q6HP PRN PO 05/06/25 23:45 Nitroglycerin 0.4 mg Q5MINP PRN SL 05/06/25 23:45 Morphine Sulfate 2 mg Q30M PRN IV 05/06/25 23:45 Vancomycin HCl 250 ml @ 166.667 mls/hr Q2H IV 05/07/25 01:00 05/07/25 04:29 Cancel Morphine Sulfate 2 mg Q6HPRN PRN IV 05/07/25 08:15 05/07/25 13:03 2 MG Vancomycin HCl 150 ml @ 150 mls/hr Q12H IV 05/07/25 10:00 05/07/25 11:17 150 MLS/HR Furosemide 60 mg BIDD PO 05/07/25 18:00 UNV Potassium Chloride 40 meq BID PO 05/07/25 22:00 UNV Magnesium Sulfate/ Dextrose 100 ml @ 100 mls/hr Q1HR IV 05/07/25 14:00 05/07/25 15:59 UNV Magnesium Oxide 400 mg DAILY PO 05/08/25 10:00 UNV Laboratory Results Laboratory Tests 05/07/25 03:42 Chemistry Test 05/06/25 18:15 05/07/25 03:42 Calcium Level 9.2 mg/dL (8.7-10.4) 9.5 mg/dL (8.7-10.4) Magnesium Level 2.1 mg/dL (1.6-2.6) Albumin 3.9 g/dL (3.2-4.8) Total Protein 7.1 g/dL (5.7-8.2) Cardiac Markers Test 05/06/25 18:15 B-Type Natriuretic Peptide 94.30 pg/mL (0-100) LFT Test 05/07/25 03:42 Alanine Aminotransferase (ALT) < 9 U/L (7-40) Alkaline Phosphatase 113 U/L (46-116) Aspartate Amino Transferase (AST) 41 U/L (13-40) H Total Bilirubin 0.5 mg/dL (0.2-1.0) Blood Gas Results Test 05/06/25 19:20 Arterial Blood pH 7.521 (7.350-7.450) FiO2 % 36.0 Assessment/Plan Assessment/Plan We will replace potassium once again today as well as magnesium. Check his potassium magnesium levels in the morning. Continue resume his home diuretics. Lasix and potassium. Continue wound care. Continue rest of supportive care and treatment. Continue antibiotics for leukocytosis. Further clinical management per clinical course. Discussed with the patient and nurse regarding care plan at bedside. Plan discussed with: Patient, Spouse My Orders Orders - AISHA MORSE MD Procedure Category Date Status Time Urinalysis LAB 05/07/25 Logged 13:05 Urine Bacterial FRANKIE 05/07/25 Logged Culture 13:05 Furosemide Tablet PHA 05/07/25 Logged (Lasix Tablet) 18:00 Potassium Er Tablet PHA 05/07/25 Logged (Klor-Con Tablet) 22:00 Potassium Er Tablet PHA 05/07/25 Logged (Klor-Con Tablet) 13:15 Potassium Chloride PHA 05/07/25 Logged (Potassium Chloride). 13:15 Magnesium Sulfate PHA 05/07/25 Logged 1gm/100ml 14:00 Magnesium Oxide PHA 05/08/25 Logged Tablet (Mag-Ox Tablet) 10:00 Basic Metabolic Panel LAB 05/08/25 Verified 04:00 Complete Blood Count LAB 05/08/25 Verified 04:00 Magnesium LAB 05/08/25 Verified 04:00 Problem List: (1) Elevated troponin (2) Generalized weakness (3) Hypokalemia (4) Leukocytosis (5) Electrolyte imbalance (6) History of DVT (deep vein thrombosis) (7) History of COPD Date of Service: May 07, 2025 Billing Provider: ASIHA MORSE MD Common Visit Codes: [id number] INP/OBS CARE(MOD) AISHA MORSE MD May 07, 2025 13:15
[2025-05-07] MEDS: POTASSIUM CHLORIDE 20 MEQ, LIDOCAINE 1% (LOCAL ANESTH.) 2 ML in SODIUM CHL 0.9% 100 ML IV ONE (13:45)
[2025-05-07] MEDS: POTASSIUM CHL 20 Meq TABLET PO ONE (14:00)
[2025-05-07] MEDS: MAGNESIUM SULFATE 1GM/100ML 100 ML IV SCH (14:01)
[2025-05-07] MEDS: POTASSIUM EFFERVESENT TAB 25 MEQ PO ONE (14:03)
[2025-05-07 15:46] LABS: Urine Protein, UAD TRACE (Negative)
[2025-05-07] MEDS: FUROSEMIDE 20 MG TAB PO SCH (18:29)
[2025-05-07 21:59] LABS: COVID19 ANTIGEN SOFIA FIA NEGATIVE (NEGATIVE)
[2025-05-07] MEDS ORDERED: POTASSIUM CHL 20 Meq TABLET PO SCH (22:00)
[2025-05-08] VITALS (10 sets, daily range): BP systolic 129–148; BP diastolic 69–80; PULSE 85–105; RESP 16–20; TEMP 97.8–98.4; O2SAT 97–100
[2025-05-08 06:36] LABS: Hematocrit 33.0 % (41.0-53.0); Hemoglobin 10.4 g/dL (13.5-17.5); Mean Corpuscular Hemoglobin 24.9 pg (28.0-32.0); Mean Corpuscular Volume 78.8 fL (80.0-100.0); Nucleated Red Blood Cells % 0.1 %
[2025-05-08 06:48] LABS: Anion Gap 11 (5-15); Calcium 9.6 mg/dL (8.7-10.4); Carbon Dioxide 30 mmol/L (20-31)
[2025-05-08 06:50] LABS: Chloride 94 mmol/L (98-107); Potassium 3.3 mmol/L (3.5-5.1); Sodium 135 mmol/L (136-145)
[2025-05-08 06:54] LABS: BUN/Creatinine Ratio 19.7 (10.0-20.0); Blood Urea Nitrogen 12 mg/dL (9-23)
[2025-05-08 06:55] LABS: Glucose 117 mg/dL (74-106); Magnesium 2.3 mg/dL (1.6-2.6)
[2025-05-08] MEDS: MORPHINE SULFATE INJ 2 MG/ml SYRG IV PRN (09:10)
[2025-05-08] MEDS: MAGNESIUM OXIDE 400 MG TAB PO SCH (09:16)
[2025-05-08] MEDS: POTASSIUM CHL 20 Meq TABLET PO ONE (10:30)
[2025-05-08] MEDS ORDERED: MORPHINE SULFATE INJ 2 MG/ml SYRG IV PRN (11:30)
[2025-05-08] MEDS: MORPHINE SULFATE 4 MG/ML SYR/VIAL IV PRN (12:22)
[2025-05-08] MEDS: IOHEXOL 300 MG/ML 100ML BOTTLE IJ ONE (12:26)
--- NOTE | 2025-05-08 12:56 | ECG ---
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
--- NOTE | 2025-05-08 13:24 | DVHPN2 ---
Subjective His potassium levels have significantly improved. However today complains of nonspecific diffuse abdominal pain. Apparently had an episode of hemoptysis this morning. is at bedside. Changes from previous H/P or p: No Changes Eyes: No Pain, No Vision change, No Conjunctivae inflammation, No Eyelid inflammation, No Other, No Redness ENT: No Ear pain, No Ear discharge, No Nose pain, No Nose discharge, No Nose congestion, No Mouth pain, No Mouth swelling, No Throat pain, No Throat swelling, No Other Cardiovascular: Chest Pain; No Palpitations, No Orthopnea, No Paroxysmal Noc. Dyspnea, No Edema, No Lt Headedness, No Other Respiratory: Cough; No Dry; Shortness of breath; No SOB with excertion, No Wheezing, No Hemoptysis, No Pleuritic Pain, No Sputum; Other (SOB at rest) Gastrointestinal: No Nausea, No Vomiting, No Abdominal Pain, No Diarrhea, No Constipation, No Melena, No Hematochezia, No Other Genitourinary: No Dysuria, No Frequency, No Incontinence, No Hematuria, No Retention, No Other Musculoskeletal: No other, No neck pain, No shoulder pain, No arm pain, No back pain, No hand pain, No leg pain, No foot pain Skin: No Rash, No Lesions, No Jaundice, No Bruising; Other (Left foot wound) Objective Vitals Vital Signs Date Time Temp Pulse Resp B/P (MAP) Pulse Ox O2 Delivery O2 Flow Rate FiO2 05/08/25 13:00 98.4 91 16 133/74 (93) 97 98.4 05/08/25 10:15 Nasal Cannula 4.0 05/08/25 10:15 36 Intake/Output Intake and Output 05/08/25 07:00 Intake Total 1390 ml Output Total 3000 ml Balance -1610 ml Intake Oral 1000 ml IV Total 390 ml Output Urine Total 3000 ml Exam Alert awake oriented to place and person comfortable in bed without distress. at bedside. HEENT neck supple no JVD. Heart regular rate and rhythm S1- S2. Lungs fair air movement with a degraded breath sounds in the bases. Abdomen obese soft positive bowel sounds. Mild tenderness tenderness to palpation in all four quadrants without rebound or guarding.. Extremities positive edema. Medications Current Medications Medications Dose Ordered Sig/Elias Route Start Time Stop Time Status Last Admin Dose Admin Vancomycin HCl 0 ml @ 0 mls/hr UD IV 05/06/25 23:45 Levofloxacin/ Dextrose 100 ml @ 100 mls/hr Q24H IV 05/07/25 23:00 05/07/25 23:04 100 MLS/HR Albuterol 2.5 mg Q4HPRN PRN NEB 05/06/25 23:45 Ipratropium [place] 0.5 mg Q4HPRN PRN NEB 05/06/25 23:45 Apixaban 5 mg BID PO 05/07/25 10:00 05/07/25 21:32 5 MG Acetaminophen/ Hydrocodone Bitart 1 tab Q4HP PRN PO 05/06/25 23:45 05/08/25 03:44 1 TAB Ondansetron HCl 4 mg Q4HP PRN IV 05/06/25 23:45 05/08/25 02:25 4 MG Docusate Sodium 100 mg BIDPRN PRN PO 05/06/25 23:45 Acetaminophen 650 mg Q6HP PRN PO 05/06/25 23:45 Nitroglycerin 0.4 mg Q5MINP PRN SL 05/06/25 23:45 Morphine Sulfate 2 mg Q30M PRN IV 05/06/25 23:45 05/08/25 09:10 2 MG Vancomycin HCl 250 ml @ 166.667 mls/hr Q2H IV 05/07/25 01:00 05/07/25 04:29 Cancel Vancomycin HCl 150 ml @ 150 mls/hr Q12H IV 05/07/25 10:00 05/07/25 21:32 150 MLS/HR Furosemide 60 mg BIDD PO 05/07/25 18:00 05/08/25 05:04 60 MG Magnesium Oxide 400 mg DAILY PO 05/08/25 10:00 Morphine Sulfate 4 mg Q4HP PRN IV 05/08/25 11:30 Cancel Morphine Sulfate 4 mg Q4HPRN PRN IV 05/08/25 11:45 05/08/25 12:22 4 MG Laboratory Results Laboratory Tests 05/08/25 05:02 Chemistry Test 05/08/25 05:02 Calcium Level 9.6 mg/dL (8.7-10.4) Magnesium Level 2.3 mg/dL (1.6-2.6) Urinalysis Test 05/07/25 15:25 Urine Color Yellow (Yellow) Urine Clarity Clear (Clear) Urine pH 5.5 (5.0-9.0) Urine Specific [place] 1.023 (1.001-1.035) Urine Protein Trace (Negative) H Urine Ketones Trace (Negative) Urine Blood 2+ /uL (Negative) H Urine Nitrite Negative (Negative) Urine Bilirubin Negative (Negative) Urine Urobilinogen Normal mg/dL (Negative) Urine Leukocyte Esterase Negative /uL (Negative) Urine RBC 4 /hpf (0 - 3) Urine Microscopic WBC 2 /HPF (0-3) Urine Squamous Epithelial Cells None seen /hpf (<5) Urine Bacteria None seen /hpf (None Seen) Urine Mucus Few (None Seen) Urine Glucose Trace mg/dL (Normal) Microbiology Microbiology Date/Time Source Procedure Growth Status 05/07/25 15:25 Voided Urine Urine Culture - Preliminary Resulted 05/06/25 21:45 Blood Blood Culture - Preliminary NO GROWTH AFTER 24 HOURS OF INCUBATION. Resulted Assessment/Plan Assessment/Plan Give him another dose of oral potassium today. Given his abdominal complaints I will order a CT of the abdomen and pelvis with IV contrast. We will repeat H&H to see hemoglobin is stable. We will continue Eliquis for now given history of DVT PE. Otherwise continue rest of supportive care and treatment as he is on. His further clinical management per clinical course and pending evaluations and studies. Discussed with the patient and nurse as well as his who is at bedside regarding care plan. Plan discussed with: Patient, Spouse My Orders Orders - AISHA MORSE MD Procedure Category Date Status Time * Chief Gauger CONS 05/08/[address] Ab Pel With Iv Con CT 05/08/25 Logged Only 11:31 Morphine Sulfate PHA 05/08/25 In Process Injection 11:45 Problem List: (1) Pulmonary embolus (2) Deep vein thrombosis (DVT) (3) History of DVT (deep vein thrombosis) (4) History of COPD (5) Electrolyte imbalance (6) Generalized weakness Date of Service: May 08, 2025 Billing Provider: AISHA MORSE MD Common Visit Codes: [id number] INP/OBS CARE(MOD) AISHA MORSE MD May 08, 2025 13:24
[2025-05-08 13:33] LABS: Hematocrit 33.4 % (41.0-53.0); Hemoglobin 10.4 g/dL (13.5-17.5)
[2025-05-08] MEDS ORDERED: VANCOMYCIN 750MG KIT 100 ML IV SCH (15:00)
--- NOTE | 2025-05-08 15:29 | DVH ---
Indication: Abdominal pain Technique: CT axial images of the abdomen and pelvis are obtained with intravenous contrast. Coronal and sagittal reformats were obtained. Radiation Dose Information: CTDI volume is 18 mGy. Dose-length product is 1148 mGy*cm Comparison: CT CT CHEST/AB/PL W CON- IV ONLY on DOS: 04/18/25 FINDINGS: Lung bases demonstrate bibasilar atelectasis and consolidation. Small bilateral pleural effusions. Re demonstration of bilateral pulmonary emboli most pronounced within the right lower lobe. Extensive le ft pleural nodularity and thickening.m Cardiophrenic lymph nodes measuring up to 2.2 cm. Adrenal glands unremarkable. Evolving splenic infarctions measuring 3.2 cm, 6.4 cm. This is more pro nounced stool in the right midpole measuring 2.5 cm when compared to the previous examination. Pancreas unremarkable. No CT evidence for cholelithiasis. A 1.4 cm right hepatic lobe hypoenhancing l esion. Bilateral nonobstructing renal calculi including right renal calculi measuring up to 1.4 cm, left jessica al calculi up to 6 mm. Bilateral renal cortical cortical enhancement defects which could represent se quela scarring, ATN, infarction Stomach distended. Small bowel loops normal in caliber. Moderate volume stool in the colon. Normal appendix. Abdominal aortic atherosclerotic disease. There is thrombosis of the mid SMA measuring 3.2 cm in cran iocaudal dimension. Periaortic/retroperitoneal lymph nodes measuring up to 2 cm. Perigastric lymph no stephanie measuring up to 1.9 cm. IVC filter. There is likely thrombus within the left iliac, common femoral, superficial femoral veins . Likely thrombus of the IVC. Bladder distended. Presacral edema. No inguinal lymphadenopathy. No aggressive osseous process. 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 Recommend vascular surgery consultation. Evolving splenic infarctions measuring 3.2, 6.4 and 2.5 cm. Bilateral renal cortical enhancement defects which can be secondary to scarring, infection, infarctio n. IVC filter. Thrombus within the common iliac, common femoral, superficial femoral vein on the left. There is also likely thrombosis of the IVC. Extensive nodularity along the left lung base/ pleura consistent with metastatic disease. Cardiophrenic, perigastric, retroperitoneal lymphadenopathy. Right hepatic lobe hypodense lesion measuring 1.4 cm, possibly metastatic lesion. Small bilateral pleural effusions. Bilateral pulmonary emboli. Other findings as described. Critical Result: SMA thrombus Findings discussed with patients nurse Carola Dumas at 05/08/2025 03:27 PM, and acknowledged receip t and understanding of the findings. She will directly communicate finding to the patient's ordering doctor. ..
--- NOTE | 2025-05-08 16:24 | CONS ---
Pharmacy Clinical Information: AFTER VIDEOTAPE RECORDING ENGINEER DRAWS BASELINE APTT SAMPLE, BOLUS 5000 UNITS HEPARIN IV, THEN INITIATE HEPARIN DRIP AT RATE 1800 UNITS/HR (DVT/PE PROTOCOL FOR PATIENT WEIGHT 102.6KG) NEXT APTT DRAW SCHEDULED FOR 2300 PER RX PROTOCOL AMY HERRERA PHARMACIST May 08, 2025 16:24
[2025-05-08] MEDS: HEPARIN SODIUM (PORCINE) 5000 UNITS/ML 1ML VIAL IV ONE (16:40)
[2025-05-08] MEDS: VANCOMYCIN 750mg/150ml 150 ML IV SCH (16:42)
[2025-05-08 16:46] LABS: INR 1.36 (0.9-1.15); Partial Thromboplastin Time 30.2 SEC (24.5-34.5); Prothrombin Time 14.0 sec (9.3-11.8)
[2025-05-08] MEDS: HEPARIN DRIP/D5W 100UNITS/ML 250 ML IV SCH (17:29)
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
[2025-05-08 23:46] LABS: INR 1.39 (0.9-1.15); Prothrombin Time 14.3 sec (9.3-11.8)
[2025-05-09] VITALS (10 sets, daily range): BP systolic 137–146; BP diastolic 79–82; PULSE 97–101; RESP 16–19; TEMP 97.6–98.5; O2SAT 94–98
[2025-05-09 00:01] LABS: Partial Thromboplastin Time 78.7 SEC (24.5-34.5)
[2025-05-09] MEDS: HEPARIN DRIP/D5W 100UNITS/ML 250 ML IV SCH (00:22)
[2025-05-09 06:12] LABS: Hematocrit 33.3 % (41.0-53.0); Hemoglobin 10.4 g/dL (13.5-17.5); Mean Corpuscular Hemoglobin 24.5 pg (28.0-32.0); Mean Corpuscular Volume 78.1 fL (80.0-100.0); Nucleated Red Blood Cells % 0.1 %
[2025-05-09 06:35] LABS: INR 1.37 (0.9-1.15); Partial Thromboplastin Time 60.8 SEC (24.5-34.5); Prothrombin Time 14.1 sec (9.3-11.8)
[2025-05-09 06:38] LABS: Anion Gap 10 (5-15); Calcium 8.8 mg/dL (8.7-10.4)
[2025-05-09 06:43] LABS: BUN/Creatinine Ratio 19.6 (10.0-20.0); Blood Urea Nitrogen 9 mg/dL (9-23); Glucose 105 mg/dL (74-106)
[2025-05-09 06:54] LABS: Carbon Dioxide 32 mmol/L (20-31); Chloride 94 mmol/L (98-107); Potassium 3.2 mmol/L (3.5-5.1); Sodium 136 mmol/L (136-145)
[2025-05-09 11:51] LABS: INR 1.39 (0.9-1.15); Partial Thromboplastin Time 70.0 SEC (24.5-34.5); Prothrombin Time 14.3 sec (9.3-11.8)
--- NOTE | 2025-05-09 13:16 | DVHPN2 ---
Subjective Patient's yesterday afternoon had a CT abdomen pelvis with IV contrast showed a superior mesenteric artery thrombosis. Therefore he is started on IV heparin drip overnight. He is lactic acid done q.4 hours remained normal. Patient feels better without any worsening of abdominal symptoms. No nausea or vomiting. Tolerating clear liquid diet. Pending transferred to higher level of care for further evaluation of SMA thrombosis with the vascular surgery given this hospital does not have vascular surgeon Changes from previous H/P or p: No Changes Eyes: No Pain, No Vision change, No Conjunctivae inflammation, No Eyelid inflammation, No Other, No Redness ENT: No Ear pain, No Ear discharge, No Nose pain, No Nose discharge, No Nose congestion, No Mouth pain, No Mouth swelling, No Throat pain, No Throat swelling, No Other Cardiovascular: Chest Pain; No Palpitations, No Orthopnea, No Paroxysmal Noc. Dyspnea, No Edema, No Lt Headedness, No Other Respiratory: Cough; No Dry; Shortness of breath; No SOB with excertion, No Wheezing, No Hemoptysis, No Pleuritic Pain, No Sputum; Other (SOB at rest) Gastrointestinal: No Nausea, No Vomiting, No Abdominal Pain, No Diarrhea, No Constipation, No Melena, No Hematochezia, No Other Genitourinary: No Dysuria, No Frequency, No Incontinence, No Hematuria, No Retention, No Other Musculoskeletal: No other, No neck pain, No shoulder pain, No arm pain, No back pain, No hand pain, No leg pain, No foot pain Skin: No Rash, No Lesions, No Jaundice, No Bruising; Other (Left foot wound) Objective Vitals Vital Signs Date Time Temp Pulse Resp B/P (MAP) Pulse Ox O2 Delivery O2 Flow Rate FiO2 05/09/25 10:50 97 16 131/70 05/09/25 10:00 95 Nasal Cannula 3.0 05/09/25 10:00 32 05/09/25 08:58 98.0 98.0 Intake/Output Intake and Output 05/09/25 07:00 Intake Total 1186 ml Output Total 250 ml Balance 936 ml Intake Oral 850 ml IV Total 336 ml Output Urine Total 250 ml # Voids 3 # Bowel Movements 1 Exam Comfortable in bed without distress. Abdominal pain is about same as yesterday controlled with morphine. Alert awake oriented x3. HEENT neck supple no JVD. Heart regular rate and rhythm S1-S2. Lungs fair air movement without rales wheezes. Abdomen is obese but soft. Mild tenderness in the periumbilical region without any rebound or guarding. Positive active bowel sounds. Extremities improving edema. Positive pulses. Medications Current Medications Medications Dose Ordered Sig/Elias Route Start Time Stop Time Status Last Admin Dose Admin Vancomycin HCl 0 ml @ 0 mls/hr UD IV 05/06/25 23:45 Levofloxacin/ Dextrose 100 ml @ 100 mls/hr Q24H IV 05/07/25 23:00 05/09/25 00:27 100 MLS/HR Albuterol 2.5 mg Q4HPRN PRN NEB 05/06/25 23:45 Ipratropium [place] 0.5 mg Q4HPRN PRN NEB 05/06/25 23:45 Acetaminophen/ Hydrocodone Bitart 1 tab Q4HP PRN PO 05/06/25 23:45 05/08/25 03:44 1 TAB Ondansetron HCl 4 mg Q4HP PRN IV 05/06/25 23:45 05/08/25 02:25 4 MG Docusate Sodium 100 mg BIDPRN PRN PO 05/06/25 23:45 Acetaminophen 650 mg Q6HP PRN PO 05/06/25 23:45 Nitroglycerin 0.4 mg Q5MINP PRN SL 05/06/25 23:45 Morphine Sulfate 2 mg Q30M PRN IV 05/06/25 23:45 Vancomycin HCl 250 ml @ 166.667 mls/hr Q2H IV 05/07/25 01:00 05/07/25 04:29 Cancel Furosemide 60 mg BIDD PO 05/07/25 18:00 05/08/25 05:04 60 MG Magnesium Oxide 400 mg DAILY PO 05/08/25 10:00 Morphine Sulfate 4 mg Q4HP PRN IV 05/08/25 11:30 Cancel Morphine Sulfate 4 mg Q4HPRN PRN IV 05/08/25 11:45 05/09/25 10:50 4 MG Vancomycin HCl 150 ml @ 150 mls/hr Q8H IV 05/08/25 14:30 05/09/25 05:50 150 MLS/HR Heparin Sodium/ Dextrose 250 ml @ 16 mls/hr [id number] IV 05/09/25 00:15 05/09/25 06:44 16 MLS/HR Laboratory Results Laboratory Tests 05/09/25 04:54 Chemistry Test 05/09/25 04:54 Calcium Level 8.8 mg/dL (8.7-10.4) Coagulation Test 05/08/25 16:20 05/08/25 20:39 05/09/25 04:54 05/09/25 11:22 Prothrombin Time 14.0 sec (9.3-11.8) H 14.3 sec (9.3-11.8) H 14.1 sec (9.3-11.8) H 14.3 sec (9.3-11.8) H Prothrombin Time INR 1.36 (0.9-1.15) H 1.39 (0.9-1.15) H 1.37 (0.9-1.15) H 1.39 (0.9-1.15) H Activated Partial Thromboplast Time 30.2 SEC (24.5-34.5) 78.7 SEC (24.5-34.5) *H 60.8 SEC (24.5-34.5) H 70.0 SEC (24.5-34.5) H Urinalysis Test 05/07/25 15:25 Urine Color Yellow (Yellow) Urine Clarity Clear (Clear) Urine pH 5.5 (5.0-9.0) Urine Specific [place] 1.023 (1.001-1.035) Urine Protein Trace (Negative) H Urine Ketones Trace (Negative) Urine Blood 2+ /uL (Negative) H Urine Nitrite Negative (Negative) Urine Bilirubin Negative (Negative) Urine Urobilinogen Normal mg/dL (Negative) Urine Leukocyte Esterase Negative /uL (Negative) Urine RBC 4 /hpf (0 - 3) Urine Microscopic WBC 2 /HPF (0-3) Urine Squamous Epithelial Cells None seen /hpf (<5) Urine Bacteria None seen /hpf (None Seen) Urine Mucus Few (None Seen) Urine Glucose Trace mg/dL (Normal) Microbiology Microbiology Date/Time Source Procedure Growth Status 05/07/25 15:25 Voided Urine Urine Culture - Preliminary Resulted 05/06/25 21:45 Blood Blood Culture - Preliminary NO GROWTH AFTER 48 HOURS OF INCUBATION. Resulted Assessment/Plan Assessment/Plan Give him another dose of oral potassium today. Continue to transferred to higher level of care for further evaluation with the vascular surgeon and management of his thrombosis. Patient has hypercoagulable state from his underlying lung cancer with a known pulmonary embolism as well as DVT of the legs and thrombosis of the IVC filter. For now we will continue IV heparin drip. Continue current antibiotics and rest of supportive care and treatment. Patient is stable for transfer. Discussed with the patient at bedside regarding his diagnosis and reason for transfer as well as with the nurse. Plan discussed with: Patient, Other My Orders Orders - AISHA MORSE MD Procedure Category Date Status Time Clear Liq Diet DIET 05/08/25 Transmitted Dinner Platelet Monitoring [facility] 05/08/25 In Process 15:34 Vte Protocol Initiated [facility] 05/08/25 In Process 15:34 Heparin Per [facility] 05/08/25 In Process Standardized Proce 15:34 Discontinue All Im [facility] 05/08/25 In Process Injections 15:34 Discharge DISCHARGE 05/08/25 Transmitted 15:38 * Copper Flotation Operator CONS 05/08/25 Transmitted Consult 15:45 Communication Order [facility] 05/08/25 Transmitted 15:54 * Surgical Consult CONS 05/08/25 Transmitted 16:20 Heparin Per Pharmacy [facility] 05/08/25 In Process Protocol 16:17 Cleanse Wound With [facility] 05/08/25 In Process Wound Clean 13:47 Imaging Transfer [facility] 05/08/25 Transmitted Request 18:31 * Radiologist Consult CONS 05/08/25 Transmitted 18:46 Lactic Acid W/ Reflex LAB 05/09/25 Logged Order 12:00 Heparin Drip/D5w PHA 05/09/25 In Process 100units/Ml 00:15 Heparin Per Pharmacy [facility] 05/09/25 In Process Protocol 00:19 Heparin Per Pharmacy [facility] 05/09/25 In Process Protocol 06:54 Potassium Chloride PHA 05/09/25 In Process (Potassium Chloride). 12:45 Problem List: (1) Superior mesenteric artery thrombosis (2) Lung cancer (3) History of DVT (deep vein thrombosis) (4) Pulmonary embolus (5) Electrolyte imbalance (6) Generalized weakness (7) Acute respiratory distress (8) Acute and chronic respiratory failure Date of Service: May 09, 2025 Billing Provider: AISHA MORSE MD Common Visit Codes: [id number] INP/OBS CARE(MOD) AISHA MORSE MD May 09, 2025 13:16
[2025-05-09] MEDS: POTASSIUM CHLORIDE 20 MEQ, LIDOCAINE 1% (LOCAL ANESTH.) 2 ML in SODIUM CHL 0.9% 100 ML IV ONE (13:54)
[2025-05-09 17:48] LABS: INR 1.39 (0.9-1.15); Partial Thromboplastin Time 63.7 SEC (24.5-34.5); Prothrombin Time 14.3 sec (9.3-11.8)
[2025-05-09] MEDS ORDERED: VANCOMYCIN 750mg/150ml 150 ML IV SCH (23:00)
== END 2025-05-09 19:23 | disposition short-term general hospital (02) | DRG 315 ==
LOC: ER 18:09 → EDBD 18:09 → OVERFLOW 23:39 → TELE-WESTW 05-07 23:47
PROVIDERS: ADMIT Hospitalist; ATTEND Hospitalist
DX: T82.868A Thrombosis due to vascular prosthetic devices, implants and grafts, initial encounter (principal); D68.69 Other thrombophilia; J90 Pleural effusion, not elsewhere classified; E87.6 Hypokalemia; Z20.822 Contact with and (suspected) exposure to COVID-19; E11.9 Type 2 diabetes mellitus without complications; I10 Essential (primary) hypertension; J44.9 Chronic obstructive pulmonary disease, unspecified; D73.5 Infarction of spleen; Z85.118 Personal history of other malignant neoplasm of bronchus and lung; Z87.891 Personal history of nicotine dependence; Z86.718 Personal history of other venous thrombosis and embolism; Z88.1 Allergy status to other antibiotic agents; Z88.8 Allergy status to other drugs, medicaments and biological substances; Z79.2 Long term (current) use of antibiotics; Z79.01 Long term (current) use of anticoagulants; Y84.8 Other medical procedures as the cause of abnormal reaction of the patient, or of later complication, without mention of misadventure at the time of the procedure; Y92.89 Other specified places as the place of occurrence of the external cause
CPT/HCPCS: 36415; 36600; 71045; 74177; 80048; 80053; 80202; 81001; 82805; 83605; 83735; 83880; 84484; 85014; 85018; 85025; 85610; 85730; 87040; 87086; 87426; 87804; 93005; 94640; 96365; 96375; 99291; G0378; J1956; J2003; J2405; J3480

== ENCOUNTER 2025-06-11 18:29 | Inpatient (IN) | payer MEDICAID, OTHER ==
[~2025-06-11] VITALS: Ht 182.9 cm; Wt 89.7 kg
--- NOTE | 2025-06-11 18:43 | ECG ---
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
[2025-06-11] MEDS: MIDAZOLAM HCL 2MG/2ML 2ml VIAL (1mg/ml) ONE (18:54)
[2025-06-11] MEDS: MIDAZOLAM HCL 2MG/2ML 2ml VIAL (1mg/ml) IV ONE (18:54)
[2025-06-11] MEDS: IPRATROPIUM BROM 0.5 MG/2.5ML INH SOL NEB ONE (19:07)
[2025-06-11] MEDS: LEVALBUTEROL HCL 1.25 MG/3 ML NEB NEB ONE (19:07)
[2025-06-11 19:10] LABS: Hemoglobin 10.5 g/dL (13.5-17.5)
[2025-06-11 19:12] LABS: Hematocrit 34.1 % (41.0-53.0); Mean Corpuscular Hemoglobin 25.4 pg (28.0-32.0); Mean Corpuscular Volume 82.1 fL (80.0-100.0)
--- NOTE | 2025-06-11 19:12 | ED.PDOC ---
SOB-HPI HPI Comments 54 y.o male presents to the ED via EMS with a c/o of SOB that began earlier today. Patient has a significant medical history of COPD, CHF< HTN., recurrent DVT's and PE, with the most recent PE dx occurring this year (2024). Upon ED arrival, patient was obsered to be tachypneic with labored breathing. He reported attempting a breathing treatment at home w/o relief, prompting a 911 call. EMS administered another breathing treatment on scene, however, his SOB persisted, and his oxygen saturation was in the 80s on RA. Following the Patient was then placed on CPAP and his oxygen saturation increased to 100%. EMS also reported a recent history of abdominal surgery, specifically a resection and bowel procedure, approximately two weeks ago. The patient stated that he had stopped taking his Lasix around the time of the surgery, with the last dose being two weeks ago. Examination of the postoperative abdominal wound revealed no signs of infection, and the surgical dressing remained intact. 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, C-Pap, Oxygen If cough with SOB: Productive Past Medical History PAST MEDICAL HISTORY: COPD, DM, HTN, PE Surgical History: Hernia Repair Surgical History (Other): abdominal surgery Family History Family History: No family hx of DM Social History Smoker: Quit Greater Than 1 Year Alcohol: Denies ETOH Use Drugs: Denies Drug Use Lives In: Home Constitutional: denies: chills, diaphoresis, fatigue, fever, malaise, sweats, w eakness, others EENTM: denies: blurred vision, double vision, ear bleeding, ear discharge, ear drainage, ear pain, ear ringing, eye pain, eye redness, hearing loss, mouth pain, mouth swelling, nasal discharge, nose bleeding, nose congestion, nose pain, photophobia, tearing, throat pain, throat swelling, voice changes, others Respiratory: reports: SOB at rest, shortness of breath, SOB with excertion; de nies: cough, hemoptysis, orthopnea, stridor, wheezing, others Cardiovascular: denies: chest pain, dizzy spells, diaphoresis, Dyspnea on exertion, edema, irregular heart beat, left arm pain, lightheadedness, palpitations, PND, syncope, others Gastrointestinal: denies: abdomen distended, abdominal pain, blood streaked bowels, constipated, diarrhea, dysphagia, difficulty swallowing, hematemesis, melena, nausea, poor appetite, poor fluid intake, rectal bleeding, rectal pain, vomiting, others Genitourinary: denies: burning, dysuria, flank pain, frequency, hematuria, incontinence, penile discharge, penile sore, pain, testicle pain, testicle swelling, urgency, others Neurological: denies: dizziness, fainting, headache, left sided numbness, left sided weakness, numbness, paresthesia, pre-existing deficit, right sided numbness, right sided weakness, seizure, speech problems, tingling, tremors, weakness, others Musculoskeletal: denies: back pain, gout, joint pain, joint swelling, muscle pain, muscle stiffness, neck pain, others Integumetry: denies: bruises, change in color, change in hair/nails, dryness, laceration, lesions, lumps, rash, wounds, others Allergic/Immunocompromised: denies: Difficulty Healing, Frequent Infections, Hives, Itching, others Hematologic/Lymphatic: denies: anemia, blood clots, easy bleeding, easy bruising, swollen glands, others Endocrine: denies: excessive hunger, excessive sweating, excessive thirst, excessive urination, flushing, intolerance to cold, intolerance to heat, unexplained weight gain, unexplained weight loss, others Psychiatric: denies: anxiety, bipolar disorder, depression, hopeless, panic disorder, schizophrenia, sleepless, suicidal, others All Other Systems: Reviewed and Negative Physical Exam General Appearance: Other (Anxious ) HEENT: Normal ENT Inspection, Pharynx Normal, TMs Normal Neck: Full Range of Motion, Non-Tender, Normal, Normal Inspection Respiratory: Accessory Muscle Use, Decreased Breath Sounds (diminished on left side ), Other (tachypneic and labored breathing ) Cardiovascular: No Edema, No JVD, No Murmur, No Gallop, Normal Peripheral Pulses, Regular Rate/Rhythm Breast Exam: Deferred Gastrointestinal: No Organomegaly, Non Tender, No Pulsatile Mass, Normal Bowel Sounds, Soft Genitalia: Deferred Pelvic: Deferred Rectal: Deferred Extremities: No calf tenderness, Normal capillary refill, Normal inspection, Normal range of motion, Non-tender, No pedal edema Musculoskeletal : Apperance: Normal Neurologic: Alert, core maker II-XII nml as Tested, No Motor Deficits, Normal Affect, Normal Mood, No Sensory Deficits Cerebellar Function: Normal Reflexes: Normal Skin: Wounds (Postoperative abdominal wound noted, free from infection, with surgical dressing intact.) Lymphatic: No Adenopathy Was a procedure done? Was a procedure done?: Yes Sedation Sedation?: Yes Informed consent obtained: Yes (19) Sedation start time: 19:51 Sedation end time: 20:01 Sedation total time: Ongoing sedation per intubation protocol Intubation Indication: Respiratory Insufficiency, Airway Protection Prep: Preoxygenation Pretreated with: Sedation Medicated with: Other (etomidate 20mg and rocuronium 100mg and versed 20mg ) Intubation size: cm (8.0 inch tube size and 24 at the teeth ) Notes The patient was successfully intubated using ultrasound guided equipment. An 8.0 tube was advanced and secured 24 at the teeth. Etomidate 20mg, Rocuronium 100mg and Versed 20mg were administered for sedation. Differential Dx Differential Diagnosis: Bronchitis, COPD, Pneumonia, Respiratory Distress, URI X-Ray, Labs, Meds, VS Vital Signs Date Time Temp Pulse Resp B/P (MAP) Pulse Ox O2 Delivery O2 Flow Rate FiO2 06/11/25 19:02 50 06/11/25 18:57 97.4 133 22 166/88 (114) 100 97.4 06/11/25 18:36 130 06/11/25 18:32 133 158/93 Facial BiPAP Mask 100 06/11/25 18:29 97.9 134 40 158/93 99 97.9 Lab Test 06/11/25 20:23 06/11/25 19:00 06/11/25 18:59 06/11/25 18:53 Range/Units Troponin I High Sensitivity Pending 61 *H </=54 ng/L POC Glucose 104 70-106 mg/dl White Blood Count 26.1 H 4.4-10.8 10^3/uL Red Blood Count 4.15 L 4.5-5.90 10^6/uL Hemoglobin 10.5 L 13.5-17.5 g/dL Hematocrit 34.1 L 41.0-53.0 % Mean Corpuscular Volume 82.1 80.0-100.0 fL Mean Corpuscular Hemoglobin 25.4 L 28.0-32.0 pg Mean Corpuscular Hemoglobin Concent 30.9 L 32.0-36.0 g/dL Red Cell Distribution Width 22.6 H 11.8-14.3 % Platelet Count 338 140-450 10^3/uL Mean Platelet Volume 7.7 6.9-10.8 fL Neutrophils (%) (Auto) 37.0-80.0 % Lymphocytes (%) (Auto) 10.0-50.0 % Monocytes (%) (Auto) 0.0-12.0 % Basophils (%) (Auto) 0.0-2.0 % Neutrophils # (Auto) 1.6-8.6 10 ^3/uL Lymphocytes # (Auto) 0.4-5.4 10 ^3/uL Monocytes # (Auto) 0-1.3 10 ^3/uL Differential Total Cells Counted Pending Neutrophils % (Manual) Pending Band Neutrophils % (Manual) Pending Lymphocytes % (Manual) Pending Monocytes % (Manual) Pending Eosinophils % (Manual) Pending Basophils % (Manual) Pending Metamyelocytes % (manual) Pending Myelocytes % (Manual) Pending Promyelocytes % (Manual) Pending Blast Cells % (Manual) Pending Reactive Lymphocytes Pending Platelet Estimate Pending Prothrombin Time 13.7 H 9.3-11.8 sec Prothrombin Time INR 1.33 H 0.9-1.15 Activated Partial Thromboplast Time 31.3 24.5-34.5 SEC D-Dimer, Quantitative 34.73 H 0.0-0.49 mg/L FEU Sodium Level 134 L 136-145 mmol/L Potassium Level 3.5 3.5-5.1 mmol/L Chloride Level 95 L 98-107 mmol/L Carbon Dioxide Level 23 20-31 mmol/L Anion Gap 16 H 5-15 Blood Urea Nitrogen 9 9-23 mg/dL Creatinine 0.43 L 0.700-1.30 mg/dL Glomerular Filtration Rate Calc 128 >90 mL/min BUN/Creatinine Ratio 20.9 H 10.0-20.0 Serum Glucose 95 74-106 mg/dL Calcium Level 9.8 8.7-10.4 mg/dL Total Bilirubin 0.6 0.2-1.0 mg/dL Aspartate Amino Transferase (AST) 46 H 13-40 U/L Alanine Aminotransferase (ALT) 14 7-40 U/L Alkaline Phosphatase 217 H 46-116 U/L B-Type Natriuretic Peptide 174.42 0-100 pg/mL Total Protein 8.0 5.7-8.2 g/dL Albumin 4.4 3.2-4.8 g/dL Arterial Blood pH Pending Current Medications Medications (Trade) Dose Ordered Sig/Elias Route Start Time Stop Time Status Last Admin Midazolam HCl (Versed Injection) 2 mg ONCE ONCE IV 06/11/25 18:45 06/11/25 18:46 DC 06/11/25 18:54 Levalbuterol HCl (Xopenex Medneb) 1.25 mg ONCE ONCE NEB 06/11/25 18:45 06/11/25 18:46 DC 06/11/25 19:07 Ipratropium [place] (Atrovent Medneb) 0.5 mg ONCE ONCE NEB 06/11/25 18:45 06/11/25 18:46 DC 06/11/25 19:07 Azithromycin 250 ml @ 125 mls/hr ONCE ONCE IV 06/11/25 20:15 06/11/25 22:14 06/11/25 20:15 [place] [id number] Ph: [phone] DIAGNOSTIC IMAGING Diagnostic Imaging Report : [id number] Signed PATIENT: CELINE TABOR ACCT: [id number] UNIT: [id number] : 1970 LOC: ER ROOM / BED: / AGE / SEX: 54 / M ADM STATUS: REG ER SERVICE 1841 ORDERING PHYSICIAN: SUMMER MCCARTHY PROCEDURE(s): CXRP - CHEST PORTABLE REASON: sob ORDER NUMBER(s): [id number], ACCESSION NUMBER(s): [id number] CHEST RADIOGRAPH REASON FOR EXAM: Shortness of breath COMPARISON: XY CHEST XRAY 1 VIEW on DOS: 05/06/25, XY CHEST PORTABLE on DOS: 03/23/25, XY CHEST PORTABLE on DOS: 03/16/25, CT ANGIO CHEST CONTRAST on DOS: 11/15/21, CHEST PORTABLE on DOS: 11/15/21 TECHNIQUE: One view of the chest is provided FINDINGS: The lung apices are excluded from view. There is [id number] left pleural effusion. There is small right pleural effusion. There is interstitial and airspace disease in the left lung diffusely. There is right basilar airspace disease, likely atelectasis. IMPRESSION: Aqdmctqp-[id number] left pleural effusion. Diffuse interstitial and airspace opaci ties in the left lung. Right basilar airspace disease, likely atelectasis. ATED BY: LLOYD JAMES MD DICTATED DATE/TIME: 06/11/251921 SIGNED BY: LLOYD JAMES MD SIGNED DATE/TIME: 06/11/251921 CC: Time of 1ST Reevaluation: 19:01 Reevaluation 1ST: Unchanged Time of 2ND Reevaluation: 20:59 (Spoke with Dr. Tarango from [facility] who authorized [facility] for [facility] of care. Authorization number is [id number]. Dr. Tarango reports reviewing patient's Xray done one month ago which showed the left lower lobe pleural effusion/ ) Patient Education/Counseling: Diagnosis, Treatment, Prognosis Family Education/Counseling: No Family Present SEPSIS Sepsis Screen Date sepsis recognized/suspect: Jun 11, 2025 Time Sepsis recognized/suspect: 1824 Recent Procedure: No On Antibiotic Therapy: No Respiratory Rate >20: Yes Heart Rate >90: Yes Temp<36 C (96.8 F) or >38.3 C: No SBP <90 or MAP <65 mmHG: No New Acute Mental Status Change: No Is the patient on CPAP, BIPAP,: Yes Physician Orders Abg W/ Co-Ox (06/11/25 18:30) BIPAP (06/11/25 18:40) Complete Blood Count (06/11/25 18:41) Chest Portable (06/11/25 18:41) Urinalysis (06/11/25 18:41) Troponin-I Hs (06/11/25 19:41) Troponin-I Hs (06/11/25 21:41) Midazolam Drip 50 Mg/50ml (Versed Drip 5 (06/11/25 19:30) Rass Sedation Scale Q1HR (06/11/25 19:20) Manual Differential (06/11/25 18:59) Ngt/Ogt (06/11/25 ) Canales Catheters (06/11/25 ) Azithromycin 500mg/ 250ml (Zithromax 50 (06/11/25 20:15) Ventilator Orders (06/11/25 20:00) Abg W/ Co-Ox (06/11/25 21:00) Respiratory Culture W/ Gs (06/11/25 20:00) Ct Angio Chest Contrast (06/11/25 20:43) Chest Xray 1 View (06/11/25 20:43) Vital Signs Date Time Temp Pulse Resp B/P (MAP) Pulse Ox O2 Delivery O2 Flow Rate FiO2 06/11/25 19:02 50 06/11/25 18:57 97.4 133 22 166/88 (114) 100 97.4 06/11/25 18:36 130 06/11/25 18:32 133 158/93 Facial BiPAP Mask 100 06/11/25 18:29 97.9 134 40 158/93 99 97.9 Laboratory Tests Test 06/11/25 18:59 White Blood Count 26.1 10^3/uL (4.4-10.8) H Medications Medications Dose Ordered Sig/Elias Route Start Time Stop Time Status Last Admin Dose Admin Azithromycin 250 ml @ 125 mls/hr ONCE ONCE IV 06/11/25 20:15 06/11/25 22:14 06/11/25 20:15 Ipratropium [place] 0.5 mg ONCE ONCE NEB 06/11/25 18:45 06/11/25 18:46 DC 06/11/25 19:07 Levalbuterol HCl 1.25 mg ONCE ONCE NEB 06/11/25 18:45 06/11/25 18:46 DC 06/11/25 19:07 Midazolam HCl 2 mg ONCE ONCE IV 06/11/25 18:45 06/11/25 18:46 DC 06/11/25 18:54 Critical Care Note Critical Care Time?: Yes Stability Stability form required: No I personally scribed for SUMMER MCCARTHYP ([facility]) on 06/11/25 at 19:12. Electronically submitted by Sharon Lara ([facility]). I personally scribed for SUMMER MCCARTHY ([facility]) on 06/11/25 at 20:03. Electronically submitted by Sharon Lara ([facility]). I personally scribed for SUMMER MCCARTHY ([facility]) on 06/11/25 at 21:01. Electronically submitted by Sharon Lara ([facility]). I personally scribed for SUMMER MCCARTHY ([facility]) on 06/11/25 at 21:02. Electronically submitted by Sharon Lara ([facility]). SUMMER MCCARTHY Jun 11, 2025 19:12
--- NOTE | 2025-06-11 19:24 | DVH ---
CHEST RADIOGRAPH REASON FOR EXAM: Shortness of breath COMPARISON: XY CHEST XRAY 1 VIEW on DOS: 05/06/25, XY CHEST PORTABLE on DOS: 03/23/25, XY CHEST PORTABL E on DOS: 03/16/25, CT ANGIO CHEST CONTRAST on DOS: 11/15/21, CHEST PORTABLE on DOS: 11/15/21 TECHNIQUE: One view of the chest is provided FINDINGS: The lung apices are excluded from view. There is [id number]-dj-ugpde left pleural effusion. There is small right pleural effusion. There is interstitial and airspace disease in the left lung di ffusely. There is right basilar airspace disease, likely atelectasis. IMPRESSION: Sfjuajcu-zs-pugzt left pleural effusion. Diffuse interstitial and airspace opacities in the left lung . Right basilar airspace disease, likely atelectasis.
[2025-06-11] MEDS ORDERED: ROCURONIUM 10MG/ML 10ML VIAL IV ONE (19:30)
[2025-06-11] MEDS: MIDAZOLAM DRIP 50 mg/50mL 50 ML IV SCH (19:30)
[2025-06-11] MEDS ORDERED: ETOMIDATE (2MG/ML) 20ML VIAL IV ONE (19:30)
[2025-06-11 19:40] LABS: Alanine Aminotransferase 14 U/L (7-40); Albumin 4.4 g/dL (3.2-4.8); Anion Gap 16 (5-15); BUN/Creatinine Ratio 20.9 (10.0-20.0); Bilirubin, Total 0.6 mg/dL (0.2-1.0); Calcium 9.8 mg/dL (8.7-10.4); Carbon Dioxide 23 mmol/L (20-31); Glucose 95 mg/dL (74-106); Potassium 3.5 mmol/L (3.5-5.1); Total Protein 8.0 g/dL (5.7-8.2)
[2025-06-11 19:42] LABS: INR 1.33 (0.9-1.15); Partial Thromboplastin Time 31.3 SEC (24.5-34.5); Prothrombin Time 13.7 sec (9.3-11.8)
[2025-06-11 19:43] LABS: Alkaline Phosphatase 217 U/L (46-116); Blood Urea Nitrogen 9 mg/dL (9-23); Chloride 95 mmol/L (98-107); Sodium 134 mmol/L (136-145)
[2025-06-11] MEDS: MIDAZOLAM DRIP 50 mg/50mL 50 ML IV ONE (19:45)
[2025-06-11] MEDS: ETOMIDATE (2MG/ML) 20ML VIAL IV ONE (19:51)
[2025-06-11] MEDS: ROCURONIUM 10MG/ML 10ML VIAL IV ONE (19:52)
[2025-06-11 19:55] VITALS: BP 132/78; PULSE 135; RESP 18; O2SAT 97
[2025-06-11 20:00] VITALS: PULSE 135; RESP 22; O2SAT 95
[2025-06-11] MEDS: AZITHROMYCIN 500MG/ 250ML 250 ML IV ONE (20:15)
[2025-06-11 21:01] LABS: Base Excess -1.2 mmol/L (-2.0-3.0)
[2025-06-11 21:32] LABS: Urine Protein, UAD 1+ (Negative)
[2025-06-11 21:35] LABS: Total Cells Counted 100.0 (100)
[2025-06-11] MEDS: IOHEXOL 350 MG/ML 100ML IJ ONE ×2 (21:35→23:16)
[2025-06-11 21:42] VITALS: BP 152/90; PULSE 139; RESP 22; O2SAT 97
[2025-06-11] MEDS: METOPROLOL TARTRATE 1MG/1ML-5ML VIAL IV ONE (21:51)
--- NOTE | 2025-06-11 22:12 | DVH ---
CHEST RADIOGRAPH REASON FOR EXAM: intubation COMPARISON: XY CHEST PORTABLE on DOS: 06/11/25, XY CHEST XRAY 1 VIEW on DOS: 05/06/25, XY CHEST PORTABL E on DOS: 03/23/25, XY CHEST PORTABLE on DOS: 03/16/25, CT ANGIO CHEST CONTRAST on DOS: 11/15/21 TECHNIQUE: One view of the chest is provided FINDINGS: The cardiomediastinal silhouette is unchanged. There is an endotracheal tube terminating ap proximately 6.2 cm from the blayne. There is an enteric tube with the tip projecting over the gastric fundus. There is similar appearance of moderate left pleural effusion. There is small right pleural effusion. There is extensive interstitial and airspace opacity in the aerated portion of the left stephanie g. IMPRESSION: Endotracheal tube terminates approximately 6.2 cm from the blayne. Enteric tube tip projects over the stomach. Otherwise unchanged appearance of the chest.
[2025-06-11] MEDS: SODIUM CHLORIDE 0.9% 1,000 ML IV ONE (23:45)
[2025-06-12] VITALS (22 sets, daily range): BP systolic 80–166; BP diastolic 45–88; PULSE 80–135; RESP 18–35; TEMP 96.8–97.4; O2SAT 95–100
[2025-06-12 00:10] LABS: Base Excess -0.9 mmol/L (-2.0-3.0)
[2025-06-12] MEDS: NOREPINEPHRINE 8 MG/250ML KIT 250 ML IV SCH (01:15)
[2025-06-12] MEDS: fentaNYL Drip 2500mCg/250mlNS 250 ML IV SCH (01:15)
--- NOTE | 2025-06-12 03:51 | DVH ---
CTA Chest with intravenous contrast INDICATION: sob COMPARISON: CT CT CHEST/AB/PL W CON- IV ONLY on DOS: 04/18/25, CT CT ANGIO CHEST CONTRAST on DOS: 04/16, CT CT ANGIO CHEST CONTRAST on DOS: 03/23/25, CT CT ANGIO CHEST CONTRAST on DOS: 02/06/25, CT ANGIO CHEST CONTRAST on DOS: 11/15/21 TECHNIQUE: Multidetector spiral CTA of the chest was performed of the chest with intravenous contrast . PULMONARY ANGIOGRAPHY PROTOCOL was utilized using a bolus-tracking technique centered on the main p ulmonary artery. Axial, coronal and sagittal multiplanar and MIP reformats were performed. Radiation Dose : 1. Chest: CTDI volume is 29.6 mGy. Dose-length product is 2.54 mGy*cm The dose indicators for CT are the volume Computed Tomography (CT) Dose Index (CTDIvol) and the Dose Length Product (DLP), and are measured in units of mGy and mGy-cm, respectively. These indicators are not patient dose, but values generated from the CT scanner acquisition factors. The report includes radiation exposure data for exposures received during this examination. Findings: Pulmonary artery: Stable appearing filling defects within the bilateral lower lobe segmental branches of the pulmonary artery, consistent with chronic pulmonary emboli. No new filling defects to suggest new pulmonary em boli. Endotracheal tube tip projects above the level of the blayne. The main pulmonary artery measures 2.7 cm in the ascending thoracic aorta measures 2.9 cm. Atheroscle rotic vascular calcifications. Lower neck: Normal thyroid. Lungs: Multilobulated pleural-based left hemithoracic mass, the largest moiety of which measures 6.6 x 5.6 cm within the posterior apex. Small left and trace right pleural effusions with adjacent atelec tasis. No evidence of pneumothorax. Heart/Vascular Structures: Normal heart size. Trace pericardial effusion. Lymph Nodes: Extensive supraclavicular, mediastinal and bilateral hilar lymphadenopathy including a p revascular node measuring 3.5 x 2.6 cm (image 99, series 5) and a lower paratracheal node measuring 2 .8 x 2.6 cm (image 106, series 5). Left hilar lymphadenopathy moderately attenuates the proximal pulm onary artery. Musculoskeletal: No acute osseous abnormality. Soft tissues: Normal. Upper abdomen: Enteric catheter terminates within the gastric lumen. Limited portions of the upper ab domen are unremarkable. IMPRESSION: 1. Chronic appearing bilateral lower lobe segmental branch pulmonary emboli redemonstrated. No evide nce of new filling defects to suggest new pulmonary emboli. Moderate attenuation of the left main pul monary artery by extensive hilar lymphadenopathy. 2. 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 3. Extensive supraclavicular, mediastinal and bilateral hilar lymphadenopathy consistent with probabl e metastatic disease. 4. Trace pericardial effusion. 5. Endotracheal tube and enteric catheter as above.
[2025-06-12] MEDS ORDERED: NITROGLYCERIN 0.4 MG SL TAB SL PRN (04:30)
[2025-06-12] MEDS ORDERED: ACETAMINOPHEN 325 MG TAB PO PRN (04:30)
[2025-06-12] MEDS: SODIUM CHLORIDE 0.9% 1,000 ML IV ONE (04:30)
[2025-06-12] MEDS ORDERED: MORPHINE SULFATE INJ 2 MG/ml SYRG IV PRN (04:30)
[2025-06-12] MEDS ORDERED: VANCOMYCIN PER PHARMACY 0 MG IV SCH ×2 (04:30→10:30)
[2025-06-12] MEDS ORDERED: ONDANSETRON HCL 4 MG/2 ML VIAL IV PRN (04:30)
--- NOTE | 2025-06-12 04:43 | DVHHP2 ---
History of Present Illness Reason for Visit: SHORTNESS FOR BREATH History of Present Illness 54-YEAR-OLD MALE PRESENTS WITH A ONE DAY HISTORY OF WORSENING SHORTNESS FOR BREATH. PATIENT ARRIVED WITH SEVERE RESPIRATORY DISTRESS WAS PLACED ON CPAP AND OXYGEN SATURATION CONTINUED BEING THE 80S. DECISION WAS MADE TO INTUBATE FOR AIRWAY PROTECTION. 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 PATIENT ALSO HAS A HISTORY OF LUNG CANCER. Past Medical History CHF, PE, HYPERTENSION, DIABETES MELLITUS, COPD, LUNG CANCER Past Surgical History HERNIA REPAIR, BOWEL RESECTION Family History NONCONTRIBUTORY Smoke: No ALCOHOL: none Drugs: None Lives: with Family Review of Systems Review of Systems UNABLE TO COMPLETE REVIEW OF SYSTEMS PATIENT IS SEDATED AND INTUBATED. Allergies: Coded Allergies: Bacitracin (Verified Allergy, Unknown, 03/16/25) Cephalexin (Verified Allergy, Unknown, 04/25/25) Enoxaparin (Verified Allergy, Unknown, 03/16/25) Gabapentin (Verified Allergy, Unknown, 03/16/25) Medications Current Medications Medications Dose Ordered Sig/Elias Route Start Time Stop Time Status Last Admin Dose Admin Midazolam HCl 50 ml @ 1 mls/hr Q24H IV 06/11/25 19:30 06/11/25 19:30 1 MLS/HR Norepinephrine Bitartrate 250 ml @ 3.75 mls/hr Q24H IV 06/12/25 01:15 Fentanyl Citrate 250 ml @ 2.5 mls/hr Q24H IV 06/12/25 01:15 Albuterol 2.5 mg Q6HR NEB 06/12/25 06:00 UNV Piperacillin Sod/ Tazobactam Sod 100 ml @ 25 mls/hr Q8HR IV 06/12/25 06:00 UNV Vancomycin HCl 0 ml @ 0 mls/hr UD IV 06/12/25 04:30 UNV Warfarin Sodium RX PROTOCOL PER PHARMACY PO 06/12/25 04:30 UNV Furosemide 20 mg DAILY IV 06/12/25 10:00 UNV Ipratropium [place] 0.5 mg Q6HPRN PRN NEB 06/12/25 04:30 UNV Ondansetron HCl 4 mg Q4HP PRN IV 06/12/25 04:30 UNV Acetaminophen 650 mg Q6HP PRN PO 06/12/25 04:30 UNV Nitroglycerin 0.4 mg Q5MINP PRN SL 06/12/25 04:30 UNV Morphine Sulfate 2 mg Q30M PRN IV 06/12/25 04:30 UNV Exam Vital Signs Vital Signs Date Time Temp Pulse Resp B/P (MAP) Pulse Ox O2 Delivery O2 Flow Rate FiO2 06/12/25 04:30 108 27 115/72 (86) 96 30 06/12/25 02:30 98.8 98.8 06/11/25 20:00 Mechanical Ventilator+ Exam GEN: 54-YEAR-OLD MALE IN MILD DISTRESS SKIN: WARM, DRY, NORMAL COLOR AND TEXTURE, NO RASH. HEENT: NORMOCEPHALIC ATRAUMATIC, MUCOUS MEMBRANES MOIST AND PINK. NECK: CERVICAL AND SUPRACLAVICULAR NODES NORMAL WITHOUT ENLARGEMENT, TRACHEA IS MIDLINE, THYROID GLAND IS NORMAL WITHOUT MASSES. PULMONARY: DIMINISHED BREATH SOUNDS BILATERALLY CARDIAC: REGULAR RATE AND RHYTHM. NO MURMUR ABDOMEN: SOFT, NONTENDER, NONDISTENDED, BOWEL SOUNDS PRESENT ALL 4 QUADRANTS, NO GUARDING, NO RIGIDITY, NO ORGANOMEGALY, MEDIAL ABDOMINAL SURGICAL INCISION WITH STERI-STRIPS EXTREMITIES: NO CYANOSIS, CLUBBING, NO EDEMA NEURO: CRANIAL NERVES II THROUGH XII GROSSLY INTACT, NORMAL AFFECT AND SPEECH, NO FOCAL MOTOR DEFICITS. Labs/Xrays ORDERING PHYSICIAN: SUMMER MCCARTHY PROCEDURE(s): CXR1 - CHEST XRAY 1 VIEW REASON: intubation ORDER NUMBER(s): [id number], ACCESSION NUMBER(s): [id number] CHEST RADIOGRAPH REASON FOR EXAM: intubation COMPARISON: XY CHEST PORTABLE on DOS: 06/11/25, XY CHEST XRAY 1 VIEW on DOS: 05/06/25, XY CHEST PORTABLE on DOS: 03/23/25, XY CHEST PORTABLE on DOS: 03/16/25, CT ANGIO CHEST CONTRAST on DOS: 11/15/21 TECHNIQUE: One view of the chest is provided FINDINGS: The cardiomediastinal silhouette is unchanged. There is an endotracheal tube terminating approximately 6.2 cm from the blayne. There is an enteric tube with the tip projecting over the gastric fundus. There is similar appearance of moderate left pleural effusion. There is small right pleural effusion. There is extensive interstitial and airspace opacity in the aerated portion of the left lung. IMPRESSION: Endotracheal tube terminates approximately 6.2 cm from the blayne. Enteric tube tip projects over the stomach. Otherwise unchanged appearance of the chest. RING PHYSICIAN: SUMMER MCCARTHY PROCEDURE(s): CTACH - CT ANGIO CHEST CONTRAST REASON: sob ORDER NUMBER(s): [id number], ACCESSION NUMBER(s): [id number] CTA Chest with intravenous contrast INDICATION: sob COMPARISON: CT CT CHEST/AB/PL W CON- IV ONLY on DOS: 04/18/25, CT CT ANGIO CHEST CONTRAST on DOS: 04/16/25, CT CT ANGIO CHEST CONTRAST on DOS: 03/23/25, CT CT ANGIO CHEST CONTRAST on DOS: 02/06/25, CT ANGIO CHEST CONTRAST on DOS: 11/15/21 TECHNIQUE: Multidetector spiral CTA of the chest was performed of the chest with intravenous contrast. PULMONARY ANGIOGRAPHY PROTOCOL was utilized using a bolus-tracking technique centered on the main pulmonary artery. Axial, coronal and sagittal multiplanar and MIP reformats were performed. Radiation Dose : 1. Chest: CTDI volume is 29.6 mGy. Dose-length product is 2.54 mGy*cm The dose indicators for CT are the volume Computed Tomography (CT) Dose Index (CTDIvol) and the Dose Length Product (DLP), and are measured in units of mGy a nd mGy-cm, respectively. These indicators are not patient dose, but values generated from the CT scanner acquisition factors. The report includes radiation exposure data for exposures received during this examination. Findings: Pulmonary artery: Stable appearing filling defects within the bilateral lower lobe segmental branches of the pulmonary artery, consistent with chronic pulmonary emboli. No new filling defects to suggest new pulmonary emboli. Endotracheal tube tip projects above the level of the blayne. The main pulmonary artery measures 2.7 cm in the ascending thoracic aorta measures 2.9 cm. Atherosclerotic vascular calcifications. Lower neck: Normal thyroid. Lungs: Multilobulated pleural-based left hemithoracic mass, the largest moiety of which measures 6.6 x 5.6 cm within the posterior apex. Small left and trace right pleural effusions with adjacent atelectasis. No evidence of pneumothorax. Heart/Vascular Structures: Normal heart size. Trace pericardial effusion. Lymph Nodes: Extensive supraclavicular, mediastinal and bilateral hilar lymphadenopathy including a prevascular node measuring 3.5 x 2.6 cm (image 99, series 5) and a lower paratracheal node measuring 2.8 x 2.6 cm (image 106, series 5). Left hilar lymphadenopathy moderately attenuates the proximal pulmonary artery. Musculoskeletal: No acute osseous abnormality. Soft tissues: Normal. Upper abdomen: Enteric catheter terminates within the gastric lumen. Limited portions of the upper abdomen are unremarkable. IMPRESSION: 1. Chronic appearing bilateral lower lobe segmental branch pulmonary emboli redemonstrated. No evidence of new filling defects to suggest new pulmonary emboli. Moderate attenuation of the left main pulmonary artery by extensive hilar lymphadenopathy. 2. Multilobulated pleural-based left hemithoracic pulmonary mass consistent with probable primary malignancy. 3. Extensive supraclavicular, mediastinal and bilateral hilar lymphadenopathy consistent with probable metastatic disease. 4. Trace pericardial effusion. 5. Endotracheal tube and enteric catheter as above. Labs Test 06/11/25 22:15 06/11/25 21:29 06/11/25 20:50 06/11/25 19:00 Range/Units Lactic Acid Level 2.0 0.4-2.0 mmol/L Troponin I High Sensitivity 61 *H </=54 ng/L Blood Gas Specimen Type Arterial Blood Gas Sample Site Left radial Blood Gas Patient Temperature 37.0 Arterial Blood Date Drawn [id number] Arterial Blood pH 7.255 L 7.350-7.450 Arterial Blood Partial Pressure CO2 62.7 *H 35.0-48.0 mmHg Arterial Blood Partial Pressure O2 104.2 83.0-108.0 mmHg Arterial Blood HCO3 27.2 21.0-28.0 mmol/L Arterial Blood Oxygen Saturation 96.2 94.0-98.0 % Arterial Blood Base Excess -0.9 -2.0-3.0 mmol/L Arterial Blood Oxyhemoglobin 95.0 94.0-98.0 % Arterial Blood Carboxyhemoglobin 0.4 L 0.5-1.5 % Arterial Blood Methemoglobin 0.8 0.0-1.5 % Greg Test Yes Blood Gas Total Hemoglobin 11.00 L 13.5-17.5 g/dL Blood Gas Set Respiration Rate 18.0 Blood Gas Modality Vent - ac Blood Gas Spontaneous Rate 18 FiO2 % 50.0 Blood Gas Tidal Volume 500.0 Blood Gas PEEP or CPAP 5.0 Blood Gas Critical Value Read Back yes Blood Gas Notified Whom camera person doug mccarthy Blood Gas Notified Time [id number] Blood Gas Notified By [employer] resource teacher janett malloy Urine Color Yellow Yellow Urine Clarity Clear Clear Urine pH 6.5 5.0-9.0 Urine Specific [place] 1.018 1.001-1.035 Urine Protein 1+ H Negative Urine Ketones 2+ H Negative Urine Blood 2+ H Negative /uL Urine Nitrite Negative Negative Urine Bilirubin Negative Negative Urine Urobilinogen 2 H Negative mg/dL Urine Leukocyte Esterase Negative Negative /uL Urine RBC 50 0 - 3 /hpf Urine Microscopic WBC 6 H 0-3 /HPF Urine Squamous Epithelial Cells Few <5 /hpf Urine Bacteria None seen None Seen /hpf Urine Mucus Few None Seen Urine Glucose Normal Normal mg/dL POC Glucose 104 70-106 mg/dl Test 06/11/25 18:59 06/11/25 18:53 Range/Units White Blood Count 26.1 H 4.4-10.8 10^3/uL Red Blood Count 4.15 L 4.5-5.90 10^6/uL Hemoglobin 10.5 L 13.5-17.5 g/dL Hematocrit 34.1 L 41.0-53.0 % Mean Corpuscular Volume 82.1 80.0-100.0 fL Mean Corpuscular Hemoglobin 25.4 L 28.0-32.0 pg Mean Corpuscular Hemoglobin Concent 30.9 L 32.0-36.0 g/dL Red Cell Distribution Width 22.6 H 11.8-14.3 % Platelet Count 338 140-450 10^3/uL Mean Platelet Volume 7.7 6.9-10.8 fL Neutrophils (%) (Auto) 37.0-80.0 % Lymphocytes (%) (Auto) 10.0-50.0 % Monocytes (%) (Auto) 0.0-12.0 % Basophils (%) (Auto) 0.0-2.0 % Neutrophils # (Auto) 1.6-8.6 10 ^3/uL Lymphocytes # (Auto) 0.4-5.4 10 ^3/uL Monocytes # (Auto) 0-1.3 10 ^3/uL Differential Total Cells Counted 100.0 100 Neutrophils % (Manual) 90 H 37.0-80.0 Band Neutrophils % (Manual) 0 Lymphocytes % (Manual) 6 L 10.0-50.0 Monocytes % (Manual) 4 0-12 Eosinophils % (Manual) 0 0-7 Basophils % (Manual) 0 0.0-2.0 Metamyelocytes % (manual) 0 Myelocytes % (Manual) 0 Promyelocytes % (Manual) 0 Blast Cells % (Manual) 0 Reactive Lymphocytes 0 Platelet Estimate Adequate Prothrombin Time 13.7 H 9.3-11.8 sec Prothrombin Time INR 1.33 H 0.9-1.15 Activated Partial Thromboplast Time 31.3 24.5-34.5 SEC D-Dimer, Quantitative 34.73 H 0.0-0.49 mg/L FEU Sodium Level 134 L 136-145 mmol/L Potassium Level 3.5 3.5-5.1 mmol/L Chloride Level 95 L 98-107 mmol/L Carbon Dioxide Level 23 20-31 mmol/L Anion Gap 16 H 5-15 Blood Urea Nitrogen 9 9-23 mg/dL Creatinine 0.43 L 0.700-1.30 mg/dL Glomerular Filtration Rate Calc 128 >90 mL/min BUN/Creatinine Ratio 20.9 H 10.0-20.0 Serum Glucose 95 74-106 mg/dL Calcium Level 9.8 8.7-10.4 mg/dL Total Bilirubin 0.6 0.2-1.0 mg/dL Aspartate Amino Transferase (AST) 46 H 13-40 U/L Alanine Aminotransferase (ALT) 14 7-40 U/L Alkaline Phosphatase 217 H 46-116 U/L B-Type Natriuretic Peptide 174.42 0-100 pg/mL Total Protein 8.0 5.7-8.2 g/dL Albumin 4.4 3.2-4.8 g/dL Blood Gas Spontaneous Tidal Volume 566 Blood Gas EPAP 6 Blood Gas IPAP 12 SEPSIS Sepsis Screen Date sepsis recognized/suspect: Jun 11, 2025 Time Sepsis recognized/suspect: 1999 Recent Procedure: No On Antibiotic Therapy: No Respiratory Rate >20: Yes Heart Rate >90: Yes Temp<36 C (96.8 F) or >38.3 C: Yes SBP <90 or MAP <65 mmHG: No New Acute Mental Status Change: No Is the patient on CPAP, BIPAP,: Yes Physician Orders Chest Xray 1 View (06/11/25 20:43) Ventilator Orders (06/12/25 00:24) Norepinephrine 8 Mg/250ml Kit (Levophed) (06/12/25 01:15) Fentanyl Drip 2500mcg/250mlns (06/12/25 01:15) Chest Portable (06/12/25 04:20) Chest Xray 1 View (06/12/25 04:22) Abg W/ Co-Ox (06/12/25 04:21) Albuterol Medneb (Ventolin Medneb) (06/12/25 06:00) Blood Culture (06/12/25 04:21) Piperacillin-Tazob 3.375gm (Zosyn 3.375g (06/12/25 06:00) Vancomycin Per Pharmacy (06/12/25 04:30) Warfarin Per Rx Protocol (Coumadin Per R (06/12/25 04:30) Sodium Chloride 0.9% (06/12/25 04:30) B-Type Natriuretic Peptide (06/12/25 04:21) Furosemide Injection (Lasix Injection) (06/12/25 10:00) *Consult / (06/12/25 04:21) Ipratropium Medneb (Atrovent Medneb) (06/12/25 04:30) Admit (06/12/25 04:21) Ondansetron Hcl (Zofran) (06/12/25 04:30) Complete Blood Count (06/13/25 04:00) Comprehensive Metabolic Panel (06/13/25 04:00) Condition: Unstable (06/12/25 04:21) Acetaminophen Tablet (Tylenol Tablet) (06/12/25 04:30) Bedrest With Bathroom Privileg (06/12/25 04:21) Nitroglycerin Sublingual (Ntrostat Subli (06/12/25 04:30) Morphine Sulfate Injection (06/12/25 04:30) Stat Ekg For Chest Pain (06/12/25 04:21) Notify Of Changes From Base (06/12/25 04:21) Gold Leaf Roller For 24 Hours (06/12/25 04:21) Emergency Dysrhythmia Protocol (06/12/25 04:21) Rhythm Strips Once Every Shift (06/12/25 04:21) Oxygen By Nasal Cannula (06/12/25 04:21) Vital Signs Date Time Temp Pulse Resp B/P (MAP) Pulse Ox O2 Delivery O2 Flow Rate FiO2 06/12/25 04:30 108 27 115/72 (86) 96 30 06/12/25 02:30 74/31 06/12/25 02:30 98.8 96 26 74/31 (45) 96 98.8 06/12/25 02:15 98.8 100 27 80/50 (60) 95 98.8 06/12/25 02:05 100 25 80/45 (57) 97 30 06/12/25 02:00 98.6 100 23 80/45 (57) 100 98.6 06/12/25 02:00 80/45 06/12/25 01:46 98.6 101 22 93/54 (67) 100 98.6 06/12/25 01:30 98.6 101 24 94/56 (69) 100 98.6 06/12/25 01:30 94/56 06/12/25 01:15 98.4 101 26 92/56 (68) 100 98.4 06/12/25 01:00 98.4 102 24 92/58 (69) 100 98.4 06/12/25 01:00 92/58 06/12/25 00:49 103 26 92/58 (69) 99 40 06/12/25 00:45 98.4 104 23 88/55 (66) 100 98.4 06/12/25 00:35 97.4 133 22 166/88 97 50 97.4 06/12/25 00:30 94/53 06/12/25 00:30 98.4 104 23 94/53 (67) 100 98.4 06/12/25 00:15 98.8 105 23 91/52 (65) 100 98.8 06/12/25 00:00 86/50 06/12/25 00:00 99.1 107 24 86/50 (62) 100 99.1 06/11/25 23:45 99.7 110 25 86/50 (62) 100 99.7 06/11/25 23:30 85/43 06/11/25 23:30 100.4 115 23 85/43 (57) 99 100.4 06/11/25 22:51 121 103/55 06/11/25 22:45 100.4 121 22 103/55 (71) 98 100.4 06/11/25 22:30 100.6 120 30 127/71 (89) 99 100.6 06/11/25 22:30 127/71 06/11/25 22:15 100.6 123 35 126/73 (90) 98 100.6 06/11/25 22:00 136/81 06/11/25 22:00 100.6 119 24 136/81 (99) 98 100.6 06/11/25 21:51 138 135/81 06/11/25 21:45 100.8 141 22 139/86 (103) 98 100.8 06/11/25 21:42 139 22 152/90 (110) 97 50 06/11/25 21:40 50 06/11/25 21:30 100.8 138 18 152/90 (110) 98 100.8 06/11/25 21:30 152/90 06/11/25 21:15 100.8 138 18 153/90 (111) 98 100.8 06/11/25 21:00 100.6 140 18 152/90 (110) 98 100.6 06/11/25 21:00 152/90 06/11/25 20:45 100.4 136 18 132/78 (96) 98 100.4 Laboratory Tests Test 06/11/25 18:59 06/11/25 22:15 White Blood Count 26.1 10^3/uL (4.4-10.8) H Lactic Acid Level 2.0 mmol/L (0.4-2.0) Medications Medications Dose Ordered Sig/Elias Route Start Time Stop Time Status Last Admin Dose Admin Azithromycin 250 ml @ 125 mls/hr ONCE ONCE IV 06/11/25 20:15 06/11/25 22:14 DC 06/11/25 20:15 125 MLS/HR Etomidate 20 mg ONCE ONCE IV 06/11/25 20:15 06/11/25 20:16 DC 06/11/25 19:51 20 MG Ipratropium [place] 0.5 mg ONCE ONCE NEB 06/11/25 18:45 06/11/25 18:46 DC 06/11/25 19:07 0.5 MG Levalbuterol HCl 1.25 mg ONCE ONCE NEB 06/11/25 18:45 06/11/25 18:46 DC 06/11/25 19:07 1.25 MG Metoprolol Tartrate 2.5 mg ONCE ONCE IV 06/11/25 21:45 06/11/25 21:46 DC 06/11/25 21:51 2.5 MG Midazolam HCl 2 mg ONCE ONCE IV 06/11/25 18:45 06/11/25 18:46 DC 06/11/25 18:54 2 MG Midazolam HCl 50 ml @ 1 mls/hr Q24H IV 06/11/25 19:30 06/11/25 19:30 1 MLS/HR Rocuronium [place] 100 mg ONCE ONCE IV 06/11/25 20:15 06/11/25 20:16 DC 06/11/25 19:52 100 MG Sodium Chloride 1,000 ml @ 1,000 mls/hr Q1H ONCE IV 06/11/25 23:45 06/12/25 00:44 DC 06/11/25 23:45 1,000 MLS/HR Assessment/Plan Assessment/Plan ASSESSMENT ACUTE HYPOXIC RESPIRATORY FAILURE LEUKOCYTOSIS PULMONARY MASS, LUNG CANCER SECONDARY COAGULOPATHY METASTATIC DISEASE SECONDARY COAGULOPATHY ELEVATED TROPONIN, DOWNTRENDING/DEMAND ISCHEMIA PLAN ADMIT THE PATIENT TO ICU TO THE HOSPITALIST PULMONARY CONSULTATION ZOSYN/VANCOMYCIN MED NEBS RESUME HOME MEDICATIONS CONTINUE TREATMENT PER ORDERS TOTAL CRITICAL CARE TIME EXCLUDING PROCEDURES PERFORMED THIS 55 MINUTES. Plan discussed with: Other My Orders Orders - LLOYD ESPINOZA AGACNP Procedure Category Date Status Time Abg W/ Co-Ox RT 06/12/25 Logged 04:21 Albuterol Medneb PHA 06/12/25 Logged (Ventolin Medneb) 06:00 Blood Culture [facility] 06/12/25 Logged 04:21 Piperacillin-Tazob PHA 06/12/25 Logged 3.375gm (Zosyn 3.375g 06:00 Vancomycin Per PHA 06/12/25 Logged Pharmacy 04:30 Warfarin Per Rx [facility] 06/12/25 Logged Protocol (Coumadin 04:30 Sodium Chloride 0.9% PHA 06/12/25 Logged 04:30 B-Type Natriuretic LAB 06/12/25 Logged Peptide 04:21 Furosemide Injection PHA 06/12/25 Logged (Lasix Injection) 10:00 *Consult CONS 06/12/25 Transmitted / 04:21 Ipratropium Medneb PH[facility] 06/12/25 Logged (Atrovent Medneb) 04:30 Admit ADMIT 06/12/25 Transmitted 04:21 Ondansetron Hcl [facility] 06/12/25 Logged (Zofran) 04:30 Complete Blood Count LAB 06/13/25 Verified 04:00 Comprehensive LAB 06/13/25 Verified Metabolic Panel 04:00 Condition: Unstable [facility] 06/12/25 In Process 04:21 Acetaminophen Tablet [facility] 06/12/25 Logged (Tylenol Tablet) 04:30 Bedrest With Bathroom [facility] 06/12/25 In Process Privileg 04:21 Nitroglycerin [facility] 06/12/25 Logged Sublingual (Ntrostat 04:30 Morphine Sulfate [facility] 06/12/25 Logged Injection 04:30 Stat Ekg For Chest [facility] 06/12/25 In Process Pain 04:21 Notify Md Of Changes [facility] 06/12/25 In Process From Base 04:21 Gold Leaf Roller For [facility] 06/12/25 In Process 24 Hours 04:21 Emergency Dysrhythmia [facility] 06/12/25 In Process Protocol 04:21 Rhythm Strips Once [facility] 06/12/25 In Process Every Shift 04:21 Oxygen By Nasal RT 06/12/25 Transmitted Cannula 04:21 Date of Service: Jun 12, 2025 Billing Provider: LLOYD ESPINOZA Common Visit Codes: [id number] CARE 30-74 MIN LLOYD ESPINOZA Jun 12, 2025 04:43
--- NOTE | 2025-06-12 05:00 | DVH ---
CHEST RADIOGRAPH Indication: central line placement Technique: Single frontal view of the chest was obtained COMPARISON: XY CHEST XRAY 1 VIEW on DOS: 06/11/25, XY CHEST PORTABLE on DOS: 06/11/25, XY CHEST XRAY 1 VIEW on DOS: 05/06/25, XY CHEST PORTABLE on DOS: 03/23/25, XY CHEST PORTABLE on DOS: 03/16/25 FINDINGS: Lines and Tubes: Slight interval advancement of endotracheal tube such that the tip now projects appr oximately 4.4 cm above the level of the blayne. New right subclavian central venous catheter tip proj ects over the expected location of the cavoatrial junction. Enteric catheter unchanged. Lungs: Stable appearing left basilar pulmonary airspace disease and left hemithoracic pleural thicken ing. Stable small bilateral pleural effusions. No pneumothorax. Cardiomediastinal contours: Cardiomegaly. Bones: Unremarkable IMPRESSION: 1. New right subclavian central venous catheter. 2. Interval advancement of endotracheal tube as above. 3. Enteric catheter. 4. Stable left basilar pulmonary airspace disease and left hemithoracic pleural thickening. 5. Small bilateral pleural effusions. 6. Cardiomegaly.
[2025-06-12 05:12] LABS: Base Excess -1.1 mmol/L (-2.0-3.0)
[2025-06-12] MEDS: PIPERACILLIN-TAZOB 3.375GM 100 ML IV SCH ×2 (05:38→15:52)
[2025-06-12] MEDS: IPRATROPIUM BROM 0.5 MG/2.5ML INH SOL NEB PRN (06:33)
[2025-06-12] MEDS: ALBUTEROL SULF 2.5 MG/0.5ML(0.5%) NEB SOLN NEB SCH (06:33)
[2025-06-12] MEDS ORDERED: VANCOMYCIN 1GM/250ML KIT 250 ML IV ONE (07:30)
[2025-06-12] MEDS ORDERED: VANCOMYCIN 1GM/250ML KIT 250 ML IV SCH (08:00)
[2025-06-12 08:06] LABS: INR 1.34 (0.9-1.15); Partial Thromboplastin Time 34.4 SEC (24.5-34.5); Prothrombin Time 13.8 sec (9.3-11.8)
[2025-06-12] MEDS: VANCOMYCIN 1GM/250ML KIT 250 ML IV ONE (08:30)
[2025-06-12] MEDS ORDERED: Glucerna 1.2 Cal 1Liter BOTTLE GT SCH (09:15)
[2025-06-12 09:33] LABS: Hematocrit 28.0 % (41.0-53.0); Hemoglobin 8.6 g/dL (13.5-17.5); Mean Corpuscular Hemoglobin 25.2 pg (28.0-32.0); Mean Corpuscular Volume 82.3 fL (80.0-100.0); Nucleated Red Blood Cells % 0.1 %
[2025-06-12 10:29] LABS: Alanine Aminotransferase 11 U/L (7-40); Albumin 3.5 g/dL (3.2-4.8); Anion Gap 14 (5-15); BUN/Creatinine Ratio 19.0 (10.0-20.0); Calcium 8.9 mg/dL (8.7-10.4); Carbon Dioxide 22 mmol/L (20-31); Chloride 102 mmol/L (98-107); Magnesium 2.0 mg/dL (1.6-2.6); Sodium 138 mmol/L (136-145); Total Protein 6.4 g/dL (5.7-8.2)
[2025-06-12 10:30] LABS: Bilirubin, Total 0.3 mg/dL (0.2-1.0)
[2025-06-12 10:33] LABS: Alkaline Phosphatase 163 U/L (46-116); Blood Urea Nitrogen 8 mg/dL (9-23); Glucose 117 mg/dL (74-106); Potassium 3.5 mmol/L (3.5-5.1)
[2025-06-12] MEDS: FUROSEMIDE 20 MG/2 ML VIAL IV SCH (10:40)
[2025-06-12] MEDS: PANTOPRAZOLE 40 MG/10 ML VIAL INJ IV SCH (10:40)
[2025-06-12] MEDS: methylPREDNISolone SOD SUCC 40 MG/ML VL IV ONE (10:40)
[2025-06-12 12:12] LABS: COVID19 ANTIGEN SOFIA FIA NEGATIVE (NEGATIVE)
[2025-06-12] MEDS: VANCOMYCIN 1GM/250ML KIT 250 ML IV SCH (13:14)
[2025-06-12 13:40] LABS: Benzodiazephine Screen, Urine Neg (NEGATIVE)
[2025-06-12 13:41] LABS: Amphetamine Screen, Urine Neg (NEGATIVE); Barbiturate Scree,Urine Neg (NEGATIVE); Cannabinoid Screen, Urine Neg (NEGATIVE); Cocaine Screen, Urine Neg (NEGATIVE); Opiate Scree,Urine Pos (NEGATIVE); Phencyclidine Screen, Urine Neg (NEGATIVE)
[2025-06-12] MEDS ORDERED: PROPOFOL 100 ML IV SCH (15:30)
--- NOTE | 2025-06-12 17:58 | DVHPNRES ---
Progress Note Date Seen: Jun 12, 2025 Resident Creating Document: MILA KATZ RESIDENT Medical Necessity Reason Pt with a Central, PICC or Fol: Yes The following are medically ne: Central Line, Canales Catheter Subjective Review of Systems Jerrod Mclaughlin is a 54-year-old male with a history of COPD on home oxygen, left lung cancer, chronic PE, DVT bilateral lower extremities, presented to the ED with the chief complaints of worsening of shortness of breath on the day of admission. Per family patient experienced return onset of shortness of breath, family initially told this might be due to pain medication as his breathing difficulty continuously persisted so the called EMS around 4:25 p.m.. On arrival patient was severely respiratory distress and placed on BiPAP but oxygen saturation continued being in 80s so patient was intubated and on mechanical ventilation. Per family patient recently underwent surgery for ischemic bowel due to clot in April. PMH: DVT, PE, left lung cancer,COPD on home oxygen, PSH: Hernia repair, bowel resection Family history: Noncontributory Social history: Lives at home. Former smoker. Denies smoking and other drug abuse Allergies: Bacitracin, cephalexin, enoxaparin, gabapentin Home medications: Eliquis, Lasix, [place], mirtazapine Patient seen and examined at the bedside. Unable to obtain ROS due to patient's clinical status. Patient is currently intubated and mechanical ventilation with RR 22, VT 500, FiO2 30%, peep 5. CT angio showed chronic appearing bilateral lower lobe segmental PE, multilobulated pleural based left hemithoracic pulmonary mass, extensive supraclavicular, mediastinal and bilateral hilar lymphadenopathy consistent with possible metastatic disease and pericardial effusion. Chest x-ray showed opacities. Patient was started on vanc and Zosyn. Discontinued warfarin and switch to therapeutic heparin. Ordered pancultures. Changes from previous H/P or p: No Changes Objective vital signs Vital Sign Date Time Temp Pulse Resp B/P (MAP) Pulse Ox O2 Delivery O2 Flow Rate FiO2 06/12/25 16:30 113/71 06/12/25 16:21 87 29 99 30 06/12/25 16:15 98.3 98.3 06/12/25 09:05 Mechanical Ventilator+ Total Intake and Output 06/11/25 06/11/25 06/12/25 15:00 23:00 07:00 Intake Total 250 ml 1222.5 ml Balance 250 ml 1222.5 ml medications Current Medications Medications Dose Ordered Sig/Elias Route Start Time Stop Time Status Last Admin Dose Admin Midazolam HCl 50 ml @ 1 mls/hr Q24H IV 06/11/25 19:30 06/11/25 19:30 1 MLS/HR Norepinephrine Bitartrate 250 ml @ 3.75 mls/hr Q24H IV 06/12/25 01:15 06/12/25 02:15 3.75 MLS/HR Fentanyl Citrate 250 ml @ 2.5 mls/hr Q24H IV 06/12/25 01:15 06/12/25 03:30 2.5 MLS/HR Albuterol 2.5 mg Q6HR NEB 06/12/25 06:00 06/12/25 12:12 2.5 MG Furosemide 20 mg DAILY IV 06/12/25 10:00 06/12/25 10:40 20 MG Ipratropium Dwight 0.5 mg Q6HPRN PRN NEB 06/12/25 04:30 06/12/25 12:12 0.5 MG Ondansetron HCl 4 mg Q4HP PRN IV 06/12/25 04:30 Acetaminophen 650 mg Q6HP PRN PO 06/12/25 04:30 Nitroglycerin 0.4 mg Q5MINP PRN SL 06/12/25 04:30 Morphine Sulfate 2 mg Q30M PRN IV 06/12/25 04:30 Pantoprazole Sodium 40 mg DAILY IV 06/12/25 10:00 06/12/25 10:40 40 MG Enteral Nutritional Formula 1,000 ml 30ML/HR GT 06/12/25 09:15 Methylprednisolone Sodium Succinate 40 mg BID IV 06/12/25 22:00 Vancomycin HCl 0 ml @ 0 mls/hr UD IV 06/12/25 10:30 Vancomycin HCl 250 ml @ 250 mls/hr Q6H IV 06/12/25 13:00 06/12/25 13:14 250 MLS/HR Piperacillin Sod/ Tazobactam Sod 100 ml @ 25 mls/hr Q6H IV 06/12/25 14:00 06/12/25 15:52 25 MLS/HR Propofol 100 ml @ 3.114 mls/ hr Q24H IV 06/12/25 15:30 Heparin Sodium/ Dextrose 250 ml @ 18.684 mls/ hr [id number] IV 06/12/25 17:00 UNV Examination Pt is lying on bed General Appearance: Sedated and intubated RR 22, VT 500, FiO2 30%, peep 5. HEENT: Atraumatic, Mucous membranes moist/pink, supraclavicular lymphadenopathy Respiratory: Decreased breath sounds and on mechanical ventilation Cardiovascular: Regular rate, Normal S1, Normal S2, No murmurs Abdominal: Active bowel sounds, Soft, no distention, reason surgical sutures intact no signs of infection/inflammation Extremities: 1+ edema and chronic venous stasis changes and some necrotic skin changes Skin: No Significant rash, except past surgical scars Neuro: Deferred but intact pupillary reflex Nurse was there as glaze maker during examination laboratory and microbiology Laboratory Tests 06/12/25 06:36 Test 06/12/25 06:36 Range/Units Serum Glucose 117 H 74-106 mg/dL Microbiology Date/Time Source Procedure Growth Status 06/11/25 20:00 Sputum Gram Stain - Final Resulted 06/11/25 20:00 Sputum Respiratory Culture - Preliminary Resulted Labs and/or images reviewed: Labs reviewed by me, Image(s) reviewed by me Problem List/Assessment/Plan Problem List/Assessment/Plan 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 Possible septic shock likely from pneumonia -continue Levophed -recent echo showed EF 55-60% -monitor hemodynamics RS # acute on chronic hypoxic respiratory failure status post intubation # COPD exacerbation # acute Gram-positive/negative bacterial PNA # left lung cancer with possible metastasis # chronic PE/DVT-status post IVC filter, on heparin drip # ? Possible septic shock likely from pneumonia # left pleural effusion likely from underlying tumor - ICU status - Sedated and intubated - RR 22, VT 500, FiO2 30%, peep 5. - ordered pancultures - CT angio showed chronic appearing bilateral lower lobe segmental PE, multilobulated pleural based left hemithoracic pulmonary mass, extensive supraclavicular, mediastinal and bilateral hilar lymphadenopathy consistent with possible metastatic disease and pericardial effusion. - Chest x-ray showed opacities and pleural effusion - Patient was started on vanc and Zosyn. - Discontinued warfarin and switch to heparin drip -follow up with the [facility] ([place]) for lung cancer treatment -med nebs -Solu-Medrol 40 mg IV b.i.d. -daily ABGs and CXR GI/Yazmin PUD PPX: Protonix /kidney/metabolic -monitor electrolytes -strict I&O -avoid nephrotoxic agents - stop Lasix for now Heme-onc # normocytic hypochromic anemia # anemia of chronic disease likely from lung cancer # hypercoagulable state # chronic PE and DVT -monitor lab for now -heparin drip MSK-Cut Drips Versed Fentanyl Levophed Lines Right subclavian line 06/11 Intubation 06/11 PUD PPX: Protonix VTE PPX: Heparin drip Diet: Glucerna Patient is unstable for transfer to [place] at this point. Goals of care discussed with the patient's family for more than 27 minutes: Full code status Care plan updated to the patient's to the telephone Critical care time spent excluding procedure for more than 113 minutes Case discussed with Dr. Calixto and nurse Plan discussed with: Spouse, Other (rn) My Orders My Orders Orders - MILA KATZ RESIDENT Procedure Category Date Status Time Urine Bacterial FRANKIE 06/12/25 Uncollected Culture 09:11 Pantoprazole PHA 06/12/25 In Process (Protonix) 10:00 Nutritional PHA 06/12/25 In Process Supplements (Glucerna 09:15 Methylprednisolone PHA 06/12/25 In Process Sod Succ (Solu Medrol 22:00 Vancomycin Per PHA 06/12/25 In Process Pharmacy 10:30 Mrsa Screen FRANKIE 06/12/25 In Process 10:26 Vancomycin 1gm/250ml PHA 06/12/25 In Process Kit 13:00 Vancomycin,Trough LAB 06/13/25 Verified 00:00 Vancomycin Per JAMEL 06/13/25 In Process Pharmacy Protoc 01:00 Propofol (Diprivan) PHA 06/12/25 In Process 15:30 Rass Sedation Scale JAMEL 06/12/25 In Process 15:29 Heparin Per JAMEL 06/12/25 In Process Standardized Proce 16:47 Discontinue All Im JAMEL 06/12/25 In Process Injections 16:47 Heparin Drip/D5w PHA 06/12/25 In Process 100units/Ml 17:00 Magnesium LAB 06/13/25 Verified 04:00 Abg W/ Co-Ox RT 06/13/25 Logged 04:00 Chest Portable XY 06/13/25 Logged 04:00 Date of Service: Jun 12, 2025 Billing Provider: LLOYD CALIXTO MD Common Visit Codes: 82917-[id number] CARE 30-74 MIN, 52040-[id number] CARE-EACH +30MIN (x2) MILA KATZ RESIDENT Jun 12, 2025 17:58 LLOYD CALIXTO MD Jun 13, 2025 13:12
[2025-06-12] MEDS: HEPARIN DRIP/D5W 100UNITS/ML 250 ML IV SCH (18:14)
--- NOTE | 2025-06-12 18:24 | DVHINCON2 ---
Date of service: Jun 12, 2025 Referring Physician bere Reason for Consultation lung cancer History of Present Illness HPI pt is a 54 yo male, multiple medical problems, copd, lung cancer, CHF, htn, previous PE, presented with shortness of breath. Pt intubated in the ER, on ac volume control peep 5 Fi02-40% abg reviewed CT chest 1. Chronic appearing bilateral lower lobe segmental branch pulmonary emboli redemonstrated. No evidence of new filling defects to suggest new pulmonary emboli. Moderate attenuation of the left main pulmonary artery by extensive hilar lymphadenopathy. 2. Multilobulated pleural-based left hemithoracic pulmonary mass consistent with probable primary malignancy. 3. Extensive supraclavicular, mediastinal and bilateral hilar lymphadenopathy consistent with probable metastatic disease. 4. Trace pericardial effusion. 5. Endotracheal tube and enteric catheter as above. Home Meds Active Scripts Oxycodone W/ Acetaminophen (Percocet 5/325MG) 1 Tab Tb, 1 TAB PO TID for 5 Days, #15 TAB Prov:[place] [employer] 05/01/25 Amoxicillin & Pot Clavulanate (Augmentin) 500 Mg Tab, 1 TAB PO BID for 5 Days, #10 TAB Prov:[place] [employer] 05/01/25 Oxycodone W/ Acetaminophen (Percocet 5/325MG) 1 Tab Tb, 1 TAB PO TID PRN for 10 Days, #30 TAB Prov:LLOYD CALIXTO MD 04/26/25 Levofloxacin Hemihydrate (LEVAQUIN 500 MG) 500 Mg Tab, 500 MG PO DAILY for 7 Days, #7 TAB Prov:LLOYD CALIXTO MD 04/26/25 Potassium Chloride (Potassium Chloride ER) 20 Meq Tab, 20 MEQ PO BID for 30 Days, #60 TAB 1 Refill Prov:LLOYD CALIXTO MD 04/26/25 Furosemide (Lasix) 40 Mg Tab, 40 MG PO BID for 30 Days, #60 TAB 1 Refill Prov:LLOYD CALIXTO MD 04/26/25 Apixaban Base (ELIQUIS) 5 Mg Tab, 5 MG PO BID for 30 Days, #60 TAB 3 Refills Prov:LLOYD CALIXTO MD 04/26/25 Warfarin Sodium (Warfarin Sodium) 5 Mg Tab, 1 TAB PO DAILY, #30 TAB 5 Refills Prov:GM BURKS MD 03/27/25 Ascorbic Acid (VITAMIN C TABLET) 500 Mg Tb, 500 MG PO BID, #60 TAB Prov:MJ BAEZ MD 11/18/21 Albuterol Sulfate (VENTOLIN MDI) 90 Mcg Ih, 180 MCG IN TIDPRN PRN, #1 INH Prov:MJ BAEZ MD 11/18/21 Reported Medications Hydrocodone-Acetaminophen (Hydrocodone Bitartrate/AC 10-325 mg) 1 Tab Tab, 1 TAB PO Q4HP PRN for PAIN SCALE 1 THRU 6, TAB 03/25/25 Oxycodone W/ Acetaminophen (Percocet 5/325MG) 1 Tab Tb, 2 TAB PO Q6HP PRN for PAIN SCALE 7 THRU 10, #120 TAB 03/25/25 Docusate Sodium (Docusate Sodium) 100 Mg Cap, 100 MG PO BID, CAP 03/24/25 Clindamycin Hcl (CLEOCIN) 150 Mg Cap, 3 CAP PO QID, #40 CAP 03/24/25 Bisacodyl (KP BISACODYL) 5 Mg Tab, 1 TAB PO UD, #4 TAB 03/24/25 Past Medical History Cardiac: CAD, CHF, HTN Pulmonary: COPD Central Nervous System: No pertinent Hx Hemotology/Oncology: No pertinent Hx Hepatobiliary: No pertinent Hx Psychiatric: No pertinent Hx Musculoskeletal: No pertinent Hx Rheumotologic: No pertinent Hx Infectious Disease: No peritnent Hx ENT: No pertinent Hx Renal/: No pertinent Hx Endocrine: No pertinent Hx Dermatology: No pertinent Hx Past Surgical History: No pertinent Hx Patient Family History: Blood clots G8 MOTHER G8 FATHER Review of Systems Comments intubated H&P Exam Vital Signs Vital Signs Date Time Temp Pulse Resp B/P (MAP) Pulse Ox O2 Delivery O2 Flow Rate FiO2 06/12/25 17:15 98.1 86 27 112/70 (84) 99 98.1 06/12/25 16:21 30 06/12/25 09:05 Mechanical Ventilator+ General Appeara: Well developed, Well nourished, Normal Appearance Head Exam: Normal inspection Neck Exam: Normal inspection, Non-tender, Normal alignment Eye Exam: bilateral eye Normal inspection, bilateral eye PERRL Ear Exam: bilateral ear Auricle normal, bilateral ear Canal normal Nasal Exam: Normal inspection Mouth: Normal Inspection Pulmonary/Respiratory: Normal inspection, Normal breath sounds, Chest non- tender Cardiovascular/Chest: Normal inspection Labs/Xrays Labs Test 06/12/25 11:13 06/12/25 10:58 06/12/25 06:36 06/12/25 05:01 Range/Units SARS-CoV-2 Antigen (Rapid) Negative NEGATIVE Influenza Type A Antigen Negative Negative Influenza Type B Antigen Negative Negative White Blood Count 23.2 H 4.4-10.8 10^3/uL Red Blood Count 3.41 L 4.5-5.90 10^6/uL Hemoglobin 8.6 #L 13.5-17.5 g/dL Hematocrit 28.0 #L 41.0-53.0 % Mean Corpuscular Volume 82.3 80.0-100.0 fL Mean Corpuscular Hemoglobin 25.2 L 28.0-32.0 pg Mean Corpuscular Hemoglobin Concent 30.7 L 32.0-36.0 g/dL Red Cell Distribution Width 22.2 H 11.8-14.3 % Platelet Count 270 140-450 10^3/uL Mean Platelet Volume 8.2 6.9-10.8 fL Neutrophils (%) (Auto) 85.0 H 37.0-80.0 % Lymphocytes (%) (Auto) 7.7 L 10.0-50.0 % Monocytes (%) (Auto) 6.7 0.0-12.0 % Eosinophils (%) (Auto) 0.1 0.0-7.0 % Basophils (%) (Auto) 0.5 0.0-2.0 % Neutrophils # (Auto) 19.7 H 1.6-8.6 10 ^3/uL Lymphocytes # (Auto) 1.8 0.4-5.4 10 ^3/uL Monocytes # (Auto) 1.6 H 0-1.3 10 ^3/uL Eosinophils # (Auto) 0 0-0.8 10 ^3/uL Basophils # (Auto) 0.1 0-0.2 10 ^3/uL Nucleated Red Blood Cells 0.1 % Prothrombin Time 13.8 H 9.3-11.8 sec Prothrombin Time INR 1.34 H 0.9-1.15 Activated Partial Thromboplast Time 34.4 24.5-34.5 SEC Sodium Level 138 136-145 mmol/L Potassium Level 3.5 3.5-5.1 mmol/L Chloride Level 102 98-107 mmol/L Carbon Dioxide Level 22 20-31 mmol/L Anion Gap 14 5-15 Blood Urea Nitrogen 8 L 9-23 mg/dL Creatinine 0.42 L 0.700-1.30 mg/dL Glomerular Filtration Rate Calc 129 >90 mL/min BUN/Creatinine Ratio 19.0 10.0-20.0 Serum Glucose 117 H 74-106 mg/dL Hemoglobin A1c 5.4 <5.7 % A1C Calcium Level 8.9 8.7-10.4 mg/dL Magnesium Level 2.0 1.6-2.6 mg/dL Total Bilirubin 0.3 0.2-1.0 mg/dL Aspartate Amino Transferase (AST) 34 13-40 U/L Alanine Aminotransferase (ALT) 11 7-40 U/L Alkaline Phosphatase 163 H 46-116 U/L B-Type Natriuretic Peptide 199.92 0-100 pg/mL Total Protein 6.4 5.7-8.2 g/dL Albumin 3.5 3.2-4.8 g/dL Thyroid Stimulating Hormone (TSH) 1.13 0.55-4.78 uIU/mL Blood Gas Specimen Type Arterial Blood Gas Sample Site Left brachial Blood Gas Patient Temperature 37.0 Arterial Blood Date Drawn [id number] Arterial Blood pH 7.439 7.350-7.450 Arterial Blood Partial Pressure CO2 34.2 L 35.0-48.0 mmHg Arterial Blood Partial Pressure O2 71.0 L 83.0-108.0 mmHg Arterial Blood HCO3 22.7 21.0-28.0 mmol/L Arterial Blood Oxygen Saturation 93.2 L 94.0-98.0 % Arterial Blood Base Excess -1.1 -2.0-3.0 mmol/L Arterial Blood Oxyhemoglobin 92.3 L 94.0-98.0 % Arterial Blood Carboxyhemoglobin 0.5 0.5-1.5 % Arterial Blood Methemoglobin 0.5 0.0-1.5 % Greg Test N/a Blood Gas Total Hemoglobin 10.00 L 13.5-17.5 g/dL Blood Gas Set Respiration Rate 22.0 Blood Gas Modality Vent - ac FiO2 % 30.0 Blood Gas Tidal Volume 500.0 Blood Gas PEEP or CPAP 5.0 Test 06/11/25 22:15 06/11/25 21:29 06/11/25 20:55 06/11/25 20:50 Range/Units Lactic Acid Level 2.0 0.4-2.0 mmol/L Troponin I High Sensitivity 61 *H </=54 ng/L Blood Gas Spontaneous Rate 18 Blood Gas Critical Value Read Back yes Blood Gas Notified Whom platen press operator apprentice doug gomez Blood Gas Notified Time [id number] Blood Gas Notified By ell tutor janett malloy Urine Opiates Screen Pos NEGATIVE Urine Fentanyl Screen Neg NEGATIVE Urine Barbiturates Screen Neg NEGATIVE Urine Phencyclidine Screen Neg NEGATIVE Urine Amphetamines Screen Neg NEGATIVE Urine Benzodiazepines Screen Neg NEGATIVE Urine Cocaine Screen Neg NEGATIVE Urine Cannabinoids Screen Neg NEGATIVE Urine Color Yellow Yellow Urine Clarity Clear Clear Urine pH 6.5 5.0-9.0 Urine Specific [place] 1.018 1.001-1.035 Urine Protein 1+ H Negative Urine Ketones 2+ H Negative Urine Blood 2+ H Negative /uL Urine Nitrite Negative Negative Urine Bilirubin Negative Negative Urine Urobilinogen 2 H Negative mg/dL Urine Leukocyte Esterase Negative Negative /uL Urine RBC 50 0 - 3 /hpf Urine Microscopic WBC 6 H 0-3 /HPF Urine Squamous Epithelial Cells Few <5 /hpf Urine Bacteria None seen None Seen /hpf Urine Mucus Few None Seen Urine Glucose Normal Normal mg/dL Test 06/11/25 19:00 06/11/25 18:59 06/11/25 18:53 Range/Units POC Glucose 104 70-106 mg/dl Differential Total Cells Counted 100.0 100 Neutrophils % (Manual) 90 H 37.0-80.0 Band Neutrophils % (Manual) 0 Lymphocytes % (Manual) 6 L 10.0-50.0 Monocytes % (Manual) 4 0-12 Eosinophils % (Manual) 0 0-7 Basophils % (Manual) 0 0.0-2.0 Metamyelocytes % (manual) 0 Myelocytes % (Manual) 0 Promyelocytes % (Manual) 0 Blast Cells % (Manual) 0 Reactive Lymphocytes 0 Platelet Estimate Adequate D-Dimer, Quantitative 34.73 H 0.0-0.49 mg/L FEU Blood Gas Spontaneous Tidal Volume 566 Blood Gas EPAP 6 Blood Gas IPAP 12 Microbiology Date/Time Source Procedure Growth Status 06/11/25 20:00 Sputum Gram Stain - Final Resulted 06/11/25 20:00 Sputum Respiratory Culture - Preliminary Resulted Assessment/Plan Plan lung cancer chronic PE pneumonia acute resp failure pt seen and examined in the ER labs reviewed CT chest 1. Chronic appearing bilateral lower lobe segmental branch pulmonary emboli redemonstrated. No evidence of new filling defects to suggest new pulmonary emboli. Moderate attenuation of the left main pulmonary artery by extensive hilar lymphadenopathy. 2. Multilobulated pleural-based left hemithoracic pulmonary mass consistent with probable primary malignancy. 3. Extensive supraclavicular, mediastinal and bilateral hilar lymphadenopathy consistent with probable metastatic disease. 4. Trace pericardial effusion. 5. Endotracheal tube and enteric catheter as above. management plan sedation vent support iv heparin drip steroids/bronchodilators for copd abx will f/up on icu crit care time 35 min Plan discussed with: Other (rn) SANJU WILSON MD Jun 12, 2025 18:24
--- NOTE | 2025-06-12 18:32 | CONS ---
Pharmacy Clinical Information: HEPARIN DRIP PER RX PROTOCOL SPOKE TO FLOYD LOYOLA REGARDING NEW HEPARIN DRIP PROTOCOL CURRENT aPTT 34.4 ON 06/12/2025 AT 0636 BOLUS: NO PER MD (FLOYD LOYOLA CLARIFIED WITH MD) INITIAL HEPARIN DRIP RATE: 1900 UNITS/HR ADMINISTERED ON 06/12/2025 AT 1814 NEXT aPTT ON 06/13/2025 AT 0015 FLOYD LOYOLA WAS INFORMED INITIAL HEPARIN DRIP RATE 1900 UNITS/HR VIA NURSING NOTE MARIA C Dobson Jun 12, 2025 18:32
[2025-06-12] MEDS: methylPREDNISolone SOD SUCC 40 MG/ML VL IV SCH (21:28)
[2025-06-13] VITALS (93 sets, daily range): BP systolic 93–129; BP diastolic 50–77; PULSE 79–95; RESP 14–27; TEMP 97.3–98.2; O2SAT 97–100
[2025-06-13 01:12] LABS: INR 1.46 (0.9-1.15); Prothrombin Time 14.9 sec (9.3-11.8)
[2025-06-13 01:13] LABS: Partial Thromboplastin Time 109.6 SEC (24.5-34.5)
[2025-06-13 03:42] LABS: Hemoglobin 8.5 g/dL (13.5-17.5)
[2025-06-13 03:44] LABS: Hematocrit 26.9 % (41.0-53.0); Mean Corpuscular Hemoglobin 25.8 pg (28.0-32.0); Mean Corpuscular Volume 81.5 fL (80.0-100.0)
[2025-06-13 03:57] LABS: Alanine Aminotransferase 10 U/L (7-40); Albumin 3.6 g/dL (3.2-4.8); Anion Gap 14 (5-15); BUN/Creatinine Ratio 28.3 (10.0-20.0); Blood Urea Nitrogen 13 mg/dL (9-23); Calcium 9.3 mg/dL (8.7-10.4); Carbon Dioxide 24 mmol/L (20-31); Chloride 101 mmol/L (98-107); Magnesium 2.1 mg/dL (1.6-2.6); Potassium 3.6 mmol/L (3.5-5.1); Sodium 139 mmol/L (136-145); Total Protein 6.6 g/dL (5.7-8.2)
[2025-06-13 04:04] LABS: Alkaline Phosphatase 163 U/L (46-116); Bilirubin, Total 0.3 mg/dL (0.2-1.0); Glucose 140 mg/dL (74-106)
[2025-06-13 04:37] LABS: Anisocytosis Slight; Total Cells Counted 100.0 (100)
--- NOTE | 2025-06-13 05:27 | DVH ---
CHEST RADIOGRAPH Indication: fu Technique: Single frontal view of the chest was obtained COMPARISON: XY CHEST PORTABLE on DOS: 06/12/25, XY CHEST XRAY 1 VIEW on DOS: 06/11/25, XY CHEST PORTABL E on DOS: 06/11/25, XY CHEST XRAY 1 VIEW on DOS: 05/06/25, XY CHEST PORTABLE on DOS: 03/23/25 FINDINGS: Lines and Tubes: Unchanged. Lungs: Stable appearing left basilar pulmonary airspace disease, left hemithoracic nodular thickening and small bilateral pleural effusions. No pneumothorax. Cardiomediastinal contours: Cardiomegaly. Bones: Unremarkable IMPRESSION: 1. Stable appearing left basilar pulmonary airspace disease, left hemithoracic nodular thickening and small bilateral pleural effusions. 2. Cardiomegaly. 3. Lines and tubes unchanged.
[2025-06-13 07:57] LABS: Base Excess -1.5 mmol/L (-2.0-3.0)
[2025-06-13 09:30] LABS: INR 1.36 (0.9-1.15); Partial Thromboplastin Time 61.7 SEC (24.5-34.5); Prothrombin Time 14.0 sec (9.3-11.8)
--- NOTE | 2025-06-13 09:40 | CONS ---
Pharmacy Clinical Information: HEPARIN DRIP, PULMONARY EMBOLISM PROTOCOL @0845 APTT 61.7 - NO BOLUS, NO CHANGE NEXT APTT DRAW SCHEDULED @1500 PER RX PROTOCOL CONFIRMED AND READ BACK WITH RN MARK WALLACE PHARMACIST Jun 13, 2025 09:40
[2025-06-13] MEDS: HEPARIN DRIP/D5W 100UNITS/ML 250 ML IV SCH (10:28)
--- NOTE | 2025-06-13 13:26 | DVHPNRES ---
Progress Note Date Seen: Jun 13, 2025 Resident Creating Document: MILA KATZ RESIDENT Medical Necessity Reason Pt with a Central, PICC or Fol: Yes The following are medically ne: Central Line, [place] Catheter Subjective Review of Systems Patient seen and examined at the bedside. Unable to obtain ROS due to patient's clinical status, currently intubated on mechanical ventilation. Overnight events reviewed. Patient is stable for transfer to [facility] today to continue critical care management. Changes from previous H/P or p: No Changes Objective vital signs Vital Sign Date Time Temp Pulse Resp B/P (MAP) Pulse Ox O2 Delivery O2 Flow Rate FiO2 06/13/25 12:45 98.1 86 21 116/71 (86) 99 98.1 06/13/25 12:00 30 06/13/25 12:00 Mechanical Ventilator+ Total Intake and Output 06/12/25 06/12/25 06/13/25 15:00 23:00 07:00 Intake Total 325 ml 786.75 ml 357.00 ml Output Total 650 ml 700 ml 375 ml Balance -325 ml 86.75 ml -18.00 ml medications Current Medications Medications Dose Ordered Sig/Elias Route Start Time Stop Time Status Last Admin Dose Admin Midazolam HCl 50 ml @ 1 mls/hr Q24H IV 06/11/25 19:30 06/13/25 10:22 8 MLS/HR Norepinephrine Bitartrate 250 ml @ 3.75 mls/hr Q24H IV 06/12/25 01:15 06/12/25 02:15 3.75 MLS/HR Fentanyl Citrate 250 ml @ 2.5 mls/hr Q24H IV 06/12/25 01:15 06/13/25 10:46 2.5 MLS/HR Albuterol 2.5 mg Q6HR NEB 06/12/25 06:00 06/13/25 11:38 2.5 MG Ipratropium [place] 0.5 mg Q6HPRN PRN NEB 06/12/25 04:30 06/13/25 11:38 0.5 MG Ondansetron HCl 4 mg Q4HP PRN IV 06/12/25 04:30 Acetaminophen 650 mg Q6HP PRN PO 06/12/25 04:30 Nitroglycerin 0.4 mg Q5MINP PRN SL 06/12/25 04:30 Morphine Sulfate 2 mg Q30M PRN IV 06/12/25 04:30 Pantoprazole Sodium 40 mg DAILY IV 06/12/25 10:00 06/13/25 09:29 40 MG Enteral Nutritional Formula 1,000 ml 30ML/HR GT 06/12/25 09:15 Methylprednisolone Sodium Succinate 40 mg BID IV 06/12/25 22:00 06/13/25 09:29 40 MG Vancomycin HCl 0 ml @ 0 mls/hr UD IV 06/12/25 10:30 Piperacillin Sod/ Tazobactam Sod 100 ml @ 25 mls/hr Q6H IV 06/12/25 14:00 06/13/25 09:29 25 MLS/HR Propofol 100 ml @ 3.114 mls/ hr Q24H IV 06/12/25 15:30 Heparin Sodium/ Dextrose 250 ml @ 16 mls/hr [id number] IV 06/13/25 02:30 06/13/25 10:28 16 MLS/HR Vancomycin HCl 200 ml @ 200 mls/hr Q8H IV 06/13/25 16:00 Examination Pt is lying on bed General Appearance: Sedated and intubated RR 22, VT 500, FiO2 30%, peep 5. HEENT: Atraumatic, Mucous membranes moist/pink, supraclavicular lymphadenopathy Respiratory: Decreased breath sounds and on mechanical ventilation Cardiovascular: Regular rate, Normal S1, Normal S2, No murmurs Abdominal: Active bowel sounds, Soft, no distention, reason surgical sutures intact no signs of infection/inflammation Extremities: 1+ edema and chronic venous stasis changes and some necrotic skin changes Skin: No Significant rash, except past surgical scars Neuro: Deferred but intact pupillary reflex Nurse was there as motor vehicle representative during examination laboratory and microbiology Laboratory Tests 06/13/25 02:51 Test 06/13/25 02:51 Range/Units Serum Glucose 140 H 74-106 mg/dL Microbiology Date/Time Source Procedure Growth Status 06/12/25 10:57 Nose MRSA Screen - Final Complete 06/11/25 20:23 Blood Blood Culture - Preliminary NO GROWTH AFTER 24 HOURS OF INCUBATION. Resulted 06/11/25 20:00 Sputum Gram Stain - Final Resulted 06/11/25 20:00 Sputum Respiratory Culture - Preliminary Resulted Labs and/or images reviewed: Labs reviewed by me, Image(s) reviewed by me Problem List/Assessment/Plan Problem List/Assessment/Plan [employer] -sedated with fentanyl and Versed CV[facility] # ? Possible septic shock likely from pneumonia # NSTEMI type 2 likely demand mediated -continue Levophed -recent echo showed EF 55-60% -monitor hemodynamics RS # acute on chronic hypoxic respiratory failure status post intubation # COPD exacerbation # acute Gram-positive/negative bacterial PNA # left lung cancer with possible metastasis # chronic PE/DVT-status post IVC filter, on heparin drip # ? Possible septic shock likely from pneumonia # left pleural effusion likely from underlying tumor - ICU status - Sedated and intubated - RR 22, VT 500, FiO2 30%, peep 5. - ordered pancultures - CT angio showed chronic appearing bilateral lower lobe segmental PE, multilobulated pleural based left hemithoracic pulmonary mass, extensive supraclavicular, mediastinal and bilateral hilar lymphadenopathy consistent with possible metastatic disease and pericardial effusion. - Chest x-ray showed opacities and pleural effusion - Patient was started on vanc and Zosyn. - Discontinued warfarin and switch to heparin drip -follow up with the [facility] for [facility] cancer treatment -med nebs -Solu-Medrol 40 mg IV b.i.d. -daily ABGs and CXR GI/Yazmin PUD PPX: Protonix /kidney/metabolic -monitor electrolytes -strict I&O -avoid nephrotoxic agents - stop Lasix for now Heme-onc # normocytic hypochromic anemia # anemia of chronic disease likely from lung cancer # hypercoagulable state # chronic PE and DVT -monitor lab for now -heparin drip MSK-Cut Drips Versed Fentanyl Levophed Lines Right subclavian line 06/11 Intubation 06/11 PUD PPX: Protonix VTE PPX: Heparin drip Diet: Glucerna Patient is unstable for transfer to [facility] at this point. Goals of care discussed with the patient's family for more than 27 minutes: Full code status Care plan updated to the patient's to the telephone Critical care time spent excluding procedure for more than 113 minutes Case discussed with Dr. Clemente and nurse Plan discussed with: Spouse, Other (rn) My Orders My Orders Orders - MILA KATZ RESIDENT Procedure Category Date Status Time Urine Bacterial FRANKIE 06/12/25 In Process Culture 09:11 Propofol (Diprivan) PHA 06/12/25 In Process 15:30 Rass Sedation Scale JAMEL 06/12/25 In Process 15:29 Discontinue All Im [facility] 06/12/25 In Process Injections 16:47 Abg W/ Co-Ox RT 06/13/25 Logged 04:00 Chest Portable XY 06/13/25 Resulted 04:00 Heparin Protocol [facility] 06/12/25 In Process 18:25 Heparin Drip/D5w PHA 06/13/25 In Process 100units/Ml 02:30 Heparin Per [facility] 06/13/25 In Process Standardized Proce 01:27 * Manager Money CONS 06/13/25 Transmitted Consult Heparin Per Pharmacy [facility] 06/13/25 In Process Protocol 09:40 PTPTT LAB 06/13/25 Logged 15:00 Creatinine LAB 06/14/25 Verified 04:00 Vancomycin,Trough LAB 06/14/25 Verified 15:00 Vancomycin 1gm/200ml PHA 06/13/25 In Process Pm 16:00 Vancomycin Per [facility] 06/14/25 In Process Pharmacy Protoc 16:00 Dietary Evaluation Review Comments: 1. TF: Vital High Protein @60ml/hr, providing 126g Protein, 1440kcal 1204ml free water in 24hrs; initiate infusion rate @30ml/hr, increase 10ml Q6hrs till meeting the goal rate. 2. Reassess and advance diet when pt is extubated. Expected Outcomes/Goals: off vent and healed pressure ulcer, maintain ABW MILA KATZ RESIDENT Jun 13, 2025 13:25
--- NOTE | 2025-06-13 13:31 | DVHDSRES ---
Discharge Summary Date of Admission Resident Creating Document: MILA KATZ RESIDENT Jun 12, 2025 at 04:21 Date of Discharge: Jun 13, 2025 Admitting Diagnosis Acute on chronic hypoxic respiratory failure Labs/Diagnostic Data: Laboratory Results Test 06/13/25 08:45 06/13/25 07:33 06/13/25 02:51 06/13/25 00:17 Prothrombin Time 14.0 sec (9.3-11.8) Prothrombin Time INR 1.36 (0.9-1.15) Activated Partial Thromboplast Time 61.7 SEC (24.5-34.5) Blood Gas Specimen Type Arterial Blood Gas Sample Site Left radial Blood Gas Patient Temperature 37.0 Arterial Blood Date Drawn [id number] Arterial Blood pH 7.394 (7.350-7.450) Arterial Blood Partial Pressure CO2 38.8 mmHg (35.0-48.0) Arterial Blood Partial Pressure O2 75.1 mmHg (83.0-108.0) Arterial Blood HCO3 23.2 mmol/L (21.0-28.0) Arterial Blood Oxygen Saturation 93.2 % (94.0-98.0) Arterial Blood Base Excess -1.5 mmol/L (-2.0-3.0) Arterial Blood Oxyhemoglobin 92.2 % (94.0-98.0) Arterial Blood Carboxyhemoglobin 0.8 % (0.5-1.5) Arterial Blood Methemoglobin 0.3 % (0.0-1.5) Greg Test Modified Blood Gas Total Hemoglobin 11.60 g/dL (13.5-17.5) Blood Gas Set Respiration Rate 22.0 Blood Gas Modality Vent - ac FiO2 % 30.0 Blood Gas Tidal Volume 500.0 Blood Gas PEEP or CPAP 5.0 White Blood Count 26.1 10^3/uL (4.4-10.8) Red Blood Count 3.30 10^6/uL (4.5-5.90) Hemoglobin 8.5 g/dL (13.5-17.5) Hematocrit 26.9 % (41.0-53.0) Mean Corpuscular Volume 81.5 fL (80.0-100.0) Mean Corpuscular Hemoglobin 25.8 pg (28.0-32.0) Mean Corpuscular Hemoglobin Concent 31.6 g/dL (32.0-36.0) Red Cell Distribution Width 21.8 % (11.8-14.3) Platelet Count 225 10^3/uL (140-450) Mean Platelet Volume 8.0 fL (6.9-10.8) Neutrophils (%) (Auto) % (37.0-80.0) Lymphocytes (%) (Auto) % (10.0-50.0) Monocytes (%) (Auto) % (0.0-12.0) Basophils (%) (Auto) % (0.0-2.0) Neutrophils # (Auto) 10 ^3/uL (1.6-8.6) Lymphocytes # (Auto) 10 ^3/uL (0.4-5.4) Monocytes # (Auto) 10 ^3/uL (0-1.3) Differential Total Cells Counted 100.0 (100) Neutrophils % (Manual) 88 (37.0-80.0) Band Neutrophils % (Manual) 0 Lymphocytes % (Manual) 9 (10.0-50.0) Monocytes % (Manual) 3 (0-12) Eosinophils % (Manual) 0 (0-7) Basophils % (Manual) 0 (0.0-2.0) Metamyelocytes % (manual) 0 Myelocytes % (Manual) 0 Promyelocytes % (Manual) 0 Blast Cells % (Manual) 0 Reactive Lymphocytes 0 Platelet Estimate Adequate Large Platelets Few Anisocytosis (manual) Slight Sodium Level 139 mmol/L (136-145) Potassium Level 3.6 mmol/L (3.5-5.1) Chloride Level 101 mmol/L (98-107) Carbon Dioxide Level 24 mmol/L (20-31) Anion Gap 14 (5-15) Blood Urea Nitrogen 13 mg/dL (9-23) Creatinine 0.46 mg/dL (0.700-1.30) Glomerular Filtration Rate Calc 125 mL/min (>90) BUN/Creatinine Ratio 28.3 (10.0-20.0) Serum Glucose 140 mg/dL (74-106) Calcium Level 9.3 mg/dL (8.7-10.4) Magnesium Level 2.1 mg/dL (1.6-2.6) Total Bilirubin 0.3 mg/dL (0.2-1.0) Aspartate Amino Transferase (AST) 34 U/L (13-40) Alanine Aminotransferase (ALT) 10 U/L (7-40) Alkaline Phosphatase 163 U/L (46-116) Total Protein 6.6 g/dL (5.7-8.2) Albumin 3.6 g/dL (3.2-4.8) Vancomycin Level Trough 21.2 ug/mL (5-10) Test 06/12/25 22:41 06/12/25 11:13 06/12/25 10:58 06/12/25 06:36 POC Glucose 171 mg/dl (70-106) SARS-CoV-2 Antigen (Rapid) Negative (NEGATIVE) Influenza Type A Antigen Negative (Negative) Influenza Type B Antigen Negative (Negative) Eosinophils (%) (Auto) 0.1 % (0.0-7.0) Eosinophils # (Auto) 0 10 ^3/uL (0-0.8) Basophils # (Auto) 0.1 10 ^3/uL (0-0.2) Nucleated Red Blood Cells 0.1 % Hemoglobin A1c 5.4 % A1C (<5.7) B-Type Natriuretic Peptide 199.92 pg/mL (0-100) Thyroid Stimulating Hormone (TSH) 1.13 uIU/mL (0.55-4.78) Test 06/11/25 22:15 06/11/25 21:29 06/11/25 20:55 06/11/25 20:50 Lactic Acid Level 2.0 mmol/L (0.4-2.0) Troponin I High Sensitivity 61 ng/L (</=54) Blood Gas Spontaneous Rate 18 Blood Gas Critical Value Read Back yes Blood Gas Notified Whom arnp doug gomez Blood Gas Notified Time [id number] Blood Gas Notified By supervisor shipfitters janett malloy Urine Opiates Screen Pos (NEGATIVE) Urine Fentanyl Screen Neg (NEGATIVE) Urine Barbiturates Screen Neg (NEGATIVE) Urine Phencyclidine Screen Neg (NEGATIVE) Urine Amphetamines Screen Neg (NEGATIVE) Urine Benzodiazepines Screen Neg (NEGATIVE) Urine Cocaine Screen Neg (NEGATIVE) Urine Cannabinoids Screen Neg (NEGATIVE) Urine Color Yellow (Yellow) Urine Clarity Clear (Clear) Urine pH 6.5 (5.0-9.0) Urine Specific [place] 1.018 (1.001-1.035) Urine Protein 1+ (Negative) Urine Ketones 2+ (Negative) Urine Blood 2+ /uL (Negative) Urine Nitrite Negative (Negative) Urine Bilirubin Negative (Negative) Urine Urobilinogen 2 mg/dL (Negative) Urine Leukocyte Esterase Negative /uL (Negative) Urine RBC 50 /hpf (0 - 3) Urine Microscopic WBC 6 /HPF (0-3) Urine Squamous Epithelial Cells Few /hpf (<5) Urine Bacteria None seen /hpf (None Seen) Urine Mucus Few (None Seen) Urine Glucose Normal mg/dL (Normal) Test 06/11/25 18:59 06/11/25 18:53 D-Dimer, Quantitative 34.73 mg/L FEU (0.0-0.49) Blood Gas Spontaneous Tidal Volume 566 Blood Gas EPAP 6 Blood Gas IPAP 12 Other Laboratory Tests 06/13/25 02:51 Brief Hx & Hospital Course: Jerrod Mclaughlin is a 54-year-old male with a complex medical history including COPD on home oxygen, left lung cancer, chronic pulmonary embolism (PE), and bilateral lower extremity deep vein thrombosis (DVT), who presented to the emergency department with acute worsening of shortness of breath. Per family, symptoms began earlier in the day and were initially attributed to pain medication, but due to persistent respiratory distress, EMS was called. On arrival, the patient was in severe respiratory distress with oxygen saturation in the 80s despite BiPAP support, necessitating intubation and mechanical ventilation. The patient is currently sedated with fentanyl and Versed, and ventilated with settings: RR 22, VT 500, FiO? 30%, PEEP 5. CT angiogram revealed chronic bilateral lower lobe segmental PE, a multilobulated pleural-based left hemithoracic pulmonary mass, extensive supraclavicular, mediastinal, and bilateral hilar lymphadenopathy consistent with possible metastatic disease, and a pericardial effusion. Chest X-ray showed opacities and pleural effusion. He was started on vancomycin and Zosyn for suspected pneumonia and septic shock, and anticoagulation was transitioned from warfarin to a therapeutic heparin drip. Pancultures were obtained and are pending. 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 COPD exacerbation,he is currently receiving Solu-Medrol 40 mg IV BID, nebulized bronchodilators, and daily ABGs and chest imaging. Protonix has been initiated for PUD prophylaxis, and Lasix was held to avoid further renal compromise. He is being monitored closely for anemia of chronic disease and hypercoagulable state related to malignancy. He remains on Levophed for hemodynamic support and is clinically and hemodynamically stable for transfer to [place] for continued ICU- level care and oncology follow-up with [facility]. Pt is lying on bed General Appearance: Sedated and intubated RR 22, VT 500, FiO2 30%, peep 5. HEENT: Atraumatic, Mucous membranes moist/pink, supraclavicular lymphadenopathy Respiratory: Decreased breath sounds and on mechanical ventilation Cardiovascular: Regular rate, Normal S1, Normal S2, No murmurs Abdominal: Active bowel sounds, Soft, no distention, reason surgical sutures intact no signs of infection/inflammation Extremities: 1+ edema and chronic venous stasis changes and some necrotic skin changes Skin: No Significant rash, except past surgical scars Neuro: Deferred but intact pupillary reflex Nurse was there as senior storage administrator during examination Operations or Procedures CHEST RADIOGRAPH IMPRESSION: [id number] left pleural effusion. Diffuse interstitial and airspace opacities in the left lung. Right basilar airspace disease, likely atelectasis. CTA Chest with intravenous contrast IMPRESSION: 1. Chronic appearing bilateral lower lobe segmental branch pulmonary emboli redemonstrated. No evidence of new filling defects to suggest new pulmonary emboli. Moderate attenuation of the left main pulmonary artery by extensive hilar lymphadenopathy. 2. Multilobulated pleural-based left hemithoracic pulmonary mass consistent with probable primary malignancy. 3. Extensive supraclavicular, mediastinal and bilateral hilar lymphadenopathy consistent with probable metastatic disease. 4. Trace pericardial effusion. 5. Endotracheal tube and enteric catheter as above. Condition at Discharge: Fair Final Diagnosis/Problems List # Possible septic shock likely from pneumonia # acute on chronic hypoxic respiratory failure status post intubation # NSTEMI type 2 likely due to above # COPD exacerbation # acute Gram-positive/negative bacterial PNA # left lung cancer with possible metastasis # chronic PE/DVT-status post IVC filter, on heparin drip # ? Possible septic shock likely from pneumonia # left pleural effusion likely from underlying tumor # normocytic hypochromic anemia # anemia of chronic disease likely from lung cancer # hypercoagulable state # chronic PE and DVT Discharge Disposition: Acute Care Facility Discharge Instruct/Medications Diet: See Comment Diet comment: npo Activity: Bed rest Follow Up/Referral: fu with [facility] Medications: per dec Scheduled Amoxicillin & Pot Clavulanate (Augmentin), 1 TAB PO BID Apixaban Base (Eliquis), 5 MG PO BID Ascorbic Acid (Vitamin C Tablet), 500 MG PO BID Bisacodyl (Kp Bisacodyl), 1 TAB PO UD, (Reported) Clindamycin Hcl (Cleocin), 3 CAP PO QID, (Reported) Docusate Sodium (Docusate Sodium), 100 MG PO BID, (Reported) Furosemide (Lasix), 40 MG PO BID Levofloxacin Hemihydrate (Levaquin 500 Mg), 500 MG PO DAILY Oxycodone W/ Acetaminophen (Percocet 5/325MG), 1 TAB PO TID Potassium Chloride (Potassium Chloride ER), 20 MEQ PO BID Warfarin Sodium (Warfarin Sodium), 1 TAB PO DAILY Scheduled PRN Albuterol Sulfate (Ventolin Mdi), 180 MCG IN TIDPRN PRN Hydrocodone-Acetaminophen (Hydrocodone Bitartrate/AC 10-325 mg), 1 TAB PO Q4HP PRN for PAIN SCALE 1 THRU 6, (Reported) Oxycodone W/ Acetaminophen (Percocet 5/325MG), 2 TAB PO Q6HP PRN for PAIN SCALE 7 THRU 10, (Reported) Oxycodone W/ Acetaminophen (Percocet 5/325MG), 1 TAB PO TID PRN Discharge Statement: "Patient was advised to return to the ER or call 911 if any headaches, dizziness, shortness of breath, chest pain, abdominal pain, bleeding, fevers, or worsening of medical condition. Patient was counseled about treatment plan, medications, possible side effects, patientverbalized understanding. All questions were answered to the best of my ability. This discharge took greater then 30 minutes in planning, reviewing documentation, counseling the patient, and discussing with other team members." ASSESSMENT ASSESSMENT Assessment acute resp failure MILA KATZ RESIDENT Jun 13, 2025 13:31
[2025-06-13] MEDS ORDERED: VANCOMYCIN 1GM/250ML KIT 250 ML IV SCH (15:00)
[2025-06-13 15:39] LABS: INR 1.36 (0.9-1.15); Partial Thromboplastin Time 58.6 SEC (24.5-34.5); Prothrombin Time 14.0 sec (9.3-11.8)
--- NOTE | 2025-06-13 15:48 | CONS ---
Pharmacy Clinical Information: HEPARIN DRIP, PULMONARY EMBOLISM PROTOCOL @1500 APTT 58.6 - NO BOLUS, NO CHANGE NEXT APTT DRAW SCHEDULED @2100 PER RX PROTOCOL CONFIRMED AND READ BACK WITH RN CAIO ROTHMAN [facility] RESIDENT Jun 13, 2025 15:48
[2025-06-13] MEDS: VANCOMYCIN 1GM/250ML KIT 250 ML IV SCH (16:02)
== END 2025-06-13 20:55 | disposition short-term general hospital (02) | DRG 720 ==
LOC: EDBD 18:29 → ER 18:29 → OVERFLOW 06-12 04:21 → ICU WEST 06-12 22:29
PROVIDERS: ADMIT Internal Medicine; ATTEND Internal Medicine
PROC: 5A09357 Assistance with Respiratory Ventilation, Less than 24 Consecutive Hours, Continuous Positive Airway Pressure (ICD-10-PCS; principal; 2025-06-11)
PROC: 5A1945Z Respiratory Ventilation, 24-96 Consecutive Hours (ICD-10-PCS; 2025-06-11)
PROC: 0BH17EZ Insertion of Endotracheal Airway into Trachea, Via Natural or Artificial Opening (ICD-10-PCS; 2025-06-11)
DX: A41.50 Gram-negative sepsis, unspecified (principal); J96.21 Acute and chronic respiratory failure with hypoxia; R65.21 Severe sepsis with septic shock; I21.A1 Myocardial infarction type 2; J15.69 Pneumonia due to other Gram-negative bacteria; D68.59 Other primary thrombophilia; D68.9 Coagulation defect, unspecified; J15.9 Unspecified bacterial pneumonia; D63.8 Anemia in other chronic diseases classified elsewhere; J44.1 Chronic obstructive pulmonary disease with (acute) exacerbation; Z20.822 Contact with and (suspected) exposure to COVID-19; E11.9 Type 2 diabetes mellitus without complications; I50.9 Heart failure, unspecified; I11.0 Hypertensive heart disease with heart failure; I25.10 Atherosclerotic heart disease of native coronary artery without angina pectoris; D50.9 Iron deficiency anemia, unspecified; J44.0 Chronic obstructive pulmonary disease with (acute) lower respiratory infection; Z88.1 Allergy status to other antibiotic agents; Z88.8 Allergy status to other drugs, medicaments and biological substances; Z86.711 Personal history of pulmonary embolism; Z87.891 Personal history of nicotine dependence; Z79.01 Long term (current) use of anticoagulants; Z86.718 Personal history of other venous thrombosis and embolism; Z85.118 Personal history of other malignant neoplasm of bronchus and lung; Z99.81 Dependence on supplemental oxygen; J91.0 Malignant pleural effusion; Z79.899 Other long term (current) drug therapy
CPT/HCPCS: 31500; 36415; 36600; 71045; 80053; 80202; 80307; 81001; 82805; 82962; 83036; 83605; 83735; 83880; 84443; 84484; 85007; 85025; 85027; 85379; 85610; 85730; 87040; 87070; 87081; 87086; 87088; 87205; 87426; 87804; 93005; 94002; 94003; 94640; 94660; 96374; 96375; G0378; J2250; J2470; J2543